=== PATIENT | male | born 1940 | race Caucasian/White ===

== ENCOUNTER → 2017-02-09 | Outpatient (CLI) | payer BC ==
[~2017-02-09] MED LIST: FAMO20TA11 PO; INDA1TAB3 PO; MCR40 PO; NEBI10TA2 PO; NXM/40 PO
[2017-02-09 12:58] LABS: HEMATOCRIT 43.5 % (42-52); MEAN CORPUSCULAR HEMOGLOBIN 30.3 pg (25-34); MEAN PLATELET VOLUME 10.7 fL (7.4-10.4); PLATELET COUNT 194 K/uL (130-400); RED BLOOD COUNT 4.89 M/uL (4.7-6.1); WHITE BLOOD COUNT 4.19 K/uL (4.8-10.8)
[2017-02-09 13:33] LABS: BLOOD UREA NITROGEN 15 mg/dl (7-18); BUN/CREATININE RATIO 14.9 (10-20); CALCIUM 8.5 mg/dl (8.5-10.1); CARBON DIOXIDE 32 mmol/L (21-32); CHLORIDE 101 mmol/L (98-107); CREATININE 0.97 mg/dl (0.60-1.40); GLUCOSE 98 mg/dl (70-99); POTASSIUM 3.1 mmol/L (3.5-5.1); SODIUM 141 mmol/L (136-145)
== END ==
LOC: C.LABPVFM 10:43
PROVIDERS: ATTEND Family Medicine
DX: E87.6 Hypokalemia (principal); J11.1 Influenza due to unidentified influenza virus with other respiratory manifestations

== ENCOUNTER → 2017-03-04 | Outpatient (CLI) | payer BC ==
[2017-03-04 13:12] LABS: CHOLESTEROL/HDL RATIO 5.1
== END | disposition home or self-care (01) ==
LOC: C.LABPVFM 08:11
PROVIDERS: ATTEND Nurse Practitioner
DX: R89.9 Unspecified abnormal finding in specimens from other organs, systems and tissues (principal); E87.6 Hypokalemia

== ENCOUNTER → 2017-04-17 | Outpatient (CLI) | payer BC ==
[~2017-04-17] MED LIST changes: -INDA1TAB3 PO
== END ==
LOC: C.LABPVFM 10:21
PROVIDERS: ATTEND Nurse Practitioner
DX: E87.6 Hypokalemia (principal)

== ENCOUNTER → 2017-05-11 | Outpatient (CLI) | payer BC ==
[2017-05-11 13:35] LABS: BLOOD UREA NITROGEN 15 mg/dl (7-18); BUN/CREATININE RATIO 17.5 (10-20); CARBON DIOXIDE 33 mmol/L (21-32); CHLORIDE 100 mmol/L (98-107); CREATININE 0.88 mg/dl (0.60-1.40); GLUCOSE 106 mg/dl (70-99); POTASSIUM 3.5 mmol/L (3.5-5.1); SODIUM 142 mmol/L (136-145)
[2017-05-11 13:37] LABS: CALCIUM 8.7 mg/dl (8.5-10.1)
== END | disposition home or self-care (01) ==
LOC: C.LABPVFM 10:12
PROVIDERS: ATTEND Family Medicine
DX: R63.5 Abnormal weight gain (principal); R06.00 Dyspnea, unspecified; I10 Essential (primary) hypertension

== ENCOUNTER → 2017-05-31 | Outpatient (CLI) | payer BC ==
--- NOTE | 2017-05-31 10:34 | DIAGNOSTIC IMAGING REPORT ---
THYROID ULTRASOUND HISTORY: Dysphagia E04.2 Multiple thyroid [id number] Dysphagia needs [id number] COMPARISON: 12/06/2015 FINDINGS: Right lobe: Maximum dimension 4.7 cm. 2.8 x 2.5 x 1.6 cm nodule within the right thyroid lobe unchanged. Several smaller adjacent nodule. Left lobe: Maximum dimension 3.8 centers. Several nodules measuring up to 1 cm. The thyroid isthmus nodules also similar. Isthmus: As above IMPRESSION: Multinodular thyroid study unchanged from the prior study. Electronically signed by: Jignesh Moraes M.D. 05/31/2017 10:33 AM Dictated Date/Time: 05/31/2017 10:31 AM
== END | disposition home or self-care (01) ==
LOC: C.ULTR 10:03
PROVIDERS: ATTEND Nurse Practitioner
DX: E04.2 Nontoxic multinodular goiter (principal); R13.10 Dysphagia, unspecified

== ENCOUNTER → 2017-07-12 | Outpatient (CLI) | payer BC ==
[2017-07-12 13:52] LABS: CHOLESTEROL/HDL RATIO 4.8
== END | disposition home or self-care (01) ==
LOC: C.LABPVFM 08:31
PROVIDERS: ATTEND Nurse Practitioner
DX: E78.00 Pure hypercholesterolemia, unspecified (principal)

== ENCOUNTER → 2017-08-22 | Outpatient (CLI) | payer BC ==
--- NOTE | 2017-08-22 11:57 | DIAGNOSTIC IMAGING REPORT ---
ULTRASOUND GUIDED FINE NEEDLE ASPIRATION OF RIGHT LOBE THYROID NODULE CLINICAL HISTORY: Right lobe thyroid nodule. COMPARISON STUDY: Thyroid ultrasound May 31, 2017. PROCEDURE: The procedure, risks and benefits were discussed with the patient. The patient agreed to the procedure and informed written consent was obtained. Sonography revealed the 2.8 cm right lobe nodule which was targeted for fine needle aspiration. Skin was prepped and draped in sterile fashion and local anesthesia achieved with 1% lidocaine. Under direct ultrasound guidance, 3 25-gauge fine needle aspirations were performed. Samples were deemed preliminarily adequate by pathology. The patient tolerated the procedure well and no immediate complications were evident. IMPRESSION: Ultrasound guided fine needle aspiration of 2.8 cm right lobe thyroid nodule. Electronically signed by: Clive Simms M.D. 08/22/2017 11:56 AM Dictated Date/Time: 08/22/2017 11:37 AM
== END | disposition home or self-care (01) ==
LOC: C.ULTR 10:22
DX: E04.1 Nontoxic single thyroid nodule (principal)

== ENCOUNTER → 2017-11-01 | Outpatient (CLI) | payer BC ==
[2017-11-01 13:12] LABS: BLOOD UREA NITROGEN 16 mg/dl (7-18); BUN/CREATININE RATIO 19.8 (10-20); CALCIUM 9.1 mg/dl (8.5-10.1); CARBON DIOXIDE 34 mmol/L (21-32); CHLORIDE 100 mmol/L (98-107); CREATININE 0.79 mg/dl (0.60-1.40); GLUCOSE 126 mg/dl (70-99); POTASSIUM 3.4 mmol/L (3.5-5.1); SODIUM 136 mmol/L (136-145)
== END | disposition home or self-care (01) ==
LOC: C.LABPVFM 10:03
PROVIDERS: ATTEND Nurse Practitioner
DX: I10 Essential (primary) hypertension (principal)

== ENCOUNTER 2018-01-16 20:02 | Emergency (ER) | payer BC ==
[~2018-01-16] VITALS: Ht 175.3 cm; Wt 110.0 kg
[~2018-01-16 20:02] MED LIST changes: -NXM/40 PO
[2018-01-16 20:21] VITALS: TEMP 36.7; Ht 175.3 cm; Wt 110.0 kg
[2018-01-16] MEDS ORDERED: NXM/40 PO (21:14)
--- NOTE | 2018-01-16 22:34 | EMERGENCY ROOM VISIT NOTE ---
History Report prepared by [place]: Marvin Quintero Under the Supervision of: Dr. Justin Malone D.O. First contact with patient: 22:19 Chief Complaint: BACK PAIN Stated Complaint: HIGH BLOOD PRESSURE-191/81. SOB, BACK PAIN History of Present Illness The patient is a 77 year old male with a history of hypertension who presents to the Emergency Room with complaints of worsening bilateral low back pain that started earlier this week. He states that he has been to a chiropractor in the past, so he had an adjustment done 2 days ago, but the pain has been gradually getting worse over the course of the week. He adds that recently he has been having some trouble breathing. The patient says that he has had back pain in the past, and he did fracture his lower back in 2005 taking covers off a swimming pool. He states this his current back pain is worsened with movement. Per the patient's , the patient's feet have been puffy for a while. The patient denies any chest pain or abdominal pain. He notes no history of heart issues. The patient has been taking Aleve for the back pain. Source of History: patient Onset: Earlier this week Position: back (lower bilateral) Symptom Intensity: gradually getting worse to the point needing to come here Quality: other (hx of back pain and fracture) Timing: worsening Associated Symptoms: + SOB, No chest pain, No abdominal pain Note: Associated symptoms: Feet swelling. Review of Systems See HPI for pertinent positives & negatives. A total of 10 systems reviewed and were otherwise negative. Past Medical & Surgical Medical Problems: (1) Colon polyps (2) Hearing loss (3) Osteopenia (4) Reflux (5) T12 compression fracture Surgical Problems: (1) H/O colonoscopy Family History Patient reports no known family medical history. Social History Smoking Status: Never Smoker Marital Status: Housing Status: lives with family Occupation Status: employed Current/Historical Medications Scheduled Amlodipine Besylate (Amlodipine Besylate), 5 MG PO DAILY Cholecalciferol (Vitamin D), 2,000 UNITS PO DAILY Esomeprazole Magnesium (Nexium), 40 MG PO DAILY Fluticasone Propionate (Nasal) (Flonase Allergy Relief), 1 SPRAY AMY BID Indapamide (Indapamide), 1.25 MG PO DAILY Polyethylene Glycol 3350 (Miralax), 17 GM PO DAILY Potassium Chloride (Potassium Chloride Er), 10 MEQ PO DAILY Telmisartan (Telmisartan), 40 MG PO DAILY Scheduled PRN Famotidine (Famotidine), 20 MG PO Q12 PRN for ACID REFLUX Oxycodone Immediate Rel Tab (Roxicodone Ir), 1-2 TAB PO Q4H PRN for Severe Pain Allergies Coded Allergies: CI Pigment Blue 63 (Verified Allergy, Unknown, BRADYCARDIA, 01/16/18) Cefaclor (Verified Allergy, Unknown, ., 01/16/18) Cyclobenzaprine (Verified Allergy, Unknown, UNKNOWN, 01/16/18) Nebivolol (Verified Allergy, Unknown, BRADYCARDIA, 01/16/18) Penicillins (Verified Allergy, Unknown, ., 01/16/18) Sulfa Antibiotics (Verified Allergy, Unknown, ., 01/16/18) Yellow Dye (Verified Allergy, Unknown, BRADYCARDIA, 01/16/18) Uncoded Allergies: BENGAY (Adverse Reaction, Unknown, ARTHRITIS, 01/16/18) Physical Exam Vital Signs Date Time Temp Pulse Resp B/P (MAP) Pulse Ox O2 Delivery O2 Flow Rate FiO2 01/17/18 00:27 80 16 153/61 95 Room Air 01/16/18 22:37 76 01/16/18 22:27 78 16 181/60 96 Room Air 01/16/18 20:21 36.7 87 22 152/81 95 Room Air Physical Exam GENERAL: Patient is awake, alert, somewhat anxious appearing and uncomfortable. EYES: The conjunctivae are clear. The pupils are round and reactive. EARS, NOSE, MOUTH AND THROAT: The nose is without any evidence of any deformity. Mucous membranes are moist tongue is midline NECK: The neck is nontender and supple. RESPIRATORY: Lung sounds are diminished at both bases. No tachypnea or conversational dyspnea noted. CARDIOVASCULAR: Regular rate and rhythm noted there no murmurs rubs or gallops normal S1 normal S2 GASTROINTESTINAL: The abdomen is mildly distended but soft. No tenderness, guarding, or rigidity. BACK: There was diffuse lumbar spine tenderness to palpation. No stepoff noted. Range of motion testing revealed pain. MUSCULOSKELETAL/EXTREMITIES: There is no evidence of gross deformity full range of motion is noted in the hips and shoulders SKIN: Pedal edema bilaterally. NEUROLOGIC: Patient is awake alert and oriented x3. Patellar tendon reflexes are 2+ bilaterally. Medical Decision & Procedures ER Provider Diagnostic Interpretation: X-ray results as stated below per interpretation by me: Lumbar spine: significant compression fractures noted T12 and L1. Alignment appears normal. Nonspecific bowel gas pattern noted. Chest 2-views: reveals no definite infiltrate, no free air. Laboratory Results 01/16/18 23:44 Red Blood Count 4.30, Mean Corpuscular Volume 89.1, Mean Corpuscular Hemoglobin 29.5, Mean Corpuscular Hemoglobin Concent 33.2, Mean Platelet Volume 9.4, Neutrophils (%) (Auto) 75.6, Lymphocytes (%) (Auto) 10.6, Monocytes (%) (Auto) 11.8, Eosinophils (%) (Auto) 1.3, Basophils (%) (Auto) 0.1, Neutrophils # (Auto ) 7.73, Lymphocytes # (Auto) 1.08, Monocytes # (Auto) 1.20, Eosinophils # (Auto ) 0.13, Basophils # (Auto) 0.01 01/16/18 23:44 Test 01/16/18 21:52 01/16/18 23:44 Urine Color YELLOW Urine Appearance CLEAR (CLEAR) Urine pH 7.5 (4.5-7.5) Urine Specific [place] 1.012 (1.000-1.030) Urine Protein NEG (NEG) Urine Glucose (UA) 2+ (NEG) Urine Ketones NEG (NEG) Urine Occult Blood NEG (NEG) Urine Nitrite NEG (NEG) Urine Bilirubin NEG (NEG) Urine Urobilinogen NEG (NEG) Urine Leukocyte Esterase NEG (NEG) White Blood Count 10.21 K/uL (4.8-10.8) Red Blood Count 4.30 M/uL (4.7-6.1) Hemoglobin 12.7 g/dL (14.0-18.0) Hematocrit 38.3 % (42-52) Mean Corpuscular Volume 89.1 fL (80-100) Mean Corpuscular Hemoglobin 29.5 pg (25-34) Mean Corpuscular Hemoglobin Concent 33.2 g/dl (32-36) Platelet Count 282 K/uL (130-400) Mean Platelet Volume 9.4 fL (7.4-10.4) Neutrophils (%) (Auto) 75.6 % Lymphocytes (%) (Auto) 10.6 % Monocytes (%) (Auto) 11.8 % Eosinophils (%) (Auto) 1.3 % Basophils (%) (Auto) 0.1 % Neutrophils # (Auto) 7.73 K/uL (1.4-6.5) Lymphocytes # (Auto) 1.08 K/uL (1.2-3.4) Monocytes # (Auto) 1.20 K/uL (0.11-0.59) Eosinophils # (Auto) 0.13 K/uL (0-0.5) Basophils # (Auto) 0.01 K/uL (0-0.2) RDW Standard Deviation 48.5 fL (36.4-46.3) RDW Coefficient of Variation 14.8 % (11.5-14.5) Immature Granulocyte % (Auto) 0.6 % Immature Granulocyte # (Auto) 0.06 K/uL (0.00-0.02) Prothrombin Time 10.5 SECONDS (9.0-12.0) Prothromb Time International Ratio 1.0 (0.9-1.1) Activated Partial Thromboplast Time 27.1 SECONDS (21.0-31.0) Partial Thromboplastin Ratio 1.0 Anion Gap 5.0 mmol/L (3-11) Est Creatinine Clear Calc Drug Dose 90.4 ml/min Estimated GFR () 98.0 Estimated GFR (Non- 84.5 BUN/Creatinine Ratio 23.8 (10-20) Calcium Level 8.8 mg/dl (8.5-10.1) Total Bilirubin 0.6 mg/dl (0.2-1) Direct Bilirubin 0.2 mg/dl (0-0.2) Aspartate Amino Transf (AST/SGOT) 20 U/L (15-37) Alanine Aminotransferase (ALT/SGPT) 34 U/L (12-78) Alkaline Phosphatase 112 U/L (45-117) Total Creatine Kinase 94 U/L (39-308) Creatine Kinase MB 2.0 ng/ml (0.5-3.6) Creatine Kinase MB Ratio 2.1 (0-3.0) Troponin I < 0.015 ng/ml (0-0.045) Total Protein 7.2 gm/dl (6.4-8.2) Albumin 3.3 gm/dl (3.4-5.0) Lipase 154 U/L (73-393) Laboratory results per my review. ECG Per My Interpretation Indication: SOB/dyspnea Rate (beats per minute): 83 Rhythm: normal sinus Findings: ST depression (Lateral), other (no PVC's) Comparison ECG Date: increased rate otherwise no change from 09/06/16 ED Course 4: The patient was evaluated in room C6. A complete history and physical examination were performed. 5: Ordered Morphine Sulfate Inj 4 mg IV PRN. 0040: Upon reevaluation, the patient is resting. I discussed the results and treatment plan with him. He verbalized agreement of the treatment plan. He was discharged home. 0045: Ordered Roxicodone Immediate Rel 5MG Home Pack 1 homepack PO. Medical Decision Differential diagnosis: Etiologies such as musculoskeletal, disc herniation, fracture, aortic disease, metastatic disease, cord compression, discitis, infection, renal colic, gastrointestinal, acute exacerbation of chronic back pain, sciatica, cauda equina, as well as others were entertained. Nursing notes reviewed. The patient is a 77-year-old male who presented to the emergency department for evaluation of back pain. The patient had a history of compression fracture in the past. He appears to have compression fractures in his thoracic and lumbar spine at this time. I discussed the patient's laboratory and radiographic studies with him. He was encouraged to rest and avoid any strenuous activity. I also encouraged him to call his primary care physician to schedule a follow- up appointment for as soon as possible. I also encouraged him to return the emergency department immediately if symptoms change worsening the need arise. The patient's pain appears to be reproducible and appears to be musculoskeletal in nature. Medication Reconcilliation Current Medication List: was personally reviewed by me Blood Pressure Screening Patient's blood pressure: Elevated blood pressure Blood pressure disposition: Elevated BP felt to be situational Impression Primary Impression: Lumbar compression fracture Additional Impressions: Thoracic compression fracture Back pain Peripheral edema Scribe Attestation The scribe's documentation has been prepared under my direction and personally reviewed by me in its entirety. I confirm that the note above accurately reflects all work, treatment, procedures, and medical decision making performed by me. Departure Information Dispostion Home / Self-Care Prescriptions Polyethylene Glycol 3350 (MIRALAX) 1 Pow Pow 17 GM PO DAILY, #527 GM Prov: Justin Malone, DO 01/17/18 Oxycodone Immediate Rel Tab (ROXICODONE IR) 5 Mg Tab 1-2 TAB PO Q4H Y for Severe Pain, #24 TAB Prov: Justin Malone, DO 01/17/18 Referrals Berna Yañez C.R.N.P (PCP) Patient Instructions ED Fx Comp Vertebral, [facility] Additional Instructions Continue all medications as prescribed. Follow-up with your family doctor soon as possible. Follow-up with the field sales specialist as scheduled. Return to the emergency department if symptoms worsen or if need arises. Problem Qualifiers Primary Impression: Lumbar compression fracture Encounter type: initial encounter Lumbar vertebra fracture level: L1 Fracture type: closed Qualified Codes: S32.010A - Wedge compression fracture of first lumbar vertebra, initial encounter for closed fracture Additional Impressions: Thoracic compression fracture Encounter type: initial encounter Fracture type: closed Qualified Codes: S22.000A - Wedge compression fracture of unspecified thoracic vertebra, initial encounter for closed fracture Back pain Back pain location: thoracic back pain Chronicity: acute Back pain laterality: midline Qualified Codes: M54.6 - Pain in thoracic spine
[2018-01-16] MEDS ORDERED: NRV/5 PO (22:45)
[2018-01-16] MEDS ORDERED: CHOL20009 PO (22:45)
[2018-01-16] MEDS ORDERED: FAMO1TAB47 PO (22:45)
[2018-01-16] MEDS ORDERED: MoRPHine SULFATE 4 MG/ML 1 ML CARP\\VIAL IV PRN (22:45)
[2018-01-16] MEDS ORDERED: FLUT0.15 NAE (22:45)
[2018-01-16] MEDS ORDERED: LZL125 PO (22:45)
[2018-01-16] MEDS ORDERED: POTA1CAP2 PO (22:45)
[2018-01-16 23:58] LABS: BASO % 0.1 %; BASO ABS # 0.01 K/uL (0-0.2); EOS % 1.3 %; EOS ABS # 0.13 K/uL (0-0.5); HEMATOCRIT 38.3 % (42-52); HEMOGLOBIN 12.7 g/dL (14.0-18.0); IG# 0.06 K/uL (0.00-0.02); LYMPH % 10.6 %; LYMPH ABS # 1.08 K/uL (1.2-3.4); MEAN CELL VOLUME 89.1 fL (80-100); MEAN CORPUSCULAR HEMOGLOBIN 29.5 pg (25-34); MEAN CORPUSCULAR HGB CONC 33.2 g/dl (32-36); MEAN PLATELET VOLUME 9.4 fL (7.4-10.4); MONO % 11.8 %; NEUT % 75.6 %; NEUT ABS # 7.73 K/uL (1.4-6.5); PLATELET COUNT 282 K/uL (130-400); RED CELL DISTRIBUTION WIDTH CV 14.8 % (11.5-14.5); RED CELL DISTRIBUTION WIDTH SD 48.5 fL (36.4-46.3); WHITE BLOOD COUNT 10.21 K/uL (4.8-10.8)
[2018-01-17 00:09] LABS: PTT PATIENT 27.1 SECONDS (21.0-31.0)
[2018-01-17 00:24] LABS: ALBUMIN 3.3 gm/dl (3.4-5.0); ALT/SGPT 34 U/L (12-78); AST/SGOT 20 U/L (15-37); BLOOD UREA NITROGEN 19 mg/dl (7-18); CALCIUM 8.8 mg/dl (8.5-10.1); CARBON DIOXIDE 32 mmol/L (21-32); CREATININE 0.81 mg/dl (0.60-1.40); GLUCOSE 121 mg/dl (70-99); LIPASE 154 U/L (73-393); POTASSIUM 3.6 mmol/L (3.5-5.1); SODIUM 136 mmol/L (136-145)
[2018-01-17 00:27] VITALS: BP 153/61; PULSE 80; O2SAT 95
[2018-01-17 00:30] LABS: ALKALINE PHOSPHATASE 112 U/L (45-117); TOTAL PROTEIN 7.2 gm/dl (6.4-8.2)
[2018-01-17] MEDS ORDERED: OXYC1TAB3 PO (00:42)
[2018-01-17] MEDS ORDERED: POLY335019 PO (00:42)
[2018-01-17] MEDS ORDERED: OXYCODONE IR HOME PACK PO ONE (00:45)
--- NOTE | 2018-01-17 06:34 | DIAGNOSTIC IMAGING REPORT ---
LUMBAR SPINE 2 OR 3 VIEWS CLINICAL HISTORY: PAIN pain COMPARISON STUDY: MRI lumbar spine 07/05/2006 FINDINGS: Compression deformities at T12 and L1. T12 is potentially old. L1 was not present on the prior exam. Degenerative disc changes noted throughout. No additional compression deformities are noted. IMPRESSION: 1. Old compression deformity T12. 2. New or interval compression deformity L1 3. Moderate degenerative disc changes throughout. The above report was generated using voice recognition software. It may contain grammatical, syntax or spelling errors. Electronically signed by: Jignesh Moraes M.D. 01/17/2018 6:32 AM Dictated Date/Time: 01/17/2018 6:30 AM
--- NOTE | 2018-01-17 06:35 | DIAGNOSTIC IMAGING REPORT ---
CHEST 2 VIEWS ROUTINE CLINICAL HISTORY: swelling pain. Edema. COMPARISON STUDY: 09/06/2016 FINDINGS: Mild cardiomegaly. Prominent pulmonary vasculature. Diaphragms are smooth. IMPRESSION: Mild congestive heart failure The above report was generated using voice recognition software. It may contain grammatical, syntax or spelling errors. Electronically signed by: Jignesh Moraes M.D. 01/17/2018 6:34 AM Dictated Date/Time: 01/17/2018 6:33 AM
== END 2018-01-17 00:58 | disposition home or self-care (01) ==
LOC: C.EDB 20:03 → C.EDC 01-17 00:58
DX: S32.010A Wedge compression fracture of first lumbar vertebra, initial encounter for closed fracture (principal); S22.000A Wedge compression fracture of unspecified thoracic vertebra, initial encounter for closed fracture; M54.6 Pain in thoracic spine; R60.9 Edema, unspecified; R06.02 Shortness of breath; I10 Essential (primary) hypertension; M85.80 Other specified disorders of bone density and structure, unspecified site; K21.9 Gastro-esophageal reflux disease without esophagitis; Z79.899 Other long term (current) drug therapy; Z87.19 Personal history of other diseases of the digestive system; Z87.828 Personal history of other (healed) physical injury and trauma; Z88.0 Allergy status to penicillin; Z88.1 Allergy status to other antibiotic agents; Z88.2 Allergy status to sulfonamides; Z88.6 Allergy status to analgesic agent; Z88.8 Allergy status to other drugs, medicaments and biological substances; Z91.048 Other nonmedicinal substance allergy status; X58.XXXA Exposure to other specified factors, initial encounter

== ENCOUNTER 2018-01-19 16:45 | Observation (INO) | payer BC, OTHER ==
[~2018-01-19] VITALS: Ht 175.3 cm; Wt 118.6 kg
[~2018-01-19 16:45] MED LIST changes: +CHOL20009 PO; +FAMO1TAB47 PO; -FAMO20TA11 PO; +FLUT0.15 NAE; +LZL125 PO; -NEBI10TA2 PO; +NRV/5 PO; +NXM/40 PO; +OXYC1TAB3 PO; +POLY335019 PO; +POTA1CAP2 PO
[2018-01-19] MEDS ORDERED: ONDANSETRON INJ 2 MG/ML 2 ML VIAL IV STA (17:12)
[2018-01-19] MEDS ORDERED: FENTANYL CITRATE INJ 50 MCG/1 ML 2 ML VIAL IV PRN (17:15)
--- NOTE | 2018-01-19 17:29 | EMERGENCY ROOM VISIT NOTE ---
History Report prepared by [place]: Gaetano Mason Under the Supervision of: Dr. Justin Malone D.O. First contact with patient: 17:01 Chief Complaint: BACK PAIN Stated Complaint: BACK PAIN / EDEMA LOWER LEGS History of Present Illness The patient is a 77 year old male who presents to the Emergency Room with complaints of constant back pain for five days. Per , the patient has had back problems for a while, though she could not seem to clarify when the back pain initially began. She states he was seen by Chiropractor five days ago. He was recently seen in the ED four days ago for similar symptoms. He was diagnosed with a compression fracture in his lumbar spine. He was prescribed Oxycodone 5 mg PO and he last took a dose at 1230 today. Per , the patient took Tylenol at 0300 and 0600 this morning. Per , the patient has been walking at home. He states the pain does not seem too bad when he is already walking, though it is difficult to start walking. He notes movement worsens his pain. He states that he is have issues breathing. He has leg swelling. He denies any numbness in his legs, though he reports pain in his left toes. He states that he cannot lift his legs straight up due to the pain. He reports abdominal distention. He has a history of hemangiomas in his liver since . Source of History: patient, spouse/significant other Onset: five days Position: back Timing: constant Modifying Factors (Worsening): movement Associated Symptoms: + SOB, + abdominal pain (distention), No numbness (leg) Note: He notes leg swelling and left toe pain. Review of Systems See HPI for pertinent positives & negatives. A total of 10 systems reviewed and were otherwise negative. Past Medical & Surgical Medical Problems: (1) Bradycardia (2) Colon polyps (3) Compression fx, lumbar spine (4) Fall (5) Gait abnormality (6) Hearing loss (7) Hypertension (8) Osteopenia (9) Reflux (10) Rib contusion (11) T12 compression fracture Surgical Problems: (1) H/O colonoscopy Family History Cancer Gallbladder disease Hypertension Kidney disease Kidney stones Social History Smoking Status: Never Smoker Smokeless Tobacco Use: No Alcohol Use: none Drug Use: none Marital Status: Housing Status: lives with family Occupation Status: retired Current/Historical Medications Scheduled Amlodipine Besylate (Amlodipine Besylate), 5 MG PO DAILY Cholecalciferol (Vitamin D), 2,000 UNITS PO DAILY Esomeprazole Magnesium (Nexium), 40 MG PO DAILY Fluticasone Propionate (Nasal) (Flonase Allergy Relief), 1 SPRAY AMY BID Indapamide (Indapamide), 1.25 MG PO DAILY Polyethylene Glycol 3350 (Miralax), 17 GM PO DAILY Potassium Chloride (Potassium Chloride Er), 10 MEQ PO DAILY Telmisartan (Telmisartan), 40 MG PO DAILY Scheduled PRN Famotidine (Famotidine), 20 MG PO Q12 PRN for ACID REFLUX Oxycodone Immediate Rel Tab (Roxicodone Ir), 1-2 TAB PO Q4H PRN for Severe Pain Allergies Coded Allergies: CI Pigment Blue 63 (Verified Allergy, Unknown, BRADYCARDIA, 01/16/18) Cefaclor (Verified Allergy, Unknown, ., 01/16/18) Cyclobenzaprine (Verified Allergy, Unknown, UNKNOWN, 01/16/18) Nebivolol (Verified Allergy, Unknown, BRADYCARDIA, 01/16/18) Penicillins (Verified Allergy, Unknown, ., 01/16/18) Sulfa Antibiotics (Verified Allergy, Unknown, ., 01/16/18) Yellow Dye (Verified Allergy, Unknown, BRADYCARDIA, 01/16/18) Uncoded Allergies: BENGAY (Adverse Reaction, Unknown, ARTHRITIS, 01/16/18) Physical Exam Vital Signs Date Time Temp Pulse Resp B/P (MAP) Pulse Ox O2 Delivery O2 Flow Rate FiO2 01/19/18 19:10 64 17 134/80 96 Room Air 01/19/18 18:03 68 18 149/75 96 Nasal Cannula 2.0 01/19/18 18:01 76 20 144/109 93 Nasal Cannula 2.0 01/19/18 17:38 Nasal Cannula 2.0 01/19/18 17:08 66 01/19/18 16:55 36.6 69 20 158/79 93 Room Air Physical Exam GENERAL: Patient is awake, alert, and in no acute distress. Patient is mildly anxious, overall comfortable. EYES: The conjunctivae are clear. The pupils are round and reactive. EARS, NOSE, MOUTH AND THROAT: The nose is without any evidence of any deformity. Mucous membranes are moist tongue is midline NECK: The neck is nontender and supple. RESPIRATORY: Normal respiratory effort is noted there is no evidence of wheezing rhonchi or rales CARDIOVASCULAR: Regular rate and rhythm noted there no murmurs rubs or gallops normal S1 normal S2 GASTROINTESTINAL: The abdomen is moderately distended but soft, no tenderness, guarding or rigidity appreciated. BACK: Lower lumbar spine tenderness to percussion, ROM significantly diminished secondary to pain MUSCULOSKELETAL/EXTREMITIES: There is no evidence of gross deformity full range of motion is noted in the hips and shoulders. SKIN: Pedal edema bilaterally. NEUROLOGIC: Patient is awake alert and oriented x3 strength is symmetric patellar reflexes are 2+ bilaterally. Straight leg raise positive bilaterally. Medical Decision & Procedures ER Provider Diagnostic Interpretation: Radiology results as stated below per my review and radiologist interpretation: CHEST ONE VIEW PORTABLE HISTORY: Generalized abdominal pain. COMPARISON: Chest 01/16/2018. FINDINGS: The heart remains mildly enlarged. There is mild central pulmonary vascular congestion without overt edema. No pneumothorax. No pleural effusions. Focal density within the base of the right lower lobe remains unchanged and is likely associated with the right rib. This may be due to an old, healed fracture. No acute rib fractures identified. IMPRESSION: Mild cardiomegaly with mild congestive change. Electronically signed by: Ramy Gan M.D. 01/19/2018 5:50 PM Dictated Date/Time: 01/19/2018 5:[address] DOSE: 1277.10 mGy.cm HISTORY: Low back pain, recernt comp fx TECHNIQUE: Multiaxial CT images of the lumbar spine were performed and reformatted in the sagittal and coronal plane without the use of contrast. A dose lowering technique was utilized adhering to the principles of ALARA. COMPARISON: Lumbar spine MRI 07/05/2006. Lumbar spine radiograph 01/16/2018. FINDINGS: Mild disc space narrowing at L5-S1, unchanged. Moderate supra endplate compression deformity at T12 which demonstrates greater than 50% loss of height. No surrounding vertebral edema. Therefore, this is likely old. Mild prevertebral edema surrounding the mild superior endplate compression fracture at L1. This demonstrates approximately 10% loss of height. No associated retropulsion. Therefore, this favors an acute to subacute fracture. This remains unchanged from the recent radiograph. No additional fractures identified within the lumbar spine. The sacrum appears intact. Mild central canal narrowing at L3-L4 and L4-L5. IMPRESSION: 1. Mild superior endplate compression fracture at L1 which is likely acute to subacute. This demonstrates 10% loss of height. This is unchanged compared to the recent radiograph. 2. Old moderate superior endplate compression fracture at T12, unchanged. Electronically signed by: Ramy Gan M.D. 01/19/2018 6:17 PM Dictated Date/Time: 01/19/2018 6:12 PM Laboratory Results Test 01/19/18 17:25 01/19/18 18:18 Immature Granulocyte % (Auto) 0.5 % White Blood Count 11.02 K/uL (4.8-10.8) Red Blood Count 4.35 M/uL (4.7-6.1) Hemoglobin 12.8 g/dL (14.0-18.0) Hematocrit 39.2 % (42-52) Mean Corpuscular Volume 90.1 fL (80-100) Mean Corpuscular Hemoglobin 29.4 pg (25-34) Mean Corpuscular Hemoglobin Concent 32.7 g/dl (32-36) Platelet Count 343 K/uL (130-400) Mean Platelet Volume 9.5 fL (7.4-10.4) Neutrophils (%) (Auto) 72.1 % Lymphocytes (%) (Auto) 15.4 % Monocytes (%) (Auto) 11.1 % Eosinophils (%) (Auto) 0.8 % Basophils (%) (Auto) 0.1 % Neutrophils # (Auto) 7.95 K/uL (1.4-6.5) Lymphocytes # (Auto) 1.70 K/uL (1.2-3.4) Monocytes # (Auto) 1.22 K/uL (0.11-0.59) Eosinophils # (Auto) 0.09 K/uL (0-0.5) Basophils # (Auto) 0.01 K/uL (0-0.2) Immature Granulocyte # (Auto) 0.05 K/uL (0.00-0.02) Prothrombin Time 10.5 SECONDS (9.0-12.0) Prothromb Time International Ratio 1.0 (0.9-1.1) Activated Partial Thromboplast Time 26.8 SECONDS (21.0-31.0) Partial Thromboplastin Ratio 1.0 Total Bilirubin 0.4 mg/dl (0.2-1) Direct Bilirubin 0.1 mg/dl (0-0.2) Aspartate Amino Transf (AST/SGOT) 24 U/L (15-37) Alanine Aminotransferase (ALT/SGPT) 32 U/L (12-78) Alkaline Phosphatase 101 U/L (45-117) Total Creatine Kinase 121 U/L (39-308) Creatine Kinase MB 2.9 ng/ml (0.5-3.6) Creatine Kinase MB Ratio 2.4 (0-3.0) Troponin I < 0.015 ng/ml (0-0.045) Pro-B-Type Natriuretic Peptide 226 pg/ml (0-1800) Total Protein 7.0 gm/dl (6.4-8.2) Albumin 3.2 gm/dl (3.4-5.0) Lipase 148 U/L (73-393) Urine Color YELLOW Urine Appearance CLEAR (CLEAR) Urine pH 7.0 (4.5-7.5) Urine Specific [place] 1.008 (1.000-1.030) Urine Protein NEG (NEG) Urine Glucose (UA) NEG (NEG) Urine Ketones NEG (NEG) Urine Occult Blood NEG (NEG) Urine Nitrite NEG (NEG) Urine Bilirubin NEG (NEG) Urine Urobilinogen NEG (NEG) Urine Leukocyte Esterase NEG (NEG) Laboratory results per my review. Medications Administered Medications (Trade) Dose Ordered Sig/Deana Route Start Time Stop Time Status Last Admin Dose Admin Fentanyl Citrate (Fentanyl Inj) 50 mcg Q20M PRN IV 01/19/18 17:15 01/19/18 19:58 DC 01/19/18 17:29 50 MCG Ondansetron HCl (Zofran Inj) 4 mg NOW STAT IV 01/19/18 17:12 01/19/18 17:15 DC 01/19/18 17:28 4 MG ECG Per My Interpretation Indication: back/shoulder pain Rate (beats per minute): 69 Rhythm: normal sinus Findings: nonspecific-ST abn, no ectopy Change: no significant change (when compared to 01/16/2018) Change: Patient's EKG was interpreted by me. ED Course 1706: The patient was evaluated in room A9B. A complete history and physical examination were performed. 1712: Ordered Zofran 4 mg IV 1715: Ordered Fentanyl Citrate 50 mcg IV 1805: I reassessed the patient at this time. He is resting comfortably. I discussed the results and treatment plan with the patient. I answered all pertaining questions that he had. He expressed understanding and verbalized agreement. The patient will be further evaluated 1857: I spoke with JONH Agustin hospitalist. We discussed the patient's case. The patient will be evaluated by the [facility] for further management. 1922: I spoke with JONH Agu[facility]. We discussed the patient's case. The patient will be further evaluated. Medical Decision Prior records/ancillary studies reviewed. Triage Nursing notes reviewed. Additional history obtained from . The patient's history was concerning for back pain. Differential diagnosis: Etiologies such as musculoskeletal, disc herniation, fracture, aortic disease, metastatic disease, cord compression, discitis, infection, renal colic, gastrointestinal, acute exacerbation of chronic back pain, sciatica, cauda equina, as well as others were entertained. The patient is a 77-year-old male who presented to the emergency department for evaluation of back pain. The patient has been having worsening back pain. I evaluated this patient initially a few days ago he was diagnosed with compression fractures. The patient presents today with worsening pain. I discussed patient's laboratory and radiographic studies with him. He was treated with IV pain medication with some relief. He also has been experienced lower extremity edema because he is not able to get up and ambulate very well. This appears to be worsening over the last few days. I discussed patient's laboratory and radiographic studies with him and his significant other. Because of the ongoing pain I discussed his case with the on-call kelly Connolly hospitalist. They have agreed to evaluate the patient in the emergency department for further management and disposition. Medication Reconcilliation Current Medication List: was personally reviewed by me Blood Pressure Screening Patient's blood pressure: Elevated blood pressure Blood pressure disposition: Elevated BP felt to be situational Consults Time Called: 1799 Consulting Physician: JONH Agustin Returned Call: 1857 I spoke with JONH Agustin [facility]. We discussed the patient's case. The patient will be evaluated by the [facility] for further management. Additional Consults: Time Called: 1922 Consulted Physician: [facility] Additional Comments: I spoke with Dr. Bella, [facility] hospitalist. We discussed the patient's case. The patient will be further evaluated. Impression Primary Impression: Compression fracture of L1 lumbar vertebra Additional Impressions: Intractable back pain Lower extremity edema Scribe Attestation The scribe's documentation has been prepared under my direction and personally reviewed by me in its entirety. I confirm that the note above accurately reflects all work, treatment, procedures, and medical decision making performed by me. Departure Information Dispostion Being Evaluated By Hospitalist Referrals Berna Yañez, C.R.N.P (PCP) Patient Instructions My [facility] Problem Qualifiers Primary Impression: Compression fracture of L1 lumbar vertebra Encounter type: subsequent encounter Fracture type: closed Fracture healing : with routine healing Qualified Codes: S32.010D - Wedge compression fracture of first lumbar vertebra, subsequent encounter for fracture with routine healing
[2018-01-19 17:39] LABS: BASO % 0.1 %; BASO ABS # 0.01 K/uL (0-0.2); EOS % 0.8 %; EOS ABS # 0.09 K/uL (0-0.5); HEMATOCRIT 39.2 % (42-52); HEMOGLOBIN 12.8 g/dL (14.0-18.0); IG# 0.05 K/uL (0.00-0.02); LYMPH % 15.4 %; MEAN CELL VOLUME 90.1 fL (80-100); MEAN CORPUSCULAR HEMOGLOBIN 29.4 pg (25-34); MEAN CORPUSCULAR HGB CONC 32.7 g/dl (32-36); MEAN PLATELET VOLUME 9.5 fL (7.4-10.4); MONO % 11.1 %; MONO ABS # 1.22 K/uL (0.11-0.59); NEUT % 72.1 %; NEUT ABS # 7.95 K/uL (1.4-6.5); PLATELET COUNT 343 K/uL (130-400); RED CELL DISTRIBUTION WIDTH CV 14.5 % (11.5-14.5); RED CELL DISTRIBUTION WIDTH SD 47.9 fL (36.4-46.3); WHITE BLOOD COUNT 11.02 K/uL (4.8-10.8)
[2018-01-19 17:49] LABS: PTT PATIENT 26.8 SECONDS (21.0-31.0)
--- NOTE | 2018-01-19 17:52 | DIAGNOSTIC IMAGING REPORT ---
CHEST ONE VIEW PORTABLE HISTORY: Generalized abdominal pain. COMPARISON: Chest 01/16/2018. FINDINGS: The heart remains mildly enlarged. There is mild central pulmonary vascular congestion without overt edema. No pneumothorax. No pleural effusions. Focal density within the base of the right lower lobe remains unchanged and is likely associated with the right rib. This may be due to an old, healed fracture. No acute rib fractures identified. IMPRESSION: Mild cardiomegaly with mild congestive change. Electronically signed by: Ramy Gan M.D. 01/19/2018 5:50 PM Dictated Date/Time: 01/19/2018 5:49 PM
[2018-01-19 17:58] LABS: ALBUMIN 3.2 gm/dl (3.4-5.0); ALT/SGPT 32 U/L (12-78); BLOOD UREA NITROGEN 20 mg/dl (7-18); CALCIUM 9.1 mg/dl (8.5-10.1); CARBON DIOXIDE 34 mmol/L (21-32); CREATININE 0.94 mg/dl (0.60-1.40); GLUCOSE 117 mg/dl (70-99); LIPASE 148 U/L (73-393); POTASSIUM 3.8 mmol/L (3.5-5.1); SODIUM 136 mmol/L (136-145)
[2018-01-19 18:03] LABS: ALKALINE PHOSPHATASE 101 U/L (45-117); AST/SGOT 24 U/L (15-37); CKMB 2.9 ng/ml (0.5-3.6)
--- NOTE | 2018-01-19 18:18 | DIAGNOSTIC IMAGING REPORT ---
LUMBAR SPINE CT CT DOSE: 1277.10 mGy.cm HISTORY: Low back pain, recernt comp fx TECHNIQUE: Multiaxial CT images of the lumbar spine were performed and reformatted in the sagittal and coronal plane without the use of contrast. A dose lowering technique was utilized adhering to the principles of ALARA. COMPARISON: Lumbar spine MRI 07/05/2006. Lumbar spine radiograph 01/16/2018. FINDINGS: Mild disc space narrowing at L5-S1, unchanged. Moderate supra endplate compression deformity at T12 which demonstrates greater than 50% loss of height. No surrounding vertebral edema. Therefore, this is likely old. Mild prevertebral edema surrounding the mild superior endplate compression fracture at L1. This demonstrates approximately 10% loss of height. No associated retropulsion. Therefore, this favors an acute to subacute fracture. This remains unchanged from the recent radiograph. No additional fractures identified within the lumbar spine. The sacrum appears intact. Mild central canal narrowing at L3-L4 and L4-L5. IMPRESSION: 1. Mild superior endplate compression fracture at L1 which is likely acute to subacute. This demonstrates 10% loss of height. This is unchanged compared to the recent radiograph. 2. Old moderate superior endplate compression fracture at T12, unchanged. Electronically signed by: Ramy Gan M.D. 01/19/2018 6:17 PM Dictated Date/Time: 01/19/2018 6:12 PM
[2018-01-19] MEDS ORDERED: FAMOTIDINE 20 MG TAB PO PRN (19:30)
[2018-01-19] MEDS ORDERED: MAGNESIUM HYDROXIDE SUSP 30 ML UDC PO PRN (19:30)
[2018-01-19] MEDS ORDERED: ONDANSETRON INJ 2 MG/ML 2 ML VIAL IV PRN (19:30)
[2018-01-19] MEDS ORDERED: ACETAMINOPHEN 325 MG TAB PO PRN (19:30)
[2018-01-19] MEDS ORDERED: POLYETHYLENE (MIRALAX) 17 GM PACK PO PRN (19:30)
[2018-01-19] MEDS ORDERED: ALUMINUM/MAGNESIUM/SIMETH (MAALOX MAX) 30 ML UDC PO PRN (19:30)
[2018-01-19] MEDS ORDERED: HYDROmorphone INJ 0.5 MG/0.5 ML SYR IV PRN (19:30)
--- NOTE | 2018-01-19 19:42 | History and Physical ---
History & Physical Date & Time of Service: Jan 19, 2018 at 19:19 Chief Complaint: Back Pain / Edema Lower Legs Primary Care Physician: Berna Yañez C.R.N.P History of Present Illness Source: patient 77 y/o HTN, LE edema, GERD, spinal compression fractures with chronic LBP. Pt presents with progressive LBP x 4 days. He had presented to the ER 4 days prior and was DCd with narcotics. He returns as the narcotics have not had a desired effect and he is currently unable to ambulate. A lumbar CT shows an acute L1 compression fracture. The pt also states that his lower extremity edema has been worsening as of late and does not appear to be responding to Indapamide. Past Medical/Surgical History 1) Bradycardia 2) HTN 3) GERD 4) Chronic T12 compression fracture - acute L1 compression fracture 5) Chronic lower extremity edema Family History Cancer Gallbladder disease Hypertension Kidney disease Kidney stones Social History Smoking Status: Never Smoker Marital Status: Occupational Status: employed Multi-Drug Resistant Organisms History of MDRO: No Allergies Coded Allergies: CI Pigment Blue 63 (Verified Allergy, Unknown, BRADYCARDIA, 01/16/18) Cefaclor (Verified Allergy, Unknown, ., 01/16/18) Cyclobenzaprine (Verified Allergy, Unknown, UNKNOWN, 01/16/18) Nebivolol (Verified Allergy, Unknown, BRADYCARDIA, 01/16/18) Penicillins (Verified Allergy, Unknown, ., 01/16/18) Sulfa Antibiotics (Verified Allergy, Unknown, ., 01/16/18) Yellow Dye (Verified Allergy, Unknown, BRADYCARDIA, 01/16/18) Uncoded Allergies: BENGAY (Adverse Reaction, Unknown, ARTHRITIS, 01/16/18) Home Medications Scheduled Amlodipine Besylate (Amlodipine Besylate), 5 MG PO DAILY Cholecalciferol (Vitamin D), 2,000 UNITS PO DAILY Esomeprazole Magnesium (Nexium), 40 MG PO DAILY Fluticasone Propionate (Nasal) (Flonase Allergy Relief), 1 SPRAY AMY BID Indapamide (Indapamide), 1.25 MG PO DAILY Polyethylene Glycol 3350 (Miralax), 17 GM PO DAILY Potassium Chloride (Potassium Chloride Er), 10 MEQ PO DAILY Telmisartan (Telmisartan), 40 MG PO DAILY Scheduled PRN Famotidine (Famotidine), 20 MG PO Q12 PRN for ACID REFLUX Oxycodone Immediate Rel Tab (Roxicodone Ir), 1-2 TAB PO Q4H PRN for Severe Pain Review of Systems Constitutional: No fever, No chills, No sweats Eyes: No worsening of vision ENT: No hearing loss, No nasal symptoms Respiratory: No cough, No wheezing Cardiovascular: No chest pain, No PND Abdomen: No pain, No nausea, No vomiting Musculoskeletal: + problem reported (Imtractable LBP - worsening lower extremity edema) Genitourinary - Male: No hematuria, No dysuria, No urinary frequency, No urinary urgency Neurologic: No memory loss, No weakness Psychiatric: No depression symptoms Endocrine: No fatigue Hematologic / Lymphatic: No abnormal bleeding/bruising Integumentary: No rash Allergic / Immunologic: No environmental allergies Physical Exam Vital Signs Date Time Temp Pulse Resp B/P (MAP) Pulse Ox O2 Delivery O2 Flow Rate FiO2 01/19/18 19:10 64 17 134/80 96 Room Air 01/19/18 18:03 68 18 149/75 96 Nasal Cannula 2.0 01/19/18 18:01 76 20 144/109 93 Nasal Cannula 2.0 01/19/18 17:38 Nasal Cannula 2.0 01/19/18 17:08 66 01/19/18 16:55 36.6 69 20 158/79 93 Room Air General Appearance: WD/WN Head: normocephalic Eyes: normal inspection ENT: normal ENT inspection, pharynx normal Neck: supple, no JVD Respiratory/Chest: chest non-tender, lungs clear, normal breath sounds Cardiovascular: regular rate, rhythm, no edema, no gallop Abdomen/GI: normal bowel sounds, non tender, soft Back: normal inspection, no CVA tenderness Extremities/Musculoskelatal: no calf tenderness, normal capillary refill, + pedal edema Neurologic/Psych: shactor helper II-XII nml as tested, no motor/sensory deficits, alert, oriented x 3 Skin: normal color, warm/dry, no rash Diagnostics Laboratory Results Results Past 24 Hours Test 01/19/18 17:25 01/19/18 18:18 Range/Units White Blood Count 11.02 4.8-10.8 K/uL Red Blood Count 4.35 4.7-6.1 M/uL Hemoglobin 12.8 14.0-18.0 g/dL Hematocrit 39.2 42-52 % Mean Corpuscular Volume 90.1 80-100 fL Mean Corpuscular Hemoglobin 29.4 25-34 pg Mean Corpuscular Hemoglobin Concent 32.7 32-36 g/dl Platelet Count 343 130-400 K/uL Mean Platelet Volume 9.5 7.4-10.4 fL Neutrophils (%) (Auto) 72.1 % Lymphocytes (%) (Auto) 15.4 % Monocytes (%) (Auto) 11.1 % Eosinophils (%) (Auto) 0.8 % Basophils (%) (Auto) 0.1 % Neutrophils # (Auto) 7.95 1.4-6.5 K/uL Lymphocytes # (Auto) 1.70 1.2-3.4 K/uL Monocytes # (Auto) 1.22 0.11-0.59 K/uL Eosinophils # (Auto) 0.09 0-0.5 K/uL Basophils # (Auto) 0.01 0-0.2 K/uL RDW Standard Deviation 47.9 36.4-46.3 fL RDW Coefficient of Variation 14.5 11.5-14.5 % Immature Granulocyte % (Auto) 0.5 % Immature Granulocyte # (Auto) 0.05 0.00-0.02 K/uL Prothrombin Time 10.5 9.0-12.0 SECONDS Prothromb Time International Ratio 1.0 0.9-1.1 Activated Partial Thromboplast Time 26.8 21.0-31.0 SECONDS Partial Thromboplastin Ratio 1.0 Sodium Level 136 136-145 mmol/L Potassium Level 3.8 3.5-5.1 mmol/L Chloride Level 96 98-107 mmol/L Carbon Dioxide Level 34 21-32 mmol/L Anion Gap 7.0 3-11 mmol/L Blood Urea Nitrogen 20 7-18 mg/dl Creatinine 0.94 0.60-1.40 mg/dl Est Creatinine Clear Calc Drug Dose 81.0 ml/min Estimated GFR () 89.0 Estimated GFR (Non- 76.8 BUN/Creatinine Ratio 21.6 10-20 Random Glucose 117 70-99 mg/dl Calcium Level 9.1 8.5-10.1 mg/dl Total Bilirubin 0.4 0.2-1 mg/dl Direct Bilirubin 0.1 0-0.2 mg/dl Aspartate Amino Transf (AST/SGOT) 24 15-37 U/L Alanine Aminotransferase (ALT/SGPT) 32 12-78 U/L Alkaline Phosphatase 101 45-117 U/L Total Creatine Kinase 121 39-308 U/L Creatine Kinase MB 2.9 0.5-3.6 ng/ml Creatine Kinase MB Ratio 2.4 0-3.0 Troponin I < 0.015 0-0.045 ng/ml Pro-B-Type Natriuretic Peptide 226 0-1800 pg/ml Total Protein 7.0 6.4-8.2 gm/dl Albumin 3.2 3.4-5.0 gm/dl Lipase 148 73-393 U/L Urine Color YELLOW Urine Appearance CLEAR CLEAR Urine pH 7.0 4.5-7.5 Urine Specific [place] 1.008 1.000-1.030 Urine Protein NEG NEG Urine Glucose (UA) NEG NEG Urine Ketones NEG NEG Urine Occult Blood NEG NEG Urine Nitrite NEG NEG Urine Bilirubin NEG NEG Urine Urobilinogen NEG NEG Urine Leukocyte Esterase NEG NEG Diagnostic Radiology Lumbar CT 1. Mild superior endplate compression fracture at L1 which is likely acute to subacute. This demonstrates 10% loss of height. This is unchanged compared to the recent radiograph. 2. Old moderate superior endplate compression fracture at T12, unchanged. Impression Assessment and Plan 77 y/o HTN, GERD, spinal compression fractures with chronic LBP. Pt presents with progressive LBP x 4 days. He had presented to the ER 4 days prior and was DCd with narcotics. He returns as the narcotics have not had a desired effect and he is currently unable to ambulate. A lumbar CT shows an acute L1 compression fracture. 1) Intractable LBP - Will consult ortho, pain control provided. Will need PT.OT after ortho eval. 2) HTN - cont Micardis 3) Cont Famotidine 4) Edema - we will hold Indapamide and start Lasix to gauge his reaction - he wears compression stocking - he can F/U with his primary MD later in the week. Full code Heparin prophylaxis Total time for this admit including review of labs, meds, imaging, records - discussion with pt and ER attending - 35 min Level of Care Med/Surg Resuscitation Status FULL RESUSCITATION VTE Prophylaxis Given or contraindicated: Unfractionated heparin SQ
[2018-01-19] MEDS ORDERED: IV FLUIDS COMPLETED PRN (20:00)
[2018-01-19] MEDS ORDERED: POTASSIUM CHLORIDE 20 MEQ TABCR PO STA (20:29)
[2018-01-19 20:30] VITALS: BP 153/75; PULSE 64; TEMP 36.5; O2SAT 96; O2SAT 97; Ht 175.3 cm; Wt 118.6 kg
[2018-01-19] MEDS ORDERED: FUROSEMIDE 40 MG TAB PO ONE (20:30)
[2018-01-19] MEDS: FLUTICASONE PROPIONATE NA SPR 16 GM BTL NAE SCH (21:00)
[2018-01-19] MEDS: HEPARIN SOD 5000 UNIT/0.5 ML CARP SQ SCH (22:17)
[2018-01-19 23:12] VITALS: BP 142/77; PULSE 68; TEMP 36.5; O2SAT 95
[2018-01-20] MEDS: HEPARIN SOD 5000 UNIT/0.5 ML CARP SQ SCH ×2 (06:06→14:07)
[2018-01-20 06:15] VITALS: O2SAT 92
[2018-01-20 07:12] VITALS: BP 142/77; PULSE 60; TEMP 36.6; O2SAT 90
[2018-01-20 07:24] LABS: HEMATOCRIT 38.9 % (42-52); HEMOGLOBIN 12.5 g/dL (14.0-18.0); MEAN CELL VOLUME 91.5 fL (80-100); MEAN CORPUSCULAR HEMOGLOBIN 29.4 pg (25-34); MEAN CORPUSCULAR HGB CONC 32.1 g/dl (32-36); MEAN PLATELET VOLUME 9.7 fL (7.4-10.4); PLATELET COUNT 332 K/uL (130-400); RED CELL DISTRIBUTION WIDTH CV 14.8 % (11.5-14.5); RED CELL DISTRIBUTION WIDTH SD 49.8 fL (36.4-46.3); WHITE BLOOD COUNT 7.61 K/uL (4.8-10.8)
[2018-01-20 07:59] LABS: CREATININE 0.84 mg/dl (0.60-1.40); POTASSIUM 3.1 mmol/L (3.5-5.1)
[2018-01-20] MEDS: FUROSEMIDE 20 MG TAB PO SCH (08:54)
[2018-01-20] MEDS: TELMISARTAN 40 MG TAB PO SCH (08:55)
[2018-01-20] MEDS: PANTOprazole SOD 40 MG TAB PO SCH (08:55)
[2018-01-20] MEDS: AMLODIPINE BESYLATE 5 MG TAB PO SCH (08:55)
[2018-01-20] MEDS: CHOLECALCIFEROL 1000 INTER.UNIT TAB PO SCH (08:55)
[2018-01-20] MEDS: POTASSIUM CHLORIDE 20 MEQ TABCR PO SCH (08:55)
[2018-01-20] MEDS: FLUTICASONE PROPIONATE NA SPR 16 GM BTL NAE SCH ×2 (08:56→21:00)
[2018-01-20] MEDS: POLYETHYLENE (MIRALAX) 17 GM PACK PO SCH (08:56)
[2018-01-20] MEDS ORDERED: POTASSIUM CHLORIDE 20 MEQ TABCR PO ONE (09:00)
[2018-01-20] MEDS ORDERED: INDAPAMIDE 1.25 MG TAB PO SCH (09:00)
[2018-01-20] MEDS ORDERED: POTASSIUM CHLORIDE 10 MEQ TABCR PO SCH (09:00)
[2018-01-20] MEDS: OXYCODONE HCL IR 5 MG TAB (IMMEDIATE RELEASE) PO PRN (10:03)
--- NOTE | 2018-01-20 12:20 | DIAGNOSTIC IMAGING REPORT ---
MRI LUMBAR SPINE W/O CONTRAST CLINICAL HISTORY: Back pain. Compression fracture. TECHNIQUE: Sagittal and axial T1, T2 and STIR images were obtained. COMPARISON STUDY: Lumbar spine CT scan dated 01/19/2018 OBSERVATIONS: There is an old superior endplate T12 compression fracture. There is minimal retropulsion of the superior endplate component There is an acute/subacute horizontal cleavage fracture involving the superior aspect of the L1 vertebral body demonstrating 10% loss in height. There is a T11 vertebral body hemangioma. L1-2: No disc protrusions or extrusions. No evidence of spinal canal or neural foraminal compromise. L2-3: There is a mild circumferential disc bulge. There is mild spinal canal narrowing. There is no significant foraminal stenosis L3-4: There is a mild circumferential disc bulge. There is no significant spinal or foraminal stenosis L4-5: There is a mild circumferential disc bulge. There is no significant spinal or foraminal stenosis. There is a tiny annular fissure L5-S1: No disc protrusions or extrusions. No evidence of spinal canal or neural foraminal compromise. The conus medullaris and cauda equina appear normal. IMPRESSION: 1. Multilevel spondylitic changes 2. Stable old T12 compression fracture with minor retropulsion 3. Stable acute/subacute superior L1 vertebral body fracture with approximately 10% loss in height Electronically signed by: James Alaniz M.D. 01/20/2018 12:18 PM Dictated Date/Time: 01/20/2018 12:05 PM
--- NOTE | 2018-01-20 12:44 | Hospitalist Progress Note ---
Hospitalist Progress Note Date of Service Jan 20, 2018. Subjective Pt evaluation today including: conversation w/ patient, conversation w/ family ( at bedside), physical exam, lab review, review of studies, review of inpatient medication list Voiding: no voiding problems Patient resting in bed. Very [place]- does not have hearing aides here. Per patient, no pain currently. + lumbar pain w/ movement. Denies numbness, tingling, loss of bowel/bladder control. Per , patient will likely need rehab at discharge as she was having trouble caring for him at home. +bilateral lower extremity edema- significantly improved since admission per patient/. Patient denies any fever, chills, sweats, lightheadedness, dizziness, vision changes, CP, palpitations, edema, SOB, wheezing, cough, abdominal pain, nausea, vomiting, diarrhea, urinary symptoms, melena, numbness/tingling, weakness, anxiety/depression, active bleeding, or new skin discoloration/changes. Medications Current Inpatient Medications Medications (Trade) Dose Ordered Sig/Deana Route Start Time Stop Time Status Last Admin Dose Admin Heparin Sodium (Porcine) (Heparin Sq 5000 Unit/0.5ml) 5,000 unit Q8 SQ 01/19/18 22:00 02/18/18 21:59 01/20/18 06:06 5,000 UNIT Acetaminophen (Tylenol Tab) 650 mg Q4H PRN PO 01/19/18 19:30 02/18/18 19:29 Al Hydrox/Mg Hydrox/Simethicone (Maalox Max Susp) 15 ml Q4H PRN PO 01/19/18 19:30 02/18/18 19:29 Magnesium Hydroxide (Milk Of Magnesia Susp) 30 ml Q6H PRN PO 01/19/18 19:30 02/18/18 19:29 Polyethylene (Miralax Powder Packet) 17 gm DAILY PRN PO 01/19/18 19:30 02/18/18 19:29 Ondansetron HCl (Zofran Inj) 4 mg Q6H PRN IV 01/19/18 19:30 02/18/18 19:29 Amlodipine Besylate (Norvasc Tab) 5 mg DAILY PO 01/20/18 09:00 02/19/18 08:59 01/20/18 08:55 5 MG Famotidine (Pepcid Tab) 20 mg Q12 PRN PO 01/19/18 19:30 02/18/18 19:29 Fluticasone Propionate (Flonase Nasal [place]) 2 sprays BID AMY 01/19/18 21:00 02/18/18 20:59 Oxycodone HCl (Roxicodone Immediate Rel Tab) 10 mg Q4H PRN PO 01/19/18 19:30 02/02/18 19:29 01/20/18 10:03 10 MG Telmisartan (Micardis Tab) 40 mg DAILY PO 01/20/18 09:00 02/19/18 08:59 01/20/18 08:55 40 MG Cholecalciferol (Vitamin D Tab) 2,000 inter.unit DAILY PO 01/20/18 09:00 02/19/18 08:59 01/20/18 08:55 2,000 INTER.UNIT Pantoprazole Sodium (Protonix Tab) 40 mg DAILY PO 01/20/18 09:00 02/19/18 08:59 01/20/18 08:55 40 MG Polyethylene (Miralax Powder Packet) 17 gm DAILY PO 01/20/18 09:00 02/19/18 08:59 01/20/18 08:56 17 GM Hydromorphone HCl (Dilaudid Inj) 0.5 mg Q3H PRN IV 01/19/18 19:30 02/02/18 19:29 Miscellaneous (Iv Fluids Completed) 1 ea PRN PRN N/A 01/19/18 20:00 01/19/19 19:59 Potassium Chloride (Klor-Con Tab) 20 meq QAM PO 01/20/18 09:00 02/19/18 08:59 01/20/18 08:55 20 MEQ Furosemide (Lasix Tab) 20 mg QAM PO 01/20/18 09:00 02/19/18 08:59 01/20/18 08:54 20 MG Objective Vital Signs Date Time Temp Pulse Resp B/P (MAP) Pulse Ox O2 Delivery O2 Flow Rate FiO2 01/20/18 07:45 Room Air 01/20/18 07:12 36.6 60 16 142/77 (98) 90 Room Air 01/20/18 06:15 92 Room Air 01/20/18 00:25 Nasal Cannula 2.0 01/19/18 23:12 36.5 68 16 142/77 (98) 95 Nasal Cannula 3.0 01/19/18 20:30 36.5 64 18 153/75 96 Nasal Cannula 2.0 01/19/18 20:30 36.5 64 18 153/75 (101) 97 Nasal Cannula 2.0 01/19/18 20:11 66 17 137/84 96 01/19/18 19:10 64 17 134/80 96 Room Air 01/19/18 18:03 68 18 149/75 96 Nasal Cannula 2.0 01/19/18 18:01 76 20 144/109 93 Nasal Cannula 2.0 01/19/18 17:38 Nasal Cannula 2.0 01/19/18 17:08 66 01/19/18 16:55 36.6 69 20 158/79 93 Room Air Physical Exam General Appearance: no apparent distress, + obese Eyes: normal inspection, PERRL ENT: + pertinent finding ([place] ) Neck: supple Respiratory/Chest: lungs clear, no respiratory distress, no accessory muscle use Cardiovascular: regular rate, rhythm Abdomen: normal bowel sounds, non tender, soft Extremities: no pedal edema, no calf tenderness Neurologic/Psychiatric: no motor/sensory deficits, alert, normal mood/affect, oriented x 3 Skin: normal color, warm/dry, no rash Laboratory Results Last 24 Hours Test 01/19/18 17:25 01/19/18 18:18 01/20/18 06:48 White Blood Count 11.02 K/uL 7.61 K/uL Red Blood Count 4.35 M/uL 4.25 M/uL Hemoglobin 12.8 g/dL 12.5 g/dL Hematocrit 39.2 % 38.9 % Mean Corpuscular Volume 90.1 fL 91.5 fL Mean Corpuscular Hemoglobin 29.4 pg 29.4 pg Mean Corpuscular Hemoglobin Concent 32.7 g/dl 32.1 g/dl Platelet Count 343 K/uL 332 K/uL Mean Platelet Volume 9.5 fL 9.7 fL Neutrophils (%) (Auto) 72.1 % Lymphocytes (%) (Auto) 15.4 % Monocytes (%) (Auto) 11.1 % Eosinophils (%) (Auto) 0.8 % Basophils (%) (Auto) 0.1 % Neutrophils # (Auto) 7.95 K/uL Lymphocytes # (Auto) 1.70 K/uL Monocytes # (Auto) 1.22 K/uL Eosinophils # (Auto) 0.09 K/uL Basophils # (Auto) 0.01 K/uL RDW Standard Deviation 47.9 fL 49.8 fL RDW Coefficient of Variation 14.5 % 14.8 % Immature Granulocyte % (Auto) 0.5 % Immature Granulocyte # (Auto) 0.05 K/uL Prothrombin Time 10.5 SECONDS Prothromb Time International Ratio 1.0 Activated Partial Thromboplast Time 26.8 SECONDS Partial Thromboplastin Ratio 1.0 Sodium Level 136 mmol/L 139 mmol/L Potassium Level 3.8 mmol/L 3.1 mmol/L Chloride Level 96 mmol/L 95 mmol/L Carbon Dioxide Level 34 mmol/L 37 mmol/L Anion Gap 7.0 mmol/L 7.0 mmol/L Blood Urea Nitrogen 20 mg/dl 14 mg/dl Creatinine 0.94 mg/dl 0.84 mg/dl Est Creatinine Clear Calc Drug Dose 81.0 ml/min 90.7 ml/min Estimated GFR () 89.0 96.5 Estimated GFR (Non- 76.8 83.3 BUN/Creatinine Ratio 21.6 16.9 Random Glucose 117 mg/dl 135 mg/dl Calcium Level 9.1 mg/dl 9.0 mg/dl Total Bilirubin 0.4 mg/dl Direct Bilirubin 0.1 mg/dl Aspartate Amino Transf (AST/SGOT) 24 U/L Alanine Aminotransferase (ALT/SGPT) 32 U/L Alkaline Phosphatase 101 U/L Total Creatine Kinase 121 U/L Creatine Kinase MB 2.9 ng/ml Creatine Kinase MB Ratio 2.4 Troponin I < 0.015 ng/ml Pro-B-Type Natriuretic Peptide 226 pg/ml Total Protein 7.0 gm/dl Albumin 3.2 gm/dl Lipase 148 U/L Urine Color YELLOW Urine Appearance CLEAR Urine pH 7.0 Urine Specific [place] 1.008 Urine Protein NEG Urine Glucose (UA) NEG Urine Ketones NEG Urine Occult Blood NEG Urine Nitrite NEG Urine Bilirubin NEG Urine Urobilinogen NEG Urine Leukocyte Esterase NEG Magnesium Level 2.4 mg/dl Assessment and Plan 77 y/o HTN, GERD, spinal compression fractures with chronic LBP. Pt presents with progressive LBP x 4 days. He had presented to the ER 4 days prior and was DCd with narcotics. He returns as the narcotics have not had a desired effect and he is currently unable to ambulate. A lumbar CT shows an acute L1 compression fracture. Intractable lumbar back pain, compression fractures: - Admitted to med/surg - Pain control w/ Roxicodone and IV Dilaudid - PT/OT consulted - MRI- stable t12 compression fracture w/ minor retropulsion, multilevel spondylitic changes, stable L2 vertebral fracture - Orthopedics consulted, appreciate recommendations HTN: Micardis 40 mg daily, Norvasc 5 mg daily Bilateral lower extremity edema- ECHO from 2011 w/ preserved EF and diastolic dysfunction: - Held Indapamide - Started Lasix 20 mg daily- significant improvement Hypokalemia, secondary to Lasix treatment: Replace w/ 40 mEq KCL x1 this AM, continue 20 mEq daily- follow PRP and replace PRN GERD: - Protonix daily- resume Nexium at discharge - Continue Pepcid DVT prophylaxis: Heparin TID Code status: LEVEL I, FULL Dispo: Discharge uncertain at this time- will likely need rehab- PT/OT and CM consulted
--- NOTE | 2018-01-20 15:04 | Orthopedic Consultation ---
Orthopedic Consultation Date of Consultation: Jan 20, 2018. Attending Physician: Diego Uribe D.O. Reason for Consultation: Back pain History of Present Illness Very pleasant 77-year-old male that had the onset of acute back pain beginning last Saturday. He states that he was during a twisting motion. He denies a fall to the floor. He was seen in emergency room that evening given some pain medication and discharged home. Unfortunately his symptoms continue to progress he became more debilitated with the inability to undergo activities of daily living. Subsequently he return to the hospital was admitted for pain control. At this time he complains of thoracolumbar back pain no radiation of pain into the bilateral lower extremities. He denies any bowel or bladder changes. He notes marked increase in discomfort with any activity. Past Medical/Surgical History Medical Problems: (1) Back pain Status: Acute (2) Compression fracture of L1 lumbar vertebra Status: Acute (3) Intractable back pain Status: Acute (4) Lower extremity edema Status: Acute (5) Lumbar compression fracture Status: Acute (6) Peripheral edema Status: Acute (7) Thoracic compression fracture Status: Acute Family History Cancer Gallbladder disease Hypertension Kidney disease Kidney stones Social History Smoking Status: Never Smoker Smokeless Tobacco Use: No Drug Use: none Marital Status: Housing Status: lives with family Occupation Status: employed Allergies Coded Allergies: CI Pigment Blue 63 (Verified Allergy, Unknown, BRADYCARDIA, 01/16/18) Cefaclor (Verified Allergy, Unknown, ., 01/16/18) Cyclobenzaprine (Verified Allergy, Unknown, UNKNOWN, 01/16/18) Nebivolol (Verified Allergy, Unknown, BRADYCARDIA, 01/16/18) Penicillins (Verified Allergy, Unknown, ., 01/16/18) Sulfa Antibiotics (Verified Allergy, Unknown, ., 01/16/18) Yellow Dye (Verified Allergy, Unknown, BRADYCARDIA, 01/16/18) Uncoded Allergies: BENGAY (Adverse Reaction, Unknown, ARTHRITIS, 01/16/18) Home Medications Scheduled Amlodipine Besylate (Amlodipine Besylate), 5 MG PO DAILY Cholecalciferol (Vitamin D), 2,000 UNITS PO DAILY Esomeprazole Magnesium (Nexium), 40 MG PO DAILY Fluticasone Propionate (Nasal) (Flonase Allergy Relief), 1 SPRAY AMY BID Indapamide (Indapamide), 1.25 MG PO DAILY Polyethylene Glycol 3350 (Miralax), 17 GM PO DAILY Potassium Chloride (Potassium Chloride Er), 10 MEQ PO DAILY Telmisartan (Telmisartan), 40 MG PO DAILY Scheduled PRN Famotidine (Famotidine), 20 MG PO Q12 PRN for ACID REFLUX Oxycodone Immediate Rel Tab (Roxicodone Ir), 1-2 TAB PO Q4H PRN for Severe Pain Current Inpatient Medications Current Inpatient Medications Medications (Trade) Dose Ordered Sig/Deana Route Start Time Stop Time Status Last Admin Dose Admin Heparin Sodium (Porcine) (Heparin Sq 5000 Unit/0.5ml) 5,000 unit Q8 SQ 01/19/18 22:00 02/18/18 21:59 01/20/18 14:07 5,000 UNIT Acetaminophen (Tylenol Tab) 650 mg Q4H PRN PO 01/19/18 19:30 02/18/18 19:29 Al Hydrox/Mg Hydrox/Simethicone (Maalox Max Susp) 15 ml Q4H PRN PO 01/19/18 19:30 02/18/18 19:29 Magnesium Hydroxide (Milk Of Magnesia Susp) 30 ml Q6H PRN PO 01/19/18 19:30 02/18/18 19:29 Polyethylene (Miralax Powder Packet) 17 gm DAILY PRN PO 01/19/18 19:30 02/18/18 19:29 Ondansetron HCl (Zofran Inj) 4 mg Q6H PRN IV 01/19/18 19:30 02/18/18 19:29 Amlodipine Besylate (Norvasc Tab) 5 mg DAILY PO 01/20/18 09:00 02/19/18 08:59 01/20/18 08:55 5 MG Famotidine (Pepcid Tab) 20 mg Q12 PRN PO 01/19/18 19:30 02/18/18 19:29 Fluticasone Propionate (Flonase Nasal [place]) 2 sprays BID AMY 01/19/18 21:00 02/18/18 20:59 Oxycodone HCl (Roxicodone Immediate Rel Tab) 10 mg Q4H PRN PO 01/19/18 19:30 02/02/18 19:29 01/20/18 10:03 10 MG Telmisartan (Micardis Tab) 40 mg DAILY PO 01/20/18 09:00 02/19/18 08:59 01/20/18 08:55 40 MG Cholecalciferol (Vitamin D Tab) 2,000 inter.unit DAILY PO 01/20/18 09:00 02/19/18 08:59 01/20/18 08:55 2,000 INTER.UNIT Pantoprazole Sodium (Protonix Tab) 40 mg DAILY PO 01/20/18 09:00 02/19/18 08:59 01/20/18 08:55 40 MG Polyethylene (Miralax Powder Packet) 17 gm DAILY PO 01/20/18 09:00 02/19/18 08:59 01/20/18 08:56 17 GM Hydromorphone HCl (Dilaudid Inj) 0.5 mg Q3H PRN IV 01/19/18 19:30 02/02/18 19:29 Miscellaneous (Iv Fluids Completed) 1 ea PRN PRN N/A 01/19/18 20:00 01/19/19 19:59 Potassium Chloride (Klor-Con Tab) 20 meq QAM PO 01/20/18 09:00 02/19/18 08:59 01/20/18 08:55 20 MEQ Furosemide (Lasix Tab) 20 mg QAM PO 01/20/18 09:00 02/19/18 08:59 01/20/18 08:54 20 MG Physical Exam Date Time Temp Pulse Resp B/P (MAP) Pulse Ox O2 Delivery O2 Flow Rate FiO2 01/20/18 07:45 Room Air 01/20/18 07:12 36.6 60 16 142/77 (98) 90 Room Air 01/20/18 06:15 92 Room Air 01/20/18 00:25 Nasal Cannula 2.0 01/19/18 23:12 36.5 68 16 142/77 (98) 95 Nasal Cannula 3.0 01/19/18 20:30 36.5 64 18 153/75 96 Nasal Cannula 2.0 01/19/18 20:30 36.5 64 18 153/75 (101) 97 Nasal Cannula 2.0 01/19/18 20:11 66 17 137/84 96 01/19/18 19:10 64 17 134/80 96 Room Air 01/19/18 18:03 68 18 149/75 96 Nasal Cannula 2.0 01/19/18 18:01 76 20 144/109 93 Nasal Cannula 2.0 01/19/18 17:38 Nasal Cannula 2.0 01/19/18 17:08 66 01/19/18 16:55 36.6 69 20 158/79 93 Room Air Patient's has +5 and a 5 plantar flexion dorsiflexion quadriceps bilateral lower extremity's. Sensory symmetric and intact. He is in obvious distress when sitting up rolling over in the bed. No abnormal skin markings. Laboratory Results Last 24 Hours Test 01/19/18 17:25 01/19/18 18:18 01/20/18 06:48 White Blood Count 11.02 K/uL 7.61 K/uL Red Blood Count 4.35 M/uL 4.25 M/uL Hemoglobin 12.8 g/dL 12.5 g/dL Hematocrit 39.2 % 38.9 % Mean Corpuscular Volume 90.1 fL 91.5 fL Mean Corpuscular Hemoglobin 29.4 pg 29.4 pg Mean Corpuscular Hemoglobin Concent 32.7 g/dl 32.1 g/dl Platelet Count 343 K/uL 332 K/uL Mean Platelet Volume 9.5 fL 9.7 fL Neutrophils (%) (Auto) 72.1 % Lymphocytes (%) (Auto) 15.4 % Monocytes (%) (Auto) 11.1 % Eosinophils (%) (Auto) 0.8 % Basophils (%) (Auto) 0.1 % Neutrophils # (Auto) 7.95 K/uL Lymphocytes # (Auto) 1.70 K/uL Monocytes # (Auto) 1.22 K/uL Eosinophils # (Auto) 0.09 K/uL Basophils # (Auto) 0.01 K/uL RDW Standard Deviation 47.9 fL 49.8 fL RDW Coefficient of Variation 14.5 % 14.8 % Immature Granulocyte % (Auto) 0.5 % Immature Granulocyte # (Auto) 0.05 K/uL Prothrombin Time 10.5 SECONDS Prothromb Time International Ratio 1.0 Activated Partial Thromboplast Time 26.8 SECONDS Partial Thromboplastin Ratio 1.0 Sodium Level 136 mmol/L 139 mmol/L Potassium Level 3.8 mmol/L 3.1 mmol/L Chloride Level 96 mmol/L 95 mmol/L Carbon Dioxide Level 34 mmol/L 37 mmol/L Anion Gap 7.0 mmol/L 7.0 mmol/L Blood Urea Nitrogen 20 mg/dl 14 mg/dl Creatinine 0.94 mg/dl 0.84 mg/dl Est Creatinine Clear Calc Drug Dose 81.0 ml/min 90.7 ml/min Estimated GFR () 89.0 96.5 Estimated GFR (Non- 76.8 83.3 BUN/Creatinine Ratio 21.6 16.9 Random Glucose 117 mg/dl 135 mg/dl Calcium Level 9.1 mg/dl 9.0 mg/dl Total Bilirubin 0.4 mg/dl Direct Bilirubin 0.1 mg/dl Aspartate Amino Transf (AST/SGOT) 24 U/L Alanine Aminotransferase (ALT/SGPT) 32 U/L Alkaline Phosphatase 101 U/L Total Creatine Kinase 121 U/L Creatine Kinase MB 2.9 ng/ml Creatine Kinase MB Ratio 2.4 Troponin I < 0.015 ng/ml Pro-B-Type Natriuretic Peptide 226 pg/ml Total Protein 7.0 gm/dl Albumin 3.2 gm/dl Lipase 148 U/L Urine Color YELLOW Urine Appearance CLEAR Urine pH 7.0 Urine Specific [place] 1.008 Urine Protein NEG Urine Glucose (UA) NEG Urine Ketones NEG Urine Occult Blood NEG Urine Nitrite NEG Urine Bilirubin NEG Urine Urobilinogen NEG Urine Leukocyte Esterase NEG Magnesium Level 2.4 mg/dl Assessment & Plan Assessment acute L1 compression fracture. Plan at this time patient is markedly uncomfortable and we discussed several treatment options. One option is to perform a kyphoplasty with biopsy of the L1 vertebral body. This would provide immediate improvement of his back pain 11 to mobilize as quickly as possible. Risks benefits pros cons and alternatives were outlined in detail. Risk include but not limited to from anesthesia bluntness stroke processes nerve damage. [place] transfusion infection requiring reoperation. Benefits of locally marked improvement of his axial back symptoms. This time would like to proceed with surgery. We'll make him nothing by mouth after midnight and plan for surgery tomorrow.
[2018-01-20 15:32] VITALS: BP 124/62; PULSE 71; TEMP 36.8; O2SAT 96
[2018-01-20 16:00] VITALS: O2SAT 96
--- NOTE | 2018-01-20 17:58 | Anesthesiology Progress Note ---
Anesthesia Progress Note Date of Service Jan 20, 2018. Progress Notes The patient is a 77 y/o female scheduled for a kyphoplasty tomorrow. He has an L1 compression fracture from a fall. On admission the patient was noted to have some mild congestion and leg edema but he was given Lasix and the congestion and edema have resolved. He has developed hypokalemia from the Lasix which is being treated with potassium. Other PMH includes HTN, GERD, osteopenia, anemia, and obesity. The patient wears hearing aides. He currently has no chest pain or SOB at rest. His CXR from 01/19/18 showed mild cardiomegaly and mild congestion. His EKG showed NSR with L anterior fascicular block. Labs are significant for hgb 12.5, K 3.1, Cl 95, and bicarb 37. On exam the patient was noted to have a thick neck but was a MP 2 airway. He has upper dentures. Lungs were clear to auscultation. No crackles were noted. His heart was RRR. Carotids were negative for bruits. The patient was consented for general anesthesia. He was counseled to remain NPO after midnight except for sips of water with pills. He will have his potassium level rechecked tomorrow with his labs.
[2018-01-20 22:24] VITALS: BP 132/64; PULSE 74; TEMP 37; O2SAT 94
[2018-01-21] VITALS (9 sets, daily range): BP systolic 140–162; BP diastolic 73–105; PULSE 59–95; TEMP 36.4–36.6; O2SAT 91–97
[2018-01-21] MEDS: POLYETHYLENE (MIRALAX) 17 GM PACK PO SCH (07:47)
[2018-01-21] MEDS: CHOLECALCIFEROL 1000 INTER.UNIT TAB PO SCH (07:47)
[2018-01-21] MEDS: FUROSEMIDE 20 MG TAB PO SCH (07:53)
[2018-01-21] MEDS: FLUTICASONE PROPIONATE NA SPR 16 GM BTL NAE SCH ×2 (07:53→20:49)
[2018-01-21 08:12] LABS: CALCIUM 9.1 mg/dl (8.5-10.1); CREATININE 0.89 mg/dl (0.60-1.40); POTASSIUM 3.4 mmol/L (3.5-5.1)
[2018-01-21] MEDS ORDERED: POTASSIUM CHLORIDE 20 MEQ TABCR PO ONE (08:45)
[2018-01-21] MEDS: PANTOprazole SOD 40 MG TAB PO SCH (09:57)
[2018-01-21] MEDS: POTASSIUM CHLORIDE 20 MEQ TABCR PO SCH (09:57)
[2018-01-21] MEDS: TELMISARTAN 40 MG TAB PO SCH (09:57)
[2018-01-21] MEDS: AMLODIPINE BESYLATE 5 MG TAB PO SCH (09:58)
[2018-01-21] MEDS ORDERED: HydrALAZINE HCL 20 MG/ML VIAL IV. PRN (11:45)
--- NOTE | 2018-01-21 13:32 | Hospitalist Progress Note ---
Hospitalist Progress Note Date of Service Jan 21, 2018. Subjective Pt evaluation today including: conversation w/ patient, physical exam, lab review, review of inpatient medication list Voiding: no voiding problems Patient resting in bed. Pain currently 0/10. NPO for OR this afternoon. Patient denies any fever, chills, sweats, lightheadedness, dizziness, vision changes, CP, palpitations, edema, SOB, wheezing, cough, abdominal pain, nausea, vomiting, diarrhea, urinary symptoms, melena, numbness/tingling, weakness, muscle/joint pain, anxiety/depression, active bleeding, or new skin discoloration/changes. Medications Current Inpatient Medications Medications (Trade) Dose Ordered Sig/Deana Route Start Time Stop Time Status Last Admin Dose Admin Heparin Sodium (Porcine) (Heparin Sq 5000 Unit/0.5ml) 5,000 unit Q8 SQ 01/19/18 22:00 02/18/18 21:59 Future Hold 01/20/18 14:07 5,000 UNIT Acetaminophen (Tylenol Tab) 650 mg Q4H PRN PO 01/19/18 19:30 02/18/18 19:29 Al Hydrox/Mg Hydrox/Simethicone (Maalox Max Susp) 15 ml Q4H PRN PO 01/19/18 19:30 02/18/18 19:29 Magnesium Hydroxide (Milk Of Magnesia Susp) 30 ml Q6H PRN PO 01/19/18 19:30 02/18/18 19:29 Polyethylene (Miralax Powder Packet) 17 gm DAILY PRN PO 01/19/18 19:30 02/18/18 19:29 Ondansetron HCl (Zofran Inj) 4 mg Q6H PRN IV 01/19/18 19:30 02/18/18 19:29 Amlodipine Besylate (Norvasc Tab) 5 mg DAILY PO 01/20/18 09:00 02/19/18 08:59 01/21/18 09:58 5 MG Famotidine (Pepcid Tab) 20 mg Q12 PRN PO 01/19/18 19:30 02/18/18 19:29 Fluticasone Propionate (Flonase Nasal [place]) 2 sprays BID AMY 01/19/18 21:00 02/18/18 20:59 Oxycodone HCl (Roxicodone Immediate Rel Tab) 10 mg Q4H PRN PO 01/19/18 19:30 02/02/18 19:29 01/20/18 10:03 10 MG Telmisartan (Micardis Tab) 40 mg DAILY PO 01/20/18 09:00 02/19/18 08:59 01/21/18 09:57 40 MG Cholecalciferol (Vitamin D Tab) 2,000 inter.unit DAILY PO 01/20/18 09:00 02/19/18 08:59 01/20/18 08:55 2,000 INTER.UNIT Pantoprazole Sodium (Protonix Tab) 40 mg DAILY PO 01/20/18 09:00 02/19/18 08:59 01/21/18 09:57 40 MG Polyethylene (Miralax Powder Packet) 17 gm DAILY PO 01/20/18 09:00 02/19/18 08:59 01/20/18 08:56 17 GM Hydromorphone HCl (Dilaudid Inj) 0.5 mg Q3H PRN IV 01/19/18 19:30 02/02/18 19:29 Miscellaneous (Iv Fluids Completed) 1 ea PRN PRN N/A 01/19/18 20:00 01/19/19 19:59 Potassium Chloride (Klor-Con Tab) 20 meq QAM PO 01/20/18 09:00 02/19/18 08:59 01/21/18 09:57 20 MEQ Furosemide (Lasix Tab) 20 mg QAM PO 01/20/18 09:00 02/19/18 08:59 01/20/18 08:54 20 MG Objective Vital Signs Date Time Temp Pulse Resp B/P (MAP) Pulse Ox O2 Delivery O2 Flow Rate FiO2 01/21/18 07:34 Nasal Cannula 2.0 01/21/18 07:08 36.5 59 18 154/84 (107) 95 Nasal Cannula 2.0 01/20/18 23:25 Nasal Cannula 2.0 01/20/18 22:24 37.0 74 19 132/64 (86) 94 Nasal Cannula 2.0 01/20/18 16:00 96 Nasal Cannula 2.0 01/20/18 15:32 36.8 71 19 124/62 (82) 96 Nasal Cannula 2.0 Physical Exam General Appearance: no apparent distress, + obese Eyes: normal inspection, PERRL ENT: hearing grossly normal Neck: supple Respiratory/Chest: lungs clear, no respiratory distress, no accessory muscle use Cardiovascular: regular rate, rhythm Abdomen: normal bowel sounds, non tender, soft Neurologic/Psychiatric: alert, normal mood/affect, oriented x 3 Skin: normal color, warm/dry, no rash Laboratory Results Last 24 Hours Test 01/21/18 07:11 Sodium Level 137 mmol/L Potassium Level 3.4 mmol/L Chloride Level 95 mmol/L Carbon Dioxide Level 38 mmol/L Anion Gap 4.0 mmol/L Blood Urea Nitrogen 21 mg/dl Creatinine 0.89 mg/dl Est Creatinine Clear Calc Drug Dose 85.6 ml/min Estimated GFR () 94.3 Estimated GFR (Non- 81.3 BUN/Creatinine Ratio 23.3 Random Glucose 137 mg/dl Calcium Level 9.1 mg/dl Assessment and Plan 77 y/o HTN, GERD, spinal compression fractures with chronic LBP. Pt presents with progressive LBP x 4 days. He had presented to the ER 4 days prior and was DCd with narcotics. He returns as the narcotics have not had a desired effect and he is currently unable to ambulate. A lumbar CT shows an acute L1 compression fracture. Intractable lumbar back pain, compression fractures: - Admitted to med/surg - Pain control w/ Roxicodone and IV Dilaudid - PT/OT consulted - MRI- stable t12 compression fracture w/ minor retropulsion, multilevel spondylitic changes, stable L2 vertebral fracture - Orthopedics consulted, appreciate recommendations- planning for kyphoplasty w / biopsy this afternoon HTN: - Micardis 40 mg daily held pending postop PRP - Continue Norvasc 5 mg daily - IV Hydralazine PRN Bilateral lower extremity edema- ECHO from 2011 w/ preserved EF and diastolic dysfunction: - Held Indapamide - Started Lasix 20 mg daily- significant improvement- will hold tomorrow AM pending postop PRP and volume status assessment Hypokalemia, secondary to Lasix treatment: Replace w/ 20 mEq KCL x1 this AM, continue 20 mEq daily- follow PRP and replace PRN GERD: - Protonix daily- resume Nexium at discharge - Continue Pepcid DVT prophylaxis: Heparin TID held due to orthopedic procedure Code status: LEVEL I, FULL Dispo: Discharge uncertain at this time- will likely need rehab- PT/OT and CM consulted
--- NOTE | 2018-01-21 14:44 | History & Physical Bridge Note ---
H&P Re-Evaluation Bridge Note: I have examined the patient, reviewed the History & Physical and in the interval since the performance of the History & Physical I have noted the following changes of clinical significance: No changes noted
[2018-01-21] MEDS ORDERED: CEFAZOLIN SOD 2000MG/15 ML IV PUSH IV ONE (14:53)
[2018-01-21] MEDS ORDERED: CLINDAMYCIN 600 MG/54 ML D5W IV ONE (15:09)
[2018-01-21] MEDS ORDERED: NURSING VERBAL MED ORDER ONE (15:15)
[2018-01-21] MEDS ORDERED: NEOSTIGMINE METHYLSULFATE 1 MG/ML 10ML VIAL ONE (15:16)
[2018-01-21] MEDS ORDERED: LIDOCAINE HCL 2% 2 ML VIAL (20MG/ML) ONE (15:16)
[2018-01-21] MEDS ORDERED: DEXAMETHASONE SOD INJ 4 MG/ML VIAL ONE (15:16)
[2018-01-21] MEDS ORDERED: FENTANYL CITRATE INJ 50 MCG/1 ML 2 ML VIAL ONE (15:16)
[2018-01-21] MEDS ORDERED: ONDANSETRON INJ 2 MG/ML 2 ML VIAL ONE (15:16)
[2018-01-21] MEDS ORDERED: ROCURONIUM BROMIDE 10 MG/ML 5 ML VIAL IV ONE (15:16)
[2018-01-21] MEDS ORDERED: GLYCOPYRROLATE INJ 0.2 MG/ML VIAL ONE (15:16)
[2018-01-21] MEDS ORDERED: PROPOFOL IV EMULSION 10 MG/ML 20 ML VIAL IV ONE (15:16)
[2018-01-21] MEDS ORDERED: MIDAZOLAM HCL 1 MG/ML 2ML VIAL ONE (15:19)
[2018-01-21] MEDS ORDERED: BUPIVACAINE/EPINEPHRINE 0.5% MPF 1:200,000 30 ML VIAL ONE (15:28)
[2018-01-21] MEDS ORDERED: CONRAY 60% 50 ML VIAL ONE (15:28)
[2018-01-21] MEDS ORDERED: PHENYLEPHRINE 100MCG/ML 5ML SYR ONE (16:20)
--- NOTE | 2018-01-21 16:35 | [facility] Operative Report ---
Operative Report Operative Date Jan 21, 2018. Pre-Operative Diagnosis Acute L1 compression fracture Post-Operative Diagnosis same Procedure(s) Performed #1 kyphoplasty L1 vertebral body. #2 biopsy of L1 vertebral body Surgeon Dr Chandler Aeronautical Drafter Surgeon(s) none Estimated Blood Loss 10 Findings Findings consistent with diagnosis Specimens a. L1 vertebral body biopsy Description of Procedure Patient was met with preoperatively case discussed all questions addressed. After informed consent obtained patient was taken to the operative suite underwent intubation and placed in a prone position on the Tyler table with chest pad and hip bolsters. The thoracal lumbar spine was prepped and draped in normal sterile fashion. With the assistance of fluoroscopy and AP and lateral planes 2 small incisions were placed over the L1 pedicles and to Kyphon working cannulas were placed transpedicular into the vertebral body. 2 core biopsies were obtained. I then inserted 20 mm Kyphon balloons and inflated them with fluoroscopic visualization. These were subsequently removed and a proximal we 6 mL of Kyphon cement injected with fluoroscopic visualization. He demonstrated excellent interdigitation and fill. The working cannulas were then removed the small incisions closed with subcutaneous Vicryl sterile dressing placed. The patient awakened and taken to PACU in stable condition. I attest to the content of the Intraoperative Record and any orders documented therein. Any exceptions are noted below.
[2018-01-21] MEDS ORDERED: HYDROmorphone INJ 2 MG/ML SYR/VIAL IV PRN (16:45)
[2018-01-21] MEDS ORDERED: ONDANSETRON INJ 2 MG/ML 2 ML VIAL IV PRN (16:45)
[2018-01-21] MEDS ORDERED: ATROPINE SULFATE 0.1 MG/ML 5ML SYR IV PRN (16:45)
[2018-01-21] MEDS ORDERED: DO NOT ADMINISTER FLU VACCINE PRN (16:45)
[2018-01-21] MEDS ORDERED: DO NOT ADMINISTER PNEUMOCOCCAL VACCINE PRN (16:45)
[2018-01-21] MEDS ORDERED: MAGNESIUM HYDROXIDE SUSP 30 ML UDC PO PRN (16:45)
[2018-01-21] MEDS ORDERED: EpHEDrine SULFATE 50MG/5ML SYR ONE (16:51)
--- NOTE | 2018-01-21 17:01 | DIAGNOSTIC IMAGING REPORT ---
FLUOROSCOPIC IMAGES OF THE LUMBAR SPINE CLINICAL HISTORY: L1 KYPHOPLASTY COMPARISON STUDY: Lumbar spine MRI January 20, 2018. Fluoroscopy time: 2 minutes and 3 seconds. FINDINGS: These 2 images demonstrate interval L1 kyphoplasty. Methylmethacrylate is noted within the vertebral body. Old T12 compression fracture is noted. IMPRESSION: Fluoroscopic images demonstrating interval L1 kyphoplasty. Electronically signed by: Clive Simms M.D. 01/21/2018 5:00 PM Dictated Date/Time: 01/21/2018 4:59 PM
--- NOTE | 2018-01-21 17:13 | Anesthesiology Progress Note ---
Anesthesia Post Op Note Date & Time Jan 21, 2018 at 17:13 Vital Signs Pain Intensity: 0 Vital Signs Past 12 Hours Date Time Temp Pulse Resp B/P (MAP) Pulse Ox O2 Delivery O2 Flow Rate FiO2 01/21/18 17:05 98 20 153/84 96 Nasal Cannula 2 01/21/18 16:55 103 16 147/93 99 Oxymask 10 01/21/18 16:44 36.5 106 20 148/87 98 Oxymask 10 01/21/18 13:39 59 158/76 (103) 01/21/18 07:34 Nasal Cannula 2.0 01/21/18 07:08 36.5 59 18 154/84 (107) 95 Nasal Cannula 2.0 Notes Mental Status: alert / awake / arousable, participated in evaluation Pt Amnestic to Procedure: Yes Nausea / Vomiting: adequately controlled Pain: adequately controlled Airway Patency, RR, SpO2: stable & adequate BP & HR: stable & adequate Hydration State: stable & adequate Anesthetic Complications: no major complications apparent
[2018-01-21] MEDS: DOCUSATE SODIUM 100 MG CAP PO SCH (20:46)
[2018-01-22] MEDS: OXYCODONE HCL IR 5 MG TAB (IMMEDIATE RELEASE) PO PRN ×2 (00:31→07:52)
[2018-01-22 03:25] VITALS: BP 147/81; PULSE 72; TEMP 36.8; O2SAT 96
[2018-01-22 07:14] VITALS: BP 143/78; PULSE 60; TEMP 36.3; O2SAT 98
[2018-01-22] MEDS: DOCUSATE SODIUM 100 MG CAP PO SCH (07:52)
[2018-01-22] MEDS: AMLODIPINE BESYLATE 5 MG TAB PO SCH (07:53)
[2018-01-22] MEDS: CHOLECALCIFEROL 1000 INTER.UNIT TAB PO SCH (07:53)
[2018-01-22] MEDS: POTASSIUM CHLORIDE 20 MEQ TABCR PO SCH (07:53)
[2018-01-22] MEDS: PANTOprazole SOD 40 MG TAB PO SCH (07:54)
[2018-01-22] MEDS: FLUTICASONE PROPIONATE NA SPR 16 GM BTL NAE SCH (07:54)
[2018-01-22 08:53] LABS: HEMATOCRIT 41.2 % (42-52); MEAN CELL VOLUME 92.2 fL (80-100); MEAN CORPUSCULAR HEMOGLOBIN 29.1 pg (25-34); MEAN CORPUSCULAR HGB CONC 31.6 g/dl (32-36); MEAN PLATELET VOLUME 9.2 fL (7.4-10.4); PLATELET COUNT 320 K/uL (130-400); RED CELL DISTRIBUTION WIDTH CV 14.7 % (11.5-14.5); RED CELL DISTRIBUTION WIDTH SD 49.8 fL (36.4-46.3); WHITE BLOOD COUNT 11.64 K/uL (4.8-10.8)
[2018-01-22 09:15] LABS: CALCIUM 9.5 mg/dl (8.5-10.1); CREATININE 0.95 mg/dl (0.60-1.40); POTASSIUM 4.1 mmol/L (3.5-5.1)
[2018-01-22 11:01] VITALS: BP 133/75; PULSE 64; TEMP 36.5; O2SAT 97
[2018-01-22] MEDS ORDERED: LSX20 PO (12:19)
--- NOTE | 2018-01-22 12:27 | Discharge Instructions ---
Discharge Instructions Date of Service Jan 22, 2018. Admission Reason for Admission: Compression Fx, Lumbar Spine/ Gait Abnormality Discharge Discharge Diagnosis / Problem: Compression fracture of L1 Discharge Goals Goal(s): Decrease discomfort, Improve function Activity Recommendations Activity Limitations: per Instructions/Follow-up section Lifting Limitations: no more than 5 pounds Exercise/Sports Limitations: gradually increase as tolerated May Resume Sexual Activity: when tolerated Shower/Bathe: no limitations Driving or Machine Use: no driving until off Oxycodone . Instructions / Follow-Up Instructions / Follow-Up Medications: - LASIX: 20MG a day for peripheral edema, ask Berna Yañez to check a potassium level in 2 weeks - OXYCODONE: as needed for pain Discuss outpatient sleep study with Berna Yañez to evaluate for obstructive sleep apnea Schedule appointment with ed special education teacher about possible basal skin CA on nose Compression fracture: treated with kyphoplasty, call Dr. Chandler for follow up FOLLOW UP - Dr. Chandler in two weeks, call [phone] - Berna Yañez in one week, call for appointment, hospital follow up Current Hospital Diet Patient's current hospital diet: Regular Diet Discharge Diet Recommended Diet: Regular Diet Procedures Procedures Performed: L1 Kyphoplasty and biopsy Pending Studies Studies pending at discharge: yes List of pending studies: vertebral biopsy, Dr. Chandler will have results Medical Emergencies . Who to Call and When: Medical Emergencies: If at any time you feel your situation is an emergency, please call 911 immediately. . Non-Emergent Contact Non-Emergency issues call your: Primary Care Provider, Surgeon Call Non-Emergent contact if: you have a fever, your pain is not controlled, your pain is worsening, you have any medication questions . . "Provider Documentation" section prepared by Diego Uribe. . VTE Core Measure Inpt VTE Proph given/why not?: Unfractionated heparin SQ [place] Drug Monitoring Program Search Results: no issues identified
[2018-01-22 12:30] VITALS: BP 133/75; PULSE 64; TEMP 36.5; O2SAT 97
--- NOTE | 2018-01-22 12:56 | Discharge Summary ---
Discharge Summary Date of Service Jan 22, 2018. Discharge Summary Admission Date: Jan 19, 2018 at 19:29 Discharge Date: Jan 22, 2018 Discharge Disposition: Home Principal Diagnosis: Compression fracture of L1 Problems/Secondary Diagnoses: Intractable lumbar back pain, compression fracture on L1 s/p kyphoplasty w/ biopsy by Dr. Chandler on 01/21 HTN Bilateral lower extremity edema Hypokalemia GERD Procedures: LUMBAR SPINE CT CT DOSE: 1277.10 mGy.cm HISTORY: Low back pain, recernt comp fx TECHNIQUE: Multiaxial CT images of the lumbar spine were performed and reformatted in the sagittal and coronal plane without the use of contrast. A dose lowering technique was utilized adhering to the principles of ALARA. COMPARISON: Lumbar spine MRI 07/05/2006. Lumbar spine radiograph 01/16/2018. FINDINGS: Mild disc space narrowing at L5-S1, unchanged. Moderate supra endplate compression deformity at T12 which demonstrates greater than 50% loss of height. No surrounding vertebral edema. Therefore, this is likely old. Mild prevertebral edema surrounding the mild superior endplate compression fracture at L1. This demonstrates approximately 10% loss of height. No associated retropulsion. Therefore, this favors an acute to subacute fracture. This remains unchanged from the recent radiograph. No additional fractures identified within the lumbar spine. The sacrum appears intact. Mild central canal narrowing at L3-L4 and L4-L5. IMPRESSION: 1. Mild superior endplate compression fracture at L1 which is likely acute to subacute. This demonstrates 10% loss of height. This is unchanged compared to the recent radiograph. 2. Old moderate superior endplate compression fracture at T12, unchanged. Electronically signed by: Ramy Gan M.D. 01/19/2018 6:17 PM Dictated Date/Time: 01/19/2018 6:12 PM The status of this report is Signed. Draft = Not yet reviewed or approved by Radiologist. Signed = Reviewed and approved by Radiologist. CHEST ONE VIEW PORTABLE HISTORY: Generalized abdominal pain. COMPARISON: Chest 01/16/2018. FINDINGS: The heart remains mildly enlarged. There is mild central pulmonary vascular congestion without overt edema. No pneumothorax. No pleural effusions. Focal density within the base of the right lower lobe remains unchanged and is likely associated with the right rib. This may be due to an old, healed fracture. No acute rib fractures identified. IMPRESSION: Mild cardiomegaly with mild congestive change. Electronically signed by: Ramy Gan M.D. 01/19/2018 5:50 PM Dictated Date/Time: 01/19/2018 5:49 PM The status of this report is Signed. Draft = Not yet reviewed or approved by Radiologist. Signed = Reviewed and approved by Radiologist MRI LUMBAR SPINE W/O CONTRAST CLINICAL HISTORY: Back pain. Compression fracture. TECHNIQUE: Sagittal and axial T1, T2 and STIR images were obtained. COMPARISON STUDY: Lumbar spine CT scan dated 01/19/2018 OBSERVATIONS: There is an old superior endplate T12 compression fracture. There is minimal retropulsion of the superior endplate component There is an acute/subacute horizontal cleavage fracture involving the superior aspect of the L1 vertebral body demonstrating 10% loss in height. There is a T11 vertebral body hemangioma. L1-2: No disc protrusions or extrusions. No evidence of spinal canal or neural foraminal compromise. L2-3: There is a mild circumferential disc bulge. There is mild spinal canal narrowing. There is no significant foraminal stenosis L3-4: There is a mild circumferential disc bulge. There is no significant spinal or foraminal stenosis L4-5: There is a mild circumferential disc bulge. There is no significant spinal or foraminal stenosis. There is a tiny annular fissure L5-S1: No disc protrusions or extrusions. No evidence of spinal canal or neural foraminal compromise. The conus medullaris and cauda equina appear normal. IMPRESSION: 1. Multilevel spondylitic changes 2. Stable old T12 compression fracture with minor retropulsion 3. Stable acute/subacute superior L1 vertebral body fracture with approximately 10% loss in height Electronically signed by: James Alaniz M.D. 01/20/2018 12:18 PM Dictated Date/Time: 01/20/2018 12:05 PM The status of this report is Signed. Draft = Not yet reviewed or approved by Radiologist. Signed = Reviewed and approved by Radiologist. FLUOROSCOPIC IMAGES OF THE LUMBAR SPINE CLINICAL HISTORY: L1 KYPHOPLASTY COMPARISON STUDY: Lumbar spine MRI January 20, 2018. Fluoroscopy time: 2 minutes and 3 seconds. FINDINGS: These 2 images demonstrate interval L1 kyphoplasty. Methylmethacrylate is noted within the vertebral body. Old T12 compression fracture is noted. IMPRESSION: Fluoroscopic images demonstrating interval L1 kyphoplasty. Electronically signed by: Clive Simms M.D. 01/21/2018 5:00 PM Dictated Date/Time: 01/21/2018 4:59 PM The status of this report is Signed. Draft = Not yet reviewed or approved by Radiologist. Signed = Reviewed and approved by Radiologist. Operative Report Operative Date Jan 21, 2018. Pre-Operative Diagnosis Acute L1 compression fracture Post-Operative Diagnosis same Procedure(s) Performed #1 kyphoplasty L1 vertebral body. 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 L1 vertebral body biopsy Consultations: Orthopedics- Dr. Chandler Medication Reconciliation New Medications: Furosemide (Furosemide) 20 Mg Tab 20 MG PO QAM, #30 TAB 1 Refill Continued Medications: Amlodipine Besylate (Amlodipine Besylate) 5 Mg Tab 5 MG PO DAILY Cholecalciferol (Vitamin D) 2,000 Unit Tab 2000 UNITS PO DAILY Esomeprazole Magnesium (Nexium) 40 Mg Cap 40 MG PO DAILY, CAP Famotidine (Famotidine) 20 Mg Tab 20 MG PO Q12 PRN for ACID REFLUX Fluticasone Propionate (Nasal) (Flonase Allergy Relief) 50 Mcg/Act Spr 1 SPRAY AMY BID Indapamide (Indapamide) 1.25 Mg Tab 1.25 MG PO DAILY Oxycodone Immediate Rel Tab (Roxicodone Ir) 5 Mg Tab 1-2 TAB PO Q4H PRN for Severe Pain, #24 TAB Polyethylene Glycol 3350 (Miralax) 1 Pow Pow 17 GM PO DAILY, #527 GM Potassium Chloride (Potassium Chloride Er) 10 Meq Cap 10 MEQ PO DAILY Telmisartan (Telmisartan) 40 Mg Tab 40 MG PO DAILY Discharge Exam Review of Systems: Constitutional: No fever, No chills, No sweats, No weakness, No fatigue Eyes: No worsening of vision ENT: No hearing loss Respiratory: No cough, No shortness of breath, No hemoptysis Cardiovascular: No chest pain, No edema, No palpitations Abdomen: No pain, No nausea, No vomiting, No diarrhea, No constipation Musculoskeletal: + joint pain, + muscle pain, No swelling, No calf pain Genitourinary - Male: No hematuria, No dysuria Neurologic: No weakness, No numbness/tingling Psychiatric: No depression symptoms, No anxiety Endocrine: No fatigue Hematologic / Lymphatic: No abnormal bleeding/bruising Integumentary: No rash, No itch, No new/changing skin lesions Physical Exam: General Appearance: no apparent distress, + obese Eyes: normal inspection, PERRL ENT: hearing grossly normal Neck: supple Respiratory/Chest: lungs clear, no respiratory distress, no accessory muscle use Cardiovascular: regular rate, rhythm Abdomen / GI: normal bowel sounds, non tender, soft Extremities: no calf tenderness, no pedal edema Neurologic/Psychiatric: no motor/sensory deficits, alert, normal mood/affect , oriented x 3 Skin: normal color, warm/dry, no rash Hospital Course 77 y/o HTN, GERD, spinal compression fractures with chronic LBP. Pt presents with progressive LBP x 4 days. He had presented to the ER 4 days prior and was DCd with narcotics. He returns as the narcotics have not had a desired effect and he is currently unable to ambulate. A lumbar CT shows an acute L1 compression fracture. Intractable lumbar back pain, compression fractures: - Admitted to med/surg - Pain control w/ Roxicodone and IV Dilaudid- Roxicodone PRN for pain control at discharge - PT/OT consulted - MRI- stable t12 compression fracture w/ minor retropulsion, multilevel spondylitic changes, stable L2 vertebral fracture - Orthopedics consulted, appreciate recommendations- s/p kyphoplasty w/ biopsy by Dr. Chandler on 01/21, pathology pending HTN: - Micardis 40 mg daily held pending postop PRP- resume at discharge - Continue Norvasc 5 mg daily - IV Hydralazine PRN Bilateral lower extremity edema- ECHO from 2011 w/ preserved EF and diastolic dysfunction: - Held Indapamide while inpatient- resume at discharge - Started Lasix 20 mg daily- significant improvement- Continue Lasix 20 mg daily at discharge Hypokalemia, secondary to Lasix treatment: Replace w/ 20 mEq KCL x1 this AM, continue 20 mEq daily- KCL 10 mEq daily at discharge and PCP to recheck in 1 week ?EVERT: Recommend outpatient sleep study Lesion on nose, ?basal CA: f/u w/ Dermatology GERD: - Protonix daily- resume Nexium at discharge - Continue Pepcid DVT prophylaxis: Heparin TID held due to orthopedic procedure Code status: LEVEL I, FULL Dispo: Discharge to home Total Time Spent: Greater than 30 minutes This includes examination of the patient, discharge planning, medication reconciliation, and communication with other providers. Discharge Instructions Please refer to the electronic Patient Visit Report (Discharge Instructions) for additional information. Follow-Up Please follow-up with your PCP within 5-7 days Follow-up with Dr. Chandler within 2 weeks Please follow-up/keep all of your subspecialty appointments Additional Copies To Berna Yañez C.R.N.P
--- NOTE | 2018-01-22 13:08 | Progress Note ---
Progress Note Date of Service Jan 22, 2018. Progress Note Patient states his back pain is markedly improved. On exam he is in a chair at the bedside has good strength testing. Assessment status post kyphoplasty L1. Plan at this time he is okay to discharge per orthopedics. He is to maintain a 5 pound lifting restriction until follow-up.
[2018-01-23] MEDS ORDERED: BISACODYL 5 MG TABEC PO PRN (06:00)
[2018-01-23] MEDS ORDERED: BISACODYL 10 MG SUPP PR PRN (06:00)
[2018-01-24] MEDS ORDERED: POLYETHYLENE (MIRALAX) 17 GM PACK PO SCH (09:00)
== END 2018-01-22 13:39 | disposition home or self-care (01) ==
LOC: EDBD 16:45 → C.EDA 16:46 → C.MSW 19:29 → ENRESERV 19:42 → OBSVTOIN 01-20 16:28 → INTOOBSV 01-20 16:28
PROVIDERS: ADMIT Internal Medicine; ATTEND Internal Medicine
DX: S32.010A Wedge compression fracture of first lumbar vertebra, initial encounter for closed fracture (principal); I10 Essential (primary) hypertension; R60.0 Localized edema; E87.6 Hypokalemia; K21.9 Gastro-esophageal reflux disease without esophagitis; I50.9 Heart failure, unspecified; E66.9 Obesity, unspecified; M19.90 Unspecified osteoarthritis, unspecified site; Z82.49 Family history of ischemic heart disease and other diseases of the circulatory system; Z84.1 Family history of disorders of kidney and ureter; Z88.0 Allergy status to penicillin; Z88.2 Allergy status to sulfonamides; Z88.8 Allergy status to other drugs, medicaments and biological substances; Z87.442 Personal history of urinary calculi; X50.1XXA Overexertion from prolonged static or awkward postures, initial encounter

== ENCOUNTER → 2018-01-30 | Outpatient (CLI) | payer BC ==
[~2018-01-30] MED LIST changes: +LSX20 PO
== END | disposition home or self-care (01) ==
LOC: C.LABPVFM 09:43
PROVIDERS: ATTEND Nurse Practitioner
DX: E87.6 Hypokalemia (principal); R60.9 Edema, unspecified

== ENCOUNTER → 2018-02-28 | Outpatient (CLI) | payer BC | END | disposition home or self-care (01) | LOC: C.LABPVFM 09:20 | PROVIDERS: ATTEND Nurse Practitioner | DX: E87.6 Hypokalemia (principal) ==

== ENCOUNTER → 2018-04-02 | Outpatient (CLI) | payer BC ==
--- NOTE | 2018-04-02 14:26 | DIAGNOSTIC IMAGING REPORT ---
CERVICAL SPINE 2 OR 3 VIEWS CLINICAL HISTORY: Neck and upper back pain. COMPARISON STUDY: No previous studies for comparison. FINDINGS: This exam was compromised due to difficulty positioning. Leftward tilt of the head is likely positional. C7 is partially obscured on this exam. There is moderate disc space narrowing at C5-C6 to no fracture is identified within visual portions of the cervical spine. There is moderate multilevel facet arthrosis. IMPRESSION: 1. Study moderately compromised due to difficulty positioning. Leftward tilt of the head is likely positional. 2. No cervical spine fracture identified. Partial obscuration of C7. 3. Moderate disc space narrowing at C5-C6. 4. Moderate multilevel facet arthrosis. Electronically signed by: Clive Simms M.D. 04/02/2018 2:25 PM Dictated Date/Time: 04/02/2018 2:23 PM
--- NOTE | 2018-04-02 14:40 | DIAGNOSTIC IMAGING REPORT ---
THORACIC SPINE 3 VIEWS ROUTINE HISTORY: Pain UPPER BACK PAIN COMPARISON: 07/05/2006 FINDINGS: Considerable degenerative change throughout the entire thoracic region. Evidence for an interval vertebral plasty at T12. No evidence for an additional compression deformity. Remainder of the thoracic region shows generalized degenerative change. No subluxation. IMPRESSION: Interval vertebroplasty at T12. Moderate stable generalized degenerative change of the entire thoracic region. The above report was generated using voice recognition software. It may contain grammatical, syntax or spelling errors. Electronically signed by: Jignesh Moraes M.D. 04/02/2018 2:39 PM Dictated Date/Time: 04/02/2018 2:37 PM
== END | disposition home or self-care (01) ==
LOC: C.RADPV 13:51
PROVIDERS: ATTEND Family Medicine
DX: M48.02 Spinal stenosis, cervical region (principal); M47.812 Spondylosis without myelopathy or radiculopathy, cervical region

== ENCOUNTER → 2018-06-30 | Outpatient (CLI) | payer BC ==
[~2018-06-30] MED LIST changes: +ACET-1047 PO; +CYNI1000 IM; -FAMO1TAB47 PO; +FLNIN; -FLUT0.15 NAE; +LDDP5 EXT; -LSX20 PO; -MCR40 PO; +MULT-506 PO; -NXM/40 PO; -OXYC1TAB3 PO; +PANT1TAB4 PO; -POLY335019 PO; -POTA1CAP2 PO; +POTA20TA13 PO; +TELM1TAB41 PO
== END | disposition home or self-care (01) ==
LOC: C.LABPVFM 11:32
PROVIDERS: ATTEND Nurse Practitioner
DX: E53.8 Deficiency of other specified B group vitamins (principal)

== ENCOUNTER → 2018-07-24 | Outpatient (CLI) | payer BC ==
--- NOTE | 2018-07-24 14:31 | DIAGNOSTIC IMAGING REPORT ---
CHEST 2 VIEWS ROUTINE CLINICAL HISTORY: 77 years-old Male presenting with R60.9 Peripheral edema R06.02 Shortness of breath. TECHNIQUE: PA and lateral views of the chest were obtained. COMPARISON: 05/17/2018. FINDINGS: Atherosclerosis of the aortic arch. Tortuosity of the descending thoracic aorta. The superior mediastinal contour is unchanged from prior. Cardiac silhouette enlarged. Mild central pulmonary vascular prominence. Bandlike opacity in the left lung base. Mildly low lung volumes. No large pleural effusion or pneumothorax allowing for exaggerated thoracic kyphosis. Degenerative changes of the thoracic spine. Mild gaseous distention of bowel. IMPRESSION: 1. Left basilar opacities likely atelectasis or scarring. 2. Mild cardiomegaly. No felisa pulmonary edema. Electronically signed by: Jr Montiel M.D. 07/24/2018 2:29 PM Dictated Date/Time: 07/24/2018 2:28 PM
== END | disposition home or self-care (01) ==
LOC: C.RADPV 13:59
PROVIDERS: ATTEND Nurse Practitioner
DX: R60.9 Edema, unspecified (principal); R06.02 Shortness of breath; R91.8 Other nonspecific abnormal finding of lung field

== ENCOUNTER 2019-02-06 17:19 | Inpatient (IN) ==
--- NOTE | 2019-02-06 18:18 | XRay Report ---
XR foot RT min 3V routine CLINICAL HISTORY: Pt c/o Rt heel pain pain COMPARISON: None. DISCUSSION: Mild degenerative changes throughout. Dorsal soft tissue edema. Soft tissue vascular calc ifications. IMPRESSION: Soft tissue edema. Mild degenerative change. No acute bony abnormality. The above report was generated using voice recognition software. It may contain grammatical, syntax or spelling errors. Electronically signed by: Jignesh Moraes M.D. 02/06/2019 6:17 PM
[2019-02-06 18:30] LABS: Eosinophils # (auto) 0.06 K/uL (0-0.5); Eosinophils % (auto) 0.5 %; Hematocrit (blood only) 43.1 % (42-52); Hemoglobin 14.2 g/dL (14.0-18.0); Immature Granulocytes # (auto) 0.06 K/uL (0.00-0.02); Immature Granulocytes % (auto) 0.5 %; Lymphocytes # (auto) 1.49 K/uL (1.2-3.4); Lymphocytes % (auto) 13.5 %; Mean Corpuscular Hgb Conc 32.9 g/dL (32-36); Mean Corpuscular Volume 94.3 fL (80-100); Mean Platelet Volume 9.7 fL (7.4-10.4); Monocytes # (auto) 1.11 K/uL (0.11-0.59); Monocytes % (auto) 10.1 %; Neutrophils # (auto) 8.29 K/uL (1.4-6.5); Neutrophils % (auto) 75.4 %; Platelet Count 350 K/uL (130-400); RDW Coefficient of Variation 15.1 % (11.5-14.5); RDW Standard Deviation 52.2 fL (36.4-46.3); Red Blood Count 4.57 M/uL (4.7-6.1); White Blood Count 11.01 K/uL (4.8-10.8)
[2019-02-06 18:42] LABS: Albumin Level 3.4 gm/dl (3.4-5.0); Calcium 9.4 mg/dl (8.5-10.1); Creatinine Clr Calc Pharmacy 90.2 ml/min; Est GFR (African American) 103.9; Est GFR (Non-African American) 89.7
[2019-02-06 18:45] LABS: Bilirubin,Total 0.4 mg/dl (0.2-1); Globulin 3.5 gm/dl (2.5-4.0); Total Protein 6.9 gm/dl (6.4-8.2)
[2019-02-06] MEDS ORDERED: CLINDAMYCIN 150MG HOME PACK PO ONE (19:15)
[2019-02-06] MEDS ORDERED: CLINDAMYCIN 600 MG in DEXTROSE 5% 50 ML IV SCH (19:15)
--- NOTE | 2019-02-06 19:22 | Emergency Department Note ---
Entered by Nora Degroot acting as a scribe for History of Present Illness General Chief complaint: Illness Stated complaint: osteomyelitis Time Seen by Provider: 02/06/19 17:28 Source: patient and family Mode of arrival: ambulatory Limitations: no limitations History of Present Illness Onset (ago): week(s) 3 Location: ankle (right) Radiation: non-radiation Pain Consistency: + constant Maximum Pain Intensity: 2 Current Pain Intensity: 2 Relieved By: + none Exacerbated By: + movement Associated symptoms: + denies other symptoms Treatments prior to arrival: other (antibiotic) The patient is an 78 year old male who presents to the Emergency Room with complaints of a worsening ulcer on his right ankle. His states he has a non-healing ulcer on his left heel. He rates his pain as a 2/10 in severity. The patient has had the ulcer for the past few weeks, but it keeps worsening. He was prescribed antibiotics by Dr. Lowry at [facility] and states when the wound worsened, she advised him to come to the ED for evaluation. Home Medications Home Medications Medication Instructions Recorded Confirmed Type amlodipine 5 mg PO DAILY 09/21/18 02/06/19 History cholecalciferol (vitamin D3) 2,000 unit PO DAILY 09/21/18 02/06/19 History [Vitamin D3] escitalopram oxalate [Lexapro] 10 mg PO QPM 09/21/18 02/06/19 History furosemide 20 mg PO DAILY 09/21/18 02/06/19 History pantoprazole [Protonix] 40 mg PO DAILY 09/21/18 02/06/19 History potassium chloride 40 meq PO DAILY 09/21/18 02/06/19 History telmisartan [Micardis] 40 mg PO DAILY 09/21/18 02/06/19 History calcium carbonate [Calcium 600] 600 mg PO DAILY 02/06/19 02/06/19 History docusate sodium 100 mg PO DAILY 02/06/19 02/06/19 History doxycycline hyclate 100 mg PO BID 02/06/19 02/06/19 History memantine 5 mg PO BID 02/06/19 02/06/19 History Allergies Allergy/AdvReac Type Severity Reaction Status Date / Time blue dye Allergy Unknown BRADYCARDIA Verified 02/06/19 18:15 cefaclor Allergy Unknown . Verified 02/06/19 18:15 cyclobenzaprine Allergy Unknown UNKNOWN Verified 02/06/19 18:15 nebivolol Allergy Unknown BRADYCARDIA Verified 02/06/19 18:15 Penicillins Allergy Unknown . Verified 02/06/19 18:15 Sulfa (Sulfonamide Allergy Unknown . Verified 02/06/19 18:15 Antibiotics) yellow dye Allergy Unknown BRADYCARDIA Verified 02/06/19 18:15 BENGAY AdvReac Unknown ARTHRITIS Uncoded 02/06/19 18:15 Past Med/Surg History Medical History Depression Hearing loss (Chronic) Osteopenia (Chronic) Colon polyps (Resolved) T12 compression fracture (Resolved) Reflux (Chronic) Bradycardia (Resolved) Compression fx, lumbar spine Confusion Fall (Resolved) Gait abnormality Hypertension (Chronic) Rib contusion (Resolved) Surgical History Previous back surgery H/O colonoscopy (Resolved) Family History Other No pertinent family history in first degree relatives Social History Communication Ability: Effective Beliefs That Will Affect Care: None Current Living Situation: Spouse Feels Safe at Home: Yes Smoking Status: Unknown if ever smoked Hx Alcohol Use: No Hx Substance Use: No Review of Systems See HPI for pertinent positives & negatives. and A total of 10 systems reviewed and were otherwise negative Physical Exam Vital Signs Vital Signs - 24 hr 02/06/19 17:22 02/06/19 18:11 02/06/19 18:35 Temperature 36.4 C L Temperature Source Oral Sepsis Recent Fever Within 48 Hours No Sepsis Action Taken by Nursing No Action Required Pulse Rate 78 78 66 Pulse Rate [Left Radial] Pulse Rate from SpO2 Sensor 68 Pulse Rhythm Regular Regular Pulse Strength Normal Respiratory Rate 20 20 22 Respiratory Effort / Characteristics Non-Labored Respiratory Depth Normal Blood Pressure 192/112 H 169/92 H Blood Pressure [Left Arm] Blood Pressure Mean 138 117 Blood Pressure Mean [Left Arm] Blood Pressure Position Sitting Pulse Oximetry 93 93 94 Oxygen Delivery Method Room Air Room Air Room Air 02/06/19 19:00 02/06/19 19:30 02/06/19 19:31 Temperature Temperature Source Sepsis Recent Fever Within 48 Hours Sepsis Action Taken by Nursing Pulse Rate 66 67 66 Pulse Rate [Left Radial] Pulse Rate from SpO2 Sensor 68 67 65 Pulse Rhythm Pulse Strength Respiratory Rate 20 18 18 Respiratory Effort / Characteristics Respiratory Depth Blood Pressure 179/98 H 176/94 H Blood Pressure [Left Arm] Blood Pressure Mean 125 121 Blood Pressure Mean [Left Arm] Blood Pressure Position Pulse Oximetry 92 97 94 Oxygen Delivery Method 02/06/19 20:00 02/06/19 21:37 02/06/19 22:00 Temperature 36.6 C Temperature Source Oral Sepsis Recent Fever Within 48 Hours Sepsis Action Taken by Nursing Pulse Rate 68 71 Pulse Rate [Left Radial] 67 Pulse Rate from SpO2 Sensor 68 Pulse Rhythm Pulse Strength Respiratory Rate 20 14 22 Respiratory Effort / Characteristics Respiratory Depth Blood Pressure 157/101 H 172/99 H Blood Pressure [Left Arm] 192/98 H Blood Pressure Mean 119 Blood Pressure Mean [Left Arm] 129 Blood Pressure Position Pulse Oximetry 92 97 91 Oxygen Delivery Method Room Air 02/06/19 22:24 02/06/19 22:57 02/06/19 23:12 Temperature 36.6 C 36.6 C Temperature Source Oral Oral Sepsis Recent Fever Within 48 Hours Sepsis Action Taken by Nursing Pulse Rate Pulse Rate [Left Radial] 67 71 Pulse Rate from SpO2 Sensor Pulse Rhythm Pulse Strength Respiratory Rate 16 24 Respiratory Effort / Characteristics Respiratory Depth Blood Pressure Blood Pressure [Left Arm] 192/98 H 179/96 H 178/101 H Blood Pressure Mean Blood Pressure Mean [Left Arm] 129 123 126 Blood Pressure Position Pulse Oximetry 91 90 Oxygen Delivery Method Room Air GENERAL: Awake, alert, well-appearing, in no distress HENT: Normocephalic, atraumatic. Oropharynx unremarkable. EYES: Normal conjunctiva. Sclera non-icteric. NECK: Supple. No nuchal rigidity. FROM. No masses. RESPIRATORY: Clear to auscultation. No wheezes. No rales. Normal respiratory effort. CARDIAC: Normal rate. Normal rhythm. No murmurs. No rubs. Extremities warm and well perfused. Pulses equal. No JVD. GI: Soft, non-distended. No tenderness to palpation. No rebound or guarding. No masses. RECTAL: Deferred. MUSCULOSKELETAL: Atraumatic. Chest examination reveals no tenderness. The back is symmetrical on inspection without obvious abnormality. There is no CVA tenderness to palpation. No joint edema. Dime sized blood blister to back of right foot. LOWER EXTREMITIES: Calves are equal size bilaterally and non-tender. No edema. No discoloration. NEURO: Normal sensorium. No sensory or motor deficits noted. Course 173: Past medical records reviewed. The patient was evaluated in room C12A, and a complete history and physical examination were performed. 1919: I reevaluated the patient. He is feeling well and resting comfortably. 1931: I discussed the patients case with Dr. Forde, [facility]. The patient will be further evaluated. Consultations Consultation #1: I discussed the patients case with Dr. Forde, [facility]. The patient will be further evaluated. Time: 19:32 Administered Medications Discontinued Medications Clindamycin HCl (Cleocin 150mg Home Pack) 1 homepack PO UD ONE Stop: 02/06/19 19:16 Last Admin: 02/06/19 19:33 Dose: Not Given Documented by: [id number] Daptomycin 375 mg/ Syringe 7.5 mls @ 3.75 mls/min IV NOW ONE Stop: 02/06/19 19:29 Last Admin: 02/06/19 20:10 Dose: 3.75 mls/min Documented by: [id number] Ceftriaxone Sodium (Rocephin) 1,000 mg in 50 mls @ 100 mls/hr IV NOW STA Stop: 02/06/19 19:59 Last Infusion: 02/06/19 20:19 Dose: 0 mls/hr Documented by: [id number] Admin: 02/06/19 19:38 Dose: 100 mls/hr Documented by: [id number] Medical Decision Making Differential Diagnosis Differential diagnosis includes etiologies such as cellulitis, abscess, MRSA infection, DVT, necrotizing fasciitis, dermatitis, drug eruption, as well as others were entertained. Medical Records Attestation: I reviewed the patient's medical records. Home Medications Current Medication List: was personally reviewed by me Laboratory Data Attestation: I reviewed the patient's lab results. Result diagrams: 02/06/19 18:00 02/06/19 18:00 Lab Results 02/06/19 02/06/19 02/06/19 Range/Units 18:00 18:00 19:10 WBC 11.01 H (4.8-10.8) K/uL RBC 4.57 L (4.7-6.1) M/uL Hgb 14.2 (14.0-18.0) g/dL Hct 43.1 (42-52) % MCV 94.3 (80-100) fL MCH 31.1 (25-34) pg MCHC 32.9 (32-36) g/dL RDW Std Deviation 52.2 H (36.4-46.3) fL RDW Coeff of Kyree 15.1 H (11.5-14.5) % Plt Count 350 (130-400) K/uL MPV 9.7 (7.4-10.4) fL Immature Gran % (Auto) 0.5 % Neut % (Auto) 75.4 % Lymph % (Auto) 13.5 % [place] % (Auto) 10.1 % Eos % (Auto) 0.5 % Baso % (Auto) 0.0 % Immature Gran # (Auto) 0.06 H (0.00-0.02) K/uL Neut # (Auto) 8.29 H (1.4-6.5) K/uL Lymph # (Auto) 1.49 (1.2-3.4) K/uL [place] # (Auto) 1.11 H (0.11-0.59) K/uL Eos # (Auto) 0.06 (0-0.5) K/uL Baso # (Auto) 0.00 (0-0.2) K/uL Sodium 135 L (136-145) mmol/L Potassium 4.0 (3.5-5.1) mmol/L Chloride 95 L (98-107) mmol/L Carbon Dioxide 34 H (21-32) mmol/L Anion Gap 6.0 (3-11) BUN 14 (7-18) mg/dl Creatinine 0.69 (0.6-1.4) mg/dl Est Cr Clr Drug Dosing 90.2 ml/min Est GFR ( Amer) 103.9 Est GFR (Non-Af Amer) 89.7 BUN/Creatinine Ratio 20.0 (10-20) Glucose 100 H (70-99) mg/dl Calcium 9.4 (8.5-10.1) mg/dl Total Bilirubin 0.4 (0.2-1) mg/dl AST 29 (15-37) U/L ALT 55 (12-78) U/L Alkaline Phosphatase 209 H (45-117) U/L Total Protein 6.9 (6.4-8.2) gm/dl Albumin 3.4 (3.4-5.0) gm/dl Globulin 3.5 (2.5-4.0) gm/dl Albumin/Globulin Ratio 1.0 (0.9-2) Lipase 216 (73-393) U/L Urine Color Yellow Urine Appearance Clear (Clear) Urine pH 8.0 H (4.5-7.5) Ur Specific [place] 1.011 (1.000-1.030) Urine Protein Negative (Negative) Urine Glucose (UA) Negative (Negative) Urine Ketones Negative (Negative) Urine Blood Negative (Negative) Urine Nitrite Negative (Negative) Urine Bilirubin Negative (Negative) Urine Urobilinogen Negative (Negative) Ur Leukocyte Esterase Negative (Negative) Imaging Data Radiologist's Impression: Radiology results as stated below per my review and the radiologist's interpretation: XR foot RT min 3V routine CLINICAL HISTORY: Pt c/o Rt heel pain pain COMPARISON: None. DISCUSSION: Mild degenerative changes throughout. Dorsal soft tissue edema. Soft tissue vascular calcifications. IMPRESSION: Soft tissue edema. Mild degenerative change. No acute bony abnor mality. The above report was generated using voice recognition software. It may contain grammatical, syntax or spelling errors. Electronically signed by: Jignesh Moraes M.D. 02/06/2019 6:17 PM Blood Pressure Blood Pressure Findings: Elevated blood pressure MDM Narrative This is an 78-year-old male who presents emergency department complaining of an area of blistering to his heel. The patient's x-rays are concerning for bone erosion in this same area. Does have a slight elevation in his white blood cell count. He was started on Kurt sensation of the entire left armephin as well as daptomycin. I did discuss the case with the hospitalist service who agreed to be the patient. Patient is in agreement with the treatment plan. Impression & Plan Osteomyelitis Discharge Plan Visit Data *Final* Discharge Date/Time: 02/06/19 21:37 Chief Complaint: Illness Stated Complaint: osteomyelitis ED Provider: Fei Gasca Discharge Problem: Osteomyelitis Patient Disposition: Admitted As Inpatient Discharge Instructions Interventions: ED Discharge Assessment Last Done: 02/06/19 21:37 The scribe's documentation has been prepared under my direction and personally reviewed by me in its entirety. I confirm that the note above accurately reflects all work, treatment, procedures, and medical decision making performed by me.
[2019-02-06 19:25] LABS: Appearance Urine Clear (Clear); Bilirubin Urine Negative (Negative); Blood Urine Negative (Negative); Color Urine Yellow; Glucose Urine UA Negative (Negative); Ketones Urine Negative (Negative); Leukocyte Esterase Urine Negative (Negative); Nitrite Urine Negative (Negative); Protein Urine Negative (Negative); Specific Gravity Urine 1.011 (1.000-1.030); Urobilinogen Urine Negative (Negative)
[2019-02-06] MEDS ORDERED: DAPTOmycin 375 MG in SYRINGE 0 ML IV ONE (19:28)
[2019-02-06] MEDS ORDERED: cefTRIAXone SODIUM 1,000 MG/50 ML BAG IV STA (19:30)
[2019-02-06] MEDS ORDERED: VANCOMYCIN CONSULT ACTIVE PRN (22:16)
[2019-02-06] MEDS ORDERED: ACETAMINOPHEN 1000 MG/100 ML IV IV PRN (22:16)
[2019-02-06] MEDS ORDERED: ONDANSETRON INJ 2 MG/ML 2 ML VIAL IV PRN (22:16)
--- NOTE | 2019-02-06 22:49 | Pharmacy Report ---
Pharmacy Abx Initial Consult - Date of Service February 06, 2019 - Pharmacy Dosing Scope Date of Consult: 02/06/19 Consultation requested by: Dr. Forde Pharmacy is consulted to initiate vancomycin IV dosing therapy, order appropriate labs and adjust drug dose/frequency. - Subjective The patient is a 78 year old M admitted on 02/06/19 21:01 with worsening ulcer on ankle. Concern for osteo. - Objective Height: 5 ft 6 in Weight: 91 kg Vital Signs (Past 12hrs): Vital Signs Temp Pulse Pulse Resp BP BP Pulse Ox 02/06/19 22:00 36.6 C 67 22 192/98 H 91 02/06/19 21:37 71 14 172/99 H 97 02/06/19 20:00 68 20 157/101 H 92 02/06/19 19:31 66 18 176/94 H 94 02/06/19 19:30 67 18 97 02/06/19 19:00 66 20 179/98 H 92 02/06/19 18:35 66 22 169/92 H 94 02/06/19 18:11 78 20 93 02/06/19 17:22 36.4 C L 78 20 192/112 H 93 Lab Results (24hrs): Laboratory Tests (24 Hours) 02/06/19 02/06/19 18:00 18:00 WBC 11.01 H Neut # (Auto) 8.29 H Creatinine 0.69 Est Cr Clr Drug Dosing 90.2 Micro Results: 02/06/19 17:40 Gram Stain - Pending Foot,Right Wound Culture - Pending - Risk Factors for Resistance * Antimicrobial use within the last 90 days (unknown agent) - Assessment & Plan Assessment 78 year old M with worsening ulcer. X-ray negative for osteo currently. Plan vancomycin and aztreonam for treatment of SSTI, concern for osteo. Vancomycin IV * Estimated PK Parameters: Vd 0.65 L/kg, Deandre 0.079 hr-1, t1/2 8.7 hr * Loading dose: 2250 mg (25 mg/kg) * Maintenance dose: 1500 mg IV (15 mg/kg) every 12 hours * Goal trough level for possible osteo : 15 to 20 mcg/mL * Trough ordered for 02/09/19 Pharmacy will continue to follow and will adjust dose/frequency as necessary. Thank you.
--- NOTE | 2019-02-06 23:25 | History & Physical Report ---
Date of Service February 06, 2019 Assessment & Plan (1) Osteomyelitis of ankle or foot, right, acute: Posterior ankle near calcaneus insertion appears abnormal on x-ray with concern regarding osteomyelitis/significant external cellulitis-- Placed on vancomycin IV and aztreonam IV. Note antibiotic allergies to cephalosporins, penicillins and sulfas. Order MRI of right foot and heel for further clarification. Consult infectious disease. Consult wound care. Consent for PICC line obtained from . Present on Admission?: Yes (2) Hypertension: Continue amlodipine and telmisartan with hold parameters. Present on Admission?: Yes (3) Bilateral lower extremity edema: Placed on Lasix 40 mg IV twice daily. Andrea catheter for accurate I's and O's. Present on Admission?: Yes (4) Depression: Depression/dementia-- Continue Namenda, and Lexapro Present on Admission?: Yes (5) Dementia: As above. Present on Admission?: Yes History of Present Illness Chief Complaint: The patient presents to the emergency department with a worsening of an ulcer on the back of his right heel that his is been cleansing on a daily basis for the past few months. He had been prescribed antibiotics by Dr. Lowry at [facility], but when the heel worsens, he was advised to come to the emergency department for assessment. Primary Care Provider: Gisela Raphael MD The patient is an 78-year-old male, with significant dementia, who is taking care of by his at home. She has been trying to keep his right heel ulcer clean by daily cleansing, however, even with addition of antibiotics by Dr. Lowry, his heel is worsened, and she has brought him into the emergency department for assessment. The patient himself can only give limited input into his condition due to his dementia. Allergies Allergy/AdvReac Type Severity Reaction Status Date / Time blue dye Allergy Unknown BRADYCARDIA Verified 02/06/19 18:15 cefaclor Allergy Unknown . Verified 02/06/19 18:15 cyclobenzaprine Allergy Unknown UNKNOWN Verified 02/06/19 18:15 nebivolol Allergy Unknown BRADYCARDIA Verified 02/06/19 18:15 Penicillins Allergy Unknown . Verified 02/06/19 18:15 Sulfa (Sulfonamide Allergy Unknown . Verified 02/06/19 18:15 Antibiotics) yellow dye Allergy Unknown BRADYCARDIA Verified 02/06/19 18:15 BENGAY AdvReac Unknown ARTHRITIS Uncoded 02/06/19 18:15 Home Medications Home Medications Medication Instructions Recorded Confirmed Type amlodipine 5 mg PO DAILY 09/21/18 02/06/19 History cholecalciferol (vitamin D3) 2,000 unit PO DAILY 09/21/18 02/06/19 History [Vitamin D3] escitalopram oxalate [Lexapro] 10 mg PO QPM 09/21/18 02/06/19 History furosemide 20 mg PO DAILY 09/21/18 02/06/19 History pantoprazole [Protonix] 40 mg PO DAILY 09/21/18 02/06/19 History potassium chloride 40 meq PO DAILY 09/21/18 02/06/19 History telmisartan [Micardis] 40 mg PO DAILY 09/21/18 02/06/19 History calcium carbonate [Calcium 600] 600 mg PO DAILY 02/06/19 02/06/19 History docusate sodium 100 mg PO DAILY 02/06/19 02/06/19 History doxycycline hyclate 100 mg PO BID 02/06/19 02/06/19 History memantine 5 mg PO BID 02/06/19 02/06/19 History Past Med/Surg History Medical History Depression Hearing loss (Chronic) Osteopenia (Chronic) Colon polyps (Resolved) T12 compression fracture (Resolved) Reflux (Chronic) Bradycardia (Resolved) Compression fx, lumbar spine Confusion Fall (Resolved) Gait abnormality Hypertension (Chronic) Rib contusion (Resolved) Surgical History Previous back surgery H/O colonoscopy (Resolved) Family History Other No pertinent family history in first degree relatives Social History Communication Ability: Effective Beliefs That Will Affect Care: None Current Living Situation: Spouse Feels Safe at Home: Yes Smoking Status: Unknown if ever smoked Hx Alcohol Use: No Hx Substance Use: No Review of Systems Review of systems is limited due to patient dementia. His reports his history as noted above. Physical Exam Vital Signs (Past 24 Hours): Last Vital Signs Temp 36.6 C 02/06/19 23:12 Pulse 71 02/06/19 23:12 Resp 24 02/06/19 23:12 BP 178/101 H 02/06/19 23:12 Pulse Ox 90 02/06/19 23:12 Physical Exam: The patient is awake, alert and oriented 1, well developed and well nourished, normocephalic and atraumatic, lying in bed and in no acute distress. HEENT--PERRL, EOMI, mucous membranes and oropharynx dry. Neck--supple. No JVD. No bruits. Thyroid normal, trachea midline, no adenopathy. Heart--normal S1 and S2. No murmurs, rubs or gallops. Lungs--clear bilaterally, no respiratory distress, no accessory muscle use. Abdomen--normal bowel sounds and soft. Nontender. Nondistended, no hernias or masses, no organomegaly. Extremities/neurologic--there is bilateral pretibial 2+ pitting edema. Right heel with central eschar approximately 10 mm in diameter, with surrounding erythema up to 4 times size. Neurologic--cranial nerves II through XII grossly intact. Rheumatologic--normal range of motion. Psychiatric--normal affect, dementia Results & Data Laboratory Results Laboratory Results WBC 11.01 K/uL (4.8-10.8) H 02/06/19 18:00 RBC 4.57 M/uL (4.7-6.1) L 02/06/19 18:00 Hgb 14.2 g/dL (14.0-18.0) 02/06/19 18:00 Hct 43.1 % (42-52) 02/06/19 18:00 MCV 94.3 fL (80-100) 02/06/19 18:00 MCH 31.1 pg (25-34) 02/06/19 18:00 MCHC 32.9 g/dL (32-36) 02/06/19 18:00 RDW Std Deviation 52.2 fL (36.4-46.3) H 02/06/19 18:00 RDW Coeff of Kyree 15.1 % (11.5-14.5) H 02/06/19 18:00 Plt Count 350 K/uL (130-400) 02/06/19 18:00 MPV 9.7 fL (7.4-10.4) 02/06/19 18:00 Immature Gran % (Auto) 0.5 % 02/06/19 18:00 Neut % (Auto) 75.4 % 02/06/19 18:00 Lymph % (Auto) 13.5 % 02/06/19 18:00 [place] % (Auto) 10.1 % 02/06/19 18:00 Eos % (Auto) 0.5 % 02/06/19 18:00 Baso % (Auto) 0.0 % 02/06/19 18:00 Immature Gran # (Auto) 0.06 K/uL (0.00-0.02) H 02/06/19 18:00 Neut # (Auto) 8.29 K/uL (1.4-6.5) H 02/06/19 18:00 Lymph # (Auto) 1.49 K/uL (1.2-3.4) 02/06/19 18:00 [place] # (Auto) 1.11 K/uL (0.11-0.59) H 02/06/19 18:00 Eos # (Auto) 0.06 K/uL (0-0.5) 02/06/19 18:00 Baso # (Auto) 0.00 K/uL (0-0.2) 02/06/19 18:00 Sodium 135 mmol/L (136-145) L 02/06/19 18:00 Potassium 4.0 mmol/L (3.5-5.1) 02/06/19 18:00 Chloride 95 mmol/L (98-107) L 02/06/19 18:00 Carbon Dioxide 34 mmol/L (21-32) H 02/06/19 18:00 Anion Gap 6.0 (3-11) 02/06/19 18:00 BUN 14 mg/dl (7-18) 02/06/19 18:00 Creatinine 0.69 mg/dl (0.6-1.4) 02/06/19 18:00 Est Cr Clr Drug Dosing 90.2 ml/min 02/06/19 18:00 Est GFR ( Amer) 103.9 02/06/19 18:00 Est GFR (Non-Af Amer) 89.7 02/06/19 18:00 BUN/Creatinine Ratio 20.0 (10-20) 02/06/19 18:00 Glucose 100 mg/dl (70-99) H 02/06/19 18:00 Calcium 9.4 mg/dl (8.5-10.1) 02/06/19 18:00 Total Bilirubin 0.4 mg/dl (0.2-1) 02/06/19 18:00 AST 29 U/L (15-37) 02/06/19 18:00 ALT 55 U/L (12-78) 02/06/19 18:00 Alkaline Phosphatase 209 U/L (45-117) H 02/06/19 18:00 Total Protein 6.9 gm/dl (6.4-8.2) 02/06/19 18:00 Albumin 3.4 gm/dl (3.4-5.0) 02/06/19 18:00 Globulin 3.5 gm/dl (2.5-4.0) 02/06/19 18:00 Albumin/Globulin Ratio 1.0 (0.9-2) 02/06/19 18:00 Lipase 216 U/L (73-393) 02/06/19 18:00 Urine Color Yellow 02/06/19 19:10 Urine Appearance Clear (Clear) 02/06/19 19:10 Urine pH 8.0 (4.5-7.5) H 02/06/19 19:10 Ur Specific [place] 1.011 (1.000-1.030) 02/06/19 19:10 Urine Protein Negative (Negative) 02/06/19 19:10 Urine Glucose (UA) Negative (Negative) 02/06/19 19:10 Urine Ketones Negative (Negative) 02/06/19 19:10 Urine Blood Negative (Negative) 02/06/19 19:10 Urine Nitrite Negative (Negative) 02/06/19 19:10 Urine Bilirubin Negative (Negative) 02/06/19 19:10 Urine Urobilinogen Negative (Negative) 02/06/19 19:10 Ur Leukocyte Esterase Negative (Negative) 02/06/19 19:10 Diagnostic Findings [facility] [place], [place] [phone] XRay Report Patient: Jackelyn PETE Date: 02/06/19 MR#: [id number]: [address] Acct ID:[id number]: [address] Date: 1940[facility] Zip: [place] [address] Age: 78Location: RAD4 Sex: M Room/Bed: Att Phy: Ijeoma Gisela MDDiagnosis: S90.821A BLISTER RT FOOT W/INFECTION MIN 3V ROUTIN Karen Phy: Ijeoma Gisela MDService Date: 02/06/19 Fam Phy: Interpreting Phy: Ramy Gan MD Admit Phy: Ordering Phy: Gisela Raphael MD cc: ~ RIGHT FOOT 3 VIEWS HISTORY: Blister of right heel with infection COMPARISON: None. FINDINGS: There is no fracture or dislocation. Mass or calcification are noted. Diffuse soft tissue swelling within the foot. Mild osteoarthritis within the DIP and PIP joints. Focal skin calcification at the posterior heel. This measures 1 cm. There are suggestion of erosion at the posterior calcaneal spur. No radiopaque foreign bodies. IMPRESSION: There appears to be erosion at the posterior calcaneal spur. This raises the possibility of osteomyelitis at this location. Electronically signed by: Ramy Gan M.D. 02/06/2019 3:01 PM Dictated: 02/06/19 1445 Transcribed: 02/06/19 1445 Code Status & VTE Plan VTE Prophylaxis Plan VTE Prophylaxis will be ordered: Yes
[2019-02-07] MEDS: AZTREONAM 1,000 MG in DEXTROSE 5% 100 ML IV SCH ×4 (00:04→22:27)
[2019-02-07] MEDS: ESCITALOPRAM OXALATE 10 MG TAB PO SCH ×2 (00:05→20:09)
[2019-02-07] MEDS ORDERED: HydrALAZINE HCL 20 MG/ML VIAL IV ONE (01:40)
--- NOTE | 2019-02-07 07:51 | Ultrasound Report ---
US arterial duplex LE BI CLINICAL HISTORY: Right leg osteomyelitis. COMPARISON STUDY: None. FINDINGS: The ankle brachial indices were not performed. There is scattered calcified plaques seen th roughout the bilateral lower extremities. Normal velocities and biphasic to triphasic waveforms seen throughout the lower extremity arterial systems. No high-grade stenosis or occlusion identified. IMPRESSION: No high-grade stenosis or arterial occlusion identified within the bilateral lower extre mities. Electronically signed by: Ramy Gan M.D. 02/07/2019 7:50 AM
[2019-02-07] MEDS: AMLODIPINE BESYLATE 5 MG TAB PO SCH (07:52)
[2019-02-07] MEDS: CHOLECALCIFEROL 1,000 UNITS TAB PO SCH (07:55)
[2019-02-07] MEDS: POTASSIUM CHLORIDE 20 MEQ TABCR PO SCH (07:55)
[2019-02-07] MEDS ORDERED: VANCOMYCIN HCL 2,250 MG in SODIUM CHLORIDE 0.9% 500 ML IV ONE (08:00)
[2019-02-07 08:40] LABS: Basophils # (auto) 0.01 K/uL (0-0.2); Basophils % (auto) 0.1 %; Eosinophils # (auto) 0.03 K/uL (0-0.5); Eosinophils % (auto) 0.3 %; Hematocrit (blood only) 43.9 % (42-52); Hemoglobin 14.4 g/dL (14.0-18.0); Immature Granulocytes # (auto) 0.04 K/uL (0.00-0.02); Immature Granulocytes % (auto) 0.4 %; Lymphocytes # (auto) 1.27 K/uL (1.2-3.4); Lymphocytes % (auto) 13.7 %; Mean Corpuscular Hgb Conc 32.8 g/dL (32-36); Mean Platelet Volume 9.7 fL (7.4-10.4); Monocytes # (auto) 0.76 K/uL (0.11-0.59); Monocytes % (auto) 8.2 %; Neutrophils # (auto) 7.16 K/uL (1.4-6.5); Neutrophils % (auto) 77.3 %; Platelet Count 331 K/uL (130-400); RDW Coefficient of Variation 15.2 % (11.5-14.5); Red Blood Count 4.67 M/uL (4.7-6.1); White Blood Count 9.27 K/uL (4.8-10.8)
[2019-02-07] MEDS: CALCIUM CARBONATE 1250MG TAB PO SCH (08:46)
[2019-02-07] MEDS: TELMISARTAN 40 MG TAB PO SCH (08:46)
[2019-02-07 08:53] LABS: Partial Thromboplastin Time 26.4 Seconds (21.0-31.0)
[2019-02-07 09:09] LABS: BUN Creatinine Ratio 15.8 (10-20); Calcium 8.9 mg/dl (8.5-10.1); Creatinine Clr Calc Pharmacy 113.5 ml/min; Est GFR (African American) 114.9; Est GFR (Non-African American) 99.2; Potassium 3.2 mmol/L (3.5-5.1)
[2019-02-07 09:25] LABS: Albumin Globulin Ratio 0.9 (0.9-2); Bilirubin,Total 0.5 mg/dl (0.2-1); Globulin 3.3 gm/dl (2.5-4.0); Total Protein 6.3 gm/dl (6.4-8.2)
--- NOTE | 2019-02-07 14:52 | Hospitalist Progress Note ---
Date of Service February 07, 2019 Assessment & Plan (1) Osteomyelitis of ankle or foot, right, acute: Posterior ankle near calcaneus insertion appears abnormal on x-ray with concern regarding osteomyelitis/significant external cellulitis-- will order MRI of the foot Continue vancomycin IV and aztreonam IV. Note antibiotic allergies to cephalosporins, penicillins and sulfas. Wound culture pending Consult infectious disease. Consult wound care nurse Consult ortho Consent for PICC line obtained from . (2) Hypertension: Continue amlodipine and telmisartan with hold parameters. (3) Bilateral lower extremity edema: Placed on Lasix 40 mg IV twice daily. Andrea catheter for accurate I's and O's. (4) Depression: Depression/dementia-- Continue Namenda, and Lexapro (5) Dementia: As above. (6) DVT prophylaxis: heparin subq, scds Subjective Mr. Ross is pleasant and smiling, no complaints of pain, not a great historian due to baseline dementia but his is bedside and was able to help. Review of Systems All systems reviewed & are unremarkable except as noted in HPI & below Physical Exam Vital Signs (Past 24 Hours): Last Vital Signs Temp 36.8 C 02/07/19 12:07 Pulse 67 02/07/19 12:07 Resp 18 02/07/19 12:07 BP 151/87 H 02/07/19 12:07 Pulse Ox 93 02/07/19 12:07 Physical Exam: General: no distress Eyes: normal inspection, PERLL Respiratory: chest non tender, clear to auscultation, normal breath sounds, no respiratory distress, no accessory muscle use Cardiac: regular rate and rhythm, no rub or gallop, no murmur, no edema, no jvd GI/: active bowel sounds, no abd pain or tenderness, soft, non distended Extremities: normal range of motion, normal strength, non tender Neuro/Psych: alert and oriented x 3, normal mood and affect Skin: normal color, dry, left foot wound with scant amount of serousanguineous drainage Results & Data Laboratory Results Abnormal lab results 02/06/19 02/06/19 02/06/19 Range/Units 18:00 18:00 19:10 WBC 11.01 H (4.8-10.8) K/uL RBC 4.57 L (4.7-6.1) M/uL RDW Std Deviation 52.2 H (36.4-46.3) fL RDW Coeff of Kyree 15.1 H (11.5-14.5) % Immature Gran # (Auto) 0.06 H (0.00-0.02) K/uL Neut # (Auto) 8.29 H (1.4-6.5) K/uL [place] # (Auto) 1.11 H (0.11-0.59) K/uL Sodium 135 L (136-145) mmol/L Potassium (3.5-5.1) mmol/L Chloride 95 L (98-107) mmol/L Carbon Dioxide 34 H (21-32) mmol/L Creatinine (0.6-1.4) mg/dl Glucose 100 H (70-99) mg/dl Alkaline Phosphatase 209 H (45-117) U/L Total Protein (6.4-8.2) gm/dl Albumin (3.4-5.0) gm/dl Urine pH 8.0 H (4.5-7.5) 02/07/19 02/07/19 Range/Units 08:16 08:16 WBC (4.8-10.8) K/uL RBC 4.67 L (4.7-6.1) M/uL RDW Std Deviation 52.0 H (36.4-46.3) fL RDW Coeff of Kyree 15.2 H (11.5-14.5) % Immature Gran # (Auto) 0.04 H (0.00-0.02) K/uL Neut # (Auto) 7.16 H (1.4-6.5) K/uL [place] # (Auto) 0.76 H (0.11-0.59) K/uL Sodium (136-145) mmol/L Potassium 3.2 L D (3.5-5.1) mmol/L Chloride 96 L (98-107) mmol/L Carbon Dioxide 34 H (21-32) mmol/L Creatinine 0.54 L (0.6-1.4) mg/dl Glucose 138 H (70-99) mg/dl Alkaline Phosphatase 203 H (45-117) U/L Total Protein 6.3 L (6.4-8.2) gm/dl Albumin 3.0 L (3.4-5.0) gm/dl Urine pH (4.5-7.5)
--- NOTE | 2019-02-07 15:58 | Infectious Disease Consult ---
Date of Consultation February 07, 2019 Assessment & Plan (1) Osteomyelitis of ankle or foot, right, acute: 78-year-old male with probable osteomyelitis of the right calcaneus. Given multiple allergies and pending culture results, combination of vancomycin and aztreonam appropriate. Would like to see if any culture results are available from [facility]. Await orthopedic surgery consultation and MRI. Will follow. History of Present Illness Reason for Consultation: Right heel cellulitis, osteomyelitis Attending Physician: Rony Owens MD History of Present Illness History obtained from family, medical records, medical staff is patient unable to provide adequate history. 78-year-old male with history of dementia, hypertension and bradycardia who has been followed for several weeks for nonhealing right heel ulceration. He has been treated with local wound care and has received oral antibiotics (unknown t ype) without much improvement. Was found to have progressive worsening and was admitted to the hospital for further management. Patient has history of allergies to cephalosporins and penicillins, and has been started on vancomycin and aztreonam empirically. Blood and wound cultures are pending. X-ray of the foot, read by me, shows evidence of probable osteomyelitis of the calcaneus. Awaiting MRI and orthopedic consultation. Allergies Allergy/AdvReac Type Severity Reaction Status Date / Time blue dye Allergy Unknown BRADYCARDIA Verified 02/06/19 18:15 cefaclor Allergy Unknown . Verified 02/06/19 18:15 cyclobenzaprine Allergy Unknown UNKNOWN Verified 02/06/19 18:15 nebivolol Allergy Unknown BRADYCARDIA Verified 02/06/19 18:15 Penicillins Allergy Unknown . Verified 02/06/19 18:15 Sulfa (Sulfonamide Allergy Unknown . Verified 02/06/19 18:15 Antibiotics) yellow dye Allergy Unknown BRADYCARDIA Verified 02/06/19 18:15 BENGAY AdvReac Unknown ARTHRITIS Uncoded 02/06/19 18:15 Home Medications Home Medications Medication Instructions Recorded Confirmed Type amlodipine 5 mg PO DAILY 09/21/18 02/06/19 History cholecalciferol (vitamin D3) 2,000 unit PO DAILY 09/21/18 02/06/19 History [Vitamin D3] escitalopram oxalate [Lexapro] 10 mg PO QPM 09/21/18 02/06/19 History furosemide 20 mg PO DAILY 09/21/18 02/06/19 History pantoprazole [Protonix] 40 mg PO DAILY 09/21/18 02/06/19 History potassium chloride 40 meq PO DAILY 09/21/18 02/06/19 History telmisartan [Micardis] 40 mg PO DAILY 09/21/18 02/06/19 History calcium carbonate [Calcium 600] 600 mg PO DAILY 02/06/19 02/06/19 History docusate sodium 100 mg PO DAILY 02/06/19 02/06/19 History doxycycline hyclate 100 mg PO BID 02/06/19 02/06/19 History memantine 5 mg PO BID 02/06/19 02/06/19 History Patient History Medical History Depression Hearing loss (Chronic) Osteopenia (Chronic) Colon polyps (Resolved) T12 compression fracture (Resolved) Reflux (Chronic) Bradycardia (Resolved) Compression fx, lumbar spine Confusion Fall (Resolved) Gait abnormality Hypertension (Chronic) Rib contusion (Resolved) Surgical History Previous back surgery H/O colonoscopy (Resolved) Family History Other No pertinent family history in first degree relatives Social History Communication Ability: Impaired Beliefs That Will Affect Care: None Current Living Situation: Spouse Feels Safe at Home: Yes Smoking Status: Unknown if ever smoked Hx Alcohol Use: No Hx Substance Use: No Review of Systems Unable to obtain because of patient's mental status Physical Exam Vital Signs (Past 24 Hours): Last Vital Signs Temp 36.3 C L 02/07/19 15:42 Pulse 82 02/07/19 15:42 Resp 18 02/07/19 15:42 BP 159/84 H 02/07/19 15:42 Pulse Ox 93 02/07/19 15:42 Constitutional: WD/WN, vitals as above comfortable; no acute distress Eyes: PERRL, conjunctivae normal, anicteric sclerae ENMT: external ear and nose normal, oropharynx normal Neck: trachea midline, no thyromegaly neck nontender Respiratory: normal respiratory effort, lungs clear to auscultation normal percussion; does not use accessory muscles Cardiovascular: Rate/Rhythm: regular rate and regular rhythm Heart Sounds: normal S1 and normal S2; no gallop, no murmur and no cardiac rub Vessels: normal peripheral pulses; no JVD Gastrointestinal (Abdomen): normal bowel sounds, soft, nontender, no hepatosplenomegaly Musculoskeletal: no cyanosis or clubbing, extremities motor strength 5/5 Spine: thoracic spine normal to inspection and lumbar spine normal to inspection; no cervical spinal tenderness Skin: normal turgor and + lesion (Right heel eschar with surrounding erythema); no rashes Neurologic: moves all extremities, awake and + confused Psychiatric: A+Ox3, euthymic affect Lymphatic: no cervical or axillary lymphadenopathy no inguinal lymphadenopathy Results & Data Laboratory Results Short CBC 02/06/19 02/07/19 Range/Units 18:00 08:16 WBC 11.01 H 9.27 (4.8-10.8) K/uL Hgb 14.2 14.4 (14.0-18.0) g/dL Hct 43.1 43.9 (42-52) % Plt Count 350 331 (130-400) K/uL BMP 02/06/19 02/07/19 18:00 08:16 Sodium 135 L 137 Potassium 4.0 3.2 L D Chloride 95 L 96 L Carbon Dioxide 34 H 34 H BUN 14 9 D Creatinine 0.69 0.54 L Glucose 100 H 138 H Calcium 9.4 8.9 Liver Function 02/06/19 02/07/19 Range/Units 18:00 08:16 Total Bilirubin 0.4 0.5 (0.2-1) mg/dl AST 29 24 (15-37) U/L ALT 55 47 (12-78) U/L Alkaline Phosphatase 209 H 203 H (45-117) U/L Albumin 3.4 3.0 L (3.4-5.0) gm/dl Urine 02/06/19 Range/Units 19:10 Urine Color Yellow Urine Appearance Clear (Clear) Urine pH 8.0 H (4.5-7.5) Ur Specific [place] 1.011 (1.000-1.030) Urine Protein Negative (Negative) Urine Glucose (UA) Negative (Negative) Diagnostic Findings Microbiology 02/06/19 17:40 Foot,Right Gram Stain - Final 02/06/19 17:40 Foot,Right Wound Culture - Preliminary No growth to date. cc: ~ RIGHT FOOT 3 VIEWS HISTORY: Blister of right heel with infection COMPARISON: None. FINDINGS: There is no fracture or dislocation. Mass or calcification are noted. Diffuse soft tissue swelling within the foot. Mild osteoarthritis within the DIP and PIP joints. Focal skin calcification at the posterior heel. This measures 1 cm. There are suggestion of erosion at the posterior calcaneal spur. No radiopaque foreign bodies. IMPRESSION: There appears to be erosion at the posterior calcaneal spur. This raises the possibility of osteomyelitis at this location.
--- NOTE | 2019-02-07 16:36 | Magnetic Resonance Report ---
MR ankle RT wo con HISTORY: Wound on heel. possible osteomyelitis TECHNIQUE: Multiplanar multisequence MRI of the right ankle/hindfoot was performed without the use of intravenous contrast. COMPARISON STUDY: Right foot 02/06/2019. FINDINGS: Diffuse subcutaneous edema within the ankle and foot. Focal skin thickening with a small fo brissa skin ulceration at the posterior heel. This measures 6 mm. No abnormal marrow signal or cortical erosion to suggest osteomyelitis. Specifically, the posterior calcaneal spur appears intact. No fract ure or dislocation within the ankle/hindfoot. Mild to moderate cartilage space narrowing at the tibio talar joint consistent with degenerative change. The flexor, extensor, and peroneal tendons are intac t. The medial and lateral stabilizing ligaments are intact. IMPRESSION: 1. No evidence for osteomyelitis within the ankle/hindfoot. Specifically, the posterior calcaneal spu r is intact. 2. No fracture or dislocation. 3. Diffuse subcutaneous edema within the ankle/hindfoot. 4. Focal skin thickening with a small focal skin ulceration at the posterior heel which measures 6 mm . No abscess identified. Electronically signed by: Ramy Gan M.D. 02/07/2019 4:35 PM
[2019-02-07] MEDS: VANCOMYCIN HCL 1,500 MG in SODIUM CHLORIDE 0.9% 500 ML IV SCH (20:04)
[2019-02-07] MEDS: HEPARIN SOD 5,000 UNIT/0.5 ML VIAL SQ SCH (20:09)
[2019-02-08] MEDS: AZTREONAM 1,000 MG in DEXTROSE 5% 100 ML IV SCH ×3 (06:03→22:44)
[2019-02-08 07:23] LABS: Basophils # (auto) 0.01 K/uL (0-0.2); Basophils % (auto) 0.1 %; Eosinophils # (auto) 0.02 K/uL (0-0.5); Eosinophils % (auto) 0.3 %; Hematocrit (blood only) 41.4 % (42-52); Hemoglobin 13.7 g/dL (14.0-18.0); Immature Granulocytes # (auto) 0.03 K/uL (0.00-0.02); Immature Granulocytes % (auto) 0.4 %; Lymphocytes # (auto) 1.08 K/uL (1.2-3.4); Lymphocytes % (auto) 13.6 %; Mean Corpuscular Hgb Conc 33.1 g/dL (32-36); Mean Corpuscular Volume 94.3 fL (80-100); Mean Platelet Volume 9.4 fL (7.4-10.4); Monocytes # (auto) 0.66 K/uL (0.11-0.59); Monocytes % (auto) 8.3 %; Neutrophils # (auto) 6.17 K/uL (1.4-6.5); Neutrophils % (auto) 77.3 %; Platelet Count 312 K/uL (130-400); RDW Standard Deviation 52.3 fL (36.4-46.3); Red Blood Count 4.39 M/uL (4.7-6.1); White Blood Count 7.97 K/uL (4.8-10.8)
[2019-02-08 08:00] LABS: Albumin Level 2.9 gm/dl (3.4-5.0); BUN Creatinine Ratio 17.7 (10-20); Calcium 8.8 mg/dl (8.5-10.1); Creatinine Clr Calc Pharmacy 100.9 ml/min; Est GFR (African American) 109.3; Est GFR (Non-African American) 94.3; Magnesium 2.1 mg/dl (1.8-2.4); Potassium 3.1 mmol/L (3.5-5.1)
[2019-02-08 08:03] LABS: Albumin Globulin Ratio 0.9 (0.9-2); Bilirubin,Total 0.4 mg/dl (0.2-1); Globulin 3.2 gm/dl (2.5-4.0); Total Protein 6.1 gm/dl (6.4-8.2)
[2019-02-08] MEDS ORDERED: POTASSIUM CHLORIDE 20 MEQ TABCR PO STA (08:40)
[2019-02-08] MEDS: VANCOMYCIN HCL 1,500 MG in SODIUM CHLORIDE 0.9% 500 ML IV SCH ×2 (09:02→19:56)
[2019-02-08] MEDS: TELMISARTAN 40 MG TAB PO SCH (10:06)
[2019-02-08] MEDS: CHOLECALCIFEROL 1,000 UNITS TAB PO SCH (10:06)
[2019-02-08] MEDS: CALCIUM CARBONATE 1250MG TAB PO SCH (10:07)
[2019-02-08] MEDS: AMLODIPINE BESYLATE 5 MG TAB PO SCH (10:07)
[2019-02-08] MEDS: HEPARIN SOD 5,000 UNIT/0.5 ML VIAL SQ SCH ×2 (10:07→20:00)
[2019-02-08] MEDS: POTASSIUM CHLORIDE 20 MEQ TABCR PO SCH (11:43)
--- NOTE | 2019-02-08 12:58 | Hospitalist Progress Note ---
Date of Service February 08, 2019 Assessment & Plan (1) Osteomyelitis of ankle or foot, right, acute: Posterior ankle near calcaneus insertion appears abnormal on x-ray with concern regarding osteomyelitis/significant external cellulitis-- MRI did not show osteomyelitis Continue vancomycin IV and aztreonam IV. Noted antibiotic allergies to cephalosporins, penicillins and sulfas. Wound culture growing corynebacterium Consult infectious disease. Consult wound care nurse Consult ortho Consent for PICC line obtained from . (2) Hypertension: Continue amlodipine and telmisartan with hold parameters. (3) Bilateral lower extremity edema: Continue Lasix 40 mg IV twice daily. (4) Depression: Depression/dementia-- Continue Namenda, and Lexapro (5) Dementia: As above. (6) DVT prophylaxis: heparin subq, scds PT/OT after seen by surgery Subjective Mr. Ross is in good spirits, at bedside. He denies pain. He is otherwise not a very good historian for review of systems Physical Exam Vital Signs (Past 24 Hours): Last Vital Signs Temp 36.8 C 02/08/19 11:57 Pulse 65 02/08/19 11:57 Resp 18 02/08/19 11:57 BP 179/92 H 02/08/19 11:57 Pulse Ox 91 02/08/19 11:57 Physical Exam: General: no distress Eyes: normal inspection, PERLL Respiratory: chest non tender, clear to auscultation, normal breath sounds, no respiratory distress, no accessory muscle use Cardiac: regular rate and rhythm, no rub or gallop, no murmur, no edema, no jvd GI/: active bowel sounds, no abd pain or tenderness, soft, non distended Extremities: normal range of motion, normal strength, non tender Neuro/Psych: alert and oriented x 3, normal mood and affect Skin: normal color, dry, right heel wound without exudate Results & Data Laboratory Results Abnormal lab results 02/08/19 02/08/19 Range/Units 06:55 06:55 RBC 4.39 L (4.7-6.1) M/uL Hgb 13.7 L (14.0-18.0) g/dL Hct 41.4 L (42-52) % RDW Std Deviation 52.3 H (36.4-46.3) fL RDW Coeff of Kyree 15.0 H (11.5-14.5) % Immature Gran # (Auto) 0.03 H (0.00-0.02) K/uL Lymph # (Auto) 1.08 L (1.2-3.4) K/uL [place] # (Auto) 0.66 H (0.11-0.59) K/uL Potassium 3.1 L (3.5-5.1) mmol/L Carbon Dioxide 35 H (21-32) mmol/L Glucose 129 H (70-99) mg/dl Alkaline Phosphatase 200 H (45-117) U/L Total Protein 6.1 L (6.4-8.2) gm/dl Albumin 2.9 L (3.4-5.0) gm/dl
[2019-02-08] MEDS: ESCITALOPRAM OXALATE 10 MG TAB PO SCH (20:00)
--- NOTE | 2019-02-08 22:27 | Consultation Report ---
DATE OF CONSULTATION: 02/08/2019 PERTINENT HISTORY: This is an 78-year-old gentleman seen at request of Dr. Forde and Codi Stewart for right foot ulceration. The patient has had approximately 1-2 month history of ulceration on the posterior aspect of his right heel. His believes that it may have been due to some use of some compression hose which caused a blister and then a subsequent ulcer on the posterior aspect of his heel. The patient had been treated conservatively by his primary care physician with oral antibiotics and observation. His has been cleansing it on a daily basis and was under the care of Dr. Lowry at [facility]. He has been ambulating on it, tolerated regular shoes without any special shoe wear or assistive devices. The patient has significant dementia. He has approximately 60% hearing loss with bilateral hearing aids. His is present during the assessment. PAST MEDICAL HISTORY: Ulceration posterior right heel, hypertension, bilateral lower extremity edema, depression, dementia, 60% hearing loss bilaterally. Also lumbar and thoracic compression fractures, colon polyps, osteopenia, reflux, bradycardia, confusion, fall, gait abnormality and rib contusion. PAST SURGICAL HISTORY: Kyphoplasty and colonoscopy. ALLERGIES: BLUE DYE, CEFACLOR, CYCLOBENZAPRINE, NEBIVOLOL, PENICILLINS, SULFA, YELLOW DYE AND BENGAY. MEDICATIONS: Amlodipine, vitamin D3, Lexapro, furosemide, Protonix, potassium chloride, Micardis, calcium 600, docusate sodium, doxycycline hyclate and memantine. SOCIAL HISTORY: He is and lives with his spouse. He is retired. Denies tobacco, alcohol or drug use. 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 PHYSICAL EXAMINATION: GENERAL: This is a pleasant 78-year-old gentleman who is present with his at bedside. He is lying supine in his hospital room bed. He appears alert and oriented x3. HEENT: Speech is clear and fluent. He is hard of hearing. NEUROLOGIC: He has dementia mild with some loss of topic and need for redirection in discussion. He is pleasant and affect is appropriate. EXTREMITIES: Examination of the lower extremities demonstrates skin with ulceration measuring approximately 0.8 mm in diameter, right heel posterior. He has a waffle boot and a soft dressing present. This was removed. SKIN: There is slight enhancing rim of erythema at the posterior aspect of the heel with an ulceration. There is no exposed bone. There appears to be granulation and some exposed fat and tissue. No active discharge or drainage, no foul odor. No necrosis or gangrene present. MUSCULOSKELETAL: Dorsalis pedis and posterior pulses are present bilateral feet. Feet are warm. Cap refill is brisk, approximately 3 seconds. Mild edema bilateral lower extremities 1/4. Range of motion of the bilateral feet and ankles is age appropriate with some loss of dorsiflexion due to Achilles contractures bilaterally. He has a hallux rigidus, bilateral great toes, more pronounced on the right than the left. There is a prominent posterior spur on the right heel, similar spurring with palpation of the left posterior heel. IMAGING: Including radiographs and MRI as well as laboratory studies were reviewed. There was noted to be calcification which is new compared to x-rays obtained in 09/2018; however, there is no evidence of osteomyelitis within the body of the calcaneus or in the posterior spur of the calcaneus. There is associated calcification posterior right heel. IMPRESSION: 1. Right heel ulceration. 2. Cellulitis, right heel. 3. Calcification of the posterior heel, right; question extra focal bacterial conization posterior heel soft tissue without affecting the posterior calcaneus. RECOMMENDATION: Supportive wound care, continued IV antibiotics, elevate heels, use a waffle boot, daily dressing changes. We will follow with you. Nonoperative at this time. Thank you for the opportunity to consult in the care of this patient.
[2019-02-09] MEDS: AZTREONAM 1,000 MG in DEXTROSE 5% 100 ML IV SCH ×3 (06:00→22:23)
[2019-02-09] MEDS ORDERED: VANCOMYCIN TROUGH ONE (07:30)
[2019-02-09 07:52] LABS: Basophils # (auto) 0.01 K/uL (0-0.2); Basophils % (auto) 0.1 %; Eosinophils # (auto) 0.01 K/uL (0-0.5); Eosinophils % (auto) 0.1 %; Hemoglobin 14.3 g/dL (14.0-18.0); Immature Granulocytes # (auto) 0.03 K/uL (0.00-0.02); Immature Granulocytes % (auto) 0.4 %; Lymphocytes # (auto) 0.89 K/uL (1.2-3.4); Lymphocytes % (auto) 11.9 %; Mean Corpuscular Hgb Conc 33.3 g/dL (32-36); Mean Corpuscular Volume 94.3 fL (80-100); Mean Platelet Volume 9.1 fL (7.4-10.4); Monocytes # (auto) 0.59 K/uL (0.11-0.59); Monocytes % (auto) 7.9 %; Neutrophils # (auto) 5.92 K/uL (1.4-6.5); Neutrophils % (auto) 79.6 %; Platelet Count 305 K/uL (130-400); RDW Coefficient of Variation 15.1 % (11.5-14.5); Red Blood Count 4.56 M/uL (4.7-6.1); White Blood Count 7.45 K/uL (4.8-10.8)
[2019-02-09] MEDS: POTASSIUM CHLORIDE 20 MEQ TABCR PO SCH (08:26)
[2019-02-09 08:27] LABS: Albumin Level 2.9 gm/dl (3.4-5.0); BUN Creatinine Ratio 14.1 (10-20); Calcium 8.6 mg/dl (8.5-10.1); Creatinine Clr Calc Pharmacy 107.9 ml/min; Est GFR (African American) 113.2; Est GFR (Non-African American) 97.7; Magnesium 2.3 mg/dl (1.8-2.4); Potassium 3.3 mmol/L (3.5-5.1)
[2019-02-09] MEDS: CHOLECALCIFEROL 1,000 UNITS TAB PO SCH (08:27)
[2019-02-09] MEDS: TELMISARTAN 40 MG TAB PO SCH (08:27)
[2019-02-09] MEDS: AMLODIPINE BESYLATE 5 MG TAB PO SCH (08:27)
[2019-02-09] MEDS: CALCIUM CARBONATE 1250MG TAB PO SCH (08:27)
[2019-02-09] MEDS: HEPARIN SOD 5,000 UNIT/0.5 ML VIAL SQ SCH ×2 (08:28→21:04)
[2019-02-09 08:30] LABS: Albumin Globulin Ratio 0.9 (0.9-2); Bilirubin,Total 0.3 mg/dl (0.2-1); Globulin 3.2 gm/dl (2.5-4.0); Total Protein 6.1 gm/dl (6.4-8.2)
[2019-02-09] MEDS ORDERED: POTASSIUM CHLORIDE 20 MEQ TABCR PO STA (08:31)
[2019-02-09] MEDS: VANCOMYCIN HCL 1,500 MG in SODIUM CHLORIDE 0.9% 500 ML IV SCH ×2 (08:31→19:35)
[2019-02-09] MEDS ORDERED: FUROSEMIDE 40 MG TAB PO SCH (09:00)
[2019-02-09] MEDS: MEMANTINE HCL 5 MG TAB PO SCH ×3 (11:28→21:03)
--- NOTE | 2019-02-09 14:24 | Pharmacy Report ---
Pharmacy Abx Dose Short Note - Date of Service February 09, 2019 - Assessment & Plan Assessment * Mr Cody is receiving aztreonam/vancomycin for R heel cellulitis. * Foot cultures grew Corynebacterium sp. (few). * MRI does not show evidence of osteomyelitis or abscess. * Day #4 of antimicrobial therapy. * Vanc trough obtained this morning was therapeutic. * ID has been consulted. Expect that antibiotics may be de-escalated at this time, but will defer to ID service. Plan Vancomycin * Trough level of 17.6 mcg/mL is therapeutic * Continue dose of Vanc 1500 mg IV every 12 hours * Goal trough level for SSTI: ~15 mcg/mL * No further levels have been ordered at this time. Will consider ordering additional levels if patient remains on vanc therapy. Pharmacy will continue to follow and will adjust dose/frequency as necessary. Thank you.
--- NOTE | 2019-02-09 17:23 | Hospitalist Progress Note ---
Date of Service February 09, 2019 Assessment & Plan (1) Osteomyelitis of ankle or foot, right, acute: - Admitted for right heel wound, concern for osteomyelitis. - Wound culture +Corynebacterium species. - Foot XR showed erosion at posterior calcaneal spur. - MRI negative for osteomyelitis; showed subQ edema of the ankle/hindfoot. - Orthopedics consulted, recommend waffle boot and elevation with daily dressing changes. - ID following for abx recs, appreciate input. - Continue Aztreonam/Vancomycin (multiple drug allergies) -- will need to determine abx plan. - PT/OT consulted. (2) Hypertension: - Has been significantly hypertensive; per , BP is not usually elevated at home. - Continue home Amlodipine 5 mg daily and Telmisartan 40 mg daily. - Will need to add additional agent vs. increase home meds if BP remains elevated. (3) Bilateral lower extremity edema: - Resume home Lasix 20 mg daily. - No significant LE edema noted on exam. (4) Depression: - Continue Lexapro 10 mg qPM. (5) Dementia: - Continue Namenda 5 mg TID. (6) Hypokalemia: - K level 3.3 - ordered KCl 40 mEq PO. Also receiving additional KCl 40 mEq PO daily. (7) DVT prophylaxis: - Heparin 5,000 units daily. Dispo: Discharge pending PT/OT recs and antibiotic discharge planning. Supervising Physician Co-Signing Physician Notes Attending Attestation- Chart reviewed, care plan d/w PHILLIP Simmons in detail. Cont abx for right foot (heel) wound. Fortunately no signs of osteomyelitis on MRI foot. Appreciate ortho and ID consults. Dispo planning. Mario Hsieh MD Subjective Pt. is stable overall. He denies pain in right foot/heel. Has chronic SOB and chronic back pain. Pt. is mildly confused today. Review of Systems All systems reviewed & are unremarkable except as noted in HPI & below Constitutional: no fever, no chills, no fatigue, no weakness and no anorexia Respiratory: + dyspnea on exertion; no cough, no dyspnea and no wheezing Cardiovascular: + edema; no chest pain, no palpitations and no syncope Gastrointestinal: no abdominal pain, no nausea, no vomiting, no constipation and no diarrhea/loose stools Genitourinary (Male): no difficulty urinating Musculoskeletal: + back pain; no joint pain Integumentary: + skin ulcer Allergy / Immunological: no rash Physical Exam Vital Signs (Past 24 Hours): Last Vital Signs Temp 36.5 C 02/09/19 15:07 Pulse 75 02/09/19 16:28 Resp 18 02/09/19 15:07 BP 177/95 H 02/09/19 15:07 Pulse Ox 92 02/09/19 15:07 Physical Exam: General: Resting comfortably in no apparent distress; A&OX3 HEENT: NC/AT; PERRLA with EOMI; Landa conjunctiva, MMM. Neck: Supple and nontender Cardiac: RRR w/o murmurs, gallops or rubs Lungs: CTA bilaterally; No rhonchi, wheezing, or rales Abdomen: Bowel normoactive X 4; Nontender to palpation Extremities: Warm. No edema present Neuro: No focal weakness Skin: Ulceration noted of right heel, mild erythema of surrounding area. No discharge noted. Results & Data Laboratory Results 02/09/19 02/09/19 02/09/19 Range/Units 07:34 07:34 07:34 WBC 7.45 (4.8-10.8) K/uL RBC 4.56 L (4.7-6.1) M/uL Hgb 14.3 (14.0-18.0) g/dL Hct 43.0 (42-52) % MCV 94.3 (80-100) fL MCH 31.4 (25-34) pg MCHC 33.3 (32-36) g/dL RDW Std Deviation 52.0 H (36.4-46.3) fL RDW Coeff of Kyree 15.1 H (11.5-14.5) % Plt Count 305 (130-400) K/uL MPV 9.1 (7.4-10.4) fL Immature Gran % (Auto) 0.4 % Neut % (Auto) 79.6 % Lymph % (Auto) 11.9 % [place] % (Auto) 7.9 % Eos % (Auto) 0.1 % Baso % (Auto) 0.1 % Immature Gran # (Auto) 0.03 H (0.00-0.02) K/uL Neut # (Auto) 5.92 (1.4-6.5) K/uL Lymph # (Auto) 0.89 L (1.2-3.4) K/uL [place] # (Auto) 0.59 (0.11-0.59) K/uL Eos # (Auto) 0.01 (0-0.5) K/uL Baso # (Auto) 0.01 (0-0.2) K/uL Sodium 138 (136-145) mmol/L Potassium 3.3 L (3.5-5.1) mmol/L Chloride 98 (98-107) mmol/L Carbon Dioxide 35 H (21-32) mmol/L Anion Gap 5.0 (3-11) BUN 8 (7-18) mg/dl Creatinine 0.56 L (0.6-1.4) mg/dl Est Cr Clr Drug Dosing 107.9 ml/min Est GFR ( Amer) 113.2 Est GFR (Non-Af Amer) 97.7 BUN/Creatinine Ratio 14.1 (10-20) Glucose 121 H (70-99) mg/dl Calcium 8.6 (8.5-10.1) mg/dl Magnesium 2.3 (1.8-2.4) mg/dl Total Bilirubin 0.3 (0.2-1) mg/dl AST 25 (15-37) U/L ALT 64 (12-78) U/L Alkaline Phosphatase 222 H (45-117) U/L Total Protein 6.1 L (6.4-8.2) gm/dl Albumin 2.9 L (3.4-5.0) gm/dl Globulin 3.2 (2.5-4.0) gm/dl Albumin/Globulin Ratio 0.9 (0.9-2) Vancomycin Trough 17.6 (See Comment) mcg/ml
[2019-02-09] MEDS: ESCITALOPRAM OXALATE 10 MG TAB PO SCH (21:03)
[2019-02-10] MEDS: AZTREONAM 1,000 MG in DEXTROSE 5% 100 ML IV SCH ×2 (06:28→14:55)
[2019-02-10] MEDS: VANCOMYCIN HCL 1,500 MG in SODIUM CHLORIDE 0.9% 500 ML IV SCH (08:00)
[2019-02-10 08:10] LABS: Hematocrit (blood only) 42.6 % (42-52); Hemoglobin 14.1 g/dL (14.0-18.0); Mean Corpuscular Hgb Conc 33.1 g/dL (32-36); Mean Corpuscular Volume 93.6 fL (80-100); Mean Platelet Volume 9.4 fL (7.4-10.4); Platelet Count 293 K/uL (130-400); RDW Coefficient of Variation 15.2 % (11.5-14.5); RDW Standard Deviation 52.3 fL (36.4-46.3); Red Blood Count 4.55 M/uL (4.7-6.1); White Blood Count 8.46 K/uL (4.8-10.8)
[2019-02-10 08:39] LABS: BUN Creatinine Ratio 20.1 (10-20); Calcium 8.9 mg/dl (8.5-10.1); Creatinine Clr Calc Pharmacy 95.1 ml/min; Est GFR (African American) 107.2; Est GFR (Non-African American) 92.5; Magnesium 2.3 mg/dl (1.8-2.4); Potassium 3.4 mmol/L (3.5-5.1)
[2019-02-10] MEDS: AMLODIPINE BESYLATE 5 MG TAB PO SCH (09:01)
[2019-02-10] MEDS: MEMANTINE HCL 5 MG TAB PO SCH ×3 (09:02→20:58)
[2019-02-10] MEDS: CALCIUM CARBONATE 1250MG TAB PO SCH (09:03)
[2019-02-10] MEDS: CHOLECALCIFEROL 1,000 UNITS TAB PO SCH (09:03)
[2019-02-10] MEDS: TELMISARTAN 40 MG TAB PO SCH (09:04)
[2019-02-10] MEDS: POTASSIUM CHLORIDE 20 MEQ TABCR PO SCH (09:04)
[2019-02-10] MEDS: FUROSEMIDE 20 MG TAB PO SCH (09:04)
[2019-02-10] MEDS ORDERED: POTASSIUM CHLORIDE 20 MEQ TABCR PO STA (09:05)
[2019-02-10] MEDS: HEPARIN SOD 5,000 UNIT/0.5 ML VIAL SQ SCH ×2 (09:05→20:58)
--- NOTE | 2019-02-10 16:12 | Hospitalist Progress Note ---
Date of Service February 10, 2019 Assessment & Plan (1) Osteomyelitis of ankle or foot, right, acute: - Admitted for right heel wound, osteomyelitis was not visualized on MRI. - Wound culture +Corynebacterium species. - Foot XR showed erosion at posterior calcaneal spur. - MRI negative for osteomyelitis; showed subQ edema of the ankle/hindfoot. - Orthopedics consulted, recommend waffle boot and elevation with daily dressing changes. - ID following, appreciate input. - Will convert Aztreonam/Vanc to PO Clindamycin/Cipro for 30 day course per ID. - PT/OT - home health services arranged. (2) Hypertension: - Uncontrolled HTN slightly improved after increasing CCB. - Continue home Telmisartan 40 mg daily; increased Amlodipine to 10 mg daily. (3) Bilateral lower extremity edema: - Resumed home Lasix 20 mg daily. - No significant LE edema noted on exam. (4) Depression: - Continue Lexapro 10 mg qPM. (5) Dementia: - Continue Namenda 5 mg TID. (6) Hypokalemia: - K level 3.4 - ordered KCl 20 mEq PO. Also receiving additional KCl 40 mEq PO daily. (7) DVT prophylaxis: - Heparin 5,000 units daily. Dispo: Discharge pending improvement in HTN over next 24 hours. Has home health arranged starting . Downgraded to med/surg. Supervising Physician Co-Signing Physician Notes Attending Attestation- Chart reviewed, care plan d/w PHILLIP Simmons in detail. Agree with change in IV abx to oral cipro/clindamycin. Will need probiotics. Agree w/ BP med changes. Dispo planning. Mario Hsieh MD Subjective Pt. is doing well overall. Denies pain in right foot/heel. Plan to convert to PO abx today. Increased CCB dose, discharge on 02/11 if BP well controlled. Home health services are arranged. Review of Systems All systems reviewed & are unremarkable except as noted in HPI & below Constitutional: no fever, no chills, no fatigue, no weakness and no anorexia Respiratory: no cough and no dyspnea Cardiovascular: no chest pain, no palpitations, no syncope and no edema Gastrointestinal: + constipation; no abdominal pain, no nausea, no vomiting and no diarrhea/loose stools Genitourinary (Male): no difficulty urinating Musculoskeletal: no joint pain Integumentary: + skin ulcer Allergy / Immunological: no rash Physical Exam Vital Signs (Past 24 Hours): Last Vital Signs Temp 36.2 C L 02/10/19 16:05 Pulse 82 02/10/19 16:05 Resp 16 02/10/19 16:05 BP 169/90 H 02/10/19 16:05 Pulse Ox 92 02/10/19 16:05 Physical Exam: General: Resting comfortably in no apparent distress; A&OX3 HEENT: NC/AT; PERRLA with EOMI; [place] conjunctiva, MMM. Neck: Supple and nontender Cardiac: RRR w/o murmurs, gallops or rubs Lungs: CTA bilaterally; No rhonchi, wheezing, or rales Abdomen: Bowel normoactive X 4; Nontender to palpation Extremities: Warm. No edema present Neuro: No focal weakness Skin: Ulceration noted of right heel. No discharge noted. Results & Data Laboratory Results 02/10/19 02/10/19 Range/Units 07:44 07:44 WBC 8.46 (4.8-10.8) K/uL RBC 4.55 L (4.7-6.1) M/uL Hgb 14.1 (14.0-18.0) g/dL Hct 42.6 (42-52) % MCV 93.6 (80-100) fL MCH 31.0 (25-34) pg MCHC 33.1 (32-36) g/dL RDW Std Deviation 52.3 H (36.4-46.3) fL RDW Coeff of Kyree 15.2 H (11.5-14.5) % Plt Count 293 (130-400) K/uL MPV 9.4 (7.4-10.4) fL Sodium 138 (136-145) mmol/L Potassium 3.4 L (3.5-5.1) mmol/L Chloride 98 (98-107) mmol/L Carbon Dioxide 35 H (21-32) mmol/L Anion Gap 5.0 (3-11) BUN 13 D (7-18) mg/dl Creatinine 0.64 (0.6-1.4) mg/dl Est Cr Clr Drug Dosing 95.1 ml/min Est GFR ( Amer) 107.2 Est GFR (Non-Af Amer) 92.5 BUN/Creatinine Ratio 20.1 H (10-20) Glucose 123 H (70-99) mg/dl Calcium 8.9 (8.5-10.1) mg/dl Magnesium 2.3 (1.8-2.4) mg/dl
[2019-02-10] MEDS: CLINDAMYCIN HCL 150 MG CAP PO SCH (18:20)
[2019-02-10] MEDS: CIPROFLOXACIN 500 MG TAB PO SCH (20:57)
[2019-02-10] MEDS: ESCITALOPRAM OXALATE 10 MG TAB PO SCH (20:57)
[2019-02-11] MEDS: CLINDAMYCIN HCL 150 MG CAP PO SCH ×3 (00:21→12:53)
[2019-02-11 08:22] LABS: Hematocrit (blood only) 44.7 % (42-52); Hemoglobin 14.6 g/dL (14.0-18.0); Mean Corpuscular Hgb Conc 32.7 g/dL (32-36); Mean Corpuscular Volume 94.1 fL (80-100); Mean Platelet Volume 9.1 fL (7.4-10.4); Platelet Count 328 K/uL (130-400); Red Blood Count 4.75 M/uL (4.7-6.1); White Blood Count 10.32 K/uL (4.8-10.8)
[2019-02-11] MEDS: CIPROFLOXACIN 500 MG TAB PO SCH (08:31)
[2019-02-11] MEDS: TELMISARTAN 40 MG TAB PO SCH (08:32)
[2019-02-11] MEDS: POTASSIUM CHLORIDE 20 MEQ TABCR PO SCH (08:32)
[2019-02-11] MEDS: AMLODIPINE BESYLATE 5 MG TAB PO SCH (08:32)
[2019-02-11] MEDS: FUROSEMIDE 20 MG TAB PO SCH (08:33)
[2019-02-11] MEDS: CHOLECALCIFEROL 1,000 UNITS TAB PO SCH (08:33)
[2019-02-11] MEDS: CALCIUM CARBONATE 1250MG TAB PO SCH (08:33)
[2019-02-11] MEDS: HEPARIN SOD 5,000 UNIT/0.5 ML VIAL SQ SCH (08:35)
[2019-02-11] MEDS: MEMANTINE HCL 5 MG TAB PO SCH (08:36)
[2019-02-11 09:00] LABS: BUN Creatinine Ratio 21.4 (10-20); Calcium 8.9 mg/dl (8.5-10.1); Creatinine Clr Calc Pharmacy 87.9 ml/min; Est GFR (African American) 103.9; Est GFR (Non-African American) 89.7; Magnesium 2.2 mg/dl (1.8-2.4); Potassium 3.7 mmol/L (3.5-5.1)
--- NOTE | 2019-02-11 12:36 | Discharge Summary ---
Date of Service February 11, 2019 Admission HPI Per Admitting Provider The patient is an 78-year-old male, with significant dementia, who is taking care of by his at home. She has been trying to keep his right heel ulcer clean by daily cleansing, however, even with addition of antibiotics by Dr. Lowry, his heel is worsened, and she has brought him into the emergency department for assessment. The patient himself can only give limited input into his condition due to his dementia. Admission Exam Per Admitting Provider The patient is awake, alert and oriented 1, well developed and well nourished, normocephalic and atraumatic, lying in bed and in no acute distress. HEENT--PERRL, EOMI, mucous membranes and oropharynx dry. Neck--supple. No JVD. No bruits. Thyroid normal, trachea midline, no adenopathy . Heart--normal S1 and S2. No murmurs, rubs or gallops. Lungs--clear bilaterally, no respiratory distress, no accessory muscle use. Abdomen--normal bowel sounds and soft. Nontender. Nondistended, no hernias or masses, no organomegaly. Extremities/neurologic--there is bilateral pretibial 2+ pitting edema. Right heel with central eschar approximately 10 mm in diameter, with surrounding erythema up to 4 times size. Neurologic--cranial nerves II through XII grossly intact. Rheumatologic--normal range of motion. Psychiatric--normal affect, dementia Principal Diagnosis Right foot/heel ulcer/cellulitis Discharge Exam General: Resting comfortably in no apparent distress; A&OX3 HEENT: NC/AT; PERRLA with EOMI; [place] conjunctiva, MMM. Neck: Supple and nontender Cardiac: RRR w/o murmurs, gallops or rubs Lungs: CTA bilaterally; No rhonchi, wheezing, or rales Abdomen: Bowel normoactive X 4; Nontender to palpation Extremities: Warm. No edema present Neuro: No focal weakness Skin: Small ulceration noted of right heel, no erythema or discharge noted. Discharge Data Allergies Allergy/AdvReac Type Severity Reaction Status Date / Time cefaclor Allergy Unknown . Verified 02/06/19 18:15 cyclobenzaprine Allergy Unknown UNKNOWN Verified 02/06/19 18:15 nebivolol Allergy Unknown BRADYCARDIA Verified 02/06/19 18:15 Penicillins Allergy Unknown . Verified 02/06/19 18:15 Sulfa (Sulfonamide Allergy Unknown . Verified 02/06/19 18:15 Antibiotics) BENGAY AdvReac Unknown ARTHRITIS Uncoded 02/06/19 18:15 Consultations 02/06/19 19:28 ED Decision to Admit Stat 02/06/19 22:16 Consult Case Management - Discharge Planning Routine Consult Infectious Diseases Routine 02/07/19 14:23 Consult Orthopedic Surgery Routine Ordered Studies 02/06/19 Foot XR 02/06/19 22:07 US arterial duplex LE BI Urgent 02/07/19 14:55 MR ankle RT wo con Routine Hospital Course (1) Osteomyelitis of ankle or foot, right, acute: Admitted for right heel wound. Wound culture +Corynebacterium species. Foot XR showed erosion at posterior calcaneal spur. MRI negative for osteomyelitis; showed subQ edema of the ankle/hindfoot. Orthopedics consulted, recommended waffle boot and elevation with daily dressing changes. Aztreon am/Vanco IV were started at admission; IV abx converted to PO Clindamycin and Cipro at discharge -- pt. will need to complete a 30 day course per ID recs. PT/OT recommended home therapy -- this was arranged along with home nursing. Will need to follow up with ID and PCP as outpatient. (2) Hypertension: Home Telmisartan was continued as prescribed. Pt. was hypertensive -- home amlodipine was increased from 5 mg to 10 mg daily with improvement in hypertension. (3) Bilateral lower extremity edema: Pt. was initally placed on Lasix IV at beginning of admission. Home Lasix was resumed at 20 mg PO daily. LE improved, will continue 20 mg PO daily as outpatient. (4) Chronic diastolic heart failure: Echo in Aug 2018 showed EF 55-60%, mild LVH and grade I diastolic dysfunction. He was placed on Lasix IV BID at admission. Lasix was converted to 20 mg PO daily (home dose) as there was no evidence of an acute exacerbation. Daily weights and I/Os were monitored. (5) Depression: Continued Lexapro 10 mg qPM. (6) Dementia: Continued Namenda 5 mg TID. (7) Hypokalemia: Home KCl 40 mEq daily was continued as prescribed. Additional replacement was ordered if necessary. (8) DVT prophylaxis: Heparin. Pt. was stable for discharge to home on 02/11/19. Total Time Total Time Spent Total Time Spent (In Minutes): >30 minutes Total Time Includes: Examination of the Patient, Discharge Planning, Medication Reconciliation, Communication With Other Providers and Other Discharge Plan Discharge Items Patient Disposition: Home - Home Health Services Reason For Visit: HEEL CELLULITIS/OSTEO Discharge Diagnosis: Right heel cellulitis/ulcer Condition: Fair Discharge Goals: Improve disease control, Improve function, Increase independence, Improve nutritional status and Prevent disease Activity: As commented below Exercise/Sports: Gradually increase as tolerated Non-emergency contact: Primary Care Provider Call non-emergency contact if: you have any medication questions, your symptoms worsen, you have a fever, your wound has increased redness, your wound has increased drainage and your wound pain has increased Follow-up/Referrals: Jd Ferris MD [Physician] - 02/25/19 1:30 pm (Please, follow up at [facility] Infectious Disease Office with Dr. Jd Ferris on SaturdayFebruary 25 a 1:30 pm. *This office is located in [address] of [facility] [employer] [facility] next to this [facility]. If you need to change this appointment, call the office at [phone].) Gisela Raphael MD [Primary Care Provider] - 02/13/19 9:00 am (Please, follow up at [facility] with Dr. Raphael on SaturdayFebruary 13 at 9:00 am. *If you need to change this appointment, call the office at [phone].) Diet: Heart Healthy Add Provider Instructions: 1. Right foot cellulitis/ulcer * Please continue daily dressing changes for right heel ulcer. * Use a waffle boot when resting to avoid increased pressure on area. * Please continue Clindamycin 150 mg every 6 hours and Ciprofloxacin 500 mg every 12 hours for treatment of infection. You will need to complete a 30 day course. * Please take a probiotic daily in the setting of oral antibiotics. * Please follow up with your primary care provider as scheduled on 02/13/19. * An appointment will be scheduled with infectious disease over the next 2-3 weeks. * Home health has been arranged for medication management and cardiopulmonary assessment. 2. Hypertension * Please continue Telmisartan as prescribed. * Amlodipine dose has been increased to 10 mg daily. 3. Please call your family doctor or go to the ER if you develop the following: * Chest pain or shortness of breath. * Severe nausea/vomiting or diarrhea in the setting of antibiotics. Prescriptions: New clindamycin HCl 150 mg Capsule 150 mg PO Q6 30 Days Qty: 120 RF: 0 amlodipine [Norvasc] 5 mg Tablet 10 mg PO DAILY 30 Days Qty: 60 RF: 0 ciprofloxacin HCl 500 mg Tablet 500 mg PO BID 30 Days Qty: 60 RF: 0 Probiotic 3 billion cell capsule 3,000 mmu cells PO DAILY Qty: 30 RF: 0 Continued calcium carbonate [Calcium 600] 600 mg calcium (1,500 mg) Tablet 600 mg PO DAILY RF: 0 docusate sodium 100 mg Capsule 100 mg PO DAILY RF: 0 memantine 5 mg Tablet 5 mg PO BID RF: 0 pantoprazole [Protonix] 40 mg Tablet,Delayed Release (Dr/Ec) 40 mg PO DAILY RF: 0 telmisartan [Micardis] 40 mg Tablet 40 mg PO DAILY RF: 0 furosemide 20 mg Tablet 20 mg PO DAILY RF: 0 cholecalciferol (vitamin D3) [Vitamin D3] 1,000 unit Capsule 2,000 unit PO DAILY RF: 0 escitalopram oxalate [Lexapro] 10 mg Tablet 10 mg PO QPM RF: 0 potassium chloride 20 mEq Tablet Extended Release 40 meq PO DAILY RF: 0 Discontinued doxycycline hyclate 100 mg Tablet 100 mg PO BID RF: 0 amlodipine 5 mg Tablet 5 mg PO DAILY RF: 0 Stand-Alone Forms: [facility] Discharge Orders: Discharge Order (Routine); Ordered 02/11/19 Ordered By: Christen Simmons Admission Data Admit Date/Time: 02/06/19 21:01 Attending Provider: Mario Hsieh Admit Provider: Kannan Forde Primary Care Provider: Gisela Raphael Other Providers: Deep Betancourt ; Jd Ferris Service: Telemetry Medical Other Interventions: Discharge Summary Assessment (RN) Last Done: 02/11/19 12:28 Pending Studies at Discharge: No DC Date/Time DO NOT enter until pt leaves facility: 02/11/19 13:45 Supervising Physician Co-Signing Physician Notes Attending Discharge Note & Attestation - Pt seen/examined, chart reviewed, discharge care plan d/w PHILLIP Simmons. I agree w/ the [place] components of her d/c summary. 78yo male with dementia who presented with right foot (heel) ulcer with infection. Concern of osteomyelitis initially -- MRI failed to demonstrate such. Treated with IV abx while hospitalized; transitioned to oral cipro with clindamycin at d/c. Will need follow-up with PCP and ID after d/c. Discharge exam: gen- NAD, pleasantly confused mouth - MMM heart - RRR, s1 s2 lungs - mildly decreased BS bases, otherwise CTA b/l abd - soft, NT, ND, BS+ ext - right foot - clean heel ulcer, <5mm in diameter, with scant drainage; no associated erythema Cipro/clindamycin course will be 30 days in duration. Probiotics also advised. Mario Hsieh MD
--- NOTE | 2019-02-12 07:53 | Coding Query ---
To promote full compliance with coding requirements relating to patient care, provider participation is requested in all cases of systems testing laboratory technician uncertainty. Please assist us with the question(s) below: Coding Question: Per the ortho consult, there was no evidence of osteomyelitis. Please clarify below to the best of your knowledge. Thanks so much for your help! Physician's Response(s): ( ) Osteomyelitis, present on admission (X) Osteomyelitis, ruled-out ( ) Other, explain MTDD
== END 2019-02-11 13:45 | disposition home health service (06) | DRG 593 ==
LOC: ED 17:19 → SUATTDRO 21:01 → 2W 21:01

== ENCOUNTER 2019-02-28 00:40 | Inpatient (IN) ==
[2019-02-28] MEDS ORDERED: fentaNYL citrate 100 MCG/2 ML VIAL IV STA (01:21)
[2019-02-28 02:14] LABS: Basophils # (auto) 0.01 K/uL (0-0.2); Basophils % (auto) 0.1 %; Eosinophils # (auto) 0.02 K/uL (0-0.5); Eosinophils % (auto) 0.2 %; Hemoglobin 12.4 g/dL (14.0-18.0); Immature Granulocytes # (auto) 0.06 K/uL (0.00-0.02); Immature Granulocytes % (auto) 0.5 %; Lymphocytes # (auto) 0.92 K/uL (1.2-3.4); Lymphocytes % (auto) 8.3 %; Mean Corpuscular Hgb Conc 34.4 g/dL (32-36); Mean Corpuscular Volume 90.5 fL (80-100); Mean Platelet Volume 8.9 fL (7.4-10.4); Monocytes # (auto) 1.38 K/uL (0.11-0.59); Monocytes % (auto) 12.4 %; Neutrophils # (auto) 8.75 K/uL (1.4-6.5); Neutrophils % (auto) 78.5 %; Platelet Count 324 K/uL (130-400); RDW Coefficient of Variation 14.6 % (11.5-14.5); RDW Standard Deviation 48.7 fL (36.4-46.3); Red Blood Count 3.98 M/uL (4.7-6.1); White Blood Count 11.14 K/uL (4.8-10.8)
[2019-02-28 02:22] LABS: Alanine Aminotransferase 37 U/L (12-78); Albumin Level 2.9 gm/dl (3.4-5.0); Aspartate Aminotransferase 21 U/L (15-37); BUN Creatinine Ratio 20.5 (10-20); Blood Urea Nitrogen 11 mg/dl (7-18); Calcium 8.2 mg/dl (8.5-10.1); Carbon Dioxide 36 mmol/L (21-32); Chloride 88 mmol/L (98-107); Creatinine Clr Calc Pharmacy 116.7 ml/min; Est GFR (African American) 113.2; Est GFR (Non-African American) 97.7; Glucose 95 mg/dl (70-99); Potassium 4.4 mmol/L (3.5-5.1); Sodium 126 mmol/L (136-145)
[2019-02-28 02:27] LABS: Albumin Globulin Ratio 0.9 (0.9-2); Alkaline Phosphatase 156 U/L (45-117); Bilirubin,Total 0.3 mg/dl (0.2-1); Globulin 3.3 gm/dl (2.5-4.0); Total Protein 6.2 gm/dl (6.4-8.2); Troponin I < 0.015 ng/ml (0-0.045)
[2019-02-28] MEDS ORDERED: IOVERSOL 100ml IV PRN (03:11)
[2019-02-28 03:47] LABS: Appearance Urine Clear (Clear); Bilirubin Urine Negative (Negative); Blood Urine Negative (Negative); Color Urine Yellow; Glucose Urine UA Negative (Negative); Ketones Urine Negative (Negative); Leukocyte Esterase Urine Negative (Negative); Nitrite Urine Negative (Negative); Protein Urine Negative (Negative); Urobilinogen Urine Negative (Negative); pH Urine 6.5 (4.5-7.5)
--- NOTE | 2019-02-28 04:33 | Emergency Department Note ---
Entered by Clement Mobley acting as a scribe for Sonja Lacey MD History of Present Illness General Chief complaint: Fall Source: patient and family () History of Present Illness Provider complaint: Fall Onset (ago): hour(s) Location: left and right Maximum Pain Intensity: 4 Current Pain Intensity: 4 Relieved By: + none Exacerbated By: + none Associated symptoms: + other (back pain) Treatments prior to arrival: none The patient is a 78 year old male who presents to the Emergency Room with complaints of a fall suffered 3 hours ago. The patient reports that he fell into a table, but did not lose consciousness. The patient notes that he his pain across his back and rates is pain as a 4/10. He adds that he does not fall regularly. The patient complains of weakness and his , who is bedside, adds that since the fall, he has been anxious to walk. She also adds that the patient is on several abx and that he had 3 compression fractures last year. The patient reports that he is a non-smoker. Home Medications Home Medications Medication Instructions Recorded Confirmed Type cholecalciferol (vitamin D3) 2,000 unit PO DAILY 09/21/18 02/28/19 History [Vitamin D3] escitalopram oxalate [Lexapro] 20 mg PO QPM 09/21/18 02/28/19 History furosemide 20 mg PO DAILY 09/21/18 02/28/19 History pantoprazole [Protonix] 40 mg PO DAILY 09/21/18 02/28/19 History potassium chloride 40 meq PO DAILY 09/21/18 02/28/19 History telmisartan [Micardis] 40 mg PO DAILY 09/21/18 02/28/19 History calcium carbonate [Calcium 600] 600 mg PO DAILY 02/06/19 02/28/19 History docusate sodium 100 mg PO DAILY 02/06/19 02/28/19 History memantine 10 mg PO AMHS 02/06/19 02/28/19 History amlodipine [Norvasc] 10 mg PO DAILY 30 Days #60 tab 02/11/19 02/28/19 Rx ciprofloxacin HCl 500 mg PO BID 30 Days #60 tab 02/11/19 02/28/19 Rx lactobacillus combination no.4 3,000 mmu cells PO DAILY #30 cap 02/11/19 02/28/19 Rx [Probiotic] clindamycin HCl 3 tabs PO DAILY 02/28/19 02/28/19 History tramadol 50 mg PO DIRECTED PRN 02/28/19 02/28/19 History Allergies Allergy/AdvReac Type Severity Reaction Status Date / Time cefaclor Allergy Unknown . Verified 02/28/19 01:12 cyclobenzaprine Allergy Unknown UNKNOWN Verified 02/28/19 01:12 nebivolol Allergy Unknown BRADYCARDIA Verified 02/28/19 01:12 Penicillins Allergy Unknown . Verified 02/28/19 01:12 Sulfa (Sulfonamide Allergy Unknown . Verified 02/28/19 01:12 Antibiotics) BENGAY AdvReac Unknown ARTHRITIS Uncoded 02/28/19 01:12 Past Med/Surg History Medical History Depression Hearing loss (Chronic) Osteopenia (Chronic) Colon polyps (Resolved) T12 compression fracture (Resolved) Reflux (Chronic) Bradycardia (Resolved) Compression fx, lumbar spine Confusion Fall (Resolved) Gait abnormality Hypertension (Chronic) Rib contusion (Resolved) Surgical History Previous back surgery H/O colonoscopy (Resolved) Family History Other No pertinent family history in first degree relatives Social History Communication Ability: Impaired Beliefs That Will Affect Care: None marital status: Current Living Situation: Spouse Feels Safe at Home: Yes Safety Concerns: Feels Safe At This Time Smoking Status: Former smoker Hx Alcohol Use: No Hx Substance Use: No Review of Systems See HPI for pertinent positives & negatives. and A total of 10 systems reviewed and were otherwise negative Physical Exam Vital Signs Vital Signs - 24 hr 03/02/19 11:11 03/02/19 15:15 03/02/19 15:18 Temperature 36.3 C L Temperature Source Oral Pulse Rate [Right Finger] 66 Pulse Rhythm [Right Finger] Respiratory Rate 18 Respiratory Effort / Characteristics SOB on Exertion SOB on Exertion Respiratory Depth Normal Respiratory Pattern Regular Blood Pressure [Right Arm] 120/71 Blood Pressure Mean [Right Arm] 87 Blood Pressure Position [Right Arm] Pulse Oximetry 95 Oxygen Delivery Method Nasal Cannula Nasal Cannula Nasal Cannula Oxygen Flow Rate 2 2 2 03/03/19 00:37 03/03/19 00:40 03/03/19 07:34 Temperature 36.8 C 36.4 C L Temperature Source Oral Oral Pulse Rate [Right Finger] 65 62 Pulse Rhythm [Right Finger] Regular Respiratory Rate 18 20 Respiratory Effort / Characteristics SOB on Exertion Respiratory Depth Normal Respiratory Pattern Regular Blood Pressure [Right Arm] 151/75 H 159/87 H Blood Pressure Mean [Right Arm] 100 111 Blood Pressure Position [Right Arm] Lying Pulse Oximetry 95 96 Oxygen Delivery Method Nasal Cannula Nasal Cannula Oxygen Flow Rate 2 2 2 03/03/19 07:46 Temperature 36.4 C L Temperature Source Oral Pulse Rate [Right Finger] 62 Pulse Rhythm [Right Finger] Respiratory Rate 20 Respiratory Effort / Characteristics Respiratory Depth Respiratory Pattern Blood Pressure [Right Arm] 159/87 H Blood Pressure Mean [Right Arm] 111 Blood Pressure Position [Right Arm] Lying Pulse Oximetry 96 Oxygen Delivery Method Nasal Cannula Oxygen Flow Rate 2 Vital signs reviewed. General: Chronically ill-appearing elderly male, in no significant distress, hard of hearing HEENT: No scleral icterus, PERRLA, neck supple. Atraumatic. Cardiovascular: Regular rate and rhythm, no extra sounds. Pulmonary: Clear to auscultation bilaterally, normal work of breathing. Abdomen: Soft, nontender, nondistended, positive bowel sounds. Musculoskeletal: Atraumatic, tender to palpation over the R distal ribs, mild tenderness to the anterior chest, chronic deformity over the thoracic spine, no acute tenderness appreciated to the cervical, thoracic or lumbar spines. 3+ pitting edema to the bilateral lower extremities. Chronic wound of the right heel with a bandage in place. Several skin tears as below. Neurologic: Patient awake alert and answers most questions appropriately. Attempts to follow most commands but is significantly hard of hearing. Skin: Warm, dry, no rash. Skin tear to the left proximal arm of approximately 5 cm Procedures Laceration Laceration 1: Side (If applicable): left (upper arm) Size (cm): 6 Description: other (skin tear) Depth: simple, single layer Size (cm): other (steri-strip) Laceration 2: Site: other (right forearm) Side (If applicable): right Size (cm): 2 Description: other (skin tear) Depth: simple, single layer Skin layer closed with: other (steri strips) Course 0118: Past medical records reviewed. The patient was evaluated in room C03, and a complete history and physical examination were performed. Administered Medications Amlodipine Besylate (Norvasc) 10 mg PO DAILY [facility] Stop: 03/30/19 08:59 Last Admin: 03/02/19 08:50 Dose: 10 mg Documented by: [id number] Admin: 03/01/19 08:20 Dose: 10 mg Documented by: [id number] Admin: 02/28/19 09:12 Dose: 10 mg Documented by: [id number] Ciprofloxacin (Cipro) 500 mg PO BID JASWANT Stop: 03/07/19 23:59 Last Admin: 03/02/19 20:47 Dose: 500 mg Documented by: [id number] Admin: 03/02/19 08:48 Dose: 500 mg Documented by: [id number] Admin: 03/01/19 20:01 Dose: 500 mg Documented by: [id number] Admin: 03/01/19 08:18 Dose: 500 mg Documented by: [id number] Admin: 02/28/19 21:37 Dose: 500 mg Documented by: [id number] Admin: 02/28/19 09:12 Dose: 500 mg Documented by: [id number] Clindamycin HCl (Cleocin) 150 mg PO 0700,1200,1700,2200 [facility] [place]; Protocol Stop: 03/07/19 23:59 Last Admin: 03/03/19 05:55 Dose: 150 mg Documented by: [id number] Admin: 03/02/19 22:11 Dose: 150 mg Documented by: [id number] Admin: 03/02/19 17:45 Dose: 150 mg Documented by: [id number] Admin: 03/02/19 13:14 Dose: 150 mg Documented by: [id number] Admin: 03/02/19 06:44 Dose: 150 mg Documented by: [id number] Admin: 03/01/19 22:09 Dose: 150 mg Documented by: [id number] Admin: 03/01/19 16:05 Dose: 150 mg Documented by: [id number] Admin: 03/01/19 11:37 Dose: 150 mg Documented by: [id number] Admin: 03/01/19 06:31 Dose: 150 mg Documented by: [id number] Admin: 02/28/19 21:41 Dose: 150 mg Documented by: [id number] Admin: 02/28/19 17:32 Dose: 150 mg Documented by: [id number] Admin: 02/28/19 12:15 Dose: 150 mg Documented by: [id number] Admin: 02/28/19 09:13 Dose: 150 mg Documented by: [id number] Docusate Sodium (Colace) 100 mg PO DAILY JASWANT Stop: 03/30/19 08:59 Last Admin: 03/02/19 08:48 Dose: 100 mg Documented by: [id number] Admin: 03/01/19 08:19 Dose: 100 mg Documented by: [id number] Admin: 02/28/19 09:12 Dose: 100 mg Documented by: [id number] Enoxaparin Sodium (Lovenox) 40 mg SQ QAM JASWANT Stop: 03/31/19 08:59 Last Admin: 03/02/19 08:49 Dose: 40 mg Documented by: [id number] Admin: 03/01/19 11:36 Dose: 40 mg Documented by: [id number] Escitalopram Oxalate (Lexapro) 20 mg PO QPM JASWANT Stop: 03/30/19 20:59 Last Admin: 03/02/19 22:10 Dose: 20 mg Documented by: [id number] Admin: 03/01/19 20:00 Dose: 20 mg Documented by: [id number] Admin: 02/28/19 21:41 Dose: 20 mg Documented by: [id number] Furosemide (Lasix) 20 mg PO DAILY JASWANT Stop: 03/30/19 08:59 Last Admin: 02/28/19 09:13 Dose: 20 mg Documented by: [id number] Furosemide 40 mg/ Syringe 4 mls @ 4 mls/min IV [id number] JASWANT Stop: 04/01/19 12:39 Last Admin: 03/02/19 17:42 Dose: 4 mls/min Documented by: [id number] Admin: 03/02/19 13:29 Dose: 4 mls/min Documented by: [id number] Lactobacillus Acidophilus (Floranex) 2 tab PO TID JASWANT Stop: 03/30/19 08:59 Last Admin: 03/02/19 20:46 Dose: 2 tab Documented by: [id number] Admin: 03/02/19 13:14 Dose: 2 tab Documented by: [id number] Admin: 03/02/19 08:49 Dose: 2 tab Documented by: [id number] Admin: 03/01/19 20:00 Dose: 2 tab Documented by: [id number] Admin: 03/01/19 13:03 Dose: 2 tab Documented by: [id number] Admin: 03/01/19 08:19 Dose: 2 tab Documented by: [id number] Admin: 02/28/19 21:40 Dose: 2 tab Documented by: [id number] Admin: 02/28/19 12:15 Dose: 2 tab Documented by: [id number] Admin: 02/28/19 09:12 Dose: 2 tab Documented by: [id number] Memantine (Namenda) 10 mg PO AMHS JASWANT Stop: 04/01/19 20:59 Last Admin: 03/02/19 20:46 Dose: 10 mg Documented by: [id number] Pantoprazole Sodium (Protonix) 40 mg PO DAILY JASWANT Stop: 03/30/19 08:59 Last Admin: 03/02/19 08:50 Dose: 40 mg Documented by: [id number] Admin: 03/01/19 08:20 Dose: 40 mg Documented by: [id number] Admin: 02/28/19 09:12 Dose: 40 mg Documented by: [id number] Potassium Chloride (Klor-Con M20) 40 meq PO DAILY JASWANT Stop: 03/30/19 08:59 Last Admin: 03/02/19 08:49 Dose: 40 meq Documented by: [id number] Admin: 03/01/19 08:19 Dose: 40 meq Documented by: [id number] Admin: 02/28/19 09:12 Dose: 40 meq Documented by: [id number] Telmisartan (Micardis) 40 mg PO DAILY JASWANT Stop: 03/30/19 08:59 Last Admin: 03/02/19 08:49 Dose: 40 mg Documented by: [id number] Admin: 03/01/19 08:20 Dose: 40 mg Documented by: [id number] Admin: 02/28/19 09:12 Dose: 40 mg Documented by: [id number] Discontinued Medications Fentanyl Citrate (Fentanyl Citrate) 50 mcg IV NOW STA Stop: 02/28/19 01:22 Last Admin: 02/28/19 01:51 Dose: 50 mcg Documented by: [id number] Furosemide (Lasix) 40 mg IV NOW STA Stop: 02/28/19 06:20 Last Admin: 02/28/19 06:51 Dose: 40 mg Documented by: [id number] Sodium Chloride (Nss 1000ml) 1,000 mls @ 80 mls/hr IV .[id number] JASWANT Stop: 03/30/19 04:44 Last Infusion: 02/28/19 06:55 Dose: 0 mls/hr Documented by: [id number] Admin: 02/28/19 05:03 Dose: 80 mls/hr Documented by: [id number] Furosemide 20 mg/ Syringe 2 mls @ 4 mls/min IV ONE ONE Stop: 02/28/19 12:01 Last Admin: 02/28/19 12:15 Dose: 4 mls/min Documented by: [id number] Furosemide 40 mg/ Syringe 4 mls @ 4 mls/min IV 0900 ONE Stop: 03/01/19 09:01 Last Admin: 03/01/19 09:09 Dose: 4 mls/min Documented by: [id number] Ioversol (Optiray 320 100ml) 91 ml IV ONCE PRN PRN Reason: Interaction Checking Stop: 03/04/19 03:10 Last Admin: 02/28/19 03:12 Dose: 1 ml Documented by: [id number] Memantine (Namenda) 10 mg PO AMHS [facility] [place] Stop: 03/30/19 08:59 Last Admin: 02/28/19 09:12 Dose: 10 mg Documented by: [id number] Memantine (Namenda) 5 mg PO QAM [facility] [place] Stop: 03/31/19 08:59 Last Admin: 03/02/19 08:50 Dose: 5 mg Documented by: [id number] Admin: 03/01/19 08:20 Dose: 5 mg Documented by: [id number] Memantine (Namenda) 10 mg PO HS [facility] [place] Stop: 03/30/19 20:59 Last Admin: 03/01/19 20:01 Dose: 10 mg Documented by: [id number] Admin: 02/28/19 21:40 Dose: 10 mg Documented by: [id number] Medical Decision Making Differential Diagnosis Differential diagnosis: Etiologies such as fracture, dislocation, intra-abdominal, pneumothorax, intrathoracic , intracranial, neurologic, as well as other traumatic pathologies were entertained. Medical Records Attestation: I reviewed the patient's medical records. Home Medications Current Medication List: was personally reviewed by me Laboratory Data Attestation: I reviewed the patient's lab results. Result diagrams: 03/01/19 06:36 03/03/19 05:23 Lab Results 02/28/19 02/28/19 02/28/19 Range/Units 01:42 01:43 03:30 WBC 11.14 H (4.8-10.8) K/uL RBC 3.98 L (4.7-6.1) M/uL Hgb 12.4 L (14.0-18.0) g/dL Hct 36.0 L (42-52) % MCV 90.5 (80-100) fL MCH 31.2 (25-34) pg MCHC 34.4 (32-36) g/dL RDW Std Deviation 48.7 H (36.4-46.3) fL RDW Coeff of Kyree 14.6 H (11.5-14.5) % Plt Count 324 (130-400) K/uL MPV 8.9 (7.4-10.4) fL Immature Gran % (Auto) 0.5 % Neut % (Auto) 78.5 % Lymph % (Auto) 8.3 % [place] % (Auto) 12.4 % Eos % (Auto) 0.2 % Baso % (Auto) 0.1 % Immature Gran # (Auto) 0.06 H (0.00-0.02) K/uL Neut # (Auto) 8.75 H (1.4-6.5) K/uL Lymph # (Auto) 0.92 L (1.2-3.4) K/uL [place] # (Auto) 1.38 H (0.11-0.59) K/uL Eos # (Auto) 0.02 (0-0.5) K/uL Baso # (Auto) 0.01 (0-0.2) K/uL PT (9.0-12.0) Seconds INR (0.9-1.1) Sodium 126 L (136-145) mmol/L Potassium 4.4 (3.5-5.1) mmol/L Chloride 88 L (98-107) mmol/L Carbon Dioxide 36 H (21-32) mmol/L Anion Gap 2.0 L (3-11) BUN 11 (7-18) mg/dl Creatinine 0.56 L (0.6-1.4) mg/dl Est Cr Clr Drug Dosing 116.7 ml/min Est GFR ( Amer) 113.2 Est GFR (Non-Af Amer) 97.7 BUN/Creatinine Ratio 20.5 H (10-20) Glucose 95 (70-99) mg/dl Osmolality (280-300) mOsm/kg Calcium 8.2 L (8.5-10.1) mg/dl Magnesium (1.8-2.4) mg/dl Total Bilirubin 0.3 (0.2-1) mg/dl AST 21 (15-37) U/L ALT 37 (12-78) U/L Alkaline Phosphatase 156 H (45-117) U/L Troponin I < 0.015 (0-0.045) ng/ml NT-Pro-B Natriuret Pep (0-1800) pg/ml Total Protein 6.2 L (6.4-8.2) gm/dl Albumin 2.9 L (3.4-5.0) gm/dl Globulin 3.3 (2.5-4.0) gm/dl Albumin/Globulin Ratio 0.9 (0.9-2) Vitamin B12 (211-911) pg/ml Urine Color Yellow Urine Appearance Clear (Clear) Urine pH 6.5 (4.5-7.5) Ur Specific [place] 1.020 (1.000-1.030) Urine Protein Negative (Negative) Urine Glucose (UA) Negative (Negative) Urine Ketones Negative (Negative) Urine Blood Negative (Negative) Urine Nitrite Negative (Negative) Urine Bilirubin Negative (Negative) Urine Urobilinogen Negative (Negative) Ur Leukocyte Esterase Negative (Negative) 02/28/19 02/28/19 02/28/19 Range/Units 06:38 06:39 16:57 WBC (4.8-10.8) K/uL RBC (4.7-6.1) M/uL Hgb (14.0-18.0) g/dL Hct (42-52) % MCV (80-100) fL MCH (25-34) pg MCHC (32-36) g/dL RDW Std Deviation (36.4-46.3) fL RDW Coeff of Kyree (11.5-14.5) % Plt Count (130-400) K/uL MPV (7.4-10.4) fL Immature Gran % (Auto) % Neut % (Auto) % Lymph % (Auto) % [place] % (Auto) % Eos % (Auto) % Baso % (Auto) % Immature Gran # (Auto) (0.00-0.02) K/uL Neut # (Auto) (1.4-6.5) K/uL Lymph # (Auto) (1.2-3.4) K/uL [place] # (Auto) (0.11-0.59) K/uL Eos # (Auto) (0-0.5) K/uL Baso # (Auto) (0-0.2) K/uL PT (9.0-12.0) Seconds INR (0.9-1.1) Sodium 127 L 126 L (136-145) mmol/L Potassium 4.0 3.7 (3.5-5.1) mmol/L Chloride 88 L 85 L (98-107) mmol/L Carbon Dioxide 38 H 38 H (21-32) mmol/L Anion Gap 1.0 L 3.0 (3-11) BUN 10 12 (7-18) mg/dl Creatinine 0.47 L 0.79 D (0.6-1.4) mg/dl Est Cr Clr Drug Dosing 137.8 82.0 ml/min Est GFR ( Amer) 121.7 98.3 Est GFR (Non-Af Amer) 105.0 84.8 BUN/Creatinine Ratio 21.2 H 15.7 (10-20) Glucose 109 H 99 (70-99) mg/dl Osmolality (280-300) mOsm/kg Calcium 8.5 8.5 (8.5-10.1) mg/dl Magnesium 2.1 (1.8-2.4) mg/dl Total Bilirubin (0.2-1) mg/dl AST (15-37) U/L ALT (12-78) U/L Alkaline Phosphatase (45-117) U/L Troponin I (0-0.045) ng/ml NT-Pro-B Natriuret Pep 403 (0-1800) pg/ml Total Protein (6.4-8.2) gm/dl Albumin (3.4-5.0) gm/dl Globulin (2.5-4.0) gm/dl Albumin/Globulin Ratio (0.9-2) Vitamin B12 459 (211-911) pg/ml Urine Color Urine Appearance (Clear) Urine pH (4.5-7.5) Ur Specific [place] (1.000-1.030) Urine Protein (Negative) Urine Glucose (UA) (Negative) Urine Ketones (Negative) Urine Blood (Negative) Urine Nitrite (Negative) Urine Bilirubin (Negative) Urine Urobilinogen (Negative) Ur Leukocyte Esterase (Negative) 03/30/19 03/31/19 03/31/19 Range/Units 18:33 06:36 06:36 WBC 9.54 (4.8-10.8) K/uL RBC 4.18 L (4.7-6.1) M/uL Hgb 12.9 L (14.0-18.0) g/dL Hct 38.0 L (42-52) % MCV 90.9 (80-100) fL MCH 30.9 (25-34) pg MCHC 33.9 (32-36) g/dL RDW Std Deviation 48.2 H (36.4-46.3) fL RDW Coeff of Kyree 14.5 (11.5-14.5) % Plt Count 297 (130-400) K/uL MPV 9.0 (7.4-10.4) fL Immature Gran % (Auto) % Neut % (Auto) % Lymph % (Auto) % [place] % (Auto) % Eos % (Auto) % Baso % (Auto) % Immature Gran # (Auto) (0.00-0.02) K/uL Neut # (Auto) (1.4-6.5) K/uL Lymph # (Auto) (1.2-3.4) K/uL [place] # (Auto) (0.11-0.59) K/uL Eos # (Auto) (0-0.5) K/uL Baso # (Auto) (0-0.2) K/uL PT (9.0-12.0) Seconds INR (0.9-1.1) Sodium 127 L (136-145) mmol/L Potassium 3.7 (3.5-5.1) mmol/L Chloride 87 L (98-107) mmol/L Carbon Dioxide 37 H (21-32) mmol/L Anion Gap 3.0 (3-11) BUN 12 (7-18) mg/dl Creatinine 0.49 L D (0.6-1.4) mg/dl Est Cr Clr Drug Dosing 130.1 ml/min Est GFR ( Amer) 119.6 Est GFR (Non-Af Amer) 103.2 BUN/Creatinine Ratio 23.7 H (10-20) Glucose 108 H (70-99) mg/dl Osmolality 272 L (280-300) mOsm/kg Calcium 8.9 (8.5-10.1) mg/dl Magnesium 2.2 (1.8-2.4) mg/dl Total Bilirubin (0.2-1) mg/dl AST (15-37) U/L ALT (12-78) U/L Alkaline Phosphatase (45-117) U/L Troponin I (0-0.045) ng/ml NT-Pro-B Natriuret Pep (0-1800) pg/ml Total Protein (6.4-8.2) gm/dl Albumin (3.4-5.0) gm/dl Globulin (2.5-4.0) gm/dl Albumin/Globulin Ratio (0.9-2) Vitamin B12 (211-911) pg/ml Urine Color Urine Appearance (Clear) Urine pH (4.5-7.5) Ur Specific [place] (1.000-1.030) Urine Protein (Negative) Urine Glucose (UA) (Negative) Urine Ketones (Negative) Urine Blood (Negative) Urine Nitrite (Negative) Urine Bilirubin (Negative) Urine Urobilinogen (Negative) Ur Leukocyte Esterase (Negative) 03/01/19 03/01/19 03/02/19 Range/Units 08:01 15:47 06:18 WBC (4.8-10.8) K/uL RBC (4.7-6.1) M/uL Hgb (14.0-18.0) g/dL Hct (42-52) % MCV (80-100) fL MCH (25-34) pg MCHC (32-36) g/dL RDW Std Deviation (36.4-46.3) fL RDW Coeff of Kyree (11.5-14.5) % Plt Count (130-400) K/uL MPV (7.4-10.4) fL Immature Gran % (Auto) % Neut % (Auto) % Lymph % (Auto) % [place] % (Auto) % Eos % (Auto) % Baso % (Auto) % Immature Gran # (Auto) (0.00-0.02) K/uL Neut # (Auto) (1.4-6.5) K/uL Lymph # (Auto) (1.2-3.4) K/uL [place] # (Auto) (0.11-0.59) K/uL Eos # (Auto) (0-0.5) K/uL Baso # (Auto) (0-0.2) K/uL PT 10.5 (9.0-12.0) Seconds INR 1.0 (0.9-1.1) Sodium 128 L 130 L (136-145) mmol/L Potassium 3.9 3.8 (3.5-5.1) mmol/L Chloride 87 L 88 L (98-107) mmol/L Carbon Dioxide 37 H 39 H (21-32) mmol/L Anion Gap 4.0 3.0 (3-11) BUN 15 14 (7-18) mg/dl Creatinine 0.85 D 0.60 (0.6-1.4) mg/dl Est Cr Clr Drug Dosing 75.0 105.7 ml/min Est GFR ( Amer) 95.4 110.1 Est GFR (Non-Af Amer) 82.3 95.0 BUN/Creatinine Ratio 17.2 23.2 H (10-20) Glucose 131 H 113 H (70-99) mg/dl Osmolality (280-300) mOsm/kg Calcium 8.8 8.6 (8.5-10.1) mg/dl Magnesium (1.8-2.4) mg/dl Total Bilirubin (0.2-1) mg/dl AST (15-37) U/L ALT (12-78) U/L Alkaline Phosphatase (45-117) U/L Troponin I (0-0.045) ng/ml NT-Pro-B Natriuret Pep (0-1800) pg/ml Total Protein (6.4-8.2) gm/dl Albumin (3.4-5.0) gm/dl Globulin (2.5-4.0) gm/dl Albumin/Globulin Ratio (0.9-2) Vitamin B12 (211-911) pg/ml Urine Color Urine Appearance (Clear) Urine pH (4.5-7.5) Ur Specific [place] (1.000-1.030) Urine Protein (Negative) Urine Glucose (UA) (Negative) Urine Ketones (Negative) Urine Blood (Negative) Urine Nitrite (Negative) Urine Bilirubin (Negative) Urine Urobilinogen (Negative) Ur Leukocyte Esterase (Negative) 03/02/19 03/03/19 Range/Units 16:39 05:23 WBC (4.8-10.8) K/uL RBC (4.7-6.1) M/uL Hgb (14.0-18.0) g/dL Hct (42-52) % MCV (80-100) fL MCH (25-34) pg MCHC (32-36) g/dL RDW Std Deviation (36.4-46.3) fL RDW Coeff of Kyree (11.5-14.5) % Plt Count (130-400) K/uL MPV (7.4-10.4) fL Immature Gran % (Auto) % Neut % (Auto) % Lymph % (Auto) % [place] % (Auto) % Eos % (Auto) % Baso % (Auto) % Immature Gran # (Auto) (0.00-0.02) K/uL Neut # (Auto) (1.4-6.5) K/uL Lymph # (Auto) (1.2-3.4) K/uL [place] # (Auto) (0.11-0.59) K/uL Eos # (Auto) (0-0.5) K/uL Baso # (Auto) (0-0.2) K/uL PT (9.0-12.0) Seconds INR (0.9-1.1) Sodium 129 L 131 L (136-145) mmol/L Potassium 3.8 3.6 (3.5-5.1) mmol/L Chloride 88 L 87 L (98-107) mmol/L Carbon Dioxide 37 H 39 H (21-32) mmol/L Anion Gap 4.0 5.0 (3-11) BUN 16 15 (7-18) mg/dl Creatinine 0.58 L 0.55 L (0.6-1.4) mg/dl Est Cr Clr Drug Dosing 109.3 115.3 ml/min Est GFR ( Amer) 111.6 114.1 Est GFR (Non-Af Amer) 96.3 98.4 BUN/Creatinine Ratio 27.5 H 26.5 H (10-20) Glucose 124 H 107 H (70-99) mg/dl Osmolality (280-300) mOsm/kg Calcium 8.5 8.5 (8.5-10.1) mg/dl Magnesium (1.8-2.4) mg/dl Total Bilirubin (0.2-1) mg/dl AST (15-37) U/L ALT (12-78) U/L Alkaline Phosphatase (45-117) U/L Troponin I (0-0.045) ng/ml NT-Pro-B Natriuret Pep (0-1800) pg/ml Total Protein (6.4-8.2) gm/dl Albumin (3.4-5.0) gm/dl Globulin (2.5-4.0) gm/dl Albumin/Globulin Ratio (0.9-2) Vitamin B12 (211-911) pg/ml Urine Color Urine Appearance (Clear) Urine pH (4.5-7.5) Ur Specific [place] (1.000-1.030) Urine Protein (Negative) Urine Glucose (UA) (Negative) Urine Ketones (Negative) Urine Blood (Negative) Urine Nitrite (Negative) Urine Bilirubin (Negative) Urine Urobilinogen (Negative) Ur Leukocyte Esterase (Negative) Imaging Data Radiologist's Impression: CT HEAD: Evaluation is limited due to motion artifact. No definite intracranial hemorrhage, mass-effect, midline shift, hydrocephalus or infarct. Low density in the bilateral periventricular white matter are nonspecific, probably chronic small vessel ischemic disease. Bony structures are intact. Soft tissues are unremarkable. Radiologist: Catalina Corona MD 03:27 CT C-spine: No acute fracture or subluxation. Moderate cervical spondylolysis. Disc osteophyte complex at C5-6 causing mild central spinal stenosis. Hemangioma of the C6 vertebral body. Radiologist:Catalina Corona MD 03:42 CT chest with contrast: Small bilateral pleural effusions. Patchy airspace opacity in the lower lobes probably represents compressive atelectasis. The heart is mildly enlarged. Scattered coronary artery calcifications. Old appearing compression fractures with diffuse sclerosis involving T1, T3, T4, T5, T10 and T12. The bones are diffusely demineralized which limits evaluation for pathologic fractures. Osseous metastatic disease is difficult to exclude. Multiple old appearing bilateral rib fractures are noted. Thyroid gland is heterogeneous containing multiple calcified nodules with the largest measuring 1.5 cm. Consider ultrasound for further evaluation. Radiologist:Catalina Corona MD 03:59 CT abdomen and pelvis with contrast: Hypoenhancing lobulated mass measures 10 x 7 cm in the posterior right hepatic lobe is concerning for metastatic disease. Additional lobulated mass measuring 2.1 x 3.7 cm in segment 6 is also concerning for metastatic disease. Right abdominal ventral hernia containing a loop of colon without wall thickening or fluid to suggest angulation. No bowel obstruction is seen. Recommend clinical correlation with pain. Radiologist:Catalina Corona MD 04:04 ECG Data Attestation: I personally reviewed and interpreted this ECG as follows: Indication: other (fall) Rate (beats per minute): 62 Rhythm: normal sinus Findings: + left axis deviation; no PAC, no PVC, no acute ischemic change and no ectopy Blood Pressure Blood Pressure Findings: Elevated blood pressure Blood Pressure Disposition: further management by hospitalist Head Trauma GCS Score: 15 MDM Narrative This patient was evaluated and appeared to be in no significant distress. Patient has some abnormal work of breathing with pursed lips. His states he does not wear oxygen at home, he has never smoked nor does he carry the diagnosis of COPD. The patient did have some desaturations on room air upon my initial evaluation. He was maintained on nasal cannula oxygen thereafter. Patient's laboratory work reveals a hyponatremia at 126. CT imaging was performed of the head, neck, chest abdomen and pelvis. There are old rib fractures and multiple thoracic spine compression fractures noted. Patient likely aggravated old injury upon his fall. There is no evidence of acute intracranial or cervical spine injury despite hitting his head. CT scan of the abdomen pelvis reveals 2 large masses on the patient's liver. These are old upon looking at old images in the [employer] system. They have previously been read as giant hemangiomas, currently being read as concerning for metastatic disease. An ambulatory trial was had at the bedside with myself in 2 nurses. The patient is very unsteady on his feet with a walker. Patient's elderly states she primarily helps with position changes and ambulation. He has had some decline in the recent days. His diuretics have been titrated up to help mobilize some of the third spaced fluid. I suspect this has caused his hyponatremia. The patient will likely require a rehabilitation facility as he has had in-home physical therapy for the last several weeks. Patient's case was discussed with the hospitalist service, Dr. Bella, who will evaluate the patient for further management. Impression & Plan Gait abnormality, Acute hyponatremia, Fall against object, CHI (closed head injury), Skin tear of forearm without complication, Skin tear of left upper arm without complication Discharge Plan Visit Data *Final* Discharge Date/Time: 02/28/19 05:59 Chief Complaint: Fall ED Provider: Sonja Lacey Discharge Problem: Gait abnormality, Acute hyponatremia, Fall against object, CHI (closed head injury), Skin tear of forearm without complication, Skin tear of left upper arm without complication Patient Disposition: Admitted As Inpatient Discharge Instructions Interventions: ED Discharge Assessment Last Done: 02/28/19 05:59 Discharge Problem: CHI (closed head injury) Qualifiers: Encounter type: initial encounter Qualified Code(s): S09.90XA - Unspecified injury of head, initial encounter Skin tear of forearm without complication Qualifiers: Encounter type: initial encounter Laterality: right Qualified Code(s): S51.811A - Laceration without foreign body of right forearm, initial encounter Skin tear of left upper arm without complication Qualifiers: Encounter type: initial encounter Qualified Code(s): S41.112A - Laceration without foreign body of left upper arm, initial encounter The scribe's documentation has been prepared under my direction and personally reviewed by me in its entirety. I confirm that the note above accurately reflects all work, treatment, procedures, and medical decision making performed by me.
[2019-02-28] MEDS ORDERED: SODIUM CHLORIDE 0.9% 1000ML 1,000 ML IV SCH (04:45)
--- NOTE | 2019-02-28 05:51 | History & Physical Report ---
Date of Service February 28, 2019 Assessment & Plan (1) Gait abnormality: 78 y/o M Hx HTN, depression, diastolic CHF, dementia, impaired gait - frequent fall and multiple compression fractures. The pt was recently admitted for an ulcer of his R heel and suspected osteomyelitis which he did not actually have. He had been at a rehab facility and was recently sent home. This evening, he suffered a fall and was unable to get up afterward so that EMS were summoned to his house. A skeletal survey did not elucidate any acute fractures, however, he remained unable to ambulate after evaluation in the ER and will likely need to return to the rehab facility. On arrival to the ER it was noted that his oxygen saturation was low although he was not c/o SOB. Imaging of the chest demonstrated BL pleural effusions, and clinically he appeared to be volume overloaded. Initial labs are notable for hyponatremia. He is a poor historian and did not have much to add to the H&P. The pt is on day of dual antibiotic therapy with Clindamycin and Cipro for his R heel wound which cultured + for Corynebacterium. 1) Fall, ambulatory dysfunction - this pt is not likely safe at home and should consider long-term placement. This will be left to the discretion of his ultimately. he will likely require rehab regardless. OT/OT consulted for AM. 2) R foot wound - day of Clinda and Cipro - we will continue as prescribed and consult would care if he is to remain hospitalized. 3) Diastolic CHF - hypoxia on admission - He is volume overloaded and is provided with an ibitial dose o IV Lasix - this may be adequate to have him return to his daily PO dosing. I/O, daily weights, 02 protocol. 4) hyonatremia - with hypervolemia - fluid restriction, trend BMP 5) Dementia/depression - cont Memantine, lexapro 6) HTN - cont Micardis 7) It is noted that B12 deficiency appears in previous records - he is not currently being treated for this although he received an IM dose in the hospital in 2018 when his level returned at 246. He is mildly anemic and normocytic however his distribution width is high. We will check a B12 level. Full code - SCDs applied to thighs. Total time for this admit including review of labs, meds, imaging, records - discussion with pt and ER attending - 38 min Present on Admission?: Yes History of Present Illness Primary Care Provider: Gisela Raphael MD 78 y/o M Hx HTN, depression, diastolic CHF, dementia, impaired gait - frequent fall and multiple compression fractures. The pt was recently admitted for an ulcer of his R heel and suspected osteomyelitis which he did not actually have. He had been at a rehab facility and was recently sent home. This evening, he suffered a fall and was unable to get up afterward so that EMS were summoned to his house. A skeletal survey did not elucidate any acute fractures, however, he remained unable to ambulate after evaluation in the ER and will likely need to return to the rehab facility. On arrival to the ER it was noted that his oxygen saturation was low although he was not c/o SOB. Imaging of the chest demonstrated BL pleural effusions, and clinically he appeared to be volume overloaded. Initial labs are notable for hyponatremia. He is a poor historian and did not have much to add to the H&P. The pt is on day of dual antibiotic therapy with Clindamycin and Cipro for his R heel wound which cultured + for Corynebacterium. PMH: 1) HTN 2) Unstable gait with multiple falls and compression fractures 3) Nonhealing foot ulcer R heel 4) Hepatic hemangiomas 5) Chronic diastiolic CHF grade I 6) Dementia 7) Depression 8) B12 deficiency 9) Lumbar stenosis and chronic back pain Surgical: Lumbar verterbroplasty Social: Looked after by elderly - no noted history of smoking or drinking Family: Could not provide a family history Allergies Allergy/AdvReac Type Severity Reaction Status Date / Time cefaclor Allergy Unknown . Verified 02/28/19 01:12 cyclobenzaprine Allergy Unknown UNKNOWN Verified 02/28/19 01:12 nebivolol Allergy Unknown BRADYCARDIA Verified 02/28/19 01:12 Penicillins Allergy Unknown . Verified 02/28/19 01:12 Sulfa (Sulfonamide Allergy Unknown . Verified 02/28/19 01:12 Antibiotics) BENGAY AdvReac Unknown ARTHRITIS Uncoded 02/28/19 01:12 Home Medications Home Medications Medication Instructions Recorded Confirmed Type cholecalciferol (vitamin D3) 2,000 unit PO DAILY 09/21/18 02/28/19 History [Vitamin D3] escitalopram oxalate [Lexapro] 20 mg PO QPM 09/21/18 02/28/19 History furosemide 20 mg PO DAILY 09/21/18 02/28/19 History pantoprazole [Protonix] 40 mg PO DAILY 09/21/18 02/28/19 History potassium chloride 40 meq PO DAILY 09/21/18 02/28/19 History telmisartan [Micardis] 40 mg PO DAILY 09/21/18 02/28/19 History calcium carbonate [Calcium 600] 600 mg PO DAILY 02/06/19 02/28/19 History docusate sodium 100 mg PO DAILY 02/06/19 02/28/19 History memantine 10 mg PO AMHS 02/06/19 02/28/19 History amlodipine [Norvasc] 10 mg PO DAILY 30 Days #60 tab 02/11/19 02/28/19 Rx ciprofloxacin HCl 500 mg PO BID 30 Days #60 tab 02/11/19 02/28/19 Rx lactobacillus combination no.4 3,000 mmu cells PO DAILY #30 cap 02/11/19 02/28/19 Rx [Probiotic] clindamycin HCl 3 tabs PO DAILY 02/28/19 02/28/19 History tramadol 50 mg PO DIRECTED PRN 02/28/19 02/28/19 History Past Med/Surg History Medical History Depression Hearing loss (Chronic) Osteopenia (Chronic) Colon polyps (Resolved) T12 compression fracture (Resolved) Reflux (Chronic) Bradycardia (Resolved) Compression fx, lumbar spine Confusion Fall (Resolved) Gait abnormality Hypertension (Chronic) Rib contusion (Resolved) Surgical History Previous back surgery H/O colonoscopy (Resolved) Family History Other No pertinent family history in first degree relatives Social History Preferred Language: [place] Beliefs That Will Affect Care: None Current Living Situation: Spouse Feels Safe at Home: Yes Smoking Status: Former smoker Hx Alcohol Use: No Hx Substance Use: No Review of Systems Cannot obtain a reliable ROS from this pt Physical Exam Vital Signs (Past 24 Hours): Last Vital Signs Temp 36.6 C 03/30/19 00:53 Pulse 68 02/28/19 03:12 Resp 16 02/28/19 03:12 BP 165/92 H 02/28/19 03:12 Pulse Ox 97 02/28/19 03:12 Physical Exam: Gen: Pleasant, overweight, elderly male - AAO x 2 no distress ENT: No erythema or exudates, no thrush Eyes: CHARLINE, EOMI Head and neck: Normocephalic, atraumatic - cannot examine for JVD due to habitus Chest/heart: Nontender, S1,2, RRR, no murmurs, no gallops Lungs: Reduced air entry at bases without discernible crackles or wheezing Abdomen: Nontender, nondistended, BS+ Neuro: AAO x 2 - no motor deficits although he could not ambulate independently Musculoskeletal: No joint inflammation + LE edema Skin: Ulcer on R heel is clean in appearance Extremities: BL edema
[2019-02-28] MEDS ORDERED: FUROSEMIDE 40 MG/4 ML VIAL IV STA (06:19)
--- NOTE | 2019-02-28 08:28 | CT Scan Report ---
CT OF THE HEAD WITHOUT CONTRAST CLINICAL HISTORY: Fall. COMPARISON STUDY: Head CT/CTA of the head November 07, 2018. CT DOSE: 3339.23 mGy.cm TECHNIQUE: Helical axial images of the head were obtained without IV contrast. Automated exposure con trol was utilized for the study. A dose lowering technique was utilized adhering to the principles o f ALARA. FINDINGS: Exam is mildly compromised by motion artifact. No acute intracranial hemorrhage, midline sh ift or mass effect is present. Ventricular system is normal. The basilar cisterns are patent. No extr a axial collections are present. White matter hypodensities are unchanged. There may be an old left f rontal lobe infarct. This is unchanged. There is no calvarial fracture. Minimal secretions within the left sphenoid sinus are noted. IMPRESSION: 1. No acute intracranial findings. 2. No calvarial fracture. 3. Study mildly compromised by motion artifact. Electronically signed by: Clive Simms M.D. 02/28/2019 8:27 AM
[2019-02-28 08:32] LABS: BUN Creatinine Ratio 21.2 (10-20); Calcium 8.5 mg/dl (8.5-10.1); Creatinine Clr Calc Pharmacy 137.8 ml/min; Est GFR (African American) 121.7; Magnesium 2.1 mg/dl (1.8-2.4)
--- NOTE | 2019-02-28 08:36 | CT Scan Report ---
CT OF THE CERVICAL SPINE WITHOUT CONTRAST CLINICAL HISTORY: trauma COMPARISON STUDY: Cervical spine radiographs April 02, 2018. TECHNIQUE: Helical axial images of the cervical spine were obtained without IV contrast. Sagittal a nd coronal reconstructions were viewed. Automated exposure control was utilized for the study. A do se lowering technique was utilized adhering to the principles of ALARA. FINDINGS: A hemangioma within the C6 vertebral body is noted. There is marked disc space narrowing at C5-C6. There is moderate to severe multilevel facet arthrosis. Exam is mildly compromised by artifac t. No acute cervical spine fracture is identified. A mild compression fracture involving the superior endplate of T1 is likely old. IMPRESSION: 1. No acute cervical spine fracture or subluxation. 2. Mild compression fracture involving the superior plate of T1 which is likely old. Electronically signed by: Clive Simms M.D. 02/28/2019 8:35 AM
--- NOTE | 2019-02-28 08:42 | CT Scan Report ---
CT OF THE CHEST WITH IV CONTRAST CLINICAL HISTORY: trauma, right posterior rib pain COMPARISON STUDY: Chest CT May 17, 2018. TECHNIQUE: Following IV administration of 91 mL of Optiray-320, helical axial images of the chest we re obtained. Sagittal and coronal reconstructions were viewed as well as maximal intensity projectio ns on an independent 3-D workstation. Automated exposure control was utilized for the study. A dose lowering technique was utilized adhering to the principles of ALARA. FINDINGS: Several thyroid nodules are noted. The heart is moderately enlarged. There is extensive co ronary artery calcification. There is no pericardial effusion. There are small bilateral pleural effu sions with associated atelectasis. No pneumothorax is present. There are numerous old thoracic spine compression fractures. There are also numerous old bilateral rib fractures. No definite acute rib fra ctures are identified. Central airways are patent. There is no thoracic lymphadenopathy. A right hepa tic lobe mass is unchanged. This favors a hemangioma. IMPRESSION: 1. No pneumothorax. Small bilateral pleural effusions with associated atelectasis. 2. Numerous old thoracic spine and bilateral rib fractures. 3. Moderate cardiomegaly. Extensive coronary artery calcification. 4. No change in a right hepatic lobe mass which favors a hemangioma. Electronically signed by: Clive Simms M.D. 02/28/2019 8:41 AM
--- NOTE | 2019-02-28 08:53 | CT Scan Report ---
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 Therefore, these are benign and favor hemangiomas. This wa s discussed with Dr. Sidhu at time of dictation due to discrepancy with the preliminary interpretati on. Electronically signed by: Clive Simms M.D. 02/28/2019 9:[address] OF THE ABDOMEN AND PELVIS WITH CONTRAST CLINICAL HISTORY: fall, right rib, flank pain COMPARISON STUDY: CT of the abdomen and pelvis May 17, 2018 TECHNIQUE: Following IV administration of 91 mL of Optiray-320, axial images of the abdomen and pelvi s were obtained from the lung bases to the proximal femurs. Images were reviewed in the axial, sagitt al, and coronal planes. IV contrast was administered without complication. Automated exposure contro l was utilized for the study. A dose lowering technique was utilized adhering to the principles of A NILES. FINDINGS: Old bilateral rib fractures are noted. L1 vertebral augmentation is noted. There are multip le thoracic and lumbar spine compression fractures which are old. Vertebral body height loss has incr eased for several of these fractures since CT of May 17, 2018. A large right hepatic lobe mass which measures 10.6 x 6.9 cm is unchanged dating back to lumbar spine MRI of July 05, 2016. Additional ri ght hepatic lobe lesion is also likely unchanged. These favor hemangiomas. There is no evidence for t raumatic injury to the liver, spleen, adrenal glands, kidneys or pancreas. There is no evidence for a bowel obstruction. A right ventral hernia contains a small portion of the transverse colon. This is unchanged. No acute pelvic fractures identified. There is no lymphadenopathy. IMPRESSION: 1. No evidence of traumatic injury to the solid abdominal viscera. 2. No change in the right hepatic lobe masses which favor hemangiomas. 3. Right ventral hernia which contains a portion of the transverse colon. No bowel obstruction. 3. Numerous old thoracic and lumbar spine compression fractures status post L1 vertebral augmentation . Electronically signed by: Clive Simms M.D. 02/28/2019 8:51 AM
--- NOTE | 2019-02-28 08:56 | CT Scan Report ---
CT lumbar spine wo con CLINICAL HISTORY: recons, fall h/o compression fractures COMPARISON STUDY: Lumbar spine MRI January 20, 2018. TECHNIQUE: Axial images of the lumbar spine were obtained. Sagittal and coronal reconstructions were viewed. Automated exposure control was utilized for the study. A dose lowering technique was utilize d adhering to the principles of ALARA. FINDINGS: Patient is status post L1 vertebral augmentation. A small amount of cement extends through the posterior cortex. Retropulsion is noted at this level as well as the L2 level. There is a severe L2 compression fracture. This was present on abdominal CT of May 17, 2018 however vertebral body hei ght loss has increased. An old T12 compression fracture is unchanged. Moderate multilevel degenerativ e changes are present. The CT of the abdomen and pelvis will be reported separately. IMPRESSION: 1. No acute lumbar spine fracture or subluxation. 2. Status post L1 vertebral augmentation. Old T12 and L2 compression fractures with interval increase in loss of height of the L2 vertebral body since CT of May 17, 2018 with mild to moderate retropuls ion. This most likely reflects a benign compression fracture. Findings discussed with Karen Sidhu at time of dictation. Electronically signed by: Clive Simms M.D. 02/28/2019 8:55 AM
[2019-02-28] MEDS ORDERED: FUROSEMIDE 20 MG TAB PO SCH (09:00)
[2019-02-28] MEDS ORDERED: MEMANTINE HCL 10 MG TAB PO SCH (09:00)
[2019-02-28] MEDS: DOCUSATE SODIUM 100 MG CAP PO SCH (09:12)
[2019-02-28] MEDS: LACTOBACILLUS ACIDOPHILUS (FLORANEX) TAB PO SCH ×3 (09:12→21:40)
[2019-02-28] MEDS: TELMISARTAN 40 MG TAB PO SCH (09:12)
[2019-02-28] MEDS: AMLODIPINE BESYLATE 5 MG TAB PO SCH (09:12)
[2019-02-28] MEDS: POTASSIUM CHLORIDE 20 MEQ TABCR PO SCH (09:12)
[2019-02-28] MEDS: PANTOprazole 40 MG TAB PO SCH (09:12)
[2019-02-28] MEDS: CIPROFLOXACIN 500 MG TAB PO SCH ×2 (09:12→21:37)
[2019-02-28] MEDS: CLINDAMYCIN HCL 150 MG CAP PO SCH ×4 (09:13→21:41)
[2019-02-28] MEDS ORDERED: FUROSEMIDE 20 MG in SYRINGE 0 ML IV ONE (12:00)
--- NOTE | 2019-02-28 14:08 | Hospitalist Progress Note ---
Date of Service February 28, 2019 Assessment & Plan (1) Fall against object: - Imaging at admission was negative for acute findings. - Will need placement as his cannot care for him at home -- PT/OT ordered. - Family has requested [facility]. (2) Open wound of right heel: - Recently admitted for right heel wound; imaging was negative for osteomyelitis. - Area appears to be healing well; continue dressing changes. - Wound culture was positive for Corynebacterium. - Continue Cipro/Clindamycin PO (recommended by ID), will complete 30 day course on 03/07/2019. - Wound care consulted. (3) Acute respiratory failure with hypoxia: - Has been requiring 2L via NC -- likely related to pulm edema in setting of CHF. - Chest CT showed small bilat pleural effusions. - Diuresis as noted below. (4) Acute on chronic diastolic heart failure: - Most recent Echo Aug 2018 showed EF 55-60%, mild LVH and grade I diastolic dysfunction. - BNP level was 403; has hypervolemic hyponatremia on labwork. - Presented with hypoxia and +2-3 bilat LE pitting edema; was instructed to take Lasix 40 mg PO daily x 3 days at home by PCP. - Weight is increased compared to prior admission (86.3 kg --> 100.3 kg). - Monitor net I/Os and daily weights. - Received home Lasix 20 mg PO daily and additional Lasix 20 mg IV; order diuresis daily based on renal function. - Continue home ARB as prescribed. (5) Hyponatremia: - Hypervolemic hyponatremia on admission; Na level slightly improved to 127 with diuresis. - Monitor BMP BID. - Urine sodium, osmo and serum osmo pending. (6) Lower extremity edema: - Likely related to CHF. - Doppler of bilat LE pending. - Continue diuresis as noted above. (7) Acute encephalopathy: - Has acute confusion in setting of dementia. - May be related to fatigue/lack of sleep (per daughter) vs. hospital delirium - U/a negative on admission; CT chest negative for pneumonia. - Consider further infectious work up if necessary. (8) Dementia: - Continue Namenda -- 5 mg qAM, 10 mg qPM; was instructed to increase to 10 mg BID within 1-2 weeks. - Due for next dose increase on 03/03/19. (9) Hypertension: - Continue Telmisartan and Amlodipine as prescribed. (10) Depression: - Continue Lexapro as prescribed. (11) Liver hemangioma: - Visualized on CT abd -- unchanged from earlier exam in July 2006. (12) Compression fracture: - CT A/P showed numerous old thoracic and lumbar spine compression fractures, s/p L1 vertebral augmentation. (13) DVT prophylaxis: - Lovenox qAM. Dispo: Med/surg for treatment of CHF exacerabation, IV diuresis; discharge to rehab (acute vs. SNF) pending PT/OT evaluation. Supervising Physician Co-Signing Physician Notes PA Supervision Note: I did not personally see or examine the patient today, but I verified all reardon points of PHILLIP Burgos's assessment and plan with the following exceptions/additions: None Subjective Pt. has underlying dementia, history was obtained from daughter who was present at bedside. She states her mother has had difficulty caring for her father at home following discharge from hospital on 02/11/2019. He fell last evening, hit his head and back. Did not have LOC. Imaging in the ER was negative for acute injuries/fractures. He was evaluated by neurology on 02/24; Namenda was increased to 5 mg qAM, 10 mg qPM for 1-2 weeks then 10 mg BID. He presented to his PCP on 02/26 with LE swelling/leakage. He was instructed to take Lasix 40 mg PO daily for 3 days and wrap legs at home. After presenting for admission, pt. has been requiring 2L via NC but has not wearing oxygen continuously. He is confused -- per daughter, confusion is worse than usual. U/a was negative at admission; will continue to monitor. PT/OT ordered -- discharge to rehab once medically stable and pending placement. Review of Systems Unobtainable due to cognitive status Physical Exam Vital Signs (Past 24 Hours): Last Vital Signs Temp 36.4 C L 02/28/19 06:19 Pulse 66 02/28/19 06:19 Resp 17 02/28/19 06:19 BP 153/75 H 02/28/19 06:19 Pulse Ox 95 02/28/19 06:19 Physical Exam: General: Resting comfortably in no apparent distress; cannot hear well, communicated with daughter. HEENT: NC/AT; PERRLA with EOMI; [place] conjunctiva, MMM. Neck: Supple and nontender Cardiac: RRR Lungs: on 2L via NC; bilateral lower lobe crackles. Abdomen: Bowel normoactive X 4; Nontender to palpation Extremities: Warm. +2-3 bilat LE pitting edema. Neuro: No focal weakness; acute confusion noted, did not answer all questions appropriately. Skin: Ulceration on right heel healing well, no discharge noted. Results & Data Laboratory Results 02/28/19 02/28/19 02/28/19 Range/Units 06:39 06:38 03:30 WBC (4.8-10.8) K/uL RBC (4.7-6.1) M/uL Hgb (14.0-18.0) g/dL Hct (42-52) % MCV (80-100) fL MCH (25-34) pg MCHC (32-36) g/dL RDW Std Deviation (36.4-46.3) fL RDW Coeff of Kyree (11.5-14.5) % Plt Count (130-400) K/uL MPV (7.4-10.4) fL Immature Gran % (Auto) % Neut % (Auto) % Lymph % (Auto) % Coos % (Auto) % Eos % (Auto) % Baso % (Auto) % Immature Gran # (Auto) (0.00-0.02) K/uL Neut # (Auto) (1.4-6.5) K/uL Lymph # (Auto) (1.2-3.4) K/uL [place] # (Auto) (0.11-0.59) K/uL Eos # (Auto) (0-0.5) K/uL Baso # (Auto) (0-0.2) K/uL Sodium 127 L (136-145) mmol/L Potassium 4.0 (3.5-5.1) mmol/L Chloride 88 L (98-107) mmol/L Carbon Dioxide 38 H (21-32) mmol/L Anion Gap 1.0 L (3-11) BUN 10 (7-18) mg/dl Creatinine 0.47 L (0.6-1.4) mg/dl Est Cr Clr Drug Dosing 137.8 ml/min Est GFR ( Amer) 121.7 Est GFR (Non-Af Amer) 105.0 BUN/Creatinine Ratio 21.2 H (10-20) Glucose 109 H (70-99) mg/dl Calcium 8.5 (8.5-10.1) mg/dl Magnesium 2.1 (1.8-2.4) mg/dl Total Bilirubin (0.2-1) mg/dl AST (15-37) U/L ALT (12-78) U/L Alkaline Phosphatase (45-117) U/L Troponin I (0-0.045) ng/ml NT-Pro-B Natriuret Pep 403 (0-1800) pg/ml Total Protein (6.4-8.2) gm/dl Albumin (3.4-5.0) gm/dl Globulin (2.5-4.0) gm/dl Albumin/Globulin Ratio (0.9-2) Vitamin B12 459 (211-911) pg/ml Urine Color Yellow Urine Appearance Clear (Clear) Urine pH 6.5 (4.5-7.5) Ur Specific [employer] 1.020 (1.000-1.030) Urine Protein Negative (Negative) Urine Glucose (UA) Negative (Negative) Urine Ketones Negative (Negative) Urine Blood Negative (Negative) Urine Nitrite Negative (Negative) Urine Bilirubin Negative (Negative) Urine Urobilinogen Negative (Negative) Ur Leukocyte Esterase Negative (Negative) 02/28/19 02/28/19 Range/Units 01:43 01:42 WBC 11.14 H (4.8-10.8) K/uL RBC 3.98 L (4.7-6.1) M/uL Hgb 12.4 L (14.0-18.0) g/dL Hct 36.0 L (42-52) % MCV 90.5 (80-100) fL MCH 31.2 (25-34) pg MCHC 34.4 (32-36) g/dL RDW Std Deviation 48.7 H (36.4-46.3) fL RDW Coeff of Kyree 14.6 H (11.5-14.5) % Plt Count 324 (130-400) K/uL MPV 8.9 (7.4-10.4) fL Immature Gran % (Auto) 0.5 % Neut % (Auto) 78.5 % Lymph % (Auto) 8.3 % Coos % (Auto) 12.4 % Eos % (Auto) 0.2 % Baso % (Auto) 0.1 % Immature Gran # (Auto) 0.06 H (0.00-0.02) K/uL Neut # (Auto) 8.75 H (1.4-6.5) K/uL Lymph # (Auto) 0.92 L (1.2-3.4) K/uL [place] # (Auto) 1.38 H (0.11-0.59) K/uL Eos # (Auto) 0.02 (0-0.5) K/uL Baso # (Auto) 0.01 (0-0.2) K/uL Sodium 126 L (136-145) mmol/L Potassium 4.4 (3.5-5.1) mmol/L Chloride 88 L (98-107) mmol/L Carbon Dioxide 36 H (21-32) mmol/L Anion Gap 2.0 L (3-11) BUN 11 (7-18) mg/dl Creatinine 0.56 L (0.6-1.4) mg/dl Est Cr Clr Drug Dosing 116.7 ml/min Est GFR ( Amer) 113.2 Est GFR (Non-Af Amer) 97.7 BUN/Creatinine Ratio 20.5 H (10-20) Glucose 95 (70-99) mg/dl Calcium 8.2 L (8.5-10.1) mg/dl Magnesium (1.8-2.4) mg/dl Total Bilirubin 0.3 (0.2-1) mg/dl AST 21 (15-37) U/L ALT 37 (12-78) U/L Alkaline Phosphatase 156 H (45-117) U/L Troponin I < 0.015 (0-0.045) ng/ml NT-Pro-B Natriuret Pep (0-1800) pg/ml Total Protein 6.2 L (6.4-8.2) gm/dl Albumin 2.9 L (3.4-5.0) gm/dl Globulin 3.3 (2.5-4.0) gm/dl Albumin/Globulin Ratio 0.9 (0.9-2) Vitamin B12 (211-911) pg/ml Urine Color Urine Appearance (Clear) Urine pH (4.5-7.5) Ur Specific [employer] (1.000-1.030) Urine Protein (Negative) Urine Glucose (UA) (Negative) Urine Ketones (Negative) Urine Blood (Negative) Urine Nitrite (Negative) Urine Bilirubin (Negative) Urine Urobilinogen (Negative) Ur Leukocyte Esterase (Negative)
[2019-02-28 17:53] LABS: BUN Creatinine Ratio 15.7 (10-20); Calcium 8.5 mg/dl (8.5-10.1); Est GFR (African American) 98.3; Est GFR (Non-African American) 84.8; Potassium 3.7 mmol/L (3.5-5.1)
[2019-02-28] MEDS: MEMANTINE HCL 10 MG TAB PO SCH (21:40)
[2019-02-28] MEDS: ESCITALOPRAM OXALATE 20 MG TAB PO SCH (21:41)
--- NOTE | 2019-02-28 21:44 | Ultrasound Report ---
BILATERAL LOWER EXTREMITY VENOUS DOPPLER HISTORY: Acute pain and swelling of the bilateral lower legs Rule out DVT COMPARISON STUDY: Duplex venous Doppler study 05/17/2018. FINDINGS: There is normal compressibility, flow, and augmentation within the bilateral lower extremit y deep venous systems. Study is limited secondary to lower extremity edema and patient positioning. C yayo vessels on the right are also limited secondary to overlying soft tissue bandages. IMPRESSION: No sonographic evidence of deep venous thrombosis within the right or left lower extremity. Electronically signed by: Salo Nolasco M.D. 02/28/2019 9:41 PM
[2019-03-01] MEDS: CLINDAMYCIN HCL 150 MG CAP PO SCH ×4 (06:31→22:09)
[2019-03-01 07:19] LABS: Hemoglobin 12.9 g/dL (14.0-18.0); Mean Corpuscular Hgb Conc 33.9 g/dL (32-36); Mean Corpuscular Volume 90.9 fL (80-100); Platelet Count 297 K/uL (130-400); RDW Coefficient of Variation 14.5 % (11.5-14.5); RDW Standard Deviation 48.2 fL (36.4-46.3); Red Blood Count 4.18 M/uL (4.7-6.1); White Blood Count 9.54 K/uL (4.8-10.8)
[2019-03-01 07:40] LABS: BUN Creatinine Ratio 23.7 (10-20); Calcium 8.9 mg/dl (8.5-10.1); Creatinine Clr Calc Pharmacy 130.1 ml/min; Est GFR (African American) 119.6; Est GFR (Non-African American) 103.2; Magnesium 2.2 mg/dl (1.8-2.4); Potassium 3.7 mmol/L (3.5-5.1)
[2019-03-01] MEDS: CIPROFLOXACIN 500 MG TAB PO SCH ×2 (08:18→20:01)
[2019-03-01] MEDS: LACTOBACILLUS ACIDOPHILUS (FLORANEX) TAB PO SCH ×3 (08:19→20:00)
[2019-03-01] MEDS: POTASSIUM CHLORIDE 20 MEQ TABCR PO SCH (08:19)
[2019-03-01] MEDS: DOCUSATE SODIUM 100 MG CAP PO SCH (08:19)
[2019-03-01] MEDS: MEMANTINE HCL 5 MG TAB PO SCH (08:20)
[2019-03-01] MEDS: TELMISARTAN 40 MG TAB PO SCH (08:20)
[2019-03-01] MEDS: AMLODIPINE BESYLATE 5 MG TAB PO SCH (08:20)
[2019-03-01] MEDS: PANTOprazole 40 MG TAB PO SCH (08:20)
[2019-03-01 08:34] LABS: Prothrombin Time 10.5 Seconds (9.0-12.0)
[2019-03-01] MEDS ORDERED: FUROSEMIDE 40 MG in SYRINGE 0 ML IV ONE (09:00)
[2019-03-01] MEDS: ENOXAPARIN INJ 40 MG/0.4 ML SYR SQ SCH (11:36)
--- NOTE | 2019-03-01 15:01 | Hospitalist Progress Note ---
Date of Service March 01, 2019 Assessment & Plan (1) Fall against object: - Imaging at admission was negative for acute findings. - Will need placement as his cannot care for him at home. - PT recommending SNF, OT recommending acute rehab -- his would like placement at [facility]. (2) Open wound of right heel: - Recently admitted for right heel wound; imaging was negative for osteomyelitis. - Area appears to be healing well; continue dressing changes. - Wound culture was positive for Corynebacterium. - Continue Cipro/Clindamycin PO (recommended by ID), will complete 30 day course on 03/07/2019. - Wound care consulted. (3) Acute respiratory failure with hypoxia: - Has been requiring 2L via NC -- likely related to pulm edema in setting of CHF. - Chest CT showed small bilat pleural effusions. - Diuresis as noted below. (4) Acute on chronic diastolic heart failure: - Most recent Echo Aug 2018 showed EF 55-60%, mild LVH and grade I diastolic dysfunction. - BNP level was 403; has hypervolemic hyponatremia on labs. - Presented with hypoxia and bilat LE pitting edema; was instructed to take increased Lasix PO at home by PCP. - Weight is increased compared to prior admission (86.3 kg --> 100.3 kg --> now improved to 95 kg) - Monitor net I/Os and daily weights. - Received Lasix 40 mg IV x 1 dose this morning; order diuresis daily based on renal function. - Continue home ARB as prescribed. (5) Hyponatremia: - Hypervolemic hyponatremia on admission; Na level stable at 127. - Monitor BMP BID. - Diuresis as noted above. (6) Lower extremity edema: - Likely related to CHF. - Doppler of bilat LE negative. - Continue diuresis. (7) Acute encephalopathy: - Has acute confusion in setting of dementia. - May be related to fatigue/lack of sleep (per daughter) vs. hospital delirium - U/a negative on admission; CT chest negative for pneumonia. - Consider further infectious work up if necessary. (8) Dementia: - Continue Namenda -- 5 mg qAM, 10 mg qPM; was instructed to increase to 10 mg BID within 1-2 weeks. - Due for next dose increase on 03/03/19. (9) Hypertension: - Continue Telmisartan and Amlodipine as prescribed. (10) Depression: - Continue Lexapro as prescribed. (11) Liver hemangioma: - Visualized on CT abd -- unchanged from earlier exam in July 2006. (12) Compression fracture: - CT A/P showed numerous old thoracic and lumbar spine compression fractures, s/p L1 vertebral augmentation. (13) DVT prophylaxis: - Lovenox qAM. Dispo: Med/surg for treatment of CHF exacerabation, IV diuresis; discharge to rehab (acute vs. SNF) pending PT/OT evaluation. Supervising Physician Co-Signing Physician Notes Attending Attestation: Chart reviewed, care plan d/w PA Christen Simmons. I agree w/ the reardon components of her documentation. Cont diuresis for acute/chronic diastolic CHF. Cont dispo planning for rehab. Wean o2 as tolerated. Cont PT, OT for deconditioning and ambulatory dysfunction. Mario Hsieh MD Subjective Pt. is stable today. Cannot obtain history due to dementia and difficulty hearing. Has been requiring 2L via NC, on room air at home. Has ongoing LE edema, slightly improved on exam. He is confused this morning -- consistent with his baseline dementia. Is eating/drinking well. Having bowel movements, denies urinary retention. Plan for rehab placement pending placement. Discussed with his -- she would like him to go to [facility] following discharge. Review of Systems Other (Limited due to dementia and difficulty hearing. ) Respiratory: + dyspnea Cardiovascular: + edema (Bilat LE edema. ) Physical Exam Vital Signs (Past 24 Hours): Last Vital Signs Temp 36.3 C L 03/01/19 07:57 Pulse 71 03/01/19 07:57 Resp 20 03/01/19 07:57 BP 179/91 H 03/01/19 07:57 Pulse Ox 94 03/01/19 07:57 Physical Exam: General: Resting comfortably in no apparent distress; cannot hear well, communicated with his . HEENT: NC/AT; PERRLA with EOMI; [place] conjunctiva, MMM. Neck: Supple and nontender Cardiac: RRR Lungs: on 2L via NC; bilateral lower lobe crackles, otherwise clear. Abdomen: Bowel normoactive X 4; Nontender to palpation Extremities: Warm. +2 bilat LE pitting edema. Neuro: No focal weakness; acute confusion noted. Skin: Ulceration on right heel healing well. Results & Data Laboratory Results 03/01/19 03/01/19 03/01/19 Range/Units 08:01 06:36 06:36 WBC 9.54 (4.8-10.8) K/uL RBC 4.18 L (4.7-6.1) M/uL Hgb 12.9 L (14.0-18.0) g/dL Hct 38.0 L (42-52) % MCV 90.9 (80-100) fL MCH 30.9 (25-34) pg MCHC 33.9 (32-36) g/dL RDW Std Deviation 48.2 H (36.4-46.3) fL RDW Coeff of Kyree 14.5 (11.5-14.5) % Plt Count 297 (130-400) K/uL MPV 9.0 (7.4-10.4) fL PT 10.5 (9.0-12.0) Seconds INR 1.0 (0.9-1.1) Sodium 127 L (136-145) mmol/L Potassium 3.7 (3.5-5.1) mmol/L Chloride 87 L (98-107) mmol/L Carbon Dioxide 37 H (21-32) mmol/L Anion Gap 3.0 (3-11) BUN 12 (7-18) mg/dl Creatinine 0.49 L D (0.6-1.4) mg/dl Est Cr Clr Drug Dosing 130.1 ml/min Est GFR ( Amer) 119.6 Est GFR (Non-Af Amer) 103.2 BUN/Creatinine Ratio 23.7 H (10-20) Glucose 108 H (70-99) mg/dl Osmolality (280-300) mOsm/kg Calcium 8.9 (8.5-10.1) mg/dl Magnesium 2.2 (1.8-2.4) mg/dl 02/28/19 02/28/19 Range/Units 18:33 16:57 WBC (4.8-10.8) K/uL RBC (4.7-6.1) M/uL Hgb (14.0-18.0) g/dL Hct (42-52) % MCV (80-100) fL MCH (25-34) pg MCHC (32-36) g/dL RDW Std Deviation (36.4-46.3) fL RDW Coeff of Kyree (11.5-14.5) % Plt Count (130-400) K/uL MPV (7.4-10.4) fL PT (9.0-12.0) Seconds INR (0.9-1.1) Sodium 126 L (136-145) mmol/L Potassium 3.7 (3.5-5.1) mmol/L Chloride 85 L (98-107) mmol/L Carbon Dioxide 38 H (21-32) mmol/L Anion Gap 3.0 (3-11) BUN 12 (7-18) mg/dl Creatinine 0.79 D (0.6-1.4) mg/dl Est Cr Clr Drug Dosing 82.0 ml/min Est GFR ( Amer) 98.3 Est GFR (Non-Af Amer) 84.8 BUN/Creatinine Ratio 15.7 (10-20) Glucose 99 (70-99) mg/dl Osmolality 272 L (280-300) mOsm/kg Calcium 8.5 (8.5-10.1) mg/dl Magnesium (1.8-2.4) mg/dl
[2019-03-01 16:43] LABS: BUN Creatinine Ratio 17.2 (10-20); Calcium 8.8 mg/dl (8.5-10.1); Est GFR (African American) 95.4; Est GFR (Non-African American) 82.3; Potassium 3.9 mmol/L (3.5-5.1)
[2019-03-01] MEDS: ESCITALOPRAM OXALATE 20 MG TAB PO SCH (20:00)
[2019-03-01] MEDS: MEMANTINE HCL 10 MG TAB PO SCH (20:01)
[2019-03-02] MEDS: CLINDAMYCIN HCL 150 MG CAP PO SCH ×4 (06:44→22:11)
[2019-03-02 07:37] LABS: BUN Creatinine Ratio 23.2 (10-20); Calcium 8.6 mg/dl (8.5-10.1); Creatinine Clr Calc Pharmacy 105.7 ml/min; Est GFR (African American) 110.1; Potassium 3.8 mmol/L (3.5-5.1)
[2019-03-02] MEDS: CIPROFLOXACIN 500 MG TAB PO SCH ×2 (08:48→20:47)
[2019-03-02] MEDS: DOCUSATE SODIUM 100 MG CAP PO SCH (08:48)
[2019-03-02] MEDS: ENOXAPARIN INJ 40 MG/0.4 ML SYR SQ SCH (08:49)
[2019-03-02] MEDS: POTASSIUM CHLORIDE 20 MEQ TABCR PO SCH (08:49)
[2019-03-02] MEDS: LACTOBACILLUS ACIDOPHILUS (FLORANEX) TAB PO SCH ×3 (08:49→20:46)
[2019-03-02] MEDS: TELMISARTAN 40 MG TAB PO SCH (08:49)
[2019-03-02] MEDS: PANTOprazole 40 MG TAB PO SCH (08:50)
[2019-03-02] MEDS: MEMANTINE HCL 5 MG TAB PO SCH (08:50)
[2019-03-02] MEDS: AMLODIPINE BESYLATE 5 MG TAB PO SCH (08:50)
[2019-03-02] MEDS: FUROSEMIDE 40 MG in SYRINGE 0 ML IV SCH ×2 (13:29→17:42)
--- NOTE | 2019-03-02 16:20 | Hospitalist Progress Note ---
Date of Service March 02, 2019 Assessment & Plan (1) Fall against object: - Imaging at admission was negative for acute findings; PT/OT ordered to assist with recommendations for rehab - Possibly related to deconditioning vs significant swelling vs exertional dyspnea leading to weakness (2) Open wound of right heel: - Recently admitted for right heel wound; imaging was negative for osteomyelitis; healing quite well - Wound culture was positive for Corynebacterium. - Continue Cipro/Clindamycin PO (recommended by ID), will complete 30 day course on 03/07/2019; continue probiotics - Wound care consulted - appreciate assistance and recommendations (3) Acute respiratory failure with hypoxia: - This is likely due to pulm edema/diatolic CHF exacerbation - appears this has been progressive, states she had Lasix to use PRN at home and noticed he was slowly developing more [place] and lower extremity edema - CT with small b/l pleural effusion and wheezing on exam which could be from fluid as doesn't report underlying lung disease - Will use Lasix 40 mg IV BID and monitor I&Os/daily weights/BMP - Continue to wean O2 to support pulse ox > 90% (4) Acute on chronic diastolic heart failure: - Most recent Echo Aug 2018 showed EF 55-60%, mild LVH and grade I diastolic dysfunction. - BNP level was 403; has hypervolemic hyponatremia on labs which is improving - Maintaining a negative balance; can continue fluid restriction as it doesn't seem like he takes in much orally however would be okay with liberalizing this as long as a negative balance is maintained (did permit a milkshake so I&Os may be increased) - Lasix 40 mg IV BID and monitor as mentioned above - Telmisartan 40 mg daily (5) Hyponatremia: - Hypervolemic hyponatremia on admission; Na level stable - Will obtain repeat BMP this afternoon given increased diuresis then monitor daily (6) Lower extremity edema: - This is likely related to CHF; doppler neg for DVT - 3-4+ pitting edema - Will monitor with diuresis - likely could benefit from a daily regimen but will monitor response and develop a plan for D/C Present on Admission?: Yes (7) Acute encephalopathy: - H/O dementia and likely a component of delirium/fatigue/insomnia - Seems to be more back to baseline but will monitor - will defer further testing at this time unless further symptoms develop (8) Dementia: - Continue Namenda -- 10 mg AMHS - states this was just recently increased and was due to have this increased. Will have this start tomorrow 4/2 Present on Admission?: Yes (9) Hypertension: - Largely elevated - may improve with Lasix administration - Continue Telmisartan and Amlodipine as prescribed. Present on Admission?: Yes (10) Depression: - Continue Lexapro 20 mg daily Present on Admission?: Yes (11) Liver hemangioma: - Visualized on CT abd -- unchanged from earlier exam in July 2006; no further intervention warranted at this time (12) Compression fracture: - CT A/P showed numerous old thoracic and lumbar spine compression fractures, S/P L1 vertebral augmentation. (13) DVT prophylaxis: - Lovenox Dispo: Will try to improve fluid balance and wean O2 accordingly; planning on [facility] - will await respiratory improvement (maybe 1-2 more days) Subjective Reports feeling pretty good today. States he feels that the legs are less swollen and denies SOB when on O2. States he just wants to get better so he can go to [employer] and enjoy his time there Seems like this fluid retention has been rather progressive but mostly asymptomatic other than with activity Tolerating diet without issue. No other complaints Constitutional: no fever, no chills and no anorexia Ear, Nose, Mouth, Throat: no nasal congestion, no sore throat and no dysphagia Respiratory: + dyspnea on exertion; no cough and no dyspnea Cardiovascular: + edema (Bilat LE edema. ); no chest pain and no palpitations Gastrointestinal: no abdominal pain, no nausea, no vomiting, no constipation and no diarrhea/loose stools Genitourinary (Male): no dysuria Musculoskeletal: no back pain Integumentary: + wounds (healing R heel lesion) Physical Exam Vital Signs (Past 24 Hours): Last Vital Signs Temp 36.3 C L 03/02/19 15:18 Pulse 66 03/02/19 15:18 Resp 18 03/02/19 15:18 BP 120/71 03/02/19 15:18 Pulse Ox 95 03/02/19 15:18 Constitutional: WD/WN, vitals as above no acute distress and not ill appearing Eyes: + anicteric sclerae ENMT: Ears: + hearing impairment (hearing aids present) Neck: normal visual inspection and trachea midline Respiratory: normal respiratory effort Auscultation: + diminished lung sounds and + wheezes Cardiovascular: Rate/Rhythm: regular rate and regular rhythm Vessels: + JVD (possibly mild however larger neck to truly assess) Gastrointestinal (Abdomen): Inspection/Auscultation: normal bowel sounds Percussion/Palpation: abdomen soft; abdomen nontender Musculoskeletal: Head/Neck/Chest: normocephalic and head atraumatic Extremities: no cyanosis and no clubbing Skin: + lesion (healing wound to R heel without drainage) Neurologic: moves all extremities Psychiatric: A+Ox3, euthymic affect
[2019-03-02 17:13] LABS: BUN Creatinine Ratio 27.5 (10-20); Calcium 8.5 mg/dl (8.5-10.1); Creatinine Clr Calc Pharmacy 109.3 ml/min; Est GFR (African American) 111.6; Est GFR (Non-African American) 96.3; Potassium 3.8 mmol/L (3.5-5.1)
[2019-03-02] MEDS: MEMANTINE HCL 10 MG TAB PO SCH (20:46)
[2019-03-02] MEDS: ESCITALOPRAM OXALATE 20 MG TAB PO SCH (22:10)
[2019-03-03] MEDS: CLINDAMYCIN HCL 150 MG CAP PO SCH ×4 (05:55→21:20)
[2019-03-03 06:34] LABS: BUN Creatinine Ratio 26.5 (10-20); Calcium 8.5 mg/dl (8.5-10.1); Creatinine Clr Calc Pharmacy 115.3 ml/min; Est GFR (African American) 114.1; Est GFR (Non-African American) 98.4; Potassium 3.6 mmol/L (3.5-5.1)
[2019-03-03] MEDS: AMLODIPINE BESYLATE 5 MG TAB PO SCH (09:11)
[2019-03-03] MEDS: DOCUSATE SODIUM 100 MG CAP PO SCH (09:11)
[2019-03-03] MEDS: CIPROFLOXACIN 500 MG TAB PO SCH ×2 (09:12→21:18)
[2019-03-03] MEDS: LACTOBACILLUS ACIDOPHILUS (FLORANEX) TAB PO SCH ×3 (09:12→21:18)
[2019-03-03] MEDS: MEMANTINE HCL 10 MG TAB PO SCH ×2 (09:12→21:19)
[2019-03-03] MEDS: PANTOprazole 40 MG TAB PO SCH (09:12)
[2019-03-03] MEDS: TELMISARTAN 40 MG TAB PO SCH (09:13)
[2019-03-03] MEDS: POTASSIUM CHLORIDE 20 MEQ TABCR PO SCH (09:13)
[2019-03-03] MEDS: ENOXAPARIN INJ 40 MG/0.4 ML SYR SQ SCH (09:14)
[2019-03-03] MEDS: FUROSEMIDE 40 MG in SYRINGE 0 ML IV SCH ×2 (09:14→16:40)
[2019-03-03] MEDS ORDERED: ALBUT/IPRATROP 3MG/0.5MG NEB 3 ML VIAL NEB ONE (14:03)
--- NOTE | 2019-03-03 14:24 | XRay Report ---
XR chest 1V portable HISTORY: 78 years-old Male SOB/Fluid? Acute short of breath with questioned pulmonary edema COMPARISON: Chest CT 02/28/2019, chest radiograph 05/17/2018 TECHNIQUE: Portable AP view of the chest FINDINGS: Cardiac silhouette is enlarged, unchanged. Pulmonary vascular congestion with interstitial coarsening . Hypoinflated lungs with bronchovascular crowding. No pneumothorax. Blunting of the costophrenic ang les suggests trace effusions. Subsegmental bibasilar opacities. Degenerative changes of the shoulders and spine. IMPRESSION: 1. Cardiomegaly with pulmonary vascular congestion. 2. Hypoinflation with bibasilar densities suggestive of atelectasis. 3. Possible trace pleural effusions. The above report was generated using voice recognition software. It may contain grammatical, syntax o r spelling errors. Electronically signed by: Salo Nolasco M.D. 03/03/2019 2:22 PM
[2019-03-03] MEDS: TRAMADOL HCL 50 MG TABLET PO PRN (14:34)
--- NOTE | 2019-03-03 17:36 | Hospitalist Progress Note ---
Date of Service March 03, 2019 Assessment & Plan (1) Fall against object: - Imaging at admission was negative for acute findings; PT/OT ordered to assist with recommendations for rehab - Possibly related to deconditioning vs significant swelling vs exertional dyspnea leading to weakness (2) Open wound of right heel: - Recently admitted for right heel wound; imaging was negative for osteomyelitis; healing quite well - Wound culture was positive for Corynebacterium. - Continue Cipro/Clindamycin PO (recommended by ID), will complete 30 day course on 03/07/2019; continue probiotics - Wound care consulted - appreciate assistance and recommendations (3) Acute respiratory failure with hypoxia: - This is likely due to pulm edema/diatolic CHF exacerbation - appears this has been progressive, states she had Lasix to use PRN at home and noticed he was slowly developing more HARRIS and lower extremity edema - Had a long conversation today regarding breathing as he chronically purse-lip breaths as well and is a heavy snorer at night - likely he has a mix of EVERT and obesity hypoventilation syndrome; he was wheezing yesterday and given his [employer] exposures in his youth and his 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 - Recommend outpatient PFTs when respiratory status is stable; repeat CXR does show pulm edema and will continue to diurese; will do overnight pulse ox to assess if he desaturates when sleeping - Did trial Duoneb to see if this gives any additional releif; no indication for system steroids at this time - Will use Lasix 40 mg IV BID and monitor I&Os/daily weights/BMP - Continue to wean O2 to support pulse ox > 90% (4) Acute on chronic diastolic heart failure: - Most recent Echo Aug 2018 showed EF 55-60%, mild LVH and grade I diastolic dysfunction; no mention of pulmonary htn that could be contributing? - BNP level was 403; has hypervolemic hyponatremia on labs which is improving - Maintaining a negative balance; can continue fluid restriction as it doesn't seem like he takes in much orally however would be okay with liberalizing this as long as a negative balance is maintained - Lasix 40 mg IV BID and monitor as mentioned above - Kidney function stable but bicarb is increasing - will need to watch for contraction alkalosis - Telmisartan 40 mg daily (5) Hyponatremia: - Hypervolemic hyponatremia on admission; Na level stable - monitor with daily labs (6) Lower extremity edema: - This is likely related to CHF; doppler neg for DVT - 3-4+ pitting edema - Will monitor with diuresis - likely could benefit from a daily regimen but will monitor response and develop a plan for D/C (7) Acute encephalopathy: - H/O dementia and likely a component of delirium/fatigue/insomnia - Seems to be more back to baseline but will monitor - will defer further testing at this time unless further symptoms develop (8) Dementia: - Continue Namenda -- 10 mg AMHS (9) Hypertension: - Largely elevated but improving with diuresis - Continue Telmisartan and Amlodipine as prescribed. (10) Depression: - Continue Lexapro 20 mg daily (11) Liver hemangioma: - Visualized on CT abd -- unchanged from earlier exam in July 2006; no further intervention warranted at this time (12) Compression fracture: - CT A/P showed numerous old thoracic and lumbar spine compression fractures, S/P L1 vertebral augmentation. (13) DVT prophylaxis: - Lovenox Dispo: Will try to improve fluid balance and wean O2 accordingly; planning on [facility] - will await respiratory improvement (maybe 1-2 more days) Subjective Reports feeling okay today. Is more groggy in the mornings and states he can do this at home but normally is up and about but normally continues to complain of fatigue even after a night of sleep She states she noticed this was more prevalent when he had neck problems and was sleeping with his head down. Did discuss hypoventilation syndrome and likelihood of sleep apnea creating some of his issues. Also discussed that he could have COPD as he has a tendency to purse-lip breath/has a barrel chest. 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 His legs a slightly improved edema quiros but still 3-4+ pitting but he feels some relief with them. He verbalizes no other new complaints Constitutional: + fatigue (and morning fatigue); no fever and no chills Ear, Nose, Mouth, Throat: no nasal congestion and no sore throat Respiratory: + dyspnea on exertion and + snoring; no cough, no dyspnea and no wheezing Cardiovascular: + edema (Bilat LE); no chest pain and no palpitations Gastrointestinal: + bloating; no abdominal pain, no nausea, no vomiting, no constipation and no diarrhea/loose stools Genitourinary (Male): no dysuria Integumentary: + wounds (healing R heel lesion) Physical Exam Vital Signs (Past 24 Hours): Last Vital Signs Temp 36.3 C L 03/03/19 16:15 Pulse 68 03/03/19 16:15 Resp 20 03/03/19 16:15 BP 118/67 03/03/19 16:15 Pulse Ox 96 03/03/19 16:15 Constitutional: WD/WN, vitals as above no acute distress and not ill appearing Eyes: + anicteric sclerae ENMT: Ears: + hearing impairment (hearing aids present) Neck: normal visual inspection and trachea midline Respiratory: normal respiratory effort and + pursed lip breathing (intermittent) Auscultation: + diminished lung sounds and + wheezes (scatterred but minimal) Cardiovascular: Rate/Rhythm: regular rate and regular rhythm Extremities: + edema (3-4+ pitting edema b/l winkler region; 2+ pedal edema b/l) Gastrointestinal (Abdomen): Inspection/Auscultation: normal bowel sounds Percussion/Palpation: abdomen soft; abdomen nontender Musculoskeletal: Head/Neck/Chest: normocephalic and head atraumatic Extremities: no cyanosis and no clubbing Skin: + lesion (healing wound to R heel without drainage) Neurologic: moves all extremities Psychiatric: A+Ox3, euthymic affect
[2019-03-03] MEDS: ESCITALOPRAM OXALATE 20 MG TAB PO SCH (21:20)
[2019-03-04] MEDS: CLINDAMYCIN HCL 150 MG CAP PO SCH ×4 (05:44→21:00)
[2019-03-04 07:28] LABS: Hematocrit (blood only) 39.1 % (42-52); Mean Corpuscular Hgb Conc 33.2 g/dL (32-36); Mean Corpuscular Volume 92.2 fL (80-100); Mean Platelet Volume 8.6 fL (7.4-10.4); Platelet Count 308 K/uL (130-400); RDW Coefficient of Variation 14.6 % (11.5-14.5); RDW Standard Deviation 49.6 fL (36.4-46.3); Red Blood Count 4.24 M/uL (4.7-6.1); White Blood Count 8.77 K/uL (4.8-10.8)
[2019-03-04 07:53] LABS: Calcium 9.1 mg/dl (8.5-10.1); Creatinine Clr Calc Pharmacy 94.9 ml/min; Est GFR (African American) 105.2; Est GFR (Non-African American) 90.8; Potassium 3.8 mmol/L (3.5-5.1)
[2019-03-04] MEDS: DOCUSATE SODIUM 100 MG CAP PO SCH (08:30)
[2019-03-04] MEDS: LACTOBACILLUS ACIDOPHILUS (FLORANEX) TAB PO SCH ×3 (08:30→21:02)
[2019-03-04] MEDS: PANTOprazole 40 MG TAB PO SCH (08:31)
[2019-03-04] MEDS: MEMANTINE HCL 10 MG TAB PO SCH ×2 (08:31→21:02)
[2019-03-04] MEDS: TELMISARTAN 40 MG TAB PO SCH (08:31)
[2019-03-04] MEDS: ENOXAPARIN INJ 40 MG/0.4 ML SYR SQ SCH (08:31)
[2019-03-04] MEDS: CIPROFLOXACIN 500 MG TAB PO SCH ×2 (08:32→21:01)
[2019-03-04] MEDS: POTASSIUM CHLORIDE 20 MEQ TABCR PO SCH (08:32)
[2019-03-04] MEDS ORDERED: FUROSEMIDE 40 MG in SYRINGE 0 ML IV SCH (09:00)
[2019-03-04] MEDS: AMLODIPINE BESYLATE 5 MG TAB PO SCH (11:07)
--- NOTE | 2019-03-04 16:58 | Hospitalist Progress Note ---
Date of Service March 04, 2019 Assessment & Plan (1) Fall against object: - Imaging at admission was negative for acute findings; PT/OT ordered to assist with recommendations for rehab - Possibly related to deconditioning vs significant swelling vs exertional dyspnea leading to weakness (2) Open wound of right heel: - Recently admitted for right heel wound; imaging was negative for osteomyelitis; healing quite well - Wound culture was positive for Corynebacterium. - Continue Cipro/Clindamycin PO (recommended by ID), will complete 30 day course on 03/07/2019; continue probiotics - Wound care consulted - appreciate assistance and recommendations (3) Acute respiratory failure with hypoxia: - This is likely due to pulm edema/diastolic CHF exacerbation - appears this has been progressive, states she had Lasix to use PRN at home and noticed he was slowly developing more HARRIS and lower extremity edema - He chronically purse-lip breaths as well and is a heavy snorer at night - likely he has a mix of EVERT and obesity hypoventilation syndrome; he had wheezing the other day and 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 - Recommend outpatient PFTs when respiratory status is stable; repeat CXR does show pulm edema and will continue to diurese; overnight pulse ox with significant desaturates when sleeping; will obtain ABG in AM - Did trial Duoneb to see if this gives any additional relief - patient didn't think it helped but is forgetful due to dementia and wasn't completely sure - Will use Lasix 40 mg daily and monitor I&Os/daily weights/BMP - Continue to wean O2 to support pulse ox > 90% - It is possible the reason weaning hasn't completely occurred may be due to the fact he really needed O2 all along. Ultimately should have a 2 step prior to rehab discharge to assess O2 needs ongoing until formal pulmonary testing can be completed; also given his fatigue/sleepiness this could be multifactorial as he does have dementia and is hard of hearing and seems to almost tune out conversation in favor of naps (4) Acute on chronic diastolic heart failure: - Most recent Echo Aug 2018 showed EF 55-60%, mild LVH and grade I diastolic dysfunction; no mention of pulmonary htn that could be contributing? - BNP level was 403; has hypervolemic hyponatremia on labs which is improving - Maintaining a negative balance; can continue fluid restriction as it doesn't seem like he takes in much orally however would be okay with liberalizing this as long as a negative balance is maintained - Lasix 40 mg daily and monitor as mentioned above - Kidney function stable but bicarb is increasing - will need to watch for contraction alkalosis - Telmisartan 40 mg daily (5) Hyponatremia: - Hypervolemic hyponatremia on admission; Na level stable - monitor with daily labs (6) Lower extremity edema: - This is likely related to CHF; doppler neg for DVT - 3-4+ pitting edema - Will monitor with diuresis - likely could benefit from a daily regimen but will monitor response and develop a plan for D/C (7) Acute encephalopathy: - H/O dementia and likely a component of delirium/fatigue/insomnia - Seems to be more back to baseline but will monitor - will defer further crystal ting at this time unless further symptoms develop (8) Dementia: - Continue Namenda -- 10 mg AMHS (9) Hypertension: - Largely elevated but improving with diuresis - Continue Telmisartan and Amlodipine as prescribed. (10) Depression: - Continue Lexapro 20 mg daily (11) Liver hemangioma: - Visualized on CT abd -- unchanged from earlier exam in July 2006; no further intervention warranted at this time (12) Compression fracture: - CT A/P showed numerous old thoracic and lumbar spine compression fractures, S/P L1 vertebral augmentation. (13) DVT prophylaxis: - Lovenox Dispo: Will try to improve fluid balance and wean O2 accordingly; planning on [facility] - will await respiratory improvement (maybe 1-2 more days) Subjective Patient has no complaints today. States he thinks he is doing well and denies SOB but thinks he may have some with exertion. He has significant desaturations at night and did discuss with patient and that he may have sleep apnea and should have a formalized sleep study He remains at a negative balance but still edematous Constitutional: + fatigue (and morning fatigue); no fever and no chills Respiratory: + dyspnea on exertion and + snoring; no cough, no dyspnea and no wheezing Cardiovascular: + edema (Bilat LE); no chest pain and no palpitations Gastrointestinal: + bloating; no abdominal pain, no nausea, no vomiting, no constipation and no diarrhea/loose stools Genitourinary (Male): no dysuria Integumentary: + wounds (healing R heel lesion) Physical Exam Vital Signs (Past 24 Hours): Last Vital Signs Temp 36.4 C L 03/04/19 14:50 Pulse 68 03/04/19 14:50 Resp 18 03/04/19 14:50 BP 128/73 03/04/19 14:50 Pulse Ox 92 03/04/19 15:15 Constitutional: WD/WN, vitals as above no acute distress and not ill appearing Eyes: + anicteric sclerae ENMT: Ears: + hearing impairment (hearing aids present) Neck: normal visual inspection and trachea midline Respiratory: normal respiratory effort Auscultation: + diminished lung sounds Cardiovascular: Rate/Rhythm: regular rate and regular rhythm Extremities: + edema (3-4+ pitting edema b/l winkler region; 2+ pedal edema b/l) Gastrointestinal (Abdomen): Inspection/Auscultation: normal bowel sounds Percussion/Palpation: abdomen soft; abdomen nontender Musculoskeletal: Head/Neck/Chest: normocephalic and head atraumatic Extremities: no cyanosis and no clubbing Neurologic: moves all extremities Psychiatric: A+Ox3, euthymic affect
[2019-03-04] MEDS: TRAMADOL HCL 50 MG TABLET PO PRN (21:00)
[2019-03-04] MEDS: ESCITALOPRAM OXALATE 20 MG TAB PO SCH (21:02)
--- NOTE | 2019-03-04 22:33 | XRay Report ---
XR thoracic spine 3V routine CLINICAL HISTORY: Back pain following fall. COMPARISON STUDY: Chest CT February 28, 2019. Thoracic spine radiographs August 13, 2018. FINDINGS: L1 vertebral augmentation is noted. Numerous thoracic spine compression fractures are simil ar to CT of February 28, 2019. No significant interval change is noted by radiography. Lumbar spine will be reported separately. There is mild multilevel disc space narrowing. IMPRESSION: 1. Status post L1 vertebral augmentation. 2. No significant change in numerous thoracic spine compression fracture since CT of February 28, 2019. Electronically signed by: Clive Simms M.D. 03/04/2019 10:32 PM
--- NOTE | 2019-03-04 22:35 | XRay Report ---
XR lumbar spine 2-3V CLINICAL HISTORY: fall back pain COMPARISON STUDY: Lumbar spine CT February 28, 2019. FINDINGS: L1 kyphoplasty is noted. Old T12 and L2 compression fractures are unchanged. An old T10 com pression fracture is also noted. No acute lumbar spine fracture is present. Sacroiliac joints are int act. Moderate multilevel degenerative disc disease and facet arthrosis is present. IMPRESSION: 1. No acute lumbar spine fracture. 2. Status post L1 kyphoplasty. Multiple old lower thoracic and lumbar spine compression fractures whi ch are unchanged. Electronically signed by: Clive Simms M.D. 03/04/2019 10:33 PM
--- NOTE | 2019-03-05 00:34 | Progress Note ---
Date of Service March 05, 2019 Called by RN: reported fall tonight but no injury and pt did not hit head. Per nurse, pt was not complaining of chronic back pain at this time. was concerned given his chronic back pain and requesting XRs In the setting of previous back problems and fall, lumbar and thoracic spine XRs were ordered stat and were not concerning for any acute changes Physical Exam Vital Signs (Past 24 Hours): Last Vital Signs Temp 36.3 C L 03/04/19 23:00 Pulse 63 03/04/19 23:00 Resp 18 03/04/19 23:00 BP 135/83 03/04/19 23:00 Pulse Ox 95 03/04/19 23:00 Resident Activity Tracking Resident Involvement: Resident Care Provided Care Provided: Adult Hospital Medicine
[2019-03-05] MEDS: CLINDAMYCIN HCL 150 MG CAP PO SCH ×4 (05:00→21:42)
[2019-03-05 09:26] LABS: HCO3 ABG 42 mmol/L (19-24); Oxygen Saturation ABG 95.2 % (90-95); PCO2 ABG 69 mmHg (35-46); PO2 ABG 78 mm/Hg (80-95)
[2019-03-05 09:27] LABS: Allen Test Pos (Pos)
[2019-03-05] MEDS: TELMISARTAN 40 MG TAB PO SCH (09:34)
[2019-03-05] MEDS: CIPROFLOXACIN 500 MG TAB PO SCH ×2 (09:34→21:43)
[2019-03-05] MEDS: LACTOBACILLUS ACIDOPHILUS (FLORANEX) TAB PO SCH ×3 (09:34→21:42)
[2019-03-05] MEDS: PANTOprazole 40 MG TAB PO SCH (09:35)
[2019-03-05] MEDS: ENOXAPARIN INJ 40 MG/0.4 ML SYR SQ SCH (09:35)
[2019-03-05] MEDS: MEMANTINE HCL 10 MG TAB PO SCH ×2 (09:35→21:44)
[2019-03-05] MEDS: POTASSIUM CHLORIDE 20 MEQ TABCR PO SCH (09:35)
[2019-03-05] MEDS: FUROSEMIDE 40 MG TAB PO SCH (09:35)
[2019-03-05] MEDS: DOCUSATE SODIUM 100 MG CAP PO SCH (09:35)
[2019-03-05] MEDS: AMLODIPINE BESYLATE 5 MG TAB PO SCH (09:37)
--- NOTE | 2019-03-05 15:51 | Hospitalist Progress Note ---
Date of Service March 05, 2019 Assessment & Plan (1) Fall against object: - Imaging at admission was negative for acute findings; PT/OT ordered to assist with recommendations for rehab - appreciate ongoing assessment due to in- house fall on 03/04 - Possibly related to deconditioning vs significant swelling vs exertional dyspnea leading to weakness - Sustained a fall on 03/04 without acute injury - XR with stable/unchanged compression fx (2) Open wound of right heel: - Recently admitted for right heel wound; imaging was negative for osteomyelitis; healing quite well - Wound culture was positive for Corynebacterium. - Continue Cipro/Clindamycin PO (recommended by ID), will complete 30 day course on 03/07/2019; continue probiotics - Wound care consulted - appreciate assistance and recommendations (3) Acute respiratory failure with hypoxia: - This is likely due to pulm edema/diastolic CHF exacerbation - appears this has been progressive, states she had Lasix to use PRN at home and noticed he was slowly developing more HARRIS and lower extremity edema - He chronically purse-lip breaths as well and is a heavy snorer at night - likely he has a mix of EVERT and obesity hypoventilation syndrome; he had wheezing the other day and 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 - Recommend outpatient PFTs; repeat CXR does show pulm edema and will continue to diurese; overnight pulse ox with significant desaturates when sleeping; ABG with normal pH however clearly a CO2 retainer - He will need chronic monitoring of fluid status and respiratory status - would suspect possible several weeks to truly get his edema at a steady state; from a CO2 retention standpoint he is not acutely decompensated as his pH is normal but highly recommend that he utilize CPAP which may be difficulty given dementia - again a formal sleep study may be warranted. He is acutely stable with these conditions but will need close monitoring going forward and would benefit from the monitoring while undergoing rehab. May be a good candidate for outpatient CHF clinic AFTER rehab but I feel that close medical monitoring would serve him well while addressing his deconditioning. - Did trial Duoneb to see if this gives any additional relief - patient didn't think it helped but is forgetful due to dementia and wasn't completely sure - Will use Lasix 40 mg daily and monitor I&Os/daily weights/BMP - This will need to be further adjusted pending edema response and routine lab monitoring - At this time he is likely weaned to what could be a baseline O2 need for him. It is possible the reason weaning hasn't completely occurred may be due to the fact he really needed O2 all along. Ultimately should have a 2 step prior to rehab discharge to assess O2 needs ongoing until formal pulmonary testing can be completed; also given his fatigue/sleepiness this could be multifactorial as he does have dementia and is hard of hearing and seems to almost tune out conversation in favor of naps - Continue to wean O2 to support pulse ox > 90% (4) Acute on chronic diastolic heart failure: - Most recent Echo Aug 2018 showed EF 55-60%, mild LVH and grade I diastolic dysfunction; no mention of pulmonary htn that could be contributing? - BNP level was 403; has hypervolemic hyponatremia on labs which is improving - Maintaining a negative balance; can continue fluid restriction as it doesn't seem like he takes in much orally however would be okay with liberalizing this as long as a negative balance is maintained - Lasix 40 mg daily and monitor as mentioned above - Kidney function stable but bicarb is increasing - will need to watch for contraction alkalosis - Telmisartan 40 mg daily (5) Hyponatremia: - Hypervolemic hyponatremia on admission; Na level stable - monitor with daily labs (6) Lower extremity edema: - This is likely related to CHF; doppler neg for DVT - 3-4+ pitting edema however in bed today his swelling is much improved so likely component of dependent edema when sitting in chairs - Will monitor with diuresis (7) Acute encephalopathy: - H/O dementia and likely a component of delirium/fatigue/insomnia - Did have more agitation today which could have been from his fall on 03/04 with Tramadol and poor sleep; he did calm back down to baseline with family around and reassurance (8) Dementia: - Continue Namenda -- 10 mg AMHS (9) Hypertension: - Improving with diuresis - Continue Telmisartan and Amlodipine as prescribed. (10) Depression: - Continue Lexapro 20 mg daily (11) Liver hemangioma: - Visualized on CT abd -- unchanged from earlier exam in July 2006; no further intervention warranted at this time (12) Compression fracture: - CT A/P showed numerous old thoracic and lumbar spine compression fractures, S/P L1 vertebral augmentation. (13) DVT prophylaxis: - Lovenox Dispo: Fluid balance continues to improve but suspect he will need chronic diuretics to get him to a steady state which is relatively unknown at this time; Likely needs ongoing supplemental O2 and would benefit from CPAP (which we will trial tonight) however given his dementia this could be difficult for his tolerance; Again ABG and chronic elevated bicarb on labs suggests a chronic CO2 retention that by labs are not completely compensated but in close range of that without an acute respiratory component at play. Peer to peer on hold vs denied - as he would benefit from rehab and could have the benefit of medical supervision at [facility] to monitor his CHF/pulmonary status but could get esta blished with our outpatient CHF clinic (this is not an alternative to rehab as his strength training should be maximized but medical management involved too) Subjective Patient sustained a fall last night. Due to memory issues he does not recall what happened directly. He is very agitated and anxious this morning. He recalls having blood everywhere (got a skin tear and his IV site was pulled out) and also did draw and ABG this AM and due to confusion states he is being tortured due to all the blood. He also feels that people think he needs to go to an "insane asylum" He did calm down once his arrived and was eating breakfast. Also had some tramadol last night and the states he has this at home but almost never has to use it so isn't sure if it makes him more confused. No injury was identified after the fall. He states his breathing feels okay but definitely had increased work of breathing when he was agitated. Did draw an ABG which shows stable pH but clearly a CO2 retainer. Not showing acute decompensation but a could benefit from CPAP and ongoing O2 therapy Constitutional: + fatigue; no fever and no chills Respiratory: + dyspnea on exertion and + snoring; no cough, no dyspnea and no wheezing Cardiovascular: + edema (Bilat LE - improving); no chest pain and no palpitations Gastrointestinal: + bloating; no abdominal pain, no nausea, no vomiting, no constipation and no diarrhea/loose stools Genitourinary (Male): no dysuria Musculoskeletal: + body aches Integumentary: + wounds (healing R heel lesion) Neurologic: + falls Physical Exam Vital Signs (Past 24 Hours): Last Vital Signs Temp 36.3 C L 03/05/19 15:00 Pulse 71 03/05/19 15:00 Resp 20 03/05/19 15:00 BP 122/64 03/05/19 15:00 Pulse Ox 94 03/05/19 15:00 Constitutional: WD/WN, vitals as above + acute distress (agitation this AM but calmed down to baseline); not ill appearing Eyes: + anicteric sclerae ENMT: Ears: + hearing impairment (hearing aids present) Throat: uvula midline Neck: normal visual inspection and trachea midline Respiratory: normal respiratory effort (increased work of breathing when agitated (pursed lip) but resolved) Auscultation: + diminished lung sounds Cardiovascular: Rate/Rhythm: regular rate and regular rhythm Extremities: + edema (1+ legs b/l and largely reduced pedal edema today when in bed) Gastrointestinal (Abdomen): Inspection/Auscultation: normal bowel sounds Percussion/Palpation: abdomen soft; abdomen nontender Musculoskeletal: Head/Neck/Chest: normocephalic and head atraumatic Extremities: extremities normal to inspection; no joint enlargement, no cyanosis and no clubbing no palpable tenderness to shoulders/elbows/wrists/hips/knees/ankles; no joint enlargement or deformities; moving extremities with ambulation without difficulty or guarding Skin: + lesion (healing wound to R heel without drainage) skin tears scattered with dressing applied Neurologic: moves all extremities Psychiatric: Orientation: alert Affect: + anxious affect (did calm down to euthymic but some increased confusion this AM)
[2019-03-05] MEDS: ESCITALOPRAM OXALATE 20 MG TAB PO SCH (21:43)
[2019-03-06] MEDS: CLINDAMYCIN HCL 150 MG CAP PO SCH ×4 (06:42→21:54)
[2019-03-06] MEDS: TRAMADOL HCL 50 MG TABLET PO PRN ×2 (06:43→16:24)
[2019-03-06] MEDS: ENOXAPARIN INJ 40 MG/0.4 ML SYR SQ SCH (08:13)
[2019-03-06] MEDS: MEMANTINE HCL 10 MG TAB PO SCH ×2 (08:16→19:59)
[2019-03-06] MEDS: FUROSEMIDE 40 MG TAB PO SCH ×2 (08:17→16:25)
[2019-03-06] MEDS: POTASSIUM CHLORIDE 20 MEQ TABCR PO SCH (08:17)
[2019-03-06] MEDS: AMLODIPINE BESYLATE 5 MG TAB PO SCH (08:17)
[2019-03-06] MEDS: CIPROFLOXACIN 500 MG TAB PO SCH ×2 (08:17→19:59)
[2019-03-06] MEDS: TELMISARTAN 40 MG TAB PO SCH (08:17)
[2019-03-06 08:18] LABS: Hematocrit (blood only) 35.9 % (42-52); Hemoglobin 11.8 g/dL (14.0-18.0); Mean Corpuscular Hgb Conc 32.9 g/dL (32-36); Mean Platelet Volume 8.8 fL (7.4-10.4); Platelet Count 281 K/uL (130-400); RDW Coefficient of Variation 14.8 % (11.5-14.5); RDW Standard Deviation 50.5 fL (36.4-46.3); Red Blood Count 3.86 M/uL (4.7-6.1); White Blood Count 6.75 K/uL (4.8-10.8)
[2019-03-06] MEDS: DOCUSATE SODIUM 100 MG CAP PO SCH (08:18)
[2019-03-06] MEDS: LACTOBACILLUS ACIDOPHILUS (FLORANEX) TAB PO SCH ×3 (08:18→20:00)
[2019-03-06] MEDS: PANTOprazole 40 MG TAB PO SCH (08:18)
[2019-03-06 09:06] LABS: BUN Creatinine Ratio 24.3 (10-20); Calcium 8.9 mg/dl (8.5-10.1); Creatinine Clr Calc Pharmacy 117.5 ml/min; Est GFR (African American) 114.9; Est GFR (Non-African American) 99.2; Potassium 3.8 mmol/L (3.5-5.1)
--- NOTE | 2019-03-06 19:07 | Hospitalist Progress Note ---
Date of Service March 06, 2019 Assessment & Plan (1) Fall against object: - Imaging at admission was negative for acute findings; PT/OT ordered to assist with recommendations for rehab - appreciate ongoing assessment due to in- house fall on 03/04 - Possibly related to deconditioning vs significant swelling vs exertional dyspnea leading to weakness - Sustained a fall on 03/04 without acute injury - XR with stable/unchanged compression fx denied rehab, will look into SNF but will be here over the weekend (2) Open wound of right heel: - Recently admitted for right heel wound; imaging was negative for osteomyelitis; healing quite well - Wound culture was positive for Corynebacterium. - Continue Cipro/Clindamycin PO (recommended by ID), will complete 30 day course on 03/07/2019; continue probiotics - Wound care consulted - appreciate assistance and recommendations stop antibiotics tomorrow (3) Acute respiratory failure with hypoxia: - This is likely due to pulm edema/diastolic CHF exacerbation - appears this has been progressive, states she had Lasix to use PRN at home and noticed he was slowly developing more HARRIS and lower extremity edema - He chronically purse-lip breaths as well and is a heavy snorer at night - likely he has a mix of EVERT and obesity hypoventilation syndrome; he had wheezing the other day and 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 likely still with acute heart failure, volume overload, see below will try to titrate oxygen as tolerated but may need oxygen on discharge as outpatient would likely benefit from formal sleep study for sleep apnea nocturnal desaturation study showed he was < 90% the entire test on room air morning ABG shows CO2 retention with levels in the 60's (4) Acute on chronic diastolic heart failure: - Most recent Echo Aug 2018 showed EF 55-60%, mild LVH and grade I diastolic dysfunction; no mention of pulmonary htn that could be contributing? - BNP level was 403; has hypervolemic hyponatremia on labs which is improving - still with volume overload, pitting edema in legs, Cr stable will increase Lasix to 40mg PO BID and add Zaroxolyn 5mg in the AM for increased diuresis follow daily weights, I/O's, fluid restriction - Telmisartan 40 mg daily (5) Chronic hypercapnic respiratory failure: evident on morning ABG, pH was 7.4 but CO 2 was elevated at 69 could be due to both undiagnosed EVERT and/or obesity hypoventilation would likely benefit from CPAP but would need sleep study (6) Hyponatremia: - Hypervolemic hyponatremia on admission; Na level stable - monitor with daily labs (7) Lower extremity edema: - This is likely related to CHF; doppler neg for DVT - 3-4+ pitting edema however in bed today his swelling is much improved so likely component of dependent edema when sitting in chairs - Will monitor with diuresis (8) Acute encephalopathy: - H/O dementia and likely a component of delirium/fatigue/insomnia - Did have more agitation today which could have been from his fall on 03/04 with Tramadol and poor sleep; he did calm back down to baseline with family around and reassurance (9) Dementia: - Continue Namenda -- 10 mg AMHS (10) Hypertension: - Improving with diuresis - Continue Telmisartan and Amlodipine as prescribed. (11) Depression: - Continue Lexapro 20 mg daily (12) Liver hemangioma: - Visualized on CT abd -- unchanged from earlier exam in July 2006; no further intervention warranted at this time (13) Compression fracture: - CT A/P showed numerous old thoracic and lumbar spine compression fractures, S/P L1 vertebral augmentation. (14) DVT prophylaxis: - Lovenox Dispo: will keep over the weekend, try to aggressively diurese while inpatient CM looking into SNF rehab, Saturday would be the earliest Subjective patient sleeping a lot more today says that he is really tired discussed current state, clearly he is volume overloaded his lethargy is likely due to untreated sleep apnea, CO2 retention will keep him over the weekend, try to improve him clinically prior to discharge d/w CM, he was denied rehab, will look into SNF as backup Review of Systems All systems reviewed & are unremarkable except as noted in HPI & below Constitutional: + fatigue; no fever and no chills Respiratory: + dyspnea on exertion and + snoring; no cough, no dyspnea and no wheezing Cardiovascular: + edema (Bilat LE - improving); no chest pain and no palpitations Gastrointestinal: + bloating; no abdominal pain, no nausea, no vomiting, no constipation and no diarrhea/loose stools Musculoskeletal: + body aches Integumentary: + wounds (healing R heel lesion) Neurologic: + falls Physical Exam Vital Signs (Past 24 Hours): Last Vital Signs Temp 36.5 C 03/06/19 15:13 Pulse 74 03/06/19 15:13 Resp 19 03/06/19 15:13 BP 133/77 03/06/19 15:13 Pulse Ox 91 03/06/19 15:13 Constitutional: WD/WN, vitals as above Eyes: PERRL, conjunctivae normal, anicteric sclerae ENMT: external ear and nose normal, oropharynx normal Neck: trachea midline, no thyromegaly Respiratory: normal respiratory effort, lungs clear to auscultation Auscultation: + diminished lung sounds (bases) Cardiovascular: Rate/Rhythm: regular rate and regular rhythm Heart Sounds: normal S1 and normal S2; no murmur Extremities: + edema (legs bilaterally, pitting) Gastrointestinal (Abdomen): normal bowel sounds, soft, nontender, no hepatosplenomegaly Skin: no rashes, warm and dry Neurologic: patellar DTR's 2+ bilat, sensation intact and PERRL, EOMI, accommodation nl, no face palsy, no dysarthria Psychiatric: Orientation: oriented to person; + not alert (lethargic), + not oriented to place and + not oriented to time Lymphatic: no cervical or axillary lymphadenopathy Results & Data Laboratory Results Laboratory Results - last 24 hr 03/06/19 03/06/19 07:38 07:38 WBC 6.75 RBC 3.86 L Hgb 11.8 L Hct 35.9 L MCV 93.0 MCH 30.6 MCHC 32.9 RDW Std Deviation 50.5 H RDW Coeff of Kyree 14.8 H Plt Count 281 MPV 8.8 Sodium 133 L Potassium 3.8 Chloride 91 L Carbon Dioxide 40 H Anion Gap 2.0 L BUN 13 Creatinine 0.54 L Est Cr Clr Drug Dosing 117.5 Est GFR ( Amer) 114.9 Est GFR (Non-Af Amer) 99.2 BUN/Creatinine Ratio 24.3 H Glucose 94 Calcium 8.9 Medications Administered Current Inpatient Medications Amlodipine Besylate (Norvasc) 10 mg PO DAILY [facility] Stop: 03/30/19 08:59 Last Admin: 03/06/19 08:17 Dose: 10 mg Documented by: Ciprofloxacin (Cipro) 500 mg PO BID [facility] Stop: 03/07/19 23:59 Last Admin: 03/06/19 08:17 Dose: 500 mg Documented by: Clindamycin HCl (Cleocin) 150 mg PO 0700,1200,1700,2200 [facility]; Protocol Stop: 03/07/19 23:59 Last Admin: 03/06/19 16:25 Dose: 150 mg Documented by: Docusate Sodium (Colace) 100 mg PO DAILY [facility] Stop: 03/30/19 08:59 Last Admin: 03/06/19 08:18 Dose: 100 mg Documented by: Enoxaparin Sodium (Lovenox) 40 mg SQ QAM [facility] Stop: 03/31/19 08:59 Last Admin: 03/06/19 08:13 Dose: 40 mg Documented by: Escitalopram Oxalate (Lexapro) 20 mg PO QPM [facility] Stop: 03/30/19 20:59 Last Admin: 03/05/19 21:43 Dose: 20 mg Documented by: Furosemide (Lasix) 40 mg PO BID17 [facility] Stop: 04/05/19 16:59 Last Admin: 03/06/19 16:25 Dose: 40 mg Documented by: Lactobacillus Acidophilus (Floranex) 2 tab PO TID [facility] Stop: 03/30/19 08:59 Last Admin: 03/06/19 15:29 Dose: 2 tab Documented by: Memantine (Namenda) 10 mg PO AMHS [facility] Stop: 04/01/19 20:59 Last Admin: 03/06/19 08:16 Dose: 10 mg Documented by: Metolazone (Zaroxolyn) 5 mg PO DAILY@0830 [facility] Stop: 04/06/19 08:29 Pantoprazole Sodium (Protonix) 40 mg PO DAILY [facility] Stop: 03/30/19 08:59 Last Admin: 03/06/19 08:18 Dose: 40 mg Documented by: Potassium Chloride (Klor-Con M20) 40 meq PO DAILY [facility] Stop: 03/30/19 08:59 Last Admin: 03/06/19 08:17 Dose: 40 meq Documented by: Telmisartan (Micardis) 40 mg PO DAILY [facility] Stop: 03/30/19 08:59 Last Admin: 03/06/19 08:17 Dose: 40 mg Documented by: Tramadol HCl (Ultram) 50 - 100 mg PO TID PRN; Protocol PRN Reason: Pain Stop: 03/30/19 06:18 Last Admin: 03/06/19 16:24 Dose: 50 mg Documented by:
[2019-03-06] MEDS: ESCITALOPRAM OXALATE 20 MG TAB PO SCH (20:00)
[2019-03-07] MEDS: CLINDAMYCIN HCL 150 MG CAP PO SCH ×4 (06:48→21:54)
[2019-03-07 07:47] LABS: Hemoglobin 12.3 g/dL (14.0-18.0); Mean Corpuscular Hgb Conc 32.4 g/dL (32-36); Mean Corpuscular Volume 94.5 fL (80-100); Mean Platelet Volume 8.6 fL (7.4-10.4); Platelet Count 295 K/uL (130-400); RDW Coefficient of Variation 14.7 % (11.5-14.5); RDW Standard Deviation 51.1 fL (36.4-46.3); Red Blood Count 4.02 M/uL (4.7-6.1); White Blood Count 7.05 K/uL (4.8-10.8)
[2019-03-07 08:04] LABS: Calcium 9.2 mg/dl (8.5-10.1); Creatinine Clr Calc Pharmacy 102.2 ml/min; Est GFR (African American) 108.6; Est GFR (Non-African American) 93.7; Potassium 4.3 mmol/L (3.5-5.1)
[2019-03-07] MEDS: metOLazone 5 MG TABLET PO SCH (08:37)
[2019-03-07] MEDS: CIPROFLOXACIN 500 MG TAB PO SCH ×2 (08:38→20:52)
[2019-03-07] MEDS: DOCUSATE SODIUM 100 MG CAP PO SCH (08:38)
[2019-03-07] MEDS: LACTOBACILLUS ACIDOPHILUS (FLORANEX) TAB PO SCH ×3 (08:39→20:50)
[2019-03-07] MEDS: POTASSIUM CHLORIDE 20 MEQ TABCR PO SCH (08:39)
[2019-03-07] MEDS: ENOXAPARIN INJ 40 MG/0.4 ML SYR SQ SCH (08:40)
[2019-03-07] MEDS: FUROSEMIDE 40 MG TAB PO SCH ×2 (08:40→17:12)
[2019-03-07] MEDS: MEMANTINE HCL 10 MG TAB PO SCH ×2 (08:41→21:01)
[2019-03-07] MEDS: TELMISARTAN 40 MG TAB PO SCH (08:41)
[2019-03-07] MEDS: AMLODIPINE BESYLATE 5 MG TAB PO SCH (08:42)
[2019-03-07] MEDS: PANTOprazole 40 MG TAB PO SCH (08:42)
--- NOTE | 2019-03-07 14:22 | Hospitalist Progress Note ---
Date of Service March 07, 2019 Assessment & Plan (1) Fall against object: - Imaging at admission was negative for acute findings; PT/OT ordered to assist with recommendations for rehab - appreciate ongoing assessment due to in- house fall on 03/04 - Possibly related to deconditioning vs significant swelling vs exertional dyspnea leading to weakness - Sustained a fall on 03/04 without acute injury - XR with stable/unchanged compression fx denied rehab, will look into SNF but will be here over the weekend (2) Open wound of right heel: - Recently admitted for right heel wound; imaging was negative for osteomyelitis; healing quite well - Wound culture was positive for Corynebacterium. - Continue Cipro/Clindamycin PO (recommended by ID), will complete 30 day course on 03/07/2019; continue probiotics - Wound care consulted - appreciate assistance and recommendations stop antibiotics today (3) Acute respiratory failure with hypoxia: - This is likely due to pulm edema/diastolic CHF exacerbation - appears this has been progressive, states she had Lasix to use PRN at home and noticed he was slowly developing more HARRIS and lower extremity edema - He chronically purse-lip breaths as well and is a heavy snorer at night - likely he has a mix of EVERT and obesity hypoventilation syndrome; he had wheezing the other day and 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 likely still with acute heart failure, volume overload, see below will try to titrate oxygen as tolerated but may need oxygen on discharge as outpatient would likely benefit from formal sleep study for sleep apnea nocturnal desaturation study showed he was < 90% the entire test on room air morning ABG shows CO2 retention with levels in the 60's (4) Acute on chronic diastolic heart failure: - Most recent Echo Aug 2018 showed EF 55-60%, mild LVH and grade I diastolic dysfunction; no mention of pulmonary htn that could be contributing? - BNP level was 403; has hypervolemic hyponatremia on labs which is improving - still with volume overload, pitting edema in legs, Cr stable will continue Lasix to 40mg PO BID and add Zaroxolyn 5mg in the AM for increased diuresis follow daily weights, I/O's, fluid restriction no signs of increased diuresis at this time, most likely will be accurate weight measurements - Telmisartan 40 mg daily (5) Chronic hypercapnic respiratory failure: evident on morning ABG, pH was 7.4 but CO 2 was elevated at 69 could be due to both undiagnosed EVERT and/or obesity hypoventilation would likely benefit from CPAP but would need sleep study has signs of metabolic compensation with chronically elevated HCO3 (6) Hyponatremia: - Hypervolemic hyponatremia on admission; Na level stable - monitor with daily labs (7) Lower extremity edema: - This is likely related to CHF; doppler neg for DVT - 3-4+ pitting edema however in bed today his swelling is much improved so likely component of dependent edema when sitting in chairs - Will monitor with diuresis (8) Acute encephalopathy: - H/O dementia and likely a component of delirium/fatigue/insomnia - acute encephalopathy resolved, at baseline with cognitive impairment (9) Dementia: - Continue Namenda -- 10 mg AMHS (10) Hypertension: - Improving with diuresis - Continue Telmisartan and Amlodipine as prescribed. (11) Depression: - Continue Lexapro 20 mg daily (12) Liver hemangioma: - Visualized on CT abd -- unchanged from earlier exam in July 2006; no further intervention warranted at this time (13) Compression fracture: - CT A/P showed numerous old thoracic and lumbar spine compression fractures, S/P L1 vertebral augmentation. (14) DVT prophylaxis: - Lovenox Dispo: will keep over the weekend, try to aggressively diurese while inpatient CM looking into SNF rehab, Saturday would be the earliest Subjective patient more alert today, sitting up in a chair during my visit still with edema he cannot tell me if he is making more urine or not due to dementia eating well updated his and son at the bedside reviewed labs, Cr is stable, HCO3 up at 40 which is chronic CBC stable Review of Systems All systems reviewed & are unremarkable except as noted in HPI & below Constitutional: + fatigue; no fever and no chills Respiratory: + dyspnea on exertion and + snoring; no cough, no dyspnea and no wheezing Cardiovascular: + edema (Bilat LE - improving); no chest pain and no palpitations Musculoskeletal: + body aches Integumentary: + wounds (healing R heel lesion) Neurologic: + falls Physical Exam Vital Signs (Past 24 Hours): Last Vital Signs Temp 36.4 C L 03/07/19 07:15 Pulse 63 03/07/19 07:15 Resp 20 03/07/19 07:15 BP 149/85 H 03/07/19 07:15 Pulse Ox 94 03/07/19 07:15 Constitutional: WD/WN, vitals as above Eyes: PERRL, conjunctivae normal, anicteric sclerae ENMT: external ear and nose normal, oropharynx normal Neck: trachea midline, no thyromegaly Respiratory: normal respiratory effort, lungs clear to auscultation Auscultation: + diminished lung sounds (bases) Cardiovascular: Rate/Rhythm: regular rate and regular rhythm Heart Sounds: normal S1 and normal S2; no murmur Extremities: + edema (legs bilaterally, pitting) Gastrointestinal (Abdomen): normal bowel sounds, soft, nontender, no hepatosplenomegaly Skin: no rashes, warm and dry Neurologic: patellar DTR's 2+ bilat, sensation intact and PERRL, EOMI, accommodation nl, no face palsy, no dysarthria Psychiatric: Orientation: alert and oriented to person; + not oriented to place and + not oriented to time Lymphatic: no cervical or axillary lymphadenopathy Results & Data Laboratory Results Laboratory Results - last 24 hr 03/07/19 03/07/19 07:18 07:18 WBC 7.05 RBC 4.02 L Hgb 12.3 L Hct 38.0 L MCV 94.5 MCH 30.6 MCHC 32.4 RDW Std Deviation 51.1 H RDW Coeff of Kyree 14.7 H Plt Count 295 MPV 8.6 Sodium 133 L Potassium 4.3 Chloride 90 L Carbon Dioxide 40 H Anion Gap 3.0 BUN 15 Creatinine 0.62 Est Cr Clr Drug Dosing 102.2 Est GFR ( Amer) 108.6 Est GFR (Non-Af Amer) 93.7 BUN/Creatinine Ratio 25.0 H Glucose 99 Calcium 9.2 Medications Administered Current Inpatient Medications Amlodipine Besylate (Norvasc) 10 mg PO DAILY [facility] Stop: 03/30/19 08:59 Last Admin: 03/07/19 08:42 Dose: 10 mg Documented by: Ciprofloxacin (Cipro) 500 mg PO BID [facility] Stop: 03/07/19 23:59 Last Admin: 03/07/19 08:38 Dose: 500 mg Documented by: Clindamycin HCl (Cleocin) 150 mg PO 0700,1200,1700,2200 [facility]; Protocol Stop: 03/07/19 23:59 Last Admin: 03/07/19 13:50 Dose: 150 mg Documented by: Docusate Sodium (Colace) 100 mg PO DAILY [facility] Stop: 03/30/19 08:59 Last Admin: 03/07/19 08:38 Dose: 100 mg Documented by: Enoxaparin Sodium (Lovenox) 40 mg SQ QAM [facility] Stop: 03/31/19 08:59 Last Admin: 03/07/19 08:40 Dose: 40 mg Documented by: Escitalopram Oxalate (Lexapro) 20 mg PO QPM [facility] Stop: 03/30/19 20:59 Last Admin: 03/06/19 20:00 Dose: 20 mg Documented by: Furosemide (Lasix) 40 mg PO BID17 [facility] Stop: 04/05/19 16:59 Last Admin: 03/07/19 08:40 Dose: 40 mg Documented by: Lactobacillus Acidophilus (Floranex) 2 tab PO TID [facility] Stop: 03/30/19 08:59 Last Admin: 03/07/19 13:50 Dose: 2 tab Documented by: Memantine (Namenda) 10 mg PO AMHS [facility] Stop: 04/01/19 20:59 Last Admin: 03/07/19 08:41 Dose: 10 mg Documented by: Metolazone (Zaroxolyn) 5 mg PO DAILY@0830 [facility] Stop: 04/06/19 08:29 Last Admin: 03/07/19 08:37 Dose: 5 mg Documented by: Pantoprazole Sodium (Protonix) 40 mg PO DAILY [facility] Stop: 03/30/19 08:59 Last Admin: 03/07/19 08:42 Dose: 40 mg Documented by: Potassium Chloride (Klor-Con M20) 40 meq PO DAILY [facility] Stop: 03/30/19 08:59 Last Admin: 03/07/19 08:39 Dose: 40 meq Documented by: Telmisartan (Micardis) 40 mg PO DAILY [facility] Stop: 03/30/19 08:59 Last Admin: 03/07/19 08:41 Dose: 40 mg Documented by: Tramadol HCl (Ultram) 50 - 100 mg PO TID PRN; Protocol PRN Reason: Pain Stop: 03/30/19 06:18 Last Admin: 03/06/19 16:24 Dose: 50 mg Documented by:
[2019-03-07] MEDS: ESCITALOPRAM OXALATE 20 MG TAB PO SCH (20:52)
[2019-03-08 07:38] LABS: BUN Creatinine Ratio 25.7 (10-20); Calcium 8.9 mg/dl (8.5-10.1); Creatinine Clr Calc Pharmacy 85.3 ml/min; Est GFR (Non-African American) 87.1; Potassium 3.2 mmol/L (3.5-5.1)
[2019-03-08] MEDS: metOLazone 5 MG TABLET PO SCH (08:23)
[2019-03-08] MEDS: DOCUSATE SODIUM 100 MG CAP PO SCH (09:31)
[2019-03-08] MEDS: acetaZOLAMIDE 250 MG TAB PO SCH ×2 (09:31→17:28)
[2019-03-08] MEDS: POTASSIUM CHLORIDE 20 MEQ TABCR PO SCH ×2 (09:32→17:28)
[2019-03-08] MEDS: LACTOBACILLUS ACIDOPHILUS (FLORANEX) TAB PO SCH ×3 (09:32→21:04)
[2019-03-08] MEDS: MEMANTINE HCL 10 MG TAB PO SCH ×2 (09:33→21:06)
[2019-03-08] MEDS: FUROSEMIDE 40 MG TAB PO SCH ×2 (09:33→17:27)
[2019-03-08] MEDS: ENOXAPARIN INJ 40 MG/0.4 ML SYR SQ SCH (09:34)
[2019-03-08] MEDS: PANTOprazole 40 MG TAB PO SCH (09:34)
[2019-03-08] MEDS: TELMISARTAN 40 MG TAB PO SCH (09:37)
[2019-03-08] MEDS: AMLODIPINE BESYLATE 5 MG TAB PO SCH (09:38)
--- NOTE | 2019-03-08 15:06 | Hospitalist Progress Note ---
Date of Service March 08, 2019 Assessment & Plan (1) Fall against object: - Imaging at admission was negative for acute findings; PT/OT ordered to assist with recommendations for rehab - appreciate ongoing assessment due to in- house fall on 03/04 - Possibly related to deconditioning vs significant swelling vs exertional dyspnea leading to weakness - Sustained a fall on 03/04 without acute injury - XR with stable/unchanged compression fx denied rehab, will look into SNF but will be here over the weekend feel that he will be medically ready on Saturday 03/10 (2) Open wound of right heel: - Recently admitted for right heel wound; imaging was negative for osteomyelitis; healing quite well - Wound culture was positive for Corynebacterium. - Continue Cipro/Clindamycin PO (recommended by ID), will complete 30 day course on 03/07/2019; continue probiotics - Wound care consulted - appreciate assistance and recommendations stop antibiotics on 03/07/19 (3) Acute respiratory failure with hypoxia: - This is likely due to pulm edema/diastolic CHF exacerbation - appears this has been progressive, states she had Lasix to use PRN at home and noticed he was slowly developing more HARRIS and lower extremity edema - He chronically purse-lip breaths as well and is a heavy snorer at night - likely he has a mix of EVERT and obesity hypoventilation syndrome; he had wheezing the other day and 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 likely still with acute heart failure, volume overload, see below will try to titrate oxygen as tolerated but will likely need oxygen on discharge, will not be a problem at SNF as outpatient would likely benefit from formal sleep study for sleep apnea nocturnal desaturation study showed he was < 90% the entire test on room air morning ABG shows CO2 retention with levels in the 60's (4) Acute on chronic diastolic heart failure: - Most recent Echo Aug 2018 showed EF 55-60%, mild LVH and grade I diastolic dysfunction; no mention of pulmonary htn that could be contributing? - BNP level was 403; has hypervolemic hyponatremia on labs which is improving - still with volume overload, pitting edema in legs, Cr stable - Telmisartan 40 mg daily responding well to Lasix 40mg PO BID and Zaroxolyn 5mg in the AM for increased diuresis weights likely inaccurate as well as I/O, per patient's son he is making a lot of urine, 400cc at a time Cr stable, HCO3 up to 46 from 40 so likely some contraction alkalosis plan: continue Lasix BID today, change back to 40mg PO daily tomorrow stop Zaroxolyn add Diamox 250mg BID but would not need this on discharge, baseline HCO3 is 40 on discharge, would recommend daily Lasix 40mg check daily weights at [place], if weight up by 2 pounds would give Lasix twice a day fluid restriction at 1800cc/day should continue on discharge (5) Chronic hypercapnic respiratory failure: evident on morning ABG, pH was 7.4 but CO 2 was elevated at 69 could be due to both undiagnosed EVERT and/or obesity hypoventilation would likely benefit from CPAP but would need sleep study has signs of metabolic compensation with chronically elevated HCO3 tolerating CPAP here inpatient while sleeping, continue at [place] (6) Hypokalemia: due to aggressive diuresis with Lasix and Zaroxolyn increase KCl to 40mg BID repeat BMP tomorrow likely needs 20-40mEq daily with Lasix use after discharge (7) Hyponatremia: - Hypervolemic hyponatremia on admission; Na level stable - monitor with daily labs (8) Lower extremity edema: much improved with diuresis continue to monitor, fluid restriction (9) Acute encephalopathy: - H/O dementia and likely a component of delirium/fatigue/insomnia - acute encephalopathy resolved, at baseline with cognitive impairment (10) Dementia: - Continue Namenda -- 10 mg AMHS (11) Hypertension: - Improving with diuresis - Continue Telmisartan and Amlodipine as prescribed. (12) Depression: - Continue Lexapro 20 mg daily (13) Liver hemangioma: - Visualized on CT abd -- unchanged from earlier exam in July 2006; no further intervention warranted at this time (14) Compression fracture: - CT A/P showed numerous old thoracic and lumbar spine compression fractures, S/P L1 vertebral augmentation. (15) DVT prophylaxis: - Lovenox Dispo: will keep over the weekend, try to aggressively diurese while inpatient CM looking into SNF rehab, would be medically ready on Saturday check labs in the AM Subjective patient has been much more alert today, was awake this morning after breakfast as well as after lunch met with family at the bedside patient breathing easier has less edema in legs, actually has some wrinkles in legs today per patient's son, all day yesterday he would void 400mL at a time, did this several times reviewed labs, Cr stable at 0.74 HCO3 up to 46, likely a little bit of contraction alkalosis, mostly chronic metabolic alkalosis will give some Diamox today patient eating well, moving bowels Review of Systems All systems reviewed & are unremarkable except as noted in HPI & below Constitutional: + fatigue; no fever and no chills Respiratory: + dyspnea on exertion and + snoring; no cough, no dyspnea and no wheezing Cardiovascular: + edema (Bilat LE - improving); no chest pain and no palpitations Physical Exam Vital Signs (Past 24 Hours): Last Vital Signs Temp 36.9 C 03/08/19 07:14 Pulse 63 03/08/19 07:14 Resp 18 03/08/19 07:14 BP 149/77 H 03/08/19 09:37 Pulse Ox 97 03/08/19 07:14 Constitutional: WD/WN, vitals as above Eyes: PERRL, conjunctivae normal, anicteric sclerae ENMT: external ear and nose normal, oropharynx normal Neck: trachea midline, no thyromegaly Respiratory: normal respiratory effort, lungs clear to auscultation Auscultation: + diminished lung sounds (bases) Cardiovascular: Rate/Rhythm: regular rate and regular rhythm Heart Sounds: normal S1 and normal S2; no murmur Extremities: + edema (significantly less edema, some wrinkles in legs) Gastrointestinal (Abdomen): normal bowel sounds, soft, nontender, no hepatosplenomegaly Skin: no rashes, warm and dry Neurologic: patellar DTR's 2+ bilat, sensation intact and PERRL, EOMI, accommodation nl, no face palsy, no dysarthria Psychiatric: Orientation: alert and oriented to person; + not oriented to place and + not oriented to time Lymphatic: no cervical or axillary lymphadenopathy Results & Data Laboratory Results Laboratory Results - last 24 hr 03/08/19 06:56 Sodium 133 L Potassium 3.2 L D Chloride 86 L Carbon Dioxide 46 H* Anion Gap 1.0 L BUN 19 H Creatinine 0.74 Est Cr Clr Drug Dosing 85.3 Est GFR ( Amer) 101.0 Est GFR (Non-Af Amer) 87.1 BUN/Creatinine Ratio 25.7 H Glucose 103 H Calcium 8.9 Medications Administered Current Inpatient Medications Acetazolamide (Diamox) 250 mg PO BID17 [facility] Stop: 04/07/19 08:59 Last Admin: 03/08/19 09:31 Dose: 250 mg Documented by: Amlodipine Besylate (Norvasc) 10 mg PO DAILY [facility] Stop: 03/30/19 08:59 Last Admin: 03/08/19 09:38 Dose: 10 mg Documented by: Docusate Sodium (Colace) 100 mg PO DAILY [facility] Stop: 03/30/19 08:59 Last Admin: 03/08/19 09:31 Dose: 100 mg Documented by: Enoxaparin Sodium (Lovenox) 40 mg SQ QAM [facility] Stop: 03/31/19 08:59 Last Admin: 03/08/19 09:34 Dose: 40 mg Documented by: Escitalopram Oxalate (Lexapro) 20 mg PO QPM [facility] Stop: 03/30/19 20:59 Last Admin: 03/07/19 20:52 Dose: 20 mg Documented by: Furosemide (Lasix) 40 mg PO BID17 [facility] Stop: 03/08/19 17:00 Last Admin: 03/08/19 09:33 Dose: 40 mg Documented by: Furosemide (Lasix) 40 mg PO DAILY [facility] Stop: 04/08/19 08:59 Lactobacillus Acidophilus (Floranex) 2 tab PO TID J[facility] Stop: 03/30/19 08:59 Last Admin: 03/08/19 13:48 Dose: 2 tab Documented by: Memantine (Namenda) 10 mg PO AMHS J[facility] Stop: 04/01/19 20:59 Last Admin: 03/08/19 09:33 Dose: 10 mg Documented by: Metolazone (Zaroxolyn) 5 mg PO DAILY@0830 [facility] Stop: 03/08/19 23:59 Last Admin: 03/08/19 08:23 Dose: 5 mg Documented by: Pantoprazole Sodium (Protonix) 40 mg PO DAILY [facility] Stop: 03/30/19 08:59 Last Admin: 03/08/19 09:34 Dose: 40 mg Documented by: Potassium Chloride (Klor-Con M20) 40 meq PO BIDM J[facility] Stop: 04/07/19 08:59 Last Admin: 03/08/19 09:32 Dose: 40 meq Documented by: Telmisartan (Micardis) 40 mg PO DAILY [facility] Stop: 03/30/19 08:59 Last Admin: 03/08/19 09:37 Dose: 40 mg Documented by: Tramadol HCl (Ultram) 50 - 100 mg PO TID PRN; Protocol PRN Reason: Pain Stop: 03/30/19 06:18 Last Admin: 03/06/19 16:24 Dose: 50 mg Documented by:
[2019-03-08] MEDS: ESCITALOPRAM OXALATE 20 MG TAB PO SCH (21:03)
[2019-03-09 06:32] LABS: BUN Creatinine Ratio 25.1 (10-20); Creatinine Clr Calc Pharmacy 76.5 ml/min; Est GFR (African American) 96.8; Est GFR (Non-African American) 83.5; Potassium 2.8 mmol/L (3.5-5.1)
[2019-03-09] MEDS: TELMISARTAN 40 MG TAB PO SCH (08:25)
[2019-03-09] MEDS: POTASSIUM CHLORIDE 20 MEQ TABCR PO SCH ×2 (08:25→17:53)
[2019-03-09] MEDS: AMLODIPINE BESYLATE 5 MG TAB PO SCH (08:26)
[2019-03-09] MEDS: FUROSEMIDE 40 MG TAB PO SCH (08:26)
[2019-03-09] MEDS: ENOXAPARIN INJ 40 MG/0.4 ML SYR SQ SCH (08:26)
[2019-03-09] MEDS: LACTOBACILLUS ACIDOPHILUS (FLORANEX) TAB PO SCH ×3 (08:26→20:20)
[2019-03-09] MEDS: PANTOprazole 40 MG TAB PO SCH (08:26)
[2019-03-09] MEDS: DOCUSATE SODIUM 100 MG CAP PO SCH (08:26)
[2019-03-09] MEDS: acetaZOLAMIDE 250 MG TAB PO SCH ×2 (08:26→17:52)
[2019-03-09] MEDS: MEMANTINE HCL 10 MG TAB PO SCH ×2 (08:46→20:20)
[2019-03-09] MEDS ORDERED: POTASSIUM CHLORIDE 20 MEQ TABCR PO STA (16:57)
[2019-03-09] MEDS: POTASSIUM CHLORIDE / WTR 10 MEQ/100 ML PLCT IV SCH ×4 (17:53→21:13)
[2019-03-09] MEDS: ESCITALOPRAM OXALATE 20 MG TAB PO SCH (20:20)
--- NOTE | 2019-03-09 22:51 | Hospitalist Progress Note ---
Date of Service March 09, 2019 Assessment & Plan (1) Fall against object: - Imaging at admission was negative for acute findings; PT/OT ordered to assist with recommendations for rehab - appreciate ongoing assessment due to in- house fall on 03/04 - Possibly related to deconditioning vs significant swelling vs exertional dyspnea leading to weakness - Sustained a fall on 03/04 without acute injury - XR with stable/unchanged compression fx denied rehab, will look into SNF but will be here over the weekend May be medically ready tomorrow, however patient continues to require oxygen. (2) Open wound of right heel: - Recently admitted for right heel wound; imaging was negative for osteomyelitis; healing quite well - Wound culture was positive for Corynebacterium. - Continue Cipro/Clindamycin PO (recommended by ID), will complete 30 day course on 03/07/2019; continue probiotics - Wound care consulted - appreciate assistance and recommendations stop antibiotics on 03/07/19 (3) Acute respiratory failure with hypoxia: - This is likely due to pulm edema/diastolic CHF exacerbation - appears this has been progressive, states she had Lasix to use PRN at home and noticed he was slowly developing more HARRIS and lower extremity edema - He chronically purse-lip breaths as well and is a heavy snorer at night - likely he has a mix of EVERT and obesity hypoventilation syndrome; he had wheezing the other day and 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 likely still with acute heart failure, volume overload, see below will try to titrate oxygen as tolerated but will likely need oxygen on discharge, will not be a problem at SNF as outpatient would likely benefit from formal sleep study for sleep apnea nocturnal desaturation study showed he was < 90% the entire test on room air morning ABG shows CO2 retention with levels in the 60's (4) Acute on chronic diastolic heart failure: - Most recent Echo Aug 2018 showed EF 55-60%, mild LVH and grade I diastolic dysfunction; no mention of pulmonary htn that could be contributing? - BNP level was 403; has hypervolemic hyponatremia on labs which is improving - still with volume overload, pitting edema in legs, Cr stable - Telmisartan 40 mg daily responding well to Lasix 40mg PO BID and Zaroxolyn 5mg in the AM for in creased diuresis weights likely inaccurate as well as I/O, per patient's son he is making a lot of urine, 400cc at a time Cr stable, HCO3 up to 46 from 40 so likely some contraction alkalosis plan: continue Lasix BID today, will hold lasix as patient is having contracted alkalosis stop Zaroxolyn add Diamox 250mg BID but would not need this on discharge, baseline HCO3 is 40 on discharge, would recommend daily Lasix 40mg check daily weights at [place], if weight up by 2 pounds would give Lasix twice a day fluid restriction at 1800cc/day should continue on discharge (5) Chronic hypercapnic respiratory failure: evident on morning ABG, pH was 7.4 but CO 2 was elevated at 69 could be due to both undiagnosed EVERT and/or obesity hypoventilation would likely benefit from CPAP but would need sleep study has signs of metabolic compensation with chronically elevated HCO3 tolerating CPAP here inpatient while sleeping, continue at [place] (6) Hypokalemia: due to aggressive diuresis with Lasix and Zaroxolyn increase KCl to 40mg BID repeat BMP tomorrow: added additional potassium on 03/09 as levels are low. likely needs 20-40mEq daily with Lasix use after discharge (7) Hyponatremia: - Hypervolemic hyponatremia on admission; Na level stable - monitor with daily labs (8) Lower extremity edema: much improved with diuresis continue to monitor, fluid restriction (9) Acute encephalopathy: - H/O dementia and likely a component of delirium/fatigue/insomnia - acute encephalopathy resolved, at baseline with cognitive impairment (10) Dementia: - Continue Namenda -- 10 mg AMHS (11) Hypertension: - Improving with diuresis - Continue Telmisartan and Amlodipine as prescribed. (12) Depression: - Continue Lexapro 20 mg daily (13) Liver hemangioma: - Visualized on CT abd -- unchanged from earlier exam in July 2006; no further intervention warranted at this time (14) Compression fracture: - CT A/P showed numerous old thoracic and lumbar spine compression fractures, S/P L1 vertebral augmentation. (15) DVT prophylaxis: - Lovenox Dispo: CM looking into SNF rehab, would be medically ready on Saturday check labs in the AM Subjective Patient appears confused today. He is a poor historian and does not provide significant medical history today. He does appear to be breathing easy though, but he continues to require oxygen. He states though that he normally does not use oxygen at home. Constitutional: + fatigue; no fever and no chills Respiratory: + dyspnea on exertion and + snoring; no cough, no dyspnea and no wheezing Cardiovascular: + edema (Bilat LE - improving); no chest pain and no palpitations Gastrointestinal: + bloating; no abdominal pain, no nausea, no vomiting, no constipation and no diarrhea/loose stools Musculoskeletal: + body aches Integumentary: + wounds (healing R heel lesion) Neurologic: + falls Physical Exam Vital Signs (Past 24 Hours): Last Vital Signs Temp 36.6 C 03/09/19 15:16 Pulse 70 03/09/19 15:16 Resp 24 03/09/19 15:16 BP 99/54 L 03/09/19 15:16 Pulse Ox 97 03/09/19 16:00 Physical Exam: Constitutional: WD/WN, vitals as above Eyes: PERRL, conjunctivae normal, anicteric sclerae ENMT: external ear and nose normal, oropharynx normal Neck: trachea midline, no thyromegaly Respiratory: normal respiratory effort, lungs clear to auscultation Auscultation: + diminished lung sounds (bases) Cardiovascular: Rate/Rhythm: regular rate and regular rhythm Heart Sounds: normal S1 and normal S2; no murmur Extremities: + edema (significantly less edema, some wrinkles in legs) Gastrointestinal (Abdomen): normal bowel sounds, soft, nontender, no hepatosplenomegaly Skin: no rashes, warm and dry Neurologic: patellar DTR's 2+ bilat, sensation intact and PERRL, EOMI, accommodation nl, no face palsy, no dysarthria Psychiatric: Orientation: alert and oriented to person; + not oriented to place and + not oriented to time Lymphatic: no cervical or axillary lymphadenopathy
[2019-03-10 06:15] LABS: Hemoglobin 12.6 g/dL (14.0-18.0); Mean Corpuscular Hgb Conc 33.2 g/dL (32-36); Mean Corpuscular Volume 92.7 fL (80-100); Mean Platelet Volume 8.9 fL (7.4-10.4); Platelet Count 297 K/uL (130-400); RDW Coefficient of Variation 14.3 % (11.5-14.5); RDW Standard Deviation 48.5 fL (36.4-46.3); White Blood Count 8.63 K/uL (4.8-10.8)
[2019-03-10 06:47] LABS: BUN Creatinine Ratio 31.5 (10-20); Calcium 9.1 mg/dl (8.5-10.1); Creatinine Clr Calc Pharmacy 75.6 ml/min; Est GFR (African American) 96.3; Est GFR (Non-African American) 83.1; Potassium 3.3 mmol/L (3.5-5.1)
[2019-03-10] MEDS: POTASSIUM CHLORIDE 20 MEQ TABCR PO SCH ×2 (10:09→17:26)
[2019-03-10] MEDS: MEMANTINE HCL 10 MG TAB PO SCH ×2 (10:09→20:48)
[2019-03-10] MEDS: LACTOBACILLUS ACIDOPHILUS (FLORANEX) TAB PO SCH ×3 (10:10→20:47)
[2019-03-10] MEDS: TELMISARTAN 40 MG TAB PO SCH (10:10)
[2019-03-10] MEDS: acetaZOLAMIDE 250 MG TAB PO SCH ×2 (10:10→17:24)
[2019-03-10] MEDS: DOCUSATE SODIUM 100 MG CAP PO SCH (10:10)
[2019-03-10] MEDS: AMLODIPINE BESYLATE 5 MG TAB PO SCH (10:11)
[2019-03-10] MEDS: PANTOprazole 40 MG TAB PO SCH (10:11)
[2019-03-10] MEDS: ENOXAPARIN INJ 40 MG/0.4 ML SYR SQ SCH (10:11)
[2019-03-10] MEDS: FUROSEMIDE 40 MG TAB PO SCH (10:11)
[2019-03-10 11:43] LABS: Base Excess VBG 10.1 mEq/L; HCO3 VBG 40 mmol/L; Oxygen Saturation VBG < 60.0 %; PCO2 VBG 78 mmHg (38-50); PO2 VBG 31 mmHg; pH VBG 7.32 (7.36-7.41)
[2019-03-10 16:52] LABS: Base Excess VBG 11.3 mEq/L; HCO3 VBG 42 mmol/L; PCO2 VBG 85 mmHg (38-50); PO2 VBG 33 mmHg; pH VBG 7.31 (7.36-7.41)
[2019-03-10 16:54] LABS: Oxygen Saturation VBG < 60.0 %
[2019-03-10 18:50] LABS: Base Excess VBG 11.8 mEq/L; HCO3 VBG 41 mmol/L; PCO2 VBG 79 mmHg (38-50); PO2 VBG 32 mmHg; pH VBG 7.33 (7.36-7.41)
[2019-03-10 18:54] LABS: Oxygen Saturation VBG < 60.0 %
[2019-03-10] MEDS: ESCITALOPRAM OXALATE 20 MG TAB PO SCH (20:47)
--- NOTE | 2019-03-10 23:48 | Hospitalist Progress Note ---
Date of Service March 10, 2019 Assessment & Plan (1) Acute and chronic respiratory failure with hypercapnia: Plan initally was to discharge patient, however when he was ready for discharge, patient was found to be unresponsive with his eyes rolled. D/W nurse, he has been refusing his CPAP overnight. Obtained VBG which confirmed respiratory acidosis. Will place patient on BIPAP, will cancel discharge. Patient is placed on BIPAP. Repeated VBG, will keep patient on BIPAP today. D/W , differential diagnosis is stroke, vs seizure. However given his elevated PCO2, and his history and fact that he moves all of his extremities, it appears its all from C02 retention. Patient is also not a candidate for tPA. Spent 40 minutes in critical care time as this is a life threatening condition. May need to taper oxygen. (2) Fall against object: - Imaging at admission was negative for acute findings; PT/OT ordered to assist with recommendations for rehab - appreciate ongoing assessment due to in- house fall on 03/04 - Possibly related to deconditioning vs significant swelling vs exertional dyspnea leading to weakness - Sustained a fall on 03/04 without acute injury - XR with stable/unchanged compression fx (3) Open wound of right heel: - Recently admitted for right heel wound; imaging was negative for osteomyelitis; healing quite well - Wound culture was positive for Corynebacterium. - Continue Cipro/Clindamycin PO (recommended by ID), will complete 30 day course on 03/07/2019; continue probiotics - Wound care consulted - appreciate assistance and recommendations stop antibiotics on 03/07/19 (4) Acute respiratory failure with hypoxia: - This is likely due to pulm edema/diastolic CHF exacerbation - appears this has been progressive, states she had Lasix to use PRN at home and noticed he was slowly developing more HARRIS and lower extremity edema - He chronically purse-lip breaths as well and is a heavy snorer at night - likely he has a mix of EVERT and obesity hypoventilation syndrome; he had wheezing the other day and 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 likely still with acute heart failure, volume overload, see below will try to titrate oxygen as tolerated but will likely need oxygen on discharge, will not be a problem at SNF as outpatient would likely benefit from formal sleep study for sleep apnea nocturnal desaturation study showed he was < 90% the entire test on room air morning ABG shows CO2 retention with levels in the 60's (5) Acute on chronic diastolic heart failure: - Most recent Echo Aug 2018 showed EF 55-60%, mild LVH and grade I diastolic dysfunction; no mention of pulmonary htn that could be contributing? - BNP level was 403; has hypervolemic hyponatremia on labs which is improving - still with volume overload, pitting edema in legs, Cr stable - Telmisartan 40 mg daily responding well to Lasix 40mg PO BID and Zaroxolyn 5mg in the AM for increased diuresis weights likely inaccurate as well as I/O, per patient's son he is making a lot of urine, 400cc at a time Cr stable, HCO3 up to 46 from 40 so likely some contraction alkalosis plan: on lasix daily. stop Zaroxolyn add Diamox 250mg BID but would not need this on discharge, baseline HCO3 is 40 on discharge, would recommend daily Lasix 40mg check daily weights at [place], if weight up by 2 pounds would give Lasix twice a day fluid restriction at 1800cc/day should continue on discharge (6) Chronic hypercapnic respiratory failure: noted above could be due to both undiagnosed EVERT and/or obesity hypoventilation would likely benefit from BIPAP but would need sleep study, and likely PFT as outpatient. has signs of metabolic compensation with chronically elevated HCO3 tolerating CPAP here inpatient while sleeping, continue at [place] (7) Hypokalemia: due to aggressive diuresis with Lasix and Zaroxolyn increase KCl to 40mg BID monitor BMP (8) Hyponatremia: - Hypervolemic hyponatremia on admission; Na level stable - monitor with daily labs (9) Lower extremity edema: much improved with diuresis continue to monitor, fluid restriction (10) Acute encephalopathy: - H/O dementia and likely a component of delirium/fatigue/insomnia - acute encephalopathy resolved, at baseline with cognitive impairment (11) Dementia: - Continue Namenda -- 10 mg AMHS (12) Hypertension: - Improving with diuresis - Continue Telmisartan and Amlodipine as prescribed. (13) Depression: - Continue Lexapro 20 mg daily (14) Liver hemangioma: - Visualized on CT abd -- unchanged from earlier exam in July 2006; no further intervention warranted at this time (15) Compression fracture: - CT A/P showed numerous old thoracic and lumbar spine compression fractures, S/P L1 vertebral augmentation. (16) DVT prophylaxis: - Lovenox Dispo: hold discharge Spent 60 minutes in management of patient with 40 minutes of critcial care time. Subjective Patient was found to be more drowsy during my examination. He did not provide signifcant history. Constitutional: + fatigue; no fever and no chills Respiratory: + dyspnea on exertion and + snoring; no cough, no dyspnea and no wheezing Cardiovascular: + edema (Bilat LE - improving); no chest pain and no palpitations Gastrointestinal: + bloating; no abdominal pain, no nausea, no vomiting, no constipation and no diarrhea/loose stools Musculoskeletal: + body aches Integumentary: + wounds (healing R heel lesion) Neurologic: + falls Physical Exam Vital Signs (Past 24 Hours): Last Vital Signs Temp 36.3 C L 03/10/19 15:36 Pulse 68 03/10/19 23:37 Resp 22 03/10/19 23:37 BP 149/82 H 03/10/19 15:36 Pulse Ox 96 03/10/19 23:37 Physical Exam: Constitutional: WD/WN, vitals as above, lethargic/ Eyes: PERRL, conjunctivae normal, anicteric sclerae ENMT: external ear and nose normal, oropharynx normal Neck: trachea midline, no thyromegaly Respiratory: normal respiratory effort, lungs clear to auscultation Auscultation: + diminished lung sounds (bases) Cardiovascular: Rate/Rhythm: regular rate and regular rhythm Heart Sounds: normal S1 and normal S2; no murmur Extremities: + edema (significantly less edema, some wrinkles in legs) Gastrointestinal (Abdomen): normal bowel sounds, soft, nontender, no hepatosplenomegaly Skin: no rashes, warm and dry Neurologic: patellar DTR's 2+ bilat, sensation intact and PERRL, EOMI, accommodation nl, no face palsy, no dysarthria Psychiatric: Orientation: alert and oriented to person; + not oriented to place and + not oriented to time Lymphatic: no cervical or axillary lymphadenopathy
[2019-03-11] MEDS: AMLODIPINE BESYLATE 5 MG TAB PO SCH (08:30)
[2019-03-11] MEDS: MEMANTINE HCL 10 MG TAB PO SCH ×2 (08:30→20:07)
[2019-03-11] MEDS: FUROSEMIDE 40 MG TAB PO SCH (08:30)
[2019-03-11] MEDS: TELMISARTAN 40 MG TAB PO SCH (08:30)
[2019-03-11] MEDS: ENOXAPARIN INJ 40 MG/0.4 ML SYR SQ SCH (08:31)
[2019-03-11] MEDS: LACTOBACILLUS ACIDOPHILUS (FLORANEX) TAB PO SCH ×3 (08:31→20:07)
[2019-03-11] MEDS: acetaZOLAMIDE 250 MG TAB PO SCH ×2 (08:31→17:48)
[2019-03-11] MEDS: PANTOprazole 40 MG TAB PO SCH (08:31)
[2019-03-11] MEDS: POTASSIUM CHLORIDE 20 MEQ TABCR PO SCH ×2 (08:31→17:48)
[2019-03-11] MEDS: DOCUSATE SODIUM 100 MG CAP PO SCH (08:31)
[2019-03-11 10:47] LABS: Basophils # (auto) 0.01 K/uL (0-0.2); Basophils % (auto) 0.1 %; Eosinophils # (auto) 0.01 K/uL (0-0.5); Eosinophils % (auto) 0.1 %; Hematocrit (blood only) 39.4 % (42-52); Hemoglobin 13.1 g/dL (14.0-18.0); Immature Granulocytes # (auto) 0.03 K/uL (0.00-0.02); Immature Granulocytes % (auto) 0.3 %; Lymphocytes # (auto) 1.06 K/uL (1.2-3.4); Lymphocytes % (auto) 11.4 %; Mean Corpuscular Hgb Conc 33.2 g/dL (32-36); Mean Corpuscular Volume 93.4 fL (80-100); Mean Platelet Volume 8.9 fL (7.4-10.4); Monocytes % (auto) 8.6 %; Neutrophils % (auto) 79.5 %; Platelet Count 322 K/uL (130-400); RDW Coefficient of Variation 14.4 % (11.5-14.5); Red Blood Count 4.22 M/uL (4.7-6.1); White Blood Count 9.31 K/uL (4.8-10.8)
[2019-03-11 10:50] LABS: HCO3 VBG 43 mmol/L; PCO2 VBG 77 mmHg (38-50); PO2 VBG 47 mmHg; pH VBG 7.36 (7.36-7.41)
[2019-03-11 10:52] LABS: Oxygen Saturation VBG < 60.0 %
[2019-03-11 11:14] LABS: BUN Creatinine Ratio 23.8 (10-20); Calcium 8.9 mg/dl (8.5-10.1); Creatinine Clr Calc Pharmacy 76.9 ml/min; Est GFR (African American) 98.3; Est GFR (Non-African American) 84.8; Potassium 2.9 mmol/L (3.5-5.1)
--- NOTE | 2019-03-11 15:52 | Palliative Care Consultation ---
Date of Consultation March 11, 2019 Assessment & Plan (1) Goals of care, counseling/discussion: -78 year old male with PMH HTN, depression, diastolic CHF, dementia, impaired gait - frequent fall and multiple compression fractures. The patient was recently admitted for an ulcer of his right heel and suspected osteomyelitis which he did not actually have. He had been at a rehab facility and was recently sent home. His is his primary caregiver. Patient suffered a fall and could not get up, EMS was called. On arrival to the ER it was noted that his oxygen saturation was low although he was not c/o SOB. Imaging of the chest demonstrated BL pleural effusions, and clinically he appeared to be volume overloaded. X-rays showed no skeletal fractures. He was admitted and diuresed. Was also started on Bipap for elevated carbon dioxide. Has since been determined to need Bipap/CPAP during sleep 2/2 hypoventilation vs. CHF. He suffered a fall at the hospital on 03/04 and stayed through the weekend. He was to be discharged on 03/10, but in the evening he was found to be somnolent, confused, minimally responsive. VBGs revealed respiratory acidosis and patient improved with bipap. Apparently he had been refusing bipap overnight and was non-complaint (again, patient has some dementia). Palliative care is consulted to help determine goals of care. -Met with patient and family to discuss goals of care. Patient is awake and alert. Oriented to person and place. Did not participate much in conversation due to his dementia. states that his mental status is essentially at baseline right now, physically he is much weaker than prior to hospitalization. -Daughter Krystina, granddaughter, great-grandson, and another male family member were at bedside as well. -From 's description, patient is about 6a on FAST scale, indicating moderately severe dementia. -Family is not ready for hospice, which is reasonable considering that patient is really borderline-appropriate for hospice at this time. If he continues to wear his bipap during sleep, he could do fairly well. At the same time, he does have potential to continue to decline, which family is aware of. -Plan will be for patient to go to SNF for rehab, and they will use that time to determine patient's needs and whether or not he can go home. He will likely need 24/7 care, is concerned she will be worn out if she continues to be his only caregiver. They do have a long-term care policy that would pay for in-home caregivers or SNF stay after the patient/ pay for 90 days out of pocket. -Case management following to coordinate SNF stay. [facility] is first option, [facility] second. Family is adamant that they want [facility]. -Patient is DNR. They are not ready to say they do not want him to come back to hospital. -Will follow as needed. (2) Acute and chronic respiratory failure with hypercapnia: (3) Lower extremity edema: (4) Acute on chronic diastolic heart failure: History of Present Illness Attending Physician: Ashvin Townsend History of Present Illness This 78 year old male with PMH HTN, depression, diastolic CHF, dementia, impaired gait - frequent fall and multiple compression fractures. The patient was recently admitted for an ulcer of his right heel and suspected osteomyelitis which he did not actually have. He had been at a rehab facility and was recently sent home. His is his primary caregiver. Patient suffered a fall and could not get up, EMS was called. On arrival to the ER it was noted that his oxygen saturation was low although he was not c/o SOB. Imaging of the chest demonstrated BL pleural effusions, and clinically he appeared to be volume overloaded. X-rays showed no skeletal fractures. He was admitted and diuresed. Was also started on Bipap for elevated carbon dioxide. Has since been determined to need Bipap/CPAP during sleep 2/2 hypoventilation vs. CHF. He suffered a fall at the hospital on 03/04 and stayed through the weekend. He was to be discharged on 03/10, but in the evening he was found to be somnolent, confused, minimally responsive. VBGs revealed respiratory acidosis and patient improved with bipap. Apparently he had been refusing bipap overnight and was non-complaint (again, patient has some dementia). Palliative care is consulted to help determine goals of care. Thank you kindly for this consult. I will follow as needed. Allergies Allergy/AdvReac Type Severity Reaction Status Date / Time cefaclor Allergy Unknown . Verified 02/28/19 01:12 cyclobenzaprine Allergy Unknown UNKNOWN Verified 02/28/19 01:12 nebivolol Allergy Unknown BRADYCARDIA Verified 02/28/19 01:12 Penicillins Allergy Unknown . Verified 02/28/19 01:12 Sulfa (Sulfonamide Allergy Unknown . Verified 02/28/19 01:12 Antibiotics) BENGAY AdvReac Unknown ARTHRITIS Uncoded 02/28/19 01:12 Home Medications Home Medications Medication Instructions Recorded Confirmed Type cholecalciferol (vitamin D3) 2,000 unit PO DAILY 09/21/18 02/28/19 History [Vitamin D3] escitalopram oxalate [Lexapro] 20 mg PO QPM 09/21/18 02/28/19 History pantoprazole [Protonix] 40 mg PO DAILY 09/21/18 02/28/19 History telmisartan [Micardis] 40 mg PO DAILY 09/21/18 02/28/19 History calcium carbonate [Calcium 600] 600 mg PO DAILY 02/06/19 02/28/19 History docusate sodium 100 mg PO DAILY 02/06/19 02/28/19 History memantine 10 mg PO AMHS 02/06/19 02/28/19 History Probiotic 3,000 mmu cells PO DAILY #30 cap 02/11/19 02/28/19 Rx amlodipine [Norvasc] 10 mg PO DAILY 30 Days #60 tab 02/11/19 02/28/19 Rx tramadol 50 mg PO DIRECTED PRN 02/28/19 02/28/19 History furosemide 40 mg PO DAILY #30 tab 03/10/19 Rx potassium chloride [Klor-Con M20] 40 meq PO BIDM #60 tab 03/10/19 Rx Patient History Medical History Depression Hearing loss (Chronic) Osteopenia (Chronic) Colon polyps (Resolved) T12 compression fracture (Resolved) Reflux (Chronic) Bradycardia (Resolved) Compression fx, lumbar spine Confusion Fall (Resolved) Gait abnormality Hypertension (Chronic) Rib contusion (Resolved) Surgical History Previous back surgery H/O colonoscopy (Resolved) Family History Other No pertinent family history in first degree relatives Social History Preferred Language: Amharic Beliefs That Will Affect Care: None marital status: Current Living Situation: Spouse Feels Safe at Home: Yes Safety Concerns: Feels Safe At This Time Smoking Status: Former smoker Hx Alcohol Use: No Hx Substance Use: No Review of Systems Constitutional: + weakness Ear, Nose, Mouth, Throat: no dysphagia Respiratory: no cough and no dyspnea Cardiovascular: + edema; no chest pain Gastrointestinal: no abdominal pain and no nausea Neurologic: + confusion and + memory loss Psychiatric: + anxiety (at times) and + confusion Physical Exam Vital Signs (Past 24 Hours): Last Vital Signs Temp 36.3 C L 03/11/19 07:31 Pulse 59 L 03/11/19 07:31 Resp 18 03/11/19 07:31 BP 154/72 H 03/11/19 07:31 Pulse Ox 97 03/11/19 13:14 Constitutional: + overweight; no acute distress and + not healthy appearing ENMT: external ear and nose normal, oropharynx normal Ears: + hearing impairment Neck: normal visual inspection Respiratory: normal respiratory effort and + cough; no respiratory distress and no labored breathing Cardiovascular: Rate/Rhythm: regular rate and regular rhythm Extremities: + edema (BLE) Gastrointestinal (Abdomen): Inspection/Auscultation: abdomen normal to inspection and + abdomen distended (obesely, but is soft) Skin: + ecchymosis (scattered) Neurologic: moves all extremities and awake Psychiatric: Orientation: alert, oriented to person and oriented to place Time Spent Midlevel 70 minutes with >50% of time spent at bedside with patient and family discussing condition and GOC.
[2019-03-11] MEDS: TRAMADOL HCL 50 MG TABLET PO PRN (19:42)
[2019-03-11] MEDS: ESCITALOPRAM OXALATE 20 MG TAB PO SCH (20:08)
--- NOTE | 2019-03-11 22:39 | Hospitalist Progress Note ---
Date of Service March 11, 2019 Assessment & Plan (1) Acute and chronic respiratory failure with hypercapnia: Plan initally was to discharge patient, however when he was ready for discharge, patient was found to be unresponsive with his eyes rolled. D/W nurse, he has been refusing his CPAP overnight. Obtained VBG which confirmed respiratory acidosis (03/10) Will place patient on BIPAP, will cancel discharge. (03/10) Patient is placed on BIPAP. Repeated VBG shows improvement but PCO2 is elevated. Will increase BIPAP settings (03/11) It appears his confusion was from CO2 retention. will try to taper him off oxygen as this may worsen his oxygenation. (2) Fall against object: - Imaging at admission was negative for acute findings; PT/OT ordered to assist with recommendations for rehab - appreciate ongoing assessment due to in- house fall on 03/04 - Possibly related to deconditioning vs significant swelling vs exertional dyspnea leading to weakness - Sustained a fall on 03/04 without acute injury - XR with stable/unchanged compression fx (3) Open wound of right heel: - Recently admitted for right heel wound; imaging was negative for osteomyelitis; healing quite well - Wound culture was positive for Corynebacterium. - Continue Cipro/Clindamycin PO (recommended by ID), will complete 30 day course on 03/07/2019; continue probiotics - Wound care consulted - appreciate assistance and recommendations stop antibiotics on 03/07/19 (4) Acute respiratory failure with hypoxia: - This is likely due to pulm edema/diastolic CHF exacerbation - appears this has been progressive, states she had Lasix to use PRN at home and noticed he was slowly developing more HARRIS and lower extremity edema - He chronically purse-lip breaths as well and is a heavy snorer at night - likely he has a mix of EVERT and obesity hypoventilation syndrome; he had wheezing the other day and given his [employer] exposures in his youth and his 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 likely still with acute heart failure, volume overload, see below will try to titrate oxygen as tolerated but will likely need oxygen on discharge, will not be a problem at SNF as outpatient would likely benefit from formal sleep study for sleep apnea nocturnal desaturation study showed he was < 90% the entire test on room air morning ABG shows CO2 retention with levels in the 60's Patient now requires BIPAP. (5) Acute on chronic diastolic heart failure: - Most recent Echo Aug 2018 showed EF 55-60%, mild LVH and grade I diastolic dysfunction; no mention of pulmonary htn that could be contributing? - BNP level was 403; has hypervolemic hyponatremia on labs which is improving - still with volume overload, pitting edema in legs, Cr stable - Telmisartan 40 mg daily responding well to Lasix 40mg PO BID and Zaroxolyn 5mg in the AM for increased diuresis weights likely inaccurate as well as I/O, per patient's son he is making a lot of urine, 400cc at a time Cr stable, HCO3 up to 46 from 40 so likely some contraction alkalosis plan: on lasix daily. stop Zaroxolyn add Diamox 250mg BID but would not need this on discharge, baseline HCO3 is 40 on discharge, would recommend daily Lasix 40mg check daily weights at [place], if weight up by 2 pounds would give Lasix twice a day fluid restriction at 1800cc/day should continue on discharge (6) Chronic hypercapnic respiratory failure: noted above could be due to both undiagnosed EVERT and/or obesity hypoventilation would likely benefit from BIPAP but would need sleep study, and likely PFT as outpatient. has signs of metabolic compensation with chronically elevated HCO3 tolerating CPAP here inpatient while sleeping, continue at [place] (7) Hypokalemia: due to aggressive diuresis with Lasix and Zaroxolyn increase KCl to 40mg BID monitor BMP (8) Hyponatremia: - Hypervolemic hyponatremia on admission; Na level stable - monitor with daily labs (9) Lower extremity edema: much improved with diuresis continue to monitor, fluid restriction (10) Acute encephalopathy: - H/O dementia and likely a component of delirium/fatigue/insomnia - acute encephalopathy resolved, at baseline with cognitive impairment (11) Dementia: - Continue Namenda -- 10 mg AMHS (12) Hypertension: - Improving with diuresis - Continue Telmisartan and Amlodipine as prescribed. (13) Depression: - Continue Lexapro 20 mg daily (14) Liver hemangioma: - Visualized on CT abd -- unchanged from earlier exam in July 2006; no further intervention warranted at this time (15) Compression fracture: - CT A/P showed numerous old thoracic and lumbar spine compression fractures, S/P L1 vertebral augmentation. (16) DVT prophylaxis: - Lovenox Dispo: PENDING PLACEMENT/ NEEDS ANOTHER AUTH. Will consult palliative care for goals of care. Spent 25 minutes in management of patient. Subjective Patient is more awake today. He does not provide history but follows simple commands. is at bedside Constitutional: + fatigue; no fever and no chills Respiratory: + dyspnea on exertion and + snoring; no cough, no dyspnea and no wheezing Cardiovascular: + edema (Bilat LE - improving); no chest pain and no palpitations Gastrointestinal: + bloating; no abdominal pain, no nausea, no vomiting, no constipation and no diarrhea/loose stools Musculoskeletal: + body aches Integumentary: + wounds (healing R heel lesion) Neurologic: + falls Physical Exam Vital Signs (Past 24 Hours): Last Vital Signs Temp 36.5 C 03/11/19 16:03 Pulse 75 03/11/19 21:46 Resp 18 03/11/19 21:46 BP 102/53 L 03/11/19 16:03 Pulse Ox 97 03/11/19 21:46 Physical Exam: Constitutional: WD/WN, vitals as above, lethargic/ Eyes: PERRL, conjunctivae normal, anicteric sclerae ENMT: external ear and nose normal, oropharynx normal Neck: trachea midline, no thyromegaly Respiratory: normal respiratory effort, lungs clear to auscultation Auscultation: + diminished lung sounds (bases) Cardiovascular: Rate/Rhythm: regular rate and regular rhythm Heart Sounds: normal S1 and normal S2; no murmur Extremities: + edema (significantly less edema, some wrinkles in legs) Gastrointestinal (Abdomen): normal bowel sounds, soft, nontender, no hepatosplenomegaly Skin: no rashes, warm and dry Neurologic: patellar DTR's 2+ bilat, sensation intact and PERRL, EOMI, accommodation nl, no face palsy, no dysarthria Psychiatric: Orientation: alert and oriented to person; + not oriented to place and + not oriented to time Lymphatic: no cervical or axillary lymphadenopathy
[2019-03-12] MEDS: ENOXAPARIN INJ 40 MG/0.4 ML SYR SQ SCH (08:05)
[2019-03-12] MEDS: PANTOprazole 40 MG TAB PO SCH (08:05)
[2019-03-12] MEDS: TELMISARTAN 40 MG TAB PO SCH (08:05)
[2019-03-12] MEDS: POTASSIUM CHLORIDE 20 MEQ TABCR PO SCH (08:05)
[2019-03-12] MEDS: acetaZOLAMIDE 250 MG TAB PO SCH (08:05)
[2019-03-12] MEDS: MEMANTINE HCL 10 MG TAB PO SCH (08:05)
[2019-03-12] MEDS: FUROSEMIDE 40 MG TAB PO SCH (08:05)
[2019-03-12] MEDS: AMLODIPINE BESYLATE 5 MG TAB PO SCH (08:05)
[2019-03-12] MEDS: LACTOBACILLUS ACIDOPHILUS (FLORANEX) TAB PO SCH ×2 (08:05→13:09)
[2019-03-12] MEDS: DOCUSATE SODIUM 100 MG CAP PO SCH (08:05)
[2019-03-12 11:50] LABS: Base Excess VBG 7.2 mEq/L; Oxygen Saturation VBG 79.2 %; pH VBG 7.35 (7.36-7.41)
--- NOTE | 2019-03-12 15:54 | Palliative Care Progress Note ---
Date of Service March 12, 2019 Assessment & Plan (1) Goals of care, counseling/discussion: -Revisited patient and today around noon. -Patient sitting up in chair, feeling much better. states he is close to his baseline function today. Pleased that he is doing better. -Plan is to go to SNF today for rehab. Use that time to decide whether or not patient will be able to go back home. will need more help at home if that's where he goes. -Patient's family aware of hospice option for future use. Patient would not qualify for hospice at this time. -please contact palliative care with any further needs. (2) Acute and chronic respiratory failure with hypercapnia: (3) Lower extremity edema: (4) Acute on chronic diastolic heart failure: Subjective Patient feeling much better today. Is back to baseline. No new complaints today. at bedside. Constitutional: + weakness Cardiovascular: + edema; no chest pain Neurologic: + confusion and + memory loss Psychiatric: + anxiety (at times) and + confusion Physical Exam Vital Signs (Past 24 Hours): Last Vital Signs Temp 36.5 C 03/12/19 14:12 Pulse 66 03/12/19 14:12 Resp 18 03/12/19 14:12 BP 102/53 L 03/12/19 14:12 Pulse Ox 96 03/12/19 14:23 Constitutional: + overweight; no acute distress and + not healthy appearing ENMT: external ear and nose normal, oropharynx normal Ears: + hearing impairment Neck: normal visual inspection Respiratory: normal respiratory effort and + cough; no respiratory distress and no labored breathing Cardiovascular: Rate/Rhythm: regular rate and regular rhythm Extremities: + edema (BLE) Gastrointestinal (Abdomen): Inspection/Auscultation: abdomen normal to inspection and + abdomen distended (obesely, but is soft) Skin: + ecchymosis (scattered) Neurologic: moves all extremities and awake Psychiatric: Orientation: alert, oriented to person and oriented to place Time Spent Midlevel 35 minutes with >50% of time spent at bedside with patient and his discussing GOC and plan.
--- NOTE | 2019-03-17 11:01 | Discharge Summary ---
Date of Service March 12, 2019 Admission HPI Per Admitting Provider 78 y/o M Hx HTN, depression, diastolic CHF, dementia, impaired gait - frequent fall and multiple compression fractures. The pt was recently admitted for an ulcer of his R heel and suspected osteomyelitis which he did not actually have. He had been at a rehab facility and was recently sent home. This evening, he suffered a fall and was unable to get up afterward so that EMS were summoned to his house. A skeletal survey did not elucidate any acute fractures, however, he remained unable to ambulate after evaluation in the ER and will likely need to return to the rehab facility. On arrival to the ER it was noted that his oxygen saturation was low although he was not c/o SOB. Imaging of the chest demonstrated BL pleural effusions, and clinically he appeared to be volume overloaded. Initial labs are notable for hyponatremia. He is a poor historian and did not have much to add to the H&P. The pt is on day of dual antibiotic therapy with Clindamycin and Cipro for his R heel wound which cultured + for Corynebacterium. PMH: 1) HTN 2) Unstable gait with multiple falls and compression fractures 3) Nonhealing foot ulcer R heel 4) Hepatic hemangiomas 5) Chronic diastiolic CHF grade I 6) Dementia 7) Depression 8) B12 deficiency 9) Lumbar stenosis and chronic back pain Surgical: Lumbar verterbroplasty Social: Looked after by elderly - no noted history of smoking or drinking Family: Could not provide a family history Principal Diagnosis Acute on chronic respiratory failure with hyperapnea. Discharge Exam Constitutional: WD/WN, vitals as above, awake, alert Eyes: PERRL, conjunctivae normal, anicteric sclerae ENMT: external ear and nose normal, oropharynx normal Neck: trachea midline, no thyromegaly Respiratory: normal respiratory effort, lungs clear to auscultation Auscultation: + diminished lung sounds (bases) Cardiovascular: Rate/Rhythm: regular rate and regular rhythm Heart Sounds: normal S1 and normal S2; no murmur Extremities: + edema (significantly less edema, some wrinkles in legs) Gastrointestinal (Abdomen): normal bowel sounds, soft, nontender, no hepatosplenomegaly Skin: no rashes, warm and dry Neurologic: patellar DTR's 2+ bilat, sensation intact and PERRL, EOMI, accommodation nl, no face palsy, no dysarthria Psychiatric: Orientation: alert and oriented to person; + not oriented to place and + not oriented to time Lymphatic: no cervical or axillary lymphadenopathy Discharge Data Allergies Allergy/AdvReac Type Severity Reaction Status Date / Time cefaclor Allergy Unknown . Verified 02/28/19 01:12 cyclobenzaprine Allergy Unknown UNKNOWN Verified 02/28/19 01:12 nebivolol Allergy Unknown BRADYCARDIA Verified 02/28/19 01:12 Penicillins Allergy Unknown . Verified 02/28/19 01:12 Sulfa (Sulfonamide Allergy Unknown . Verified 02/28/19 01:12 Antibiotics) BENGAY AdvReac Unknown ARTHRITIS Uncoded 02/28/19 01:12 Consultations 02/28/19 04:24 ED Decision to Admit Stat 03/11/19 13:04 Consult Palliative Care Routine Ordered Studies 02/28/19 01:21 CT abd pelvis IV con only Urgent CT chest w con Urgent CT lumbar spine wo con Urgent 02/28/19 02:35 CT cervical spine wo con Urgent CT head/brain wo con Stat 02/28/19 15:44 US venous doppler LE Routine Hospital Course (1) Acute and chronic respiratory failure with hypercapnia: Plan initally was to discharge patient on 03/10, however when he was ready for discharge, patient was found to be unresponsive with his eyes rolled. D/W nurse, he has been refusing his CPAP overnight. Obtained VBG which confirmed respiratory acidosis (03/10) Will place patient on BIPAP, will cancel discharge. (03/10) Patient is placed on BIPAP. Repeated VBG shows improvement but PCO2 is elevated. Will increase BIPAP settings (03/11) It appears his confusion was from CO2 retention. will try to taper him off oxygen as this may worsen his oxygenation. On 03/12, C02 levels improved and patient was more awake. Recommend bipap when patient is asleep, and possible sleep study with PFT as an outpatient. Likely obesity is playing a role. (2) Fall against object: - Imaging at admission was negative for acute findings; PT/OT ordered to assist with recommendations for rehab - appreciate ongoing assessment due to in- house fall on 03/04 - Possibly related to deconditioning vs significant swelling vs exertional dyspnea leading to weakness - Sustained a fall on 03/04 without acute injury - XR with stable/unchanged compression fx (3) Open wound of right heel: - Recently admitted for right heel wound; imaging was negative for osteomyelitis; healing quite well - Wound culture was positive for Corynebacterium. - Continue Cipro/Clindamycin PO (recommended by ID), will complete 30 day course on 03/07/2019; continue probiotics - Wound care consulted - appreciate assistance and recommendations stop antibiotics on 03/07/19 (4) Acute respiratory failure with hypoxia: - This is likely due to pulm edema/diastolic CHF exacerbation - appears this has been progressive, states she had Lasix to use PRN at home and noticed he was slowly developing more HARRIS and lower extremity edema - He chronically purse-lip breaths as well and is a heavy snorer at night - likely he has a mix of EVERT and obesity hypoventilation syndrome; he had wheezing the other day and 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 likely still with acute heart failure, volume overload, see below will try to titrate oxygen as tolerated but will likely need oxygen on discharge, will not be a problem at [facility] as outpatient would likely benefit from formal sleep study for sleep apnea nocturnal desaturation study showed he was < 90% the entire test on room air morning ABG shows CO2 retention with levels in the 60's Patient now requires BIPAP. (5) Acute on chronic diastolic heart failure: - Most recent Echo Aug 2018 showed EF 55-60%, mild LVH and grade I diastolic dysfunction; no mention of pulmonary htn that could be contributing? - BNP level was 403; has hypervolemic hyponatremia on labs which is improving - still with volume overload, pitting edema in legs, Cr stable - Telmisartan 40 mg daily responding well to Lasix 40mg PO BID and Zaroxolyn 5mg in the AM for increased diuresis weights likely inaccurate as well as I/O, per patient's son he is making a lot of urine, 400cc at a time Cr stable, HCO3 up to 46 from 40 so likely some contraction alkalosis \ on discharge, would recommend daily Lasix 40mg check daily weights at [place], if weight up by 2 pounds would give Lasix twice a day fluid restriction at 1800cc/day should continue on discharge (6) Chronic hypercapnic respiratory failure: noted above could be due to both undiagnosed EVERT and/or obesity hypoventilation would likely benefit from BIPAP but would need sleep study, and likely PFT as outpatient. has signs of metabolic compensation with chronically elevated HCO3 tolerating CPAP here inpatient while sleeping, continue at [place] (7) Hypokalemia: due to aggressive diuresis with Lasix and Zaroxolyn increase KCl to 40mg BID monitor BMP (8) Hyponatremia: - Hypervolemic hyponatremia on admission; Na level stable - monitor with daily labs (9) Lower extremity edema: much improved with diuresis continue to monitor, fluid restriction (10) Acute encephalopathy: - H/O dementia and likely a component of delirium/fatigue/insomnia - acute encephalopathy resolved, at baseline with cognitive impairment (11) Dementia: - Continue Namenda -- 10 mg AMHS (12) Hypertension: - Improving with diuresis - Continue Telmisartan and Amlodipine as prescribed. (13) Depression: - Continue Lexapro 20 mg daily (14) Liver hemangioma: - Visualized on CT abd -- unchanged from earlier exam in July 2006; no further intervention warranted at this time (15) Compression fracture: - CT A/P showed numerous old thoracic and lumbar spine compression fractures, S/P L1 vertebral augmentation. (16) DVT prophylaxis: - Lovenox Dispo: PENDING PLACEMENT/ NEEDS ANOTHER AUTH. Will consult palliative care for goals of care. Total Time Total Time Spent Total Time Spent (In Minutes): 35 Total Time Includes: Examination of the Patient, Discharge Planning and Medication Reconciliation Discharge Plan Discharge Items Patient Disposition: Transfer [facility] Reason For Visit: CANNOT AMBULATE Discharge Diagnosis: fluid overload/ weakness/ co2 retention Discharge Goals: Decrease discomfort, Improve function and Increase independence Activity: Resume your previous activity Non-emergency contact: Primary Care Provider Call non-emergency contact if: you have any medication questions Follow-up/Referrals: Gisela Raphael MD [Primary Care Provider] - 03/16/19 11:30 am (Please, follow up at [facility] with Dr. Raphael on SaturdayMarch 16 at 11:30 am. *If you need to change this appointment, call the office at [phone].) Diet: Heart Healthy Fluids: 1800ml (7 cups) Addtl Provider Instructions: as outpatient would likely benefit from formal sleep study for sleep apnea nocturnal desaturation study showed he was < 90% the entire test on room air morning ABG shows CO2 retention with levels in the 60's On discharge, would recommend daily Lasix 40mg check daily weights at [place], if weight up by 2 pounds would give Lasix twice a day fluid restriction at 1800cc/day should continue on discharge F/U with PCP in 1-2 weeks. F/U wiht wound care clinic in 1-2 weeks Apply optifoam to R heel to protect. Change every 3 days or as needed F/U with pulmonary in 1-2 weeks. use bipap at night 12/6 Off oxygen, keep patient on Room air. Maintain o2 sat 88-92% Prescriptions: New furosemide 40 mg Tablet 40 mg PO DAILY Qty: 30 RF: 0 potassium chloride [Klor-Con M20] 20 mEq Tablet,Er Particles/Crystals 40 meq PO BIDM Qty: 60 RF: 0 Continued calcium carbonate [Calcium 600] 600 mg calcium (1,500 mg) Tablet 600 mg PO DAILY RF: 0 docusate sodium 100 mg Capsule 100 mg PO DAILY RF: 0 memantine 5 mg Tablet 10 mg PO AMHS RF: 0 Probiotic 3 billion cell capsule 3,000 mmu cells PO DAILY Qty: 30 RF: 0 tramadol 50 mg Tablet 50 mg PO DIRECTED PRN (Reason: Pain) RF: 0 pantoprazole [Protonix] 40 mg Tablet,Delayed Release (Dr/Ec) 40 mg PO DAILY RF: 0 telmisartan [Micardis] 40 mg Tablet 40 mg PO DAILY RF: 0 cholecalciferol (vitamin D3) [Vitamin D3] 1,000 unit Capsule 2,000 unit PO DAILY RF: 0 escitalopram oxalate [Lexapro] 10 mg Tablet 20 mg PO QPM RF: 0 Discontinued ciprofloxacin HCl 500 mg Tablet 500 mg PO BID 30 Days Qty: 60 RF: 0 clindamycin HCl 150 mg capsule 3 tabs PO DAILY RF: 0 furosemide 20 mg Tablet 20 mg PO DAILY RF: 0 potassium chloride 20 mEq Tablet Extended Release 40 meq PO DAILY RF: 0 Stand-Alone Forms: [facility] Discharge Orders: Discharge Order (Routine); Ordered 03/12/19 Ordered By: Ashvin Townsend Skilled Items Patient informed of condition?: Yes DNR: Yes Discharge Level of Care: Skilled Communicable Disease: No Discharge Prognosis: Stable Admission Data Admit Date/Time: 03/30/19 06:19 Attending Provider: Ashvin Townsend Admit Provider: Gilmer Bella Primary Care Provider: Gisela Raphael Other Providers: Gilmer Bella ; IRB Approved Study,Rosalia Luu Service: Medical Other Interventions: Discharge Summary Assessment (RN) Last Done: 03/12/19 14:12 DC Date/Time DO NOT enter until pt leaves facility: 03/12/19 14:28
== END 2019-03-12 14:28 | DRG 291 ==
LOC: ED 00:40 → 4W 00:40 → SUATTDRO 06:19

== ENCOUNTER 2019-05-22 21:37 | Inpatient (IN) ==
[2019-05-22] MEDS ORDERED: MoRPHine SULFATE 2 MG/ML CARP IV PRN (21:45)
[2019-05-22 22:13] LABS: Basophils # (auto) 0.01 K/uL (0-0.2); Basophils % (auto) 0.1 %; Eosinophils # (auto) 0.01 K/uL (0-0.5); Eosinophils % (auto) 0.1 %; Hematocrit (blood only) 40.2 % (42-52); Hemoglobin 13.6 g/dL (14.0-18.0); Immature Granulocytes % (auto) 0.9 %; Lymphocytes # (auto) 0.87 K/uL (1.2-3.4); Lymphocytes % (auto) 7.7 %; Mean Corpuscular Hgb Conc 33.8 g/dL (32-36); Mean Corpuscular Volume 91.2 fL (80-100); Mean Platelet Volume 9.3 fL (7.4-10.4); Monocytes # (auto) 0.83 K/uL (0.11-0.59); Monocytes % (auto) 7.3 %; Neutrophils # (auto) 9.48 K/uL (1.4-6.5); Neutrophils % (auto) 83.9 %; Platelet Count 413 K/uL (130-400); RDW Coefficient of Variation 15.5 % (11.5-14.5); RDW Standard Deviation 51.4 fL (36.4-46.3); Red Blood Count 4.41 M/uL (4.7-6.1)
[2019-05-22 22:23] LABS: Partial Thromboplastin Ratio 0.9; Partial Thromboplastin Time 23.4 Seconds (21.0-31.0); Prothrombin Time 10.7 Seconds (9.0-12.0)
--- NOTE | 2019-05-22 22:32 | XRay Report ---
XR hip LT min 2V CLINICAL HISTORY: Left hip pain status post trauma COMPARISON: None. DISCUSSION: There is a displaced subcapital left hip fracture. IMPRESSION: Displaced subcapital left hip fracture Electronically signed by: James Alaniz M.D. 05/22/2019 10:30 PM
--- NOTE | 2019-05-22 22:33 | XRay Report ---
XR chest 1V portable CLINICAL HISTORY: Trauma. Hip fracture. Preoperative chest. COMPARISON STUDY: 03/03/2019 FINDINGS: The heart remains mildly enlarged. There is stable superior mediastinal widening. There is improving mild pulmonary vascular congestion. There is no lobar consolidation. There are no significa nt pleural effusions.[ IMPRESSION: 1. Cardiomegaly and improving mild pulmonary vascular congestion 2. No evidence of focal pulmonary consolidation 3. Stable superior mediastinal fullness Electronically signed by: James Alaniz M.D. 05/22/2019 10:31 PM
[2019-05-22 22:34] LABS: BUN Creatinine Ratio 16.7 (10-20); Creatinine Clr Calc Pharmacy 48.7 ml/min; Est GFR (African American) 62.6; Potassium 3.7 mmol/L (3.5-5.1)
[2019-05-22] MEDS ORDERED: SODIUM CHLORIDE 0.9% 1000ML 500 ML IV ONE ×2 (22:42→22:43)
[2019-05-22 23:25] LABS: Appearance Urine Cloudy (Clear); Bacteria Urine Automated Negative (Negative); Bilirubin Urine Negative (Negative); Blood Urine Negative (Negative); Color Urine Dark Yellow; Epithelial Cell Urine Auto >30 /lpf (0-5); Glucose Urine UA Negative (Negative); Ketones Urine Trace (Negative); Leukocyte Esterase Urine Trace (Negative); Nitrite Urine Negative (Negative); Protein Urine 1+ (Negative); Urobilinogen Urine Negative (Negative)
--- NOTE | 2019-05-22 23:25 | History & Physical Report ---
Date of Service May 22, 2019 Assessment & Plan (1) Closed hip fracture: Patient is an 78 yo M PMH HTN, depression, diastolic CHF, dementia, ambulatory dysfunction with frequent falls and subsequent compression fractures who presents with L hip fracture. Hip Fracture -H/O ambulatory dysfx, PT/OT to assess when appropriate -NPO -Ortho consulted, appreciate recs -Morphine for pain, IV tylenol -Pt lives at [facility]. 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 Will consult CM. Dementia -Cont memantine -At risk of delirium with meds, pain, potential surgery -Palliative previously consulted, thought not to be candidate for hospice at that time -Have not consulted, consider depending on course of hospitalization. Chronic respiratory failure -Pt had acute failure during last visit, refused CPAP overnight, required bipap -Reportedly has not been using CPAP at [facility] -Have ordered it as needed, if patient tolerates. carefully monitor. -Placed on oxygen 4L -Pt has not had outpt sleep study or PFTs performed yet, but [facility] -Possibly related to EVERT/OHS/COPD CHF -Clinically euvolemic, possibly dry -Trace-1+ pitting edema -Last echo aug 2018, EF 55-60 -Continue lasix 40; monitor -Once eating would recommend 1800cc fluid restriction/day HTN -Cont amlodipine, holding telmisartan Depression -Cont lexapro 20 daily Liver hemangioma -Unchanged from 2005, no further intervention DISPO: med/surg admit DVTP: holding pending procedure CODE: DNR/DNI (2) Memory impairment: (3) Lumbar compression fracture: (4) Chronic reflux esophagitis: (5) Essential hypertension: (6) CHF (congestive heart failure): (7) Goals of care, counseling/discussion: (8) Chronic hypercapnic respiratory failure: (9) Lower extremity edema: (10) Dementia: (11) Gait abnormality: History of Present Illness Chief Complaint: Hip fracture Primary Care Provider: [facility] Patient is an 78 yo M PMH HTN, depression, diastolic CHF, dementia, ambulatory dysfunction with frequent falls and subsequent compression fractures who presents with L hip fracture. Patient lives at [facility] and is a poor historian. According to conversation with ED provider and at bedside, patient had been doing well at [facility] but today got up and walked outside to "catch the van to take him home," fell (?mechanical), and complained of L hip pain and was unable to get up on his own. He was sent to the ER for evaluation where it was found that he had a displaced subcapital L hip fracture. No metabolic causes for fall noted on labwork. PMH: -HTN -Thyroid nodules -Multiple compression fractures -Diverticulosis -Diastolic CHF -Chronic hypercapnic hypoxic respiratory failure -Liver hemangioma -Dementia -H/O hyponatremia -H/O hypokalemia -hearing loss -GERD -Ambulatory dysfunction PSH: -Back surgery Allergies Allergy/AdvReac Type Severity Reaction Status Date / Time cefaclor Allergy Unknown . Verified 05/22/19 23:05 cyclobenzaprine Allergy Unknown UNKNOWN Verified 05/22/19 23:05 nebivolol Allergy Unknown BRADYCARDIA Verified 05/22/19 23:05 Penicillins Allergy Unknown . Verified 05/22/19 23:05 Sulfa (Sulfonamide Allergy Unknown . Verified 05/22/19 23:05 Antibiotics) BENGAY AdvReac Unknown ARTHRITIS Uncoded 05/22/19 23:05 Home Medications Home Medications Medication Instructions Recorded Confirmed Type amlodipine 5 mg tablet 5 mg PO BID #30 tab 05/05/19 05/22/19 Rx calcium carbonate 600 mg calcium 600 mg PO DAILY #30 tab 05/05/19 05/22/19 Rx (1,500 mg) tablet cholecalciferol (vitamin D3) 1,000 2,000 unit PO DAILY #30 cap 05/05/19 05/22/19 Rx unit capsule docusate sodium 100 mg capsule 100 mg PO DAILY #30 cap 05/05/19 05/22/19 Rx escitalopram 20 mg tablet 20 mg PO DAILY #30 tab 05/05/19 05/22/19 Rx furosemide 40 mg tablet 40 mg PO DAILY #30 tab 05/05/19 05/22/19 Rx memantine 10 mg tablet 10 mg PO BID #60 tab 05/05/19 05/22/19 Rx naproxen sodium 220 mg tablet 220 mg PO BID PRN #60 tab 05/05/19 05/22/19 Rx pantoprazole 40 mg tablet,delayed 40 mg PO DAILY #30 tab 05/05/19 05/22/19 Rx release polyethylene glycol 3350 17 17 gm PO DAILY PRN #119 gm 05/05/19 05/22/19 Rx gram/dose oral powder potassium chloride ER 20 mEq 20 meq PO BID #120 tab 05/05/19 05/22/19 Rx tablet,extended release(part/cryst) telmisartan 40 mg tablet 40 mg PO DAILY #30 tab 05/05/19 05/22/19 Rx food supplement, lactose-reduced 1 ea PO BID #5688 ml 05/13/19 05/22/19 Rx oral liquid Past Med/Surg History Medical History Multiple thyroid nodules (Acute) Memory impairment (Acute) Lumbar compression fracture (Acute) Diverticulosis (Acute) Chronic reflux esophagitis (Acute) Osteoporosis (Acute) Essential hypertension (Acute) CHF (congestive heart failure) (Acute) Goals of care, counseling/discussion Acute and chronic respiratory failure with hypercapnia Chronic hypercapnic respiratory failure Lower extremity edema (Chronic) Compression fracture Liver hemangioma Dementia (Chronic) Acute encephalopathy Hyponatremia Acute on chronic diastolic heart failure Acute respiratory failure with hypoxia Open wound of right heel Gait abnormality Acute hyponatremia (Acute) Fall against object (Acute) CHI (closed head injury) (Acute) Skin tear of forearm without complication (Acute) Skin tear of left upper arm without complication (Acute) Chronic diastolic heart failure Hypokalemia DVT prophylaxis Bilateral lower extremity edema Dementia Osteomyelitis of ankle or foot, right, acute Osteomyelitis (Acute) Depression Hearing loss (Chronic) Osteopenia (Chronic) Colon polyps (Resolved) T12 compression fracture (Resolved) Reflux (Chronic) Bradycardia (Resolved) Compression fx, lumbar spine Confusion Fall (Resolved) Gait abnormality (Acute) Hypertension (Chronic) Rib contusion (Resolved) Surgical History Previous back surgery H/O colonoscopy (Resolved) Family History Other No pertinent family history in first degree relatives Social History Preferred Language: E[place] Communication Ability: Impaired Data Librarian Required: No Beliefs That Will Affect Care: Synagogue Synagogue Beliefs: box is checked " yes" on admission form for moravian beliefs but nothing is specified marital status: Current Living Situation: Personal Care Facility Current Living Situation Comment: assisted living Other Information That Helps Us Care for You: No Feels Safe at Home: Yes Safety Concerns: Feels Safe At This Time Smoking Status: Never smoker Hx Alcohol Use: No Hx Substance Use: No Review of Systems Review of Systems: Unobtainable due to cognitive status Pt able to state he is in no pain at rest, but 8/10 pain when he moves his legs. Pt continuously moves his leg, possible related to dementia? Denies CP or abdominal pain. Physical Exam Constitutional: WD/WN, vitals as above + altered mental status; no acute distress and + uncomfortable (not following instructions to keep L leg still) Patient moans when he is not speaking but states he does this even when not in pain Eyes: PERRL, conjunctivae normal, anicteric sclerae ENMT: Ears: + hearing impairment Mouth: + dry oral mucous membranes Neck: normal visual inspection Respiratory: normal respiratory effort, lungs clear to auscultation Cardiovascular: Rate/Rhythm: regular rate and regular rhythm Extremities: + edema 1+ bilaterally Gastrointestinal (Abdomen): normal bowel sounds, soft, nontender, no hepatosplenomegaly Percussion/Palpation: + hernia Musculoskeletal: Extremities: + limited ROM of extremities and + leg externally rotated (left); + extremities abnormal to inspection and + abnormal strength Skin: no rashes, warm and dry Neurologic: PERRL, EOMI, accommodation nl, no face palsy, no dysarthria Psychiatric: Orientation: alert, oriented to person and cooperative; + not oriented x 3 Results & Data Vital Signs (Past 12 Hours) Vital Signs Temp Pulse Pulse Resp BP BP Pulse Ox 05/22/19 22:41 75 20 96/59 L 92 05/22/19 22:33 76 20 85/53 L 91 05/22/19 22:00 84 L 05/22/19 21:55 36.7 C 90 20 99/59 L 85 L Laboratory Results 05/22/19 05/22/19 05/22/19 Range/Units 23:05 22:30 21:55 WBC (4.8-10.8) K/uL RBC (4.7-6.1) M/uL Hgb (14.0-18.0) g/dL Hct (42-52) % MCV (80-100) fL MCH (25-34) pg MCHC (32-36) g/dL RDW Std Deviation (36.4-46.3) fL RDW Coeff of Kyree (11.5-14.5) % Plt Count (130-400) K/uL MPV (7.4-10.4) fL Immature Gran % (Auto) % Neut % (Auto) % Lymph % (Auto) % Brooks % (Auto) % Eos % (Auto) % Baso % (Auto) % Immature Gran # (Auto) (0.00-0.02) K/uL Neut # (Auto) (1.4-6.5) K/uL Lymph # (Auto) (1.2-3.4) K/uL Brooks # (Auto) (0.11-0.59) K/uL Eos # (Auto) (0-0.5) K/uL Baso # (Auto) (0-0.2) K/uL PT (9.0-12.0) Seconds INR (0.9-1.1) APTT (21.0-31.0) Seconds PTT Ratio Sodium 140 (136-145) mmol/L Potassium 3.7 (3.5-5.1) mmol/L Chloride 103 (98-107) mmol/L Carbon Dioxide 31 (21-32) mmol/L Anion Gap 7.0 (3-11) BUN 21 H (7-18) mg/dl Creatinine 1.25 (0.6-1.4) mg/dl Est Cr Clr Drug Dosing 48.7 ml/min Est GFR ( Amer) 62.6 Est GFR (Non-Af Amer) 54.0 BUN/Creatinine Ratio 16.7 (10-20) Glucose 154 H (70-99) mg/dl Calcium 9.0 (8.5-10.1) mg/dl Urine Color Dark Yellow Urine Appearance Cloudy A (Clear) Urine pH 6.0 (4.5-7.5) Ur Specific [place] 1.020 (1.000-1.030) Urine Protein 1+ H (Negative) Urine Glucose (UA) Negative (Negative) Urine Ketones Trace H (Negative) Urine Blood Negative (Negative) Urine Nitrite Negative (Negative) Urine Bilirubin Negative (Negative) Urine Urobilinogen Negative (Negative) Ur Leukocyte Esterase Trace H (Negative) Urine WBC (Auto) 1-5 (0-5) /hpf Urine RBC (Auto) 0-4 (0-4) /hpf U Hyaline Cast (Auto) >30 H (0-5) /lpf U Epithel Cells (Auto) >30 H (0-5) /lpf Urine Bacteria (Auto) Negative (Negative) Ur Renal Epithelial Cell 10-20 H (0-5) /lpf Calcium Oxalate Crystal Present A (None Prsent) Granular Casts 1-5 H (0) /lpf Urine Mucus Present A (None Prsent) Blood Type A Positive Antibody Screen NEGATIVE 05/22/19 05/22/19 Range/Units 21:55 21:55 WBC 11.30 H (4.8-10.8) K/uL RBC 4.41 L (4.7-6.1) M/uL Hgb 13.6 L (14.0-18.0) g/dL Hct 40.2 L (42-52) % MCV 91.2 (80-100) fL MCH 30.8 (25-34) pg MCHC 33.8 (32-36) g/dL RDW Std Deviation 51.4 H (36.4-46.3) fL RDW Coeff of Kyree 15.5 H (11.5-14.5) % Plt Count 413 H (130-400) K/uL MPV 9.3 (7.4-10.4) fL Immature Gran % (Auto) 0.9 % Neut % (Auto) 83.9 % Lymph % (Auto) 7.7 % Brooks % (Auto) 7.3 % Eos % (Auto) 0.1 % Baso % (Auto) 0.1 % Immature Gran # (Auto) 0.10 H (0.00-0.02) K/uL Neut # (Auto) 9.48 H (1.4-6.5) K/uL Lymph # (Auto) 0.87 L (1.2-3.4) K/uL Brooks # (Auto) 0.83 H (0.11-0.59) K/uL Eos # (Auto) 0.01 (0-0.5) K/uL Baso # (Auto) 0.01 (0-0.2) K/uL PT 10.7 (9.0-12.0) Seconds INR 1.0 (0.9-1.1) APTT 23.4 (21.0-31.0) Seconds PTT Ratio 0.9 Sodium (136-145) mmol/L Potassium (3.5-5.1) mmol/L Chloride (98-107) mmol/L Carbon Dioxide (21-32) mmol/L Anion Gap (3-11) BUN (7-18) mg/dl Creatinine (0.6-1.4) mg/dl Est Cr Clr Drug Dosing ml/min Est GFR ( Amer) Est GFR (Non-Af Amer) BUN/Creatinine Ratio (10-20) Glucose (70-99) mg/dl Calcium (8.5-10.1) mg/dl Urine Color Urine Appearance (Clear) Urine pH (4.5-7.5) Ur Specific [place] (1.000-1.030) Urine Protein (Negative) Urine Glucose (UA) (Negative) Urine Ketones (Negative) Urine Blood (Negative) Urine Nitrite (Negative) Urine Bilirubin (Negative) Urine Urobilinogen (Negative) Ur Leukocyte Esterase (Negative) Urine WBC (Auto) (0-5) /hpf Urine RBC (Auto) (0-4) /hpf U Hyaline Cast (Auto) (0-5) /lpf U Epithel Cells (Auto) (0-5) /lpf Urine Bacteria (Auto) (Negative) Ur Renal Epithelial Cell (0-5) /lpf Calcium Oxalate Crystal (None Prsent) Granular Casts (0) /lpf Urine Mucus (None Prsent) Blood Type Antibody Screen Diagnostic Findings XR hip LT min 2V CLINICAL HISTORY: Left hip pain status post trauma COMPARISON: None. DISCUSSION: There is a displaced subcapital left hip fracture. IMPRESSION: Displaced subcapital left hip fracture Electronically signed by: James Alaniz M.D. 05/22/2019 10:30 PM XR chest 1V portable CLINICAL HISTORY: Trauma. Hip fracture. Preoperative chest. COMPARISON STUDY: 03/03/2019 FINDINGS: The heart remains mildly enlarged. There is stable superior mediastinal widening. There is improving mild pulmonary vascular congestion. There is no lobar consolidation. There are no significant pleural effusions.[ IMPRESSION: 1. Cardiomegaly and improving mild pulmonary vascular congestion 2. No evidence of focal pulmonary consolidation 3. Stable superior mediastinal fullness Electronically signed by: James Alnaiz M.D. 05/22/2019 10:31 PM Code Status & VTE Plan Code Status DNR/DNI Supervising Physician Co-Signing Physician Notes Pt seen/examined following resident MD Marilyn Lewis. Orders and plan of admission formulated with resident. 78 y/o M HTN, depression, diastolic CHF, dementia, ambulatory dysfunction with frequent falls. The pt suffered a mechanical fall and could not weight bear after. Imaging in the ER confirmed a L hip fracture. The pt is unable to provide any details due to advanced dementia. OE AAO x 1 S1,2 R +M CTAB - limited effort NT, ND LLE externally rotated P: We have consulted orthopedics. The hip repair would be palliative if it is to take place as he does have advanced dementia and is at risk of significant morbidity His RCRI is 6%. There is no evidence of decompensation or ischemic heart disease presently. Any plans for surgery will need to go through his as he will need temporary reversal of his code status PG Care Time/CCT Total # of Minutes Spent Total Time Spent with Patient: Total time spent is greater than 50% in coordin ation of care (as documented) at patient's floor/unit and/or counseling patient: Resident Activity Tracking Resident Involvement: Resident Care Provided Care Provided: Adult Hospital Medicine (1) Closed hip fracture Encounter type: initial encounter Laterality: left Qualified Code(s): S72.002A - Fracture of unspecified part of neck of left femur, initial encounter for closed fracture
--- NOTE | 2019-05-22 23:30 | Emergency Department Note ---
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 The patient states that he was getting up in his car when he fell on his back. He states that he did not move once her fell. He reports that he has left hip pain. Per EMS, the patient lives in a care facility and there were witnesses to his fall. The patient denies using oxygen at home. The patient states that he is a non-smoker. He reports that his immunizations are up to date. Per his , she states that he has had a history of back fractures, but he has not seen orthopedics for it. She states that the patient has dementia. She notes that the patient was supposed to get a C-pack and he has a follow up in June. She notes that he has had similar episodes where he tries to bend down and falls and cannot get up. The reports that when he moves around it improves oxygen levels. Home Medications Home Medications Medication Instructions Recorded Confirmed Type amlodipine 5 mg tablet 5 mg PO BID #30 tab 05/05/19 05/22/19 Rx calcium carbonate 600 mg calcium 600 mg PO DAILY #30 tab 05/05/19 05/22/19 Rx (1,500 mg) tablet cholecalciferol (vitamin D3) 1,000 2,000 unit PO DAILY #30 cap 05/05/19 05/22/19 Rx unit capsule docusate sodium 100 mg capsule 100 mg PO DAILY #30 cap 05/05/19 05/22/19 Rx escitalopram 20 mg tablet 20 mg PO DAILY #30 tab 05/05/19 05/22/19 Rx furosemide 40 mg tablet 40 mg PO DAILY #30 tab 05/05/19 05/22/19 Rx memantine 10 mg tablet 10 mg PO BID #60 tab 05/05/19 05/22/19 Rx naproxen sodium 220 mg tablet 220 mg PO BID PRN #60 tab 05/05/19 05/22/19 Rx pantoprazole 40 mg tablet,delayed 40 mg PO DAILY #30 tab 05/05/19 05/22/19 Rx release polyethylene glycol 3350 17 17 gm PO DAILY PRN #119 gm 05/05/19 05/22/19 Rx gram/dose oral powder potassium chloride ER 20 mEq 20 meq PO BID #120 tab 05/05/19 05/22/19 Rx tablet,extended release(part/cryst) telmisartan 40 mg tablet 40 mg PO DAILY #30 tab 05/05/19 05/22/19 Rx food supplement, lactose-reduced 1 ea PO BID #5688 ml 05/13/19 05/22/19 Rx oral liquid Allergies Allergy/AdvReac Type Severity Reaction Status Date / Time cefaclor Allergy Unknown . Verified 05/22/19 23:05 cyclobenzaprine Allergy Unknown UNKNOWN Verified 05/22/19 23:05 nebivolol Allergy Unknown BRADYCARDIA Verified 05/22/19 23:05 Penicillins Allergy Unknown . Verified 05/22/19 23:05 Sulfa (Sulfonamide Allergy Unknown . Verified 05/22/19 23:05 Antibiotics) BENGAY AdvReac Unknown ARTHRITIS Uncoded 05/22/19 23:05 Past Med/Surg History Medical History Multiple thyroid nodules (Acute) Memory impairment (Acute) Lumbar compression fracture (Acute) Diverticulosis (Acute) Chronic reflux esophagitis (Acute) Osteoporosis (Acute) Essential hypertension (Acute) CHF (congestive heart failure) (Acute) Goals of care, counseling/discussion Acute and chronic respiratory failure with hypercapnia Chronic hypercapnic respiratory failure Lower extremity edema (Chronic) Compression fracture Liver hemangioma Dementia (Chronic) Acute encephalopathy Hyponatremia Acute on chronic diastolic heart failure Acute respiratory failure with hypoxia Open wound of right heel Gait abnormality Acute hyponatremia (Acute) Fall against object (Acute) CHI (closed head injury) (Acute) Skin tear of forearm without complication (Acute) Skin tear of left upper arm without complication (Acute) Chronic diastolic heart failure Hypokalemia DVT prophylaxis Bilateral lower extremity edema Dementia Osteomyelitis of ankle or foot, right, acute Osteomyelitis (Acute) Depression Hearing loss (Chronic) Osteopenia (Chronic) Colon polyps (Resolved) T12 compression fracture (Resolved) Reflux (Chronic) Bradycardia (Resolved) Compression fx, lumbar spine Confusion Fall (Resolved) Gait abnormality (Acute) Hypertension (Chronic) Rib contusion (Resolved) Surgical History Previous back surgery H/O colonoscopy (Resolved) Family History Other No pertinent family history in first degree relatives Social History Preferred Language: Central [place] Communication Ability: Impaired Beliefs That Will Affect Care: None marital status: Current Living Situation: Spouse Feels Safe at Home: Yes Smoking Status: Never smoker Hx Alcohol Use: No Hx Substance Use: No Review of Systems See HPI for pertinent positives & negatives. and A total of 10 systems reviewed and were otherwise negative Physical Exam Vital Signs Vital Signs - 24 hr 05/22/19 21:55 05/22/19 22:00 05/22/19 22:33 Temperature 36.7 C Temperature Source Oral Sepsis Recent Fever Within 48 Hours No Sepsis Action Taken by Nursing No Action Required Pulse Rate 90 Pulse Rate [Left] 76 Pulse Rate from SpO2 Sensor Respiratory Rate 20 20 Blood Pressure 99/59 L Blood Pressure [Left Arm] 85/53 L Blood Pressure Mean 72 Blood Pressure Mean [Left Arm] 63 Pulse Oximetry 85 L 84 L 91 Oxygen Delivery Method Room Air Room Air Nasal Cannula Nasal Cannula Oxygen Flow Rate 0 4 05/22/19 22:41 05/22/19 23:01 05/22/19 23:30 Temperature Temperature Source Sepsis Recent Fever Within 48 Hours Sepsis Action Taken by Nursing Pulse Rate 70 74 Pulse Rate [Left] 75 Pulse Rate from SpO2 Sensor 70 74 Respiratory Rate 20 23 23 Blood Pressure 105/65 117/70 Blood Pressure [Left Arm] 96/59 L Blood Pressure Mean 78 85 Blood Pressure Mean [Left Arm] 71 Pulse Oximetry 92 92 94 Oxygen Delivery Method Nasal Cannula Nasal Cannula Nasal Cannula Oxygen Flow Rate 4 4 4 CONSTITUTIONAL/VITAL SIGNS: Reviewed / noted above. GENERAL: Non-toxic in appearance. INTEGUMENTARY: Warm, dry, and [place]. HEAD: Normocephalic. EYES: without scleral icterus or trauma. ENT/OROPHARYNX: clear and moist. LYMPHADENOPATHY/NECK: Is supple without lymphadenopathy or meningismus. RESPIRATORY: Lungs clear and equal. CARDIOVASCULAR: Regular rate and rhythm. GI/ABDOMEN: Soft and nontender. No organomegaly or pulsatile mass. No rebound or guarding. Normal bowel sounds. EXTREMITIES: Left leg is shortened and externally rotated. BACK: No CVA tenderness. NEUROLOGICAL: Intact without focal deficits. PSYCHIATRIC: normal affect. MUSCULOSKELETAL: Normally developed with good muscle tone. Course 2139: The patient was evaluated in room B4B, and a complete history and physical examination were performed. 2: I reevaluated and updated the patient and his family on his results. 2325: I reviewed the patient's case with Dr. Ji [facility] Hospitalist. He will evaluate the patient for further management. Consultations Consultation #1: Dr. Ji [facility] Hospitalist Time: 23:25 Administered Medications Morphine Sulfate (Morphine Sulfate) 2 mg IV Q1H PRN PRN Reason: Moderate Pain (Rating 3,4,5,6) Stop: 06/05/19 21:44 Last Admin: 05/22/19 22:02 Dose: 2 mg Documented by: [id number] Discontinued Medications Sodium Chloride (Nss 1000ml) 500 mls @ 999 mls/hr IV .Q31M ONE Stop: 05/22/19 23:12 Last Infusion: 05/22/19 23:25 Dose: 0 mls/hr Documented by: [id number] Admin: 05/22/19 22:43 Dose: 999 mls/hr Documented by: [id number] Sodium Chloride (Nss 1000ml) 500 mls @ 999 mls/hr IV .Q31M ONE Stop: 05/22/19 23:13 Last Admin: 05/22/19 22:44 Dose: Not Given Documented by: [id number] Medical Decision Making Differential Diagnosis Differential diagnosis: Etiologies such as fracture, dislocation, intra- abdominal, pneumothorax, intrathoracic , intracranial, neurologic, as well as other traumatic pathologies were entertained. Medical Records Attestation: I reviewed the patient's medical records. Home Medications Current Medication List: was personally reviewed by me Laboratory Data Attestation: I reviewed the patient's lab results. Result diagrams: 05/22/19 21:55 05/22/19 21:55 Lab Results 05/22/19 05/22/19 05/22/19 Range/Units 21:55 21:55 21:55 WBC 11.30 H (4.8-10.8) K/uL RBC 4.41 L (4.7-6.1) M/uL Hgb 13.6 L (14.0-18.0) g/dL Hct 40.2 L (42-52) % MCV 91.2 (80-100) fL MCH 30.8 (25-34) pg MCHC 33.8 (32-36) g/dL RDW Std Deviation 51.4 H (36.4-46.3) fL RDW Coeff of Kyree 15.5 H (11.5-14.5) % Plt Count 413 H (130-400) K/uL MPV 9.3 (7.4-10.4) fL Immature Gran % (Auto) 0.9 % Neut % (Auto) 83.9 % Lymph % (Auto) 7.7 % [place] % (Auto) 7.3 % Eos % (Auto) 0.1 % Baso % (Auto) 0.1 % Immature Gran # (Auto) 0.10 H (0.00-0.02) K/uL Neut # (Auto) 9.48 H (1.4-6.5) K/uL Lymph # (Auto) 0.87 L (1.2-3.4) K/uL [place] # (Auto) 0.83 H (0.11-0.59) K/uL Eos # (Auto) 0.01 (0-0.5) K/uL Baso # (Auto) 0.01 (0-0.2) K/uL PT 10.7 (9.0-12.0) Seconds INR 1.0 (0.9-1.1) APTT 23.4 (21.0-31.0) Seconds PTT Ratio 0.9 Sodium 140 (136-145) mmol/L Potassium 3.7 (3.5-5.1) mmol/L Chloride 103 (98-107) mmol/L Carbon Dioxide 31 (21-32) mmol/L Anion Gap 7.0 (3-11) BUN 21 H (7-18) mg/dl Creatinine 1.25 (0.6-1.4) mg/dl Est Cr Clr Drug Dosing 48.7 ml/min Est GFR ( Amer) 62.6 Est GFR (Non-Af Amer) 54.0 BUN/Creatinine Ratio 16.7 (10-20) Glucose 154 H (70-99) mg/dl Calcium 9.0 (8.5-10.1) mg/dl Urine Color Urine Appearance (Clear) Urine pH (4.5-7.5) Ur Specific [place] (1.000-1.030) Urine Protein (Negative) Urine Glucose (UA) (Negative) Urine Ketones (Negative) Urine Blood (Negative) Urine Nitrite (Negative) Urine Bilirubin (Negative) Urine Urobilinogen (Negative) Ur Leukocyte Esterase (Negative) Urine WBC (Auto) (0-5) /hpf Urine RBC (Auto) (0-4) /hpf U Epithel Cells (Auto) (0-5) /lpf Urine Bacteria (Auto) (Negative) 05/22/19 Range/Units 23:05 WBC (4.8-10.8) K/uL RBC (4.7-6.1) M/uL Hgb (14.0-18.0) g/dL Hct (42-52) % MCV (80-100) fL MCH (25-34) pg MCHC (32-36) g/dL RDW Std Deviation (36.4-46.3) fL RDW Coeff of Kyree (11.5-14.5) % Plt Count (130-400) K/uL MPV (7.4-10.4) fL Immature Gran % (Auto) % Neut % (Auto) % Lymph % (Auto) % [place] % (Auto) % Eos % (Auto) % Baso % (Auto) % Immature Gran # (Auto) (0.00-0.02) K/uL Neut # (Auto) (1.4-6.5) K/uL Lymph # (Auto) (1.2-3.4) K/uL [place] # (Auto) (0.11-0.59) K/uL Eos # (Auto) (0-0.5) K/uL Baso # (Auto) (0-0.2) K/uL PT (9.0-12.0) Seconds INR (0.9-1.1) APTT (21.0-31.0) Seconds PTT Ratio Sodium (136-145) mmol/L Potassium (3.5-5.1) mmol/L Chloride (98-107) mmol/L Carbon Dioxide (21-32) mmol/L Anion Gap (3-11) BUN (7-18) mg/dl Creatinine (0.6-1.4) mg/dl Est Cr Clr Drug Dosing ml/min Est GFR ( Amer) Est GFR (Non-Af Amer) BUN/Creatinine Ratio (10-20) Glucose (70-99) mg/dl Calcium (8.5-10.1) mg/dl Urine Color Dark Yellow Urine Appearance Cloudy A (Clear) Urine pH 6.0 (4.5-7.5) Ur Specific [place] 1.020 (1.000-1.030) Urine Protein 1+ H (Negative) Urine Glucose (UA) Negative (Negative) Urine Ketones Trace H (Negative) Urine Blood Negative (Negative) Urine Nitrite Negative (Negative) Urine Bilirubin Negative (Negative) Urine Urobilinogen Negative (Negative) Ur Leukocyte Esterase Trace H (Negative) Urine WBC (Auto) 1-5 (0-5) /hpf Urine RBC (Auto) 5-10 H (0-4) /hpf U Epithel Cells (Auto) >30 H (0-5) /lpf Urine Bacteria (Auto) Negative (Negative) Imaging Data Radiologist's Impression: Radiology results as stated below per my review and the radiologist's interpretation: XR chest 1V portable CLINICAL HISTORY: Trauma. Hip fracture. Preoperative chest. COMPARISON STUDY: 03/03/2019 FINDINGS: The heart remains mildly enlarged. There is stable superior mediastinal widening. There is improving mild pulmonary vascular congestion. There is no lobar consolidation. There are no significant pleural effusions.[ IMPRESSION: 1. Cardiomegaly and improving mild pulmonary vascular congestion 2. No evidence of focal pulmonary consolidation 3. Stable superior mediastinal fullness Electronically signed by: James Alaniz M.D. 05/22/2019 10:31 PM XR hip LT min 2V CLINICAL HISTORY: Left hip pain status post trauma COMPARISON: None. DISCUSSION: There is a displaced subcapital left hip fracture. IMPRESSION: Displaced subcapital left hip fracture Electronically signed by: James Alaniz M.D. 05/22/2019 10:30 PM ECG Data Attestation: I personally reviewed and interpreted this ECG as follows: Indication: other (trauma) Rate (beats per minute): 84 Rhythm: normal sinus Findings: no ST elevation and no ectopy Blood Pressure Blood Pressure Findings: Low blood pressure Blood Pressure Disposition: further management by hospitalist TAMIKA Fitzpatrick This is an 78-year-old male who presents to the ED with a chief complaint of a fall. The patient reportedly fell outside of the [facility]. The patient stated he was going outside to go to his van to go home. The patient has been residing at [facility] for the past several weeks. He has some dementia. He presents via ambulance with left hip pain. X-ray reveals a subcapital left hip fracture. An EKG shows a normal sinus rhythm. CBC and chemistry panel was unremarkable chest x-ray was negative for acute disease. The patient's exam revealed a shortened externally rotated left leg. There is no evidence of head injury. He denies any neck pains, chest pains or shortness of breath. The patient is noted to be mildly hypoxic on room air. He is supposed to be using CPAP at night. He was placed on 2 L of oxygen his oxygen saturations are nor mal. The patient will be seen by the hospitalist for further inpatient evaluation and care. Impression & Plan Closed hip fracture Discharge Plan Visit Data Chief Complaint: Hip Pain ED Provider: Fei Franklin Discharge Problem: Closed hip fracture Forms Stand Alone Forms: [facility] Prescriptions Prescriptions: No Action amlodipine 5 mg tablet 5 mg PO BID Qty: 30 RF: 5 calcium carbonate [Calcium 600] 600 mg calcium (1,500 mg) tablet 600 mg PO DAILY Qty: 30 RF: 5 cholecalciferol (vitamin D3) [Vitamin D3] 1,000 unit capsule 2,000 unit PO DAILY Qty: 30 RF: 5 docusate sodium 100 mg capsule 100 mg PO DAILY Qty: 30 RF: 5 escitalopram oxalate 20 mg tablet 20 mg PO DAILY Qty: 30 RF: 5 furosemide 40 mg tablet 40 mg PO DAILY Qty: 30 RF: 5 memantine 10 mg tablet 10 mg PO BID Qty: 60 RF: 5 naproxen sodium [Aleve] 220 mg tablet 220 mg PO BID PRN (Reason: pain) Qty: 60 RF: 5 pantoprazole [Protonix] 40 mg tablet,delayed release (DR/EC) 40 mg PO DAILY Qty: 30 RF: 5 polyethylene glycol 3350 [Miralax] 17 gram/dose powder 17 gm PO DAILY PRN (Reason: constipation) Qty: 119 RF: 5 potassium chloride [Klor-Con M20] 20 mEq tablet,ER particles/crystals 20 meq PO BID Qty: 120 RF: 5 telmisartan [Micardis] 40 mg tablet 40 mg PO DAILY Qty: 30 RF: 5 Ensure liquid 1 ea PO BID Qty: 5688 RF: 5 Referrals Referrals: ANDREW HAYWOOD LEXII [Primary Care Provider] - Discharge Problem: Closed hip fracture Qualifiers: Encounter type: initial encounter Laterality: left Qualified Code(s): S72.002A - Fracture of unspecified part of neck of left femur, initial encounter for closed fracture The scribe's documentation has been prepared under my direction and personally reviewed by me in its entirety. I confirm that the note above accurately reflects all work, treatment, procedures, and medical decision making performed by me.
[2019-05-22 23:42] LABS: Cast Urine Automated >30 /lpf (0-5); Mucus Urine Present (None Prsent)
[2019-05-22 23:46] LABS: RBC Urine Automated 0-4 /hpf (0-4)
[2019-05-22 23:47] LABS: Calcium Oxalate Crystals Urine Present (None Prsent)
[2019-05-23] MEDS ORDERED: POLYETHYLENE (MIRALAX) 17 GM PACK PO PRN (00:39)
[2019-05-23] MEDS ORDERED: OXYCODONE/ACETAMINOPHEN 5mg/325mg TAB PO STA (00:50)
[2019-05-23] MEDS: ACETAMINOPHEN 65 ML IV SCH ×2 (02:27→09:49)
[2019-05-23] MEDS ORDERED: ROPIVACAINE 0.5% HCL/PF 150 MG, BUPIVACAINE 0.5% MPF 30 ML, EPINEPHrine 0.15 MG, Ketoro... INFIL SCH (06:00)
[2019-05-23 07:16] LABS: Basophils # (auto) 0.01 K/uL (0-0.2); Basophils % (auto) 0.1 %; Eosinophils # (auto) 0.02 K/uL (0-0.5); Eosinophils % (auto) 0.1 %; Hematocrit (blood only) 36.3 % (42-52); Immature Granulocytes # (auto) 0.08 K/uL (0.00-0.02); Immature Granulocytes % (auto) 0.5 %; Lymphocytes # (auto) 1.14 K/uL (1.2-3.4); Lymphocytes % (auto) 7.4 %; Mean Corpuscular Hgb Conc 33.1 g/dL (32-36); Mean Corpuscular Volume 91.7 fL (80-100); Mean Platelet Volume 8.9 fL (7.4-10.4); Monocytes # (auto) 1.29 K/uL (0.11-0.59); Monocytes % (auto) 8.3 %; Neutrophils # (auto) 12.96 K/uL (1.4-6.5); Neutrophils % (auto) 83.6 %; Platelet Count 320 K/uL (130-400); RDW Coefficient of Variation 15.7 % (11.5-14.5); RDW Standard Deviation 52.7 fL (36.4-46.3); Red Blood Count 3.96 M/uL (4.7-6.1)
[2019-05-23 07:43] LABS: BUN Creatinine Ratio 20.7 (10-20); Calcium 8.5 mg/dl (8.5-10.1); Creatinine Clr Calc Pharmacy 54.4 ml/min; Est GFR (African American) 73.1; Est GFR (Non-African American) 63.1; Potassium 4.4 mmol/L (3.5-5.1)
[2019-05-23] MEDS: MEMANTINE HCL 10 MG TAB PO SCH ×2 (08:31→22:04)
[2019-05-23] MEDS: FUROSEMIDE 40 MG TAB PO SCH (08:31)
[2019-05-23] MEDS: POTASSIUM CHLORIDE 20 MEQ TABCR PO SCH ×2 (08:31→23:07)
[2019-05-23] MEDS: AMLODIPINE BESYLATE 5 MG TAB PO SCH ×2 (08:31→23:11)
[2019-05-23] MEDS: ESCITALOPRAM OXALATE 20 MG TAB PO SCH (08:31)
[2019-05-23] MEDS ORDERED: DOCUSATE SODIUM 100 MG CAP PO SCH (09:00)
[2019-05-23] MEDS ORDERED: TELMISARTAN 40 MG TAB PO SCH (09:00)
[2019-05-23] MEDS ORDERED: PANTOprazole 40 MG TAB PO SCH (09:00)
--- NOTE | 2019-05-23 09:08 | Orthopedic Consultation ---
Date of Consultation May 23, 2019 Assessment & Plan (1) Closed hip fracture: Spoke with his Chelo, his power of real estate associate attorney this morning. Explained the diagnosis, and that, without surgery, he will not be able to walk again. Reviewed the significant risks of surgery, including inability to wean from the ventilator after surgery. Alternative of non-operative treatment was discussed. Patient, his and family elect to proceed with surgery. Informed consent form signed by his . Plan to proceed to operating room as soon as a room becomes available. Readmit to floor after surgery. (2) Memory impairment: (3) CHF (congestive heart failure): (4) Acute and chronic respiratory failure with hypercapnia: (5) Dementia: History of Present Illness Attending Physician: Gilmer Bella MD History of Present Illness Patient is an 78 yo M PMH HTN, depression, diastolic CHF, dementia, ambulatory dysfunction with frequent falls and subsequent compression fractures who presents with L hip fracture. Patient lives at [facility] and is a poor historian. According to conversation with ED provider and at bedside, patient had been doing well at [facility] but today got up and walked outside to "catch the van to take him home," fell (?mechanical), and complained of L hip pain and was unable to get up on his own. He was sent to the ER for evaluation where it was found that he had a displaced subcapital L hip fracture. No metabolic causes for fall noted on labwork. In speaking with his Chelo this morning, patient has had 3 falls so far in 2019. However, when she visits him twice a day, they always get up and go for a walk together. Usually he uses his walker, but sometimes he even goes without the walker or a cane. He has a DNR/DNR and his is his power of real estate associate attorney. Allergies Allergy/AdvReac Type Severity Reaction Status Date / Time cefaclor Allergy Unknown . Verified 05/22/19 23:05 cyclobenzaprine Allergy Unknown UNKNOWN Verified 05/22/19 23:05 nebivolol Allergy Unknown BRADYCARDIA Verified 05/22/19 23:05 Penicillins Allergy Unknown . Verified 05/22/19 23:05 Sulfa (Sulfonamide Allergy Unknown . Verified 05/22/19 23:05 Antibiotics) BENGAY AdvReac Unknown ARTHRITIS Uncoded 05/22/19 23:05 Home Medications Home Medications Medication Instructions Recorded Confirmed Type amlodipine 5 mg tablet 5 mg PO BID #30 tab 05/05/19 05/22/19 Rx calcium carbonate 600 mg calcium 600 mg PO DAILY #30 tab 05/05/19 05/22/19 Rx (1,500 mg) tablet cholecalciferol (vitamin D3) 1,000 2,000 unit PO DAILY #30 cap 05/05/19 05/22/19 Rx unit capsule docusate sodium 100 mg capsule 100 mg PO DAILY #30 cap 05/05/19 05/22/19 Rx escitalopram 20 mg tablet 20 mg PO DAILY #30 tab 05/05/19 05/22/19 Rx furosemide 40 mg tablet 40 mg PO DAILY #30 tab 05/05/19 05/22/19 Rx memantine 10 mg tablet 10 mg PO BID #60 tab 05/05/19 05/22/19 Rx naproxen sodium 220 mg tablet 220 mg PO BID PRN #60 tab 05/05/19 05/22/19 Rx pantoprazole 40 mg tablet,delayed 40 mg PO DAILY #30 tab 05/05/19 05/22/19 Rx release polyethylene glycol 3350 17 17 gm PO DAILY PRN #119 gm 05/05/19 05/22/19 Rx gram/dose oral powder potassium chloride ER 20 mEq 20 meq PO BID #120 tab 05/05/19 05/22/19 Rx tablet,extended release(part/cryst) telmisartan 40 mg tablet 40 mg PO DAILY #30 tab 05/05/19 05/22/19 Rx food supplement, lactose-reduced 1 ea PO BID #5688 ml 05/13/19 05/22/19 Rx oral liquid Patient History Medical History Multiple thyroid nodules (Acute) Memory impairment (Acute) Lumbar compression fracture (Acute) Diverticulosis (Acute) Chronic reflux esophagitis (Acute) Osteoporosis (Acute) Essential hypertension (Acute) CHF (congestive heart failure) (Acute) Goals of care, counseling/discussion Acute and chronic respiratory failure with hypercapnia Chronic hypercapnic respiratory failure Lower extremity edema (Chronic) Compression fracture Liver hemangioma Dementia (Chronic) Acute encephalopathy Hyponatremia Acute on chronic diastolic heart failure Acute respiratory failure with hypoxia Open wound of right heel Gait abnormality Acute hyponatremia (Acute) Fall against object (Acute) CHI (closed head injury) (Acute) Skin tear of forearm without complication (Acute) Skin tear of left upper arm without complication (Acute) Chronic diastolic heart failure Hypokalemia DVT prophylaxis Bilateral lower extremity edema Dementia Osteomyelitis of ankle or foot, right, acute Osteomyelitis (Acute) Depression Hearing loss (Chronic) Osteopenia (Chronic) Colon polyps (Resolved) T12 compression fracture (Resolved) Reflux (Chronic) Bradycardia (Resolved) Compression fx, lumbar spine Confusion Fall (Resolved) Gait abnormality (Acute) Hypertension (Chronic) Rib contusion (Resolved) Surgical History Previous back surgery H/O colonoscopy (Resolved) Family History Other No pertinent family history in first degree relatives Social History Preferred Language: Amharic Communication Ability: Impaired Drug Safety Assistant Required: No Beliefs That Will Affect Care: Voodoo Voodoo Beliefs: box is checked "yes" on admission form for restoration beliefs but nothing is specified marital status: Current Living Situation: Personal Care Facility Current Living Situation Comment: assisted living Other Information That Helps Us Care for You: No Feels Safe at Home: Yes Safety Concerns: Feels Safe At This Time Smoking Status: Never smoker Hx Alcohol Use: No Hx Substance Use: No Review of Systems Review of Systems: Unobtainable due to cognitive status Physical Exam Physical Exam: In general, he is surprisingly comfortable in bed, complaining mostly of pain in his left ribs. Good eye contact. Attempts to answer all questions, but is slightly confused, saying the last time he fell was in 2005. Musculoskeletal: no cyanosis or clubbing, extremities motor strength 5/5 Head/Neck/Chest: normocephalic and head atraumatic L leg shortened, externally rotated. No skin lesions. Wiggles toes. Fires EHL, FHL, tibant gastrocsoleus. Palpable DP, PT pulses. SILT dorsal and plantar aspect of the L foot. Results & Data Vital Signs (Past 12 Hours) Vital Signs Temp Pulse Pulse Resp BP BP Pulse Ox 05/23/19 07:03 36.6 C 71 16 104/70 94 05/23/19 00:20 36.4 C L 73 18 101/62 92 05/22/19 23:30 74 23 117/70 94 05/22/19 23:01 70 23 105/65 92 05/22/19 22:41 75 20 96/59 L 92 05/22/19 22:33 76 20 85/53 L 91 05/22/19 22:00 84 L 05/22/19 21:55 36.7 C 90 20 99/59 L 85 L Diagnostic Findings XR hip LT min 2V CLINICAL HISTORY: Left hip pain status post trauma COMPARISON: None. DISCUSSION: There is a displaced subcapital left hip fracture. IMPRESSION: Displaced subcapital left hip fracture Electronically signed by: James Alaniz M.D. 05/22/2019 10:30 PM XR chest 1V portable CLINICAL HISTORY: Trauma. Hip fracture. Preoperative chest. COMPARISON STUDY: 03/03/2019 FINDINGS: The heart remains mildly enlarged. There is stable superior mediastinal widening. There is improving mild pulmonary vascular congestion. There is no lobar consolidation. There are no significant pleural effusions.[ IMPRESSION: 1. Cardiomegaly and improving mild pulmonary vascular congestion 2. No evidence of focal pulmonary consolidation 3. Stable superior mediastinal fullness Electronically signed by: James Alaniz M.D. 05/22/2019 10:31 PM (1) Closed hip fracture Encounter type: initial encounter Laterality: left Qualified Code(s): S72.002A - Fracture of unspecified part of neck of left femur, initial encounter for closed fracture
[2019-05-23] MEDS ORDERED: BUPIVACAINE 0.5 % 5 MG/1 ML PF 10ML VIAL ONE (12:36)
--- NOTE | 2019-05-23 13:17 | Anesthesiology Consultation ---
Date of Service May 23, 2019 Assessment & Plan (1) Encounter for pre-operative examination: Chart Review Chart Review: Acceptable Risk for Surgery and Patient NOT seen in Pre Admission Testing Patient is typed and screened. Spoke with his who stated patient does not have any valvular heart disease to her knowledge and is not on any blood thinning medications. She also said the patient is DNR/DNI and would NOT want to resuscitate the patient in the event he undergoes a cardiac arrest before, during or after the procedure. Consults Requested none History Surgery Operation Date: 05/23/19 15:00 Proposed Procedures p Bipolar Hip Prosthesis(Left) - Jr Simpson MD Height/Weight Height: 5 ft 6 in Weight: 83.9 kg Allergies Allergy/AdvReac Type Severity Reaction Status Date / Time cefaclor Allergy Unknown . Verified 05/22/19 23:05 cyclobenzaprine Allergy Unknown UNKNOWN Verified 05/22/19 23:05 nebivolol Allergy Unknown BRADYCARDIA Verified 05/22/19 23:05 Penicillins Allergy Unknown . Verified 05/22/19 23:05 Sulfa (Sulfonamide Allergy Unknown . Verified 05/22/19 23:05 Antibiotics) BENGAY AdvReac Unknown ARTHRITIS Uncoded 05/22/19 23:05 Medications Home Medications Medication Instructions Recorded Confirmed Last Taken amlodipine 5 mg tablet 5 mg PO BID #30 tab 05/05/19 05/22/19 Unknown calcium carbonate 600 mg calcium 600 mg PO DAILY #30 tab 05/05/19 05/22/19 Unknown (1,500 mg) tablet cholecalciferol (vitamin D3) 1,000 2,000 unit PO DAILY #30 cap 05/05/19 05/22/19 Unknown unit capsule docusate sodium 100 mg capsule 100 mg PO DAILY #30 cap 05/05/19 05/22/19 Unknown escitalopram 20 mg tablet 20 mg PO DAILY #30 tab 05/05/19 05/22/19 Unknown furosemide 40 mg tablet 40 mg PO DAILY #30 tab 05/05/19 05/22/19 Unknown memantine 10 mg tablet 10 mg PO BID #60 tab 05/05/19 05/22/19 Unknown naproxen sodium 220 mg tablet 220 mg PO BID PRN #60 tab 05/05/19 05/22/19 Unknown pantoprazole 40 mg tablet,delayed 40 mg PO DAILY #30 tab 05/05/19 05/22/19 Unkn own release polyethylene glycol 3350 17 17 gm PO DAILY PRN #119 gm 05/05/19 05/22/19 Unknown gram/dose oral powder potassium chloride ER 20 mEq 20 meq PO BID #120 tab 05/05/19 05/22/19 Unknown tablet,extended release(part/cryst) telmisartan 40 mg tablet 40 mg PO DAILY #30 tab 05/05/19 05/22/19 Unknown food supplement, lactose-reduced 1 ea PO BID #5688 ml 05/13/19 05/22/19 Unknown oral liquid Active Medications Generic Name Dose Route Start Last Admin Trade Name Freq PRN Reason Stop Dose Admin Amlodipine Besylate 5 mg 05/23/19 09:00 05/23/19 08:31 Norvasc PO 06/22/19 08:59 5 mg BID JASWANT Administration Escitalopram Oxalate 20 mg 05/23/19 09:00 05/23/19 08:31 Lexapro PO 06/22/19 08:59 20 mg DAILY JASWANT Administration Furosemide 40 mg 05/23/19 09:00 05/23/19 08:31 Lasix PO 06/22/19 08:59 40 mg DAILY JASWANT Administration Acetaminophen 65 mls @ 200 mls/hr 05/23/19 02:00 05/23/19 10:15 Ofirmev IV 06/22/19 01:59 Infused Q8H JASWANT Infusion Memantine 10 mg 05/23/19 09:00 05/23/19 08:31 Namenda PO 06/22/19 08:59 10 mg BID JASWANT Administration Morphine Sulfate 2 mg 05/22/19 21:45 05/22/19 22:02 Morphine Sulfate IV 06/05/19 21:44 2 mg Q1H PRN Administration Moderate Pain (Rating 3,4,5,6) Potassium Chloride 20 meq 05/23/19 09:00 05/23/19 08:31 Klor-Con M20 PO 06/22/19 08:59 20 meq BID JASWANT Administration Past Medical History Medical History Multiple thyroid nodules (Acute) Memory impairment (Acute) Lumbar compression fracture (Acute) Diverticulosis (Acute) Chronic reflux esophagitis (Acute) Osteoporosis (Acute) Essential hypertension (Acute) CHF (congestive heart failure) (Acute) Goals of care, counseling/discussion Acute and chronic respiratory failure with hypercapnia Chronic hypercapnic respiratory failure Lower extremity edema (Chronic) Compression fracture Liver hemangioma Dementia (Chronic) Acute encephalopathy Hyponatremia Acute on chronic diastolic heart failure Acute respiratory failure with hypoxia Open wound of right heel Gait abnormality Acute hyponatremia (Acute) Fall against object (Acute) CHI (closed head injury) (Acute) Skin tear of forearm without complication (Acute) Skin tear of left upper arm without complication (Acute) Chronic diastolic heart failure Hypokalemia DVT prophylaxis Bilateral lower extremity edema Dementia Osteomyelitis of ankle or foot, right, acute Osteomyelitis (Acute) Depression Hearing loss (Chronic) Osteopenia (Chronic) Colon polyps (Resolved) T12 compression fracture (Resolved) Reflux (Chronic) Bradycardia (Resolved) Compression fx, lumbar spine Confusion Fall (Resolved) Gait abnormality (Acute) Hypertension (Chronic) Rib contusion (Resolved) Exercise / Class Metabolic Activity IV < 2 Limit ADL/Bedbound Past Family History Family History Other No pertinent family history in first degree relatives Past Surgical History Surgical History Previous back surgery H/O colonoscopy (Resolved) Past Anesthesia History No Hx of Anesthesia Complications and No Family Hx of Anesthesia Complications History of PONV No Hx of PONV and No Hx of Motion Sickness Social History Smoking Status: Never smoker Hx Alcohol Use: No Hx Substance Use: No substance use type: does not use Physical Exam Vital Signs Last Vital Signs Temp 36.6 C 05/23/19 07:03 Pulse 71 05/23/19 07:03 Resp 16 05/23/19 07:03 BP 104/70 05/23/19 07:03 Pulse Ox 94 05/23/19 07:03 Testing Laboratory Results 05/23/19 07:07 05/23/19 07:07 PT 10.7 Seconds (9.0-12.0) 05/22/19 21:55 INR 1.0 (0.9-1.1) 05/22/19 21:55 APTT 23.4 Seconds (21.0-31.0) 05/22/19 21:55 Urine Color Dark Yellow 05/22/19 23:05 Urine Appearance Cloudy (Clear) A 05/22/19 23:05 Urine pH 6.0 (4.5-7.5) 05/22/19 23:05 Ur Specific [place] 1.020 (1.000-1.030) 05/22/19 23:05 Urine Protein 1+ (Negative) H 05/22/19 23:05 Urine Glucose (UA) Negative (Negative) 05/22/19 23:05 Urine Ketones Trace (Negative) H 05/22/19 23:05 Urine Nitrite Negative (Negative) 05/22/19 23:05 Ur Leukocyte Esterase Trace (Negative) H 05/22/19 23:05 Urine WBC (Auto) 1-5 /hpf (0-5) 05/22/19 23:05 Urine RBC (Auto) 0-4 /hpf (0-4) 05/22/19 23:05 U Hyaline Cast (Auto) >30 /lpf (0-5) H 05/22/19 23:05 U Epithel Cells (Auto) >30 /lpf (0-5) H 05/22/19 23:05 Urine Bacteria (Auto) Negative (Negative) 05/22/19 23:05 Blood Type A Positive 05/22/19 22:30 Antibody Screen NEGATIVE 05/22/19 22:30 Electrocardiogram Date: 05/22/19 Findings: + NSR @ (84) Normal sinus rhythm Left anterior fascicular block Abnormal ECG When compared with ECG of 28-FEB-2019 01:33, No significant change was found
[2019-05-23] MEDS ORDERED: fentaNYL citrate 100 MCG/2 ML VIAL ONE (13:30)
[2019-05-23] MEDS ORDERED: ePHEDrine sulfate 50 MG/ML AMP ONE (13:30)
[2019-05-23] MEDS ORDERED: LIDOCAINE HCL 2% 2 ML VIAL/AMP(20MG/ML) INFIL ONE (13:30)
[2019-05-23] MEDS ORDERED: PHENYLEPHRINE HCL 10 MG/ML VIAL ONE (13:30)
[2019-05-23] MEDS ORDERED: PROPOFOL IV EMULSION 10 MG/ML 20 ML VIAL IV ONE (13:31)
[2019-05-23] MEDS ORDERED: SODIUM CHLORIDE 0.9% INJ 10 ML VIAL ONE (13:31)
[2019-05-23] MEDS ORDERED: BUPIVACAINE 0.5 % 5 MG/1 ML MPF 30ML VIAL ONE (13:41)
[2019-05-23] MEDS ORDERED: THROMBIN FOR SOLN 20000 UNIT KIT ONE (13:41)
[2019-05-23] MEDS ORDERED: BACITRACIN INJ 50,000 UNIT VIAL ONE (13:41)
[2019-05-23] MEDS ORDERED: ePHEDrine sulfate 50 MG/ML AMP IV PRN (13:49)
[2019-05-23] MEDS ORDERED: ATROPINE SULFATE 0.1 MG/ML 10ML SYR IV PRN (13:49)
[2019-05-23] MEDS ORDERED: fentaNYL citrate 100 MCG/2 ML VIAL IV PRN (13:49)
[2019-05-23] MEDS ORDERED: ONDANSETRON INJ 2 MG/ML 2 ML VIAL IV PRN ×2 (13:49→16:25)
[2019-05-23] MEDS ORDERED: CEFAZOLIN 2000MG 2,000 MG/15 ML SYR IV SCH (14:00)
[2019-05-23] MEDS ORDERED: CEFAZOLIN 250 MG/ML 1 GM VIAL ONE (14:00)
[2019-05-23] MEDS ORDERED: TRANEXAMIC ACID 1,000 MG **IV Pre-op IV ONE (14:45)
--- NOTE | 2019-05-23 16:03 | Post Operative Brief Note ---
Immediate Post Op Note v1 Date of Surgery May 23, 2019 Pre & Post Diagnosis Operation Date: 05/23/19 15:00 Pre-Op Diagnosis: Displaced subcapital left hip fracture Post-Op Diagnosis: Displaced subcapital left hip fracture Procedure Operation Date: 05/23/19 15:00 Actual Procedures p Bipolar Hip Prosthesis(Left) - Jr Simpson MD Surgeon Jr Simpson MD Hoop Expander GEORGES Zhang PA-C Estimated Blood Loss 100 Findings Consistent with Post-Op Diagnosis Fluids 600 Drains Andrea Catheter (Andrea intact and patent of clear yellow urine on arrival to OR) Anesthesia Type Spinal MAC Complications none Disposition Accompanied Patient To Recovery: No Disposition: Recovery Room
--- NOTE | 2019-05-23 16:24 | Operative Report ---
Post Operative Report Pre & Post Diagnosis Operation Date: 05/23/19 15:00 Pre-Op Diagnosis: Displaced subcapital left hip fracture Post-Op Diagnosis: Displaced subcapital left hip fracture Procedure Operation Date: 05/23/19 15:00 Actual Procedures p Bipolar Hip Prosthesis(Left) - Jr Simpson MD Surgeon Jr Simpson MD Methods Engineer GEORGES Zhang PA-C Estimated Blood Loss 100 Findings Consistent with Post-Op Diagnosis Specimens femoral head Complications none Disposition Accompanied Patient To Recovery: Yes Disposition: Surgical ICU Description of Procedure I was present during the entire case assisting with wound closure and dressing application. Please see Dr. Simpson procedure note for specifics of the case. I attest to the content of the Intraoperative Record and any orders documented therein. Any exceptions are noted below.
[2019-05-23] MEDS ORDERED: DiphenhydrAMINE HCL 50 MG/ML VIAL IV PRN (16:25)
[2019-05-23] MEDS ORDERED: BISACODYL 10 MG SUPP PR PRN (16:25)
[2019-05-23] MEDS ORDERED: ALUMINUM/MAGNESIUM SUSP 30 ML UDC PO PRN (16:25)
[2019-05-23] MEDS ORDERED: NALOXONE HCL 0.4 MG/1 ML VIAL/CARP IV PRN (16:25)
[2019-05-23] MEDS ORDERED: TAMSULOSIN HCL 0.4 MG CAP PO PRN (16:25)
[2019-05-23] MEDS ORDERED: MAGNESIUM HYDROXIDE SUSP 30 ML UDC PO PRN (16:25)
[2019-05-23] MEDS ORDERED: METOCLOPRAMIDE HCL INJ 5 MG/ML 2 ML VIAL IV PRN (16:25)
[2019-05-23] MEDS ORDERED: ALBUMIN HUMAN 5% 12.5 GM/250 ML VIAL IV ONE (16:30)
--- NOTE | 2019-05-23 17:18 | Operative Report ---
DATE OF OPERATION: 05/23/2019 PREOPERATIVE DIAGNOSIS: Displaced left subcapital femoral neck fracture. POSTOPERATIVE DIAGNOSIS: Displaced left subcapital femoral neck fracture. OPERATION PERFORMED: Left hip cemented hemiarthroplasty. SURGEON: Jr Simpson MD. AUDIT REVIEWER: Felipe Zhang. ESTIMATED BLOOD LOSS: 100 mL. INTRAVENOUS FLUIDS: 600 mL of crystalloid. SPECIMENS: Femoral head. COMPLICATIONS: None. IMPLANTS: 1. DePuy size 5 standard offset femoral stem cemented. 2. Stem centralizer 12 mm. 3. Bipolar head 28 mm +5 offset. 4. Self centering ipolar head 52 mm outer diameter and 28 mm inner diameter liner. INDICATIONS: Mr. Ross is an 78-year-old gentleman who fell last night at home sustaining a displaced left femoral neck fracture. He was unable to ambulate and had to be brought to the hospital by ambulance. He was evaluated in the Emergency Room. He did not sustain any other injuries. He does have a medical history significant for dementia and a history of falls. I had a long discussion with the patient's about the risks, benefits of surgery, and alternatives to surgery and expected outcomes. She is his power of attorney lawyer. After reviewing all these and discussing with her family, they elected to proceed. All questions were answered. Informed consent was signed. OPERATIVE FINDINGS: A cemented bipolar hemiarthroplasty was performed through a posterior approach. DESCRIPTION OF THE OPERATION: The patient was identified in the preoperative holding area where the surgical site was marked. He was brought back to the main operating room where he was turned to lateral decubitus on the hospital bed and a spinal anesthetic was placed. He was then moved carefully on to the operating room table in the lateral decubitus position. All bony prominences were padded. Perioperative antibiotics were administered as well as tranexamic acid. He was prepped and draped in normal sterile fashion. Prior to incision, a multidisciplinary timeout was called. All in the room were in agreement. We began by making a 10 cm long incision for a posterior approach to the hip, starting at the greater trochanter and extending proximally in line with the fibers of gluteus jose elias. We dissected down through the subcutaneous tissue to the level of the fascia. The fascia was incised in line with the incision. Charnley bow was placed. Trochanteric bursa was excised. The piriformis and short external rotators were dissected off the posterior aspect of the hip capsule. An L-shaped capsulotomy was made. The femoral neck was then exposed at the site of the fracture. We used the angle guide and templated for our femoral neck cut 10 mm above the lesser trochanter. The saw cut was then made. We were then able to extract the femoral head from the acetabulum. This was sized on the back table and was between a 51 and a 52. The ligamentum teres was excised. We took great care to protect the remaining labrum, which was intact. We then placed the 51 trial, which was just a touch loose. Therefore, we tried the 52 trial and this had excellent suction seal in the acetabulum. Next, the Ludei cutter was used to remove the lateral neck. The lateralizing reamer was used followed by the bromalorie. We broached him all the way up to a size 5, which had excellent torsional stability. We then trialled with a +5 and the +8.5 offset femoral head. Leg lengths were little bit better with the +8.5. We then irrigated and dried the canal. The cement restrictor was placed templating off of the prosthesis. We then mixed our cement and injected it into the femoral canal holding pressure. The prosthesis was then placed. We waited until the cement was completely dry. This took 14 minutes. Once the cement was dry, we evaluated the collar of the prosthesis which sat a little bit higher than that broach. Therefore, we re-trialed him with a +5 head. He now had symmetric leg lengths and appropriate offset. I was very happy with this exam. Therefore, we opened up the +5 offset bipolar. The trunnion was cleaned and dried and a final prosthesis was tapped on to the trunnion ensuring that the trunnion had engaged. The hip was then atraumatically reduced. Betadine was used to irrigate out the wound. The periarticular injection cocktail was placed for postoperative pain control. Betadine was then removed and irrigated out. The piriformis and short external rotators along with the capsules were repaired through bone tunnels in the posterior aspect of the greater trochanter. The fascia was run with a looped PDS. The subcutaneous layer was closed with a 0 PDS. The deep dermis was closed with a running 2-0 Vicryl. Subcuticular running 3-0 Monocryl was used for the skin. A Silverlon dressing was placed over the top of this. He was then rolled supine, placed in abduction pillow and transferred to the recovery room in stable condition. POSTOPERATIVE COURSE: The patient will be readmitted to the floor under the internal medicine primary service. Orthopedics will follow him while he is in the hospital. He will be weightbearing as tolerated with posterior hip precautions. He will use the abduction pillow for the next 6 weeks. He will need to follow up in my clinic in 2 weeks after surgery to see Felipe Zhang. X-rays will be obtained in the recovery room. I attest to the content of the Intraoperative Record and any orders documented therein. Any exceptions are noted below. CHRIS
--- NOTE | 2019-05-23 17:40 | Family Medicine Progress Note ---
Date of Service May 23, 2019 Assessment & Plan (1) Closed hip fracture: Patient is an 78 yo male with a past medical history of hypertension, depression, diastolic CHF, dementia, ambulatory dysfunction with frequent falls and subsequent compression fractures who presents with L hip fracture. Patient was walking outside [facility] when he experienced a mechanical fall. Hip Fracture Day 0 s/p Total left Hip Arthroplasty - Hip XR: Displaced subcapital left hip fracture - NPO - Ortho consulted --> Taken to OR this afternoon for total left hip arthroplasty - Pain: IV Tylenol for moderate pain, IV Morphine for severe pain - Consult Case Management regarding placement --> Currently lives at [facility] Dementia - Continue memantine - Monitor post surgical delirium - During previous admission was seen by Palliative Care service (did not qualify for Hospice) Chronic respiratory failure - During previous admission required BiPAP due to CO2 retention and acute on chronic hypoxic resp failure - Respiratory issues most likely 2/2 non-compliance with home BiPAP due to dementia - BiPAP ordered - Currently on 4L NC - [facility] CHF - Last Echo 08/2018 - EF 55-60% - Continue Lasix 40mg PO Daily - Monitor fluid status s/p surgery based on total amount of fluids and I/Os overnight HTN - Continue home amlodipine, Holding telmisartan HLD - Start Atorvastatin 40mg PO Daily during Po-operative period Depression - Continue Lexapro 20mg PO daily Liver hemangioma - Unchanged from 2005, no further intervention DISPO: Med/surg admit DVT Px: Holding Post-op CODE: DNR/DNI (2) Memory impairment: (3) Lumbar compression fracture: (4) Chronic reflux esophagitis: (5) Essential hypertension: (6) CHF (congestive heart failure): (7) Goals of care, counseling/discussion: (8) Chronic hypercapnic respiratory failure: (9) Lower extremity edema: (10) Dementia: (11) Gait abnormality: Supervising Physician Co-Signing Physician Notes I saw the patient with the resident physician and confirmed reardon portion of the history and physical exam. At the time of examination, the patient's and daughter are both at bedside. The patient's family has spoken to orthopedics and the decision has been made to proceed with operative repair of the displaced subcapital left hip fracture. The patient has a history of congestive heart failure the last echocardiogram August 2008 showed a left ventricular ejection fraction of 55 to 60%. He has been maintained on Lasix 40 mg daily and on examination today he looks to be euvolemic. In discussing with the family, it sounds as if his mental status is at baseline given his history of dementia. Hip fracture, left, acute Surgical repair this afternoon Judicious use of fluid entered postoperatively We will carefully assess his volume status in the postoperative period Will start statin in the postoperative period Hypertension We will hold his ARB Continue Norvasc Subjective Patient is a pleasantly demented 78 year old male that presents with a Left sided hip fracture. The patient is resting comfortably in bed this morning and is complaining of mild left hip pain in no acute distress. Patient plans to be taken to the OR today for surgical correction. Review of Systems Review of Systems: All systems reviewed & are unremarkable except as noted in HPI & below Physical Exam Constitutional: well developed, well nourished and + acute distress Eyes: + anicteric sclerae ENMT: external ear and nose normal, oropharynx normal Neck: normal visual inspection Respiratory: normal respiratory effort, lungs clear to auscultation Cardiovascular: RRR, no murmur, no edema Gastrointestinal (Abdomen): normal bowel sounds, soft, nontender, no hepatosplenomegaly Musculoskeletal: Head/Neck/Chest: normocephalic and head atraumatic Hip: + deformity and + limited ROM of hip; no effusion and no ecchymosis Left Hip: Left leg shortened and in external rotation. No visible ecchymosis or swelling over the left hip. No significant edema over the left lower extremity. Skin: no rashes, warm and dry no erythema Psychiatric: Orientation: alert Apperance: appropriately dressed Eye Contact: good eye contact Speech: normal rate/rhythm/volume of speech Results & Data Vital Signs (Past 12 Hours) Vital Signs Temp Pulse Pulse Resp BP Pulse Ox 05/23/19 17:15 84 12 95/56 L 94 05/23/19 17:05 87 16 101/59 L 94 05/23/19 16:55 83 20 97/58 L 94 05/23/19 16:45 84 16 82/59 L 95 05/23/19 16:35 85 16 85/57 L 94 05/23/19 16:22 36.6 C 85 20 157/25 H 93 05/23/19 07:03 36.6 C 71 16 104/70 94 PG Care Time/CCT Total # of Minutes Spent Total Time Spent with Patient: Total time spent is greater than 50% in coordination of care (as documented) at patient's floor/unit and/or counseling patient: Resident Activity Tracking Resident Involvement: Resident Care Provided Care Provided: Adult [facility] Medicine (1) Closed hip fracture Encounter type: initial encounter Laterality: left Qualified Code(s): S72.002A - Fracture of unspecified part of neck of left femur, initial encounter for closed fracture
--- NOTE | 2019-05-23 17:50 | XRay Report ---
XR hip LT 2-3V w pelvis CLINICAL HISTORY: Postoperative evaluation. COMPARISON: Left hip radiograph May 22, 2019. FINDINGS: Alignment of the total left hip arthroplasty is anatomic. There is no periprosthetic fract ure or unexpected radiopaque foreign body. Hardware is intact. IMPRESSION: Expected findings following total left hip arthroplasty. Electronically signed by: Clive Simms M.D. 05/23/2019 5:48 PM
[2019-05-23] MEDS ORDERED: NON-FORMULARY MEDICATION (Polyethylene Glycol 3350 [Miralax] 17 GM) PO PRN (18:08)
--- NOTE | 2019-05-23 18:10 | Anesthesiology Progress Note ---
Date of Service May 23, 2019 Anesthesia Post Procedure Vital Signs Vital Signs: Temp Pulse Pulse Pulse Resp BP BP 05/23/19 17:55 78 12 122/61 05/23/19 17:45 78 12 115/58 L 05/23/19 17:35 84 16 104/59 L 05/23/19 17:25 36.4 C L 82 12 92/60 L 05/23/19 17:15 84 12 95/56 L 05/23/19 17:05 87 16 101/59 L 05/23/19 16:55 83 20 97/58 L 05/23/19 16:45 84 16 82/59 L 05/23/19 16:35 85 16 85/57 L 05/23/19 16:22 36.6 C 85 20 157/25 H 05/23/19 07:03 36.6 C 71 16 104/70 05/23/19 00:20 36.4 C L 73 18 101/62 05/22/19 23:30 74 23 117/70 05/22/19 23:01 70 23 105/65 05/22/19 22:41 75 20 96/59 L 05/22/19 22:33 76 20 85/53 L 05/22/19 22:00 05/22/19 21:55 36.7 C 90 20 99/59 L Pulse Ox 05/23/19 17:55 94 05/23/19 17:45 93 05/23/19 17:35 92 05/23/19 17:25 94 05/23/19 17:15 94 05/23/19 17:05 94 05/23/19 16:55 94 05/23/19 16:45 95 05/23/19 16:35 94 05/23/19 16:22 93 05/23/19 07:03 94 05/23/19 00:20 92 05/22/19 23:30 94 05/22/19 23:01 92 05/22/19 22:41 92 05/22/19 22:33 91 05/22/19 22:00 84 L 05/22/19 21:55 85 L Pain Intensity Left Hip: Pain Intensity: 8 Transfer of Care Handoff Completed per policy Notes Mental Status: alert / awake / arousable Patient Amnestic to Procedure: Yes Nausea / Vomiting: adequately controlled Pain: adequately controlled Airway Patency, RR, SpO2: stable & adequate BP & HR: stable & adequate Hydration State: stable & adequate Neuraxial Anesthesia: was administered and sensory block is resolving Anesthetic Complications: no major complications apparent and Pt Satisfied with anesthetic care Notes: Patient did not get a great deal of fluids during the procedure given his hx/o CHF. In recovery, mildy hypotensive and was treated with gentle fluid hydration (used 250ml 5% albumin). BP's improved to low 100's (his preop BP). OK for transfer back to floor on NC oxygen (patient on his preoperatively).
[2019-05-23] MEDS: SODIUM CHLORIDE 0.9% 1000ML 1,000 ML IV SCH (18:38)
[2019-05-23] MEDS: CEFAZOLIN 2000MG 2,000 MG/15 ML SYR IV SCH (19:50)
[2019-05-23] MEDS ORDERED: TRANEXAMIC ACID 1,000 MG in 0.9 % SODIUM CHLORIDE 100 ML IV SCH (20:00)
[2019-05-23] MEDS ORDERED: NON-FORMULARY MEDICATION (Food Supplemt, Lactose-Reduced [Ensure] 1 EA) PO SCH (21:00)
[2019-05-23] MEDS: ACETAMINOPHEN 500 MG TAB PO SCH (23:08)
[2019-05-23] MEDS: CeleBREX 200 MG CAP PO SCH (23:11)
[2019-05-23] MEDS: SENNA 8.6 MG TAB PO SCH (23:12)
[2019-05-23] MEDS: DOCUSATE SODIUM 100 MG CAP PO SCH (23:13)
[2019-05-24] MEDS: CEFAZOLIN 2000MG 2,000 MG/15 ML SYR IV SCH (04:42)
[2019-05-24] MEDS: SODIUM CHLORIDE 0.9% 1000ML 1,000 ML IV SCH ×2 (04:42→13:21)
[2019-05-24] MEDS: ACETAMINOPHEN 500 MG TAB PO SCH ×3 (05:52→21:55)
[2019-05-24 06:47] LABS: Hematocrit (blood only) 31.9 % (42-52); Hemoglobin 10.3 g/dL (14.0-18.0); Immature Granulocytes # (auto) 0.04 K/uL (0.00-0.02); Immature Granulocytes % (auto) 0.3 %; Lymphocytes # (auto) 0.75 K/uL (1.2-3.4); Lymphocytes % (auto) 4.7 %; Mean Corpuscular Hgb Conc 32.3 g/dL (32-36); Mean Corpuscular Volume 94.7 fL (80-100); Mean Platelet Volume 9.3 fL (7.4-10.4); Monocytes % (auto) 7.6 %; Neutrophils % (auto) 87.4 %; Platelet Count 257 K/uL (130-400); RDW Coefficient of Variation 16.1 % (11.5-14.5); Red Blood Count 3.37 M/uL (4.7-6.1); White Blood Count 15.89 K/uL (4.8-10.8)
[2019-05-24 07:15] LABS: BUN Creatinine Ratio 23.3 (10-20); Calcium 8.2 mg/dl (8.5-10.1); Creatinine Clr Calc Pharmacy 61.1 ml/min; Est GFR (African American) 84.1; Est GFR (Non-African American) 72.5; Potassium 4.4 mmol/L (3.5-5.1)
[2019-05-24] MEDS ORDERED: dexAMETHasone 4 MG TAB PO SCH (08:00)
[2019-05-24] MEDS: AMLODIPINE BESYLATE 5 MG TAB PO SCH ×2 (08:56→21:56)
[2019-05-24] MEDS: MULTIVITAMIN TAB PO SCH (08:56)
[2019-05-24] MEDS: FUROSEMIDE 40 MG TAB PO SCH (08:56)
[2019-05-24] MEDS: MEMANTINE HCL 10 MG TAB PO SCH ×2 (08:56→21:54)
[2019-05-24] MEDS: POTASSIUM CHLORIDE 20 MEQ TABCR PO SCH ×2 (08:56→21:56)
[2019-05-24] MEDS: CeleBREX 200 MG CAP PO SCH ×2 (08:56→21:55)
[2019-05-24] MEDS: ESCITALOPRAM OXALATE 20 MG TAB PO SCH (08:56)
[2019-05-24] MEDS: CHOLECALCIFEROL 1,000 UNITS TAB PO SCH (08:56)
[2019-05-24] MEDS: RIVAROXABAN 10 MG TABLET PO SCH (08:56)
[2019-05-24] MEDS: CALCIUM 600MG + VIT D 400 IU TAB PO SCH (08:57)
[2019-05-24] MEDS: DOCUSATE SODIUM 100 MG CAP PO SCH ×2 (08:57→21:56)
--- NOTE | 2019-05-24 09:42 | Anesthesiology Progress Note ---
Date of Service May 24, 2019 Anesthesia Post Procedure Vital Signs Vital Signs: Temp Pulse Pulse Pulse Resp BP Pulse Ox 05/24/19 07:02 36.4 C L 62 20 114/66 94 05/24/19 05:24 66 18 93 05/24/19 03:02 36.9 C 68 16 116/69 93 05/24/19 01:59 62 18 92 05/23/19 23:46 36.6 C 72 12 99/62 L 93 05/23/19 23:19 80 16 92 05/23/19 21:08 36.3 C L 67 10 L 109/64 96 05/23/19 20:05 36.3 C L 69 12 108/65 96 05/23/19 19:11 36.3 C L 72 20 108/65 97 05/23/19 18:39 36.3 C L 78 16 111/36 L 94 05/23/19 18:09 36.3 C L 81 17 112/65 98 05/23/19 17:55 78 12 122/61 94 05/23/19 17:45 78 12 115/58 L 93 05/23/19 17:35 84 16 104/59 L 92 05/23/19 17:25 36.4 C L 82 12 92/60 L 94 05/23/19 17:15 84 12 95/56 L 94 05/23/19 17:05 87 16 101/59 L 94 05/23/19 16:55 83 20 97/58 L 94 05/23/19 16:45 84 16 82/59 L 95 05/23/19 16:35 85 16 85/57 L 94 05/23/19 16:22 36.6 C 85 20 157/25 H 93 Pain Intensity Left Hip: Pain Intensity: 8 Transfer of Care Handoff Completed per policy Notes Mental Status: alert / awake / arousable Patient Amnestic to Procedure: Yes Nausea / Vomiting: adequately controlled Pain: adequately controlled Airway Patency, RR, SpO2: stable & adequate BP & HR: stable & adequate Hydration State: stable & adequate Neuraxial Anesthesia: was administered and sensory block is resolving Anesthetic Complications: no major complications apparent and Pt Satisfied with anesthetic care
[2019-05-24] MEDS: OXYCODONE HCL IR 5 MG TAB (IMMEDIATE RELEASE) PO PRN (10:02)
--- NOTE | 2019-05-24 12:00 | Family Medicine Progress Note ---
Date of Service May 24, 2019 Assessment & Plan (1) Closed hip fracture: Patient is an 78 yo male with a past medical history of hypertension, depression, diastolic CHF, dementia, ambulatory dysfunction with frequent falls and subsequent compression fractures who presents with L hip fracture. Patient was walking outside [facility] when he experienced a mechanical fall. Left Hip Fracture - Day 1 s/p Total left Hip Arthroplasty - Hip XR: Displaced subcapital left hip fracture --> Post-op imaging shows normal total left hip arthroplasty - Heart Healthy diet - Pain: IV Tylenol for moderate pain, IV Morphine for severe pain - Consult Case Management regarding placement --> Currently lives at [facility] Dementia - Continue memantine - Monitor post surgical delirium - No acute events overnight - During previous admission was seen by Palliative Care service (did not qualify for Hospice) Chronic respiratory failure - Required BiPAP overnight for hypoxia and shallow breathing --> Currently back on 4L NC - During previous admission required BiPAP due to CO2 retention and acute on chronic hypoxic resp failure - Respiratory issues most likely 2/2 non-compliance with home BiPAP due to dementia - [facility] - Last Echo 08/2018 - EF 55-60% - Continue Lasix 40mg PO Daily - Continue to monitor fluid status s/p surgery HTN - Continue home amlodipine, Holding telmisartan HLD - Start Atorvastatin 40mg PO Daily (NEW MEDICATION) Depression - Continue Lexapro 20mg PO daily Liver hemangioma - Unchanged from 2006, no further intervention DISPO: Med/surg admit DVT Px: Holding Post-op CODE: DNR/DNI (2) Memory impairment: (3) Lumbar compression fracture: (4) Chronic reflux esophagitis: (5) Essential hypertension: (6) CHF (congestive heart failure): (7) Goals of care, counseling/discussion: (8) Chronic hypercapnic respiratory failure: (9) Lower extremity edema: (10) Dementia: (11) Gait abnormality: Supervising Physician Co-Signing Physician Notes I saw the patient independently and confirmed reardon portion of the history and physical exam. I discussed the case with the resident physician and agree with the impression and plan as noted. At the time of my examination, the patient's daughter was at bedside. The patient was out of bed to the chair. His pain seems well controlled. He was satting 97% on 4 L via nasal cannula. Denies chest pain or shortness of breath. Hip fracture, left, acute Postop day #1 status post left hip repair He is euvolemic Xarelto for prophylaxis per orthopedics Physical therapy Case management Hypertension Continue Norvasc Monitor blood pressure and restart SHERLY inhibitor when appropriate Dementia Continue Namenda Subjective Patient is resting comfortably in bed this morning in no acute distress. Patient was found to be hypoxic overnight with shallow breathing and had a BiPAP placed. Denies any shortness of breath or cough at this time. Review of Systems Review of Systems: All systems reviewed & are unremarkable except as noted in HPI & below Physical Exam Constitutional: well developed, well nourished and + acute distress Eyes: + anicteric sclerae ENMT: external ear and nose normal, oropharynx normal Respiratory: normal respiratory effort; no respiratory distress, no labored breathing and no cough Auscultation: + wheezes Cardiovascular: RRR, no murmur, no edema Gastrointestinal (Abdomen): normal bowel sounds, soft, nontender, no hepatosplenomegaly Musculoskeletal: Dressing over surgical site C/D/I Skin: no rashes, warm and dry Results & Data Vital Signs (Past 12 Hours) Vital Signs Temp Pulse Pulse Resp BP Pulse Ox 05/24/19 11:48 36.3 C L 68 18 104/60 97 05/24/19 07:02 36.4 C L 62 20 114/66 94 05/24/19 05:24 66 18 93 05/24/19 03:02 36.9 C 68 16 116/69 93 05/24/19 01:59 62 18 92 PG Care Time/CCT Total # of Minutes Spent Total Time Spent with Patient: Total time spent is greater than 50% in coordination of care (as documented) at patient's floor/unit and/or counseling patient: Resident Activity Tracking Resident Involvement: Resident Care Provided Care Provided: Adult Hospital Medicine (1) Closed hip fracture Encounter type: initial encounter Laterality: left Qualified Code(s): S72.002A - Fracture of unspecified part of neck of left femur, initial encounter for closed fracture
--- NOTE | 2019-05-24 14:31 | Orthopedic Progress Note ---
Date of Service May 24, 2019 Assessment & Plan (1) Closed hip fracture: WBAT with walker and posterior hip precautions Xarelto and SCD's for DVT prophylaxis Leave silverlon dressing in place until 2 week follow-up. OK to shower Ok to discharge from an orthopaedic standpoint as soon as placement found Follow-up GEORGES Zhang in 2 weeks (2) Memory impairment: (3) CHF (congestive heart failure): (4) Acute and chronic respiratory failure with hypercapnia: (5) Dementia: Subjective Did well overnight. Was on BiPap for desats. Minimal pain this morning. Walked with PT with 1 assist Physical Exam Physical Exam: Gen: Pleasant, arousable, communicative at baseline mental status per his . L hip: Small amount of dry blood on silverlon - left in place. NVI. Results & Data Vital Signs (Past 12 Hours) Vital Signs Temp Pulse Pulse Resp BP Pulse Ox 05/24/19 11:48 36.3 C L 68 18 104/60 97 05/24/19 07:02 36.4 C L 62 20 114/66 94 05/24/19 05:24 66 18 93 05/24/19 03:02 36.9 C 68 16 116/69 93 (1) Closed hip fracture Encounter type: initial encounter Laterality: left Qualified Code(s): S72.002A - Fracture of unspecified part of neck of left femur, initial encounter for closed fracture
[2019-05-24] MEDS: SENNA 8.6 MG TAB PO SCH (22:24)
[2019-05-25] MEDS: ACETAMINOPHEN 500 MG TAB PO SCH ×3 (05:48→21:41)
[2019-05-25] MEDS: OXYCODONE HCL IR 5 MG TAB (IMMEDIATE RELEASE) PO PRN (07:31)
[2019-05-25] MEDS: ESCITALOPRAM OXALATE 20 MG TAB PO SCH (07:32)
[2019-05-25] MEDS: ATORVASTATIN 40 MG TAB PO SCH (07:32)
[2019-05-25] MEDS: FUROSEMIDE 40 MG TAB PO SCH (07:32)
[2019-05-25] MEDS: POTASSIUM CHLORIDE 20 MEQ TABCR PO SCH ×2 (07:32→20:18)
[2019-05-25] MEDS: CHOLECALCIFEROL 1,000 UNITS TAB PO SCH (07:32)
[2019-05-25] MEDS: CALCIUM 600MG + VIT D 400 IU TAB PO SCH (07:32)
[2019-05-25] MEDS: AMLODIPINE BESYLATE 5 MG TAB PO SCH ×2 (07:33→20:18)
[2019-05-25] MEDS: CeleBREX 200 MG CAP PO SCH ×2 (07:33→20:17)
[2019-05-25] MEDS: RIVAROXABAN 10 MG TABLET PO SCH (07:33)
[2019-05-25] MEDS: DOCUSATE SODIUM 100 MG CAP PO SCH ×2 (07:33→20:18)
[2019-05-25] MEDS: MEMANTINE HCL 10 MG TAB PO SCH ×2 (07:33→20:18)
[2019-05-25] MEDS: MULTIVITAMIN TAB PO SCH (07:33)
--- NOTE | 2019-05-25 07:55 | Anesthesiology Progress Note ---
Date of Service May 25, 2019 Anesthesia Post Procedure Vital Signs Vital Signs: Temp Pulse Pulse Resp BP Pulse Ox 05/25/19 07:22 36.4 C L 05/25/19 07:03 61 16 120/75 95 05/24/19 23:31 36.4 C L 64 20 114/72 96 05/24/19 22:18 64 16 96 05/24/19 15:48 36.4 C L 68 18 113/74 98 05/24/19 11:48 36.3 C L 68 18 104/60 97 Pain Intensity Left Hip: Pain Intensity: 4 Notes Mental Status: alert / awake / arousable and participated in evaluation Patient Amnestic to Procedure: Yes Nausea / Vomiting: adequately controlled Pain: adequately controlled Airway Patency, RR, SpO2: stable & adequate BP & HR: stable & adequate Hydration State: stable & adequate Anesthetic Complications: no major complications apparent and Pt Satisfied with anesthetic care
--- NOTE | 2019-05-25 14:01 | Orthopedic Progress Note ---
Date of Service May 25, 2019 Assessment & Plan (1) Closed hip fracture: WBAT with walker and posterior hip precautions Ice with EZ wrap Pain control with PO meds Xarelto and SCD's for DVT prophylaxis Leave silverlon dressing in place until 2 week follow-up. OK to shower Ok to discharge from an orthopaedic standpoint Case management eval for Placement (SNF and rehab) Follow-up GEORGES Zhang in 2 weeks (2) Memory impairment: (3) CHF (congestive heart failure): (4) Acute and chronic respiratory failure with hypercapnia: (5) Dementia: Subjective Patient is resting comfortably in bed this morning in no acute distress. Patient c/o mild pain in the left hip and over his left ribs in the mid clavicular line. Denies any shortness of breath or cough at this time. He is alert but is pleasantly confused during our visit. Review of Systems Review of Systems: All systems reviewed & are unremarkable except as noted in HPI & below Physical Exam Physical Exam: Left hip: Anisa has mild amt of blood under dressing but not leaking. Mild TTP around dressing. Unable to perform SLRT. Calf soft and supple. NV intact in Left LE. Results & Data Vital Signs (Past 12 Hours) Vital Signs Temp Pulse Resp BP Pulse Ox 05/25/19 07:22 36.4 C L 05/25/19 07:03 61 16 120/75 95 Laboratory Results Lab Results 05/22/19 05/22/19 05/22/19 Range/Units 21:55 21:55 21:55 WBC 11.30 H (4.8-10.8) K/uL RBC 4.41 L (4.7-6.1) M/uL Hgb 13.6 L (14.0-18.0) g/dL Hct 40.2 L (42-52) % MCV 91.2 (80-100) fL MCH 30.8 (25-34) pg MCHC 33.8 (32-36) g/dL RDW Std Deviation 51.4 H (36.4-46.3) fL RDW Coeff of Kyree 15.5 H (11.5-14.5) % Plt Count 413 H (130-400) K/uL MPV 9.3 (7.4-10.4) fL Immature Gran % (Auto) 0.9 % Neut % (Auto) 83.9 % Lymph % (Auto) 7.7 % Thomas % (Auto) 7.3 % Eos % (Auto) 0.1 % Baso % (Auto) 0.1 % Immature Gran # (Auto) 0.10 H (0.00-0.02) K/uL Neut # (Auto) 9.48 H (1.4-6.5) K/uL Lymph # (Auto) 0.87 L (1.2-3.4) K/uL Thomas # (Auto) 0.83 H (0.11-0.59) K/uL Eos # (Auto) 0.01 (0-0.5) K/uL Baso # (Auto) 0.01 (0-0.2) K/uL PT 10.7 (9.0-12.0) Seconds INR 1.0 (0.9-1.1) APTT 23.4 (21.0-31.0) Seconds PTT Ratio 0.9 Sodium 140 (136-145) mmol/L Potassium 3.7 (3.5-5.1) mmol/L Chloride 103 (98-107) mmol/L Carbon Dioxide 31 (21-32) mmol/L Anion Gap 7.0 (3-11) BUN 21 H (7-18) mg/dl Creatinine 1.25 (0.6-1.4) mg/dl Est Cr Clr Drug Dosing 48.7 ml/min Est GFR ( Amer) 62.6 Est GFR (Non-Af Amer) 54.0 BUN/Creatinine Ratio 16.7 (10-20) Glucose 154 H (70-99) mg/dl Calcium 9.0 (8.5-10.1) mg/dl Urine Color Urine Appearance (Clear) Urine pH (4.5-7.5) Ur Specific [place] (1.000-1.030) Urine Protein (Negative) Urine Glucose (UA) (Negative) Urine Ketones (Negative) Urine Blood (Negative) Urine Nitrite (Negative) Urine Bilirubin (Negative) Urine Urobilinogen (Negative) Ur Leukocyte Esterase (Negative) Urine WBC (Auto) (0-5) /hpf Urine RBC (Auto) (0-4) /hpf U Hyaline Cast (Auto) (0-5) /lpf U Epithel Cells (Auto) (0-5) /lpf Urine Bacteria (Auto) (Negative) Ur Renal Epithelial Cell (0-5) /lpf Calcium Oxalate Crystal (None Prsent) Granular Casts (0) /lpf Urine Mucus (None Prsent) Nasal Screen MRSA (PCR) (Negative) Blood Type Antibody Screen 05/22/19 05/22/19 05/23/19 Range/Units 22:30 23:05 02:30 WBC (4.8-10.8) K/uL RBC (4.7-6.1) M/uL Hgb (14.0-18.0) g/dL Hct (42-52) % MCV (80-100) fL MCH (25-34) pg MCHC (32-36) g/dL RDW Std Deviation (36.4-46.3) fL RDW Coeff of Kyree (11.5-14.5) % Plt Count (130-400) K/uL MPV (7.4-10.4) fL Immature Gran % (Auto) % Neut % (Auto) % Lymph % (Auto) % Thomas % (Auto) % Eos % (Auto) % Baso % (Auto) % Immature Gran # (Auto) (0.00-0.02) K/uL Neut # (Auto) (1.4-6.5) K/uL Lymph # (Auto) (1.2-3.4) K/uL Thomas # (Auto) (0.11-0.59) K/uL Eos # (Auto) (0-0.5) K/uL Baso # (Auto) (0-0.2) K/uL PT (9.0-12.0) Seconds INR (0.9-1.1) APTT (21.0-31.0) Seconds PTT Ratio Sodium (136-145) mmol/L Potassium (3.5-5.1) mmol/L Chloride (98-107) mmol/L Carbon Dioxide (21-32) mmol/L Anion Gap (3-11) BUN (7-18) mg/dl Creatinine (0.6-1.4) mg/dl Est Cr Clr Drug Dosing ml/min Est GFR ( Amer) Est GFR (Non-Af Amer) BUN/Creatinine Ratio (10-20) Glucose (70-99) mg/dl Calcium (8.5-10.1) mg/dl Urine Color Dark Yellow Urine Appearance Cloudy A (Clear) Urine pH 6.0 (4.5-7.5) Ur Specific [place] 1.020 (1.000-1.030) Urine Protein 1+ H (Negative) Urine Glucose (UA) Negative (Negative) Urine Ketones Trace H (Negative) Urine Blood Negative (Negative) Urine Nitrite Negative (Negative) Urine Bilirubin Negative (Negative) Urine Urobilinogen Negative (Negative) Ur Leukocyte Esterase Trace H (Negative) Urine WBC (Auto) 1-5 (0-5) /hpf Urine RBC (Auto) 0-4 (0-4) /hpf U Hyaline Cast (Auto) >30 H (0-5) /lpf U Epithel Cells (Auto) >30 H (0-5) /lpf Urine Bacteria (Auto) Negative (Negative) Ur Renal Epithelial Cell 10-20 H (0-5) /lpf Calcium Oxalate Crystal Present A (None Prsent) Granular Casts 1-5 H (0) /lpf Urine Mucus Present A (None Prsent) Nasal Screen MRSA (PCR) Negative (Negative) Blood Type A Positive Antibody Screen NEGATIVE 05/23/19 05/23/19 05/24/19 Range/Units 07:07 07:07 06:25 WBC 15.50 H 15.89 H (4.8-10.8) K/uL RBC 3.96 L 3.37 L (4.7-6.1) M/uL Hgb 12.0 L 10.3 L (14.0-18.0) g/dL Hct 36.3 L 31.9 L (42-52) % MCV 91.7 94.7 (80-100) fL MCH 30.3 30.6 (25-34) pg MCHC 33.1 32.3 (32-36) g/dL RDW Std Deviation 52.7 H 56.0 H (36.4-46.3) fL RDW Coeff of Kyree 15.7 H 16.1 H (11.5-14.5) % Plt Count 320 257 (130-400) K/uL MPV 8.9 9.3 (7.4-10.4) fL Immature Gran % (Auto) 0.5 0.3 % Neut % (Auto) 83.6 87.4 % Lymph % (Auto) 7.4 4.7 % Thomas % (Auto) 8.3 7.6 % Eos % (Auto) 0.1 0.0 % Baso % (Auto) 0.1 0.0 % Immature Gran # (Auto) 0.08 H 0.04 H (0.00-0.02) K/uL Neut # (Auto) 12.96 H 13.90 H (1.4-6.5) K/uL Lymph # (Auto) 1.14 L 0.75 L (1.2-3.4) K/uL Thomas # (Auto) 1.29 H 1.20 H (0.11-0.59) K/uL Eos # (Auto) 0.02 0.00 (0-0.5) K/uL Baso # (Auto) 0.01 0.00 (0-0.2) K/uL PT (9.0-12.0) Seconds INR (0.9-1.1) APTT (21.0-31.0) Seconds PTT Ratio Sodium 138 (136-145) mmol/L Potassium 4.4 D (3.5-5.1) mmol/L Chloride 102 (98-107) mmol/L Carbon Dioxide 32 (21-32) mmol/L Anion Gap 4.0 (3-11) BUN 23 H (7-18) mg/dl Creatinine 1.10 (0.6-1.4) mg/dl Est Cr Clr Drug Dosing 54.4 ml/min Est GFR ( Amer) 73.1 Est GFR (Non-Af Amer) 63.1 BUN/Creatinine Ratio 20.7 H (10-20) Glucose 110 H (70-99) mg/dl Calcium 8.5 (8.5-10.1) mg/dl Urine Color Urine Appearance (Clear) Urine pH (4.5-7.5) Ur Specific [place] (1.000-1.030) Urine Protein (Negative) Urine Glucose (UA) (Negative) Urine Ketones (Negative) Urine Blood (Negative) Urine Nitrite (Negative) Urine Bilirubin (Negative) Urine Urobilinogen (Negative) Ur Leukocyte Esterase (Negative) Urine WBC (Auto) (0-5) /hpf Urine RBC (Auto) (0-4) /hpf U Hyaline Cast (Auto) (0-5) /lpf U Epithel Cells (Auto) (0-5) /lpf Urine Bacteria (Auto) (Negative) Ur Renal Epithelial Cell (0-5) /lpf Calcium Oxalate Crystal (None Prsent) Granular Casts (0) /lpf Urine Mucus (None Prsent) Nasal Screen MRSA (PCR) (Negative) Blood Type Antibody Screen 05/24/19 Range/Units 06:25 WBC (4.8-10.8) K/uL RBC (4.7-6.1) M/uL Hgb (14.0-18.0) g/dL Hct (42-52) % MCV (80-100) fL MCH (25-34) pg MCHC (32-36) g/dL RDW Std Deviation (36.4-46.3) fL RDW Coeff of Kyree (11.5-14.5) % Plt Count (130-400) K/uL MPV (7.4-10.4) fL Immature Gran % (Auto) % Neut % (Auto) % Lymph % (Auto) % Thomas % (Auto) % Eos % (Auto) % Baso % (Auto) % Immature Gran # (Auto) (0.00-0.02) K/uL Neut # (Auto) (1.4-6.5) K/uL Lymph # (Auto) (1.2-3.4) K/uL Thomas # (Auto) (0.11-0.59) K/uL Eos # (Auto) (0-0.5) K/uL Baso # (Auto) (0-0.2) K/uL PT (9.0-12.0) Seconds INR (0.9-1.1) APTT (21.0-31.0) Seconds PTT Ratio Sodium 138 (136-145) mmol/L Potassium 4.4 (3.5-5.1) mmol/L Chloride 105 (98-107) mmol/L Carbon Dioxide 29 (21-32) mmol/L Anion Gap 4.0 (3-11) BUN 23 H (7-18) mg/dl Creatinine 0.98 (0.6-1.4) mg/dl Est Cr Clr Drug Dosing 61.1 ml/min Est GFR ( Amer) 84.1 Est GFR (Non-Af Amer) 72.5 BUN/Creatinine Ratio 23.3 H (10-20) Glucose 122 H (70-99) mg/dl Calcium 8.2 L (8.5-10.1) mg/dl Urine Color Urine Appearance (Clear) Urine pH (4.5-7.5) Ur Specific [place] (1.000-1.030) Urine Protein (Negative) Urine Glucose (UA) (Negative) Urine Ketones (Negative) Urine Blood (Negative) Urine Nitrite (Negative) Urine Bilirubin (Negative) Urine Urobilinogen (Negative) Ur Leukocyte Esterase (Negative) Urine WBC (Auto) (0-5) /hpf Urine RBC (Auto) (0-4) /hpf U Hyaline Cast (Auto) (0-5) /lpf U Epithel Cells (Auto) (0-5) /lpf Urine Bacteria (Auto) (Negative) Ur Renal Epithelial Cell (0-5) /lpf Calcium Oxalate Crystal (None Prsent) Granular Casts (0) /lpf Urine Mucus (None Prsent) Nasal Screen MRSA (PCR) (Negative) Blood Type Antibody Screen (1) Closed hip fracture Encounter type: initial encounter Laterality: left Qualified Code(s): S72.002A - Fracture of unspecified part of neck of left femur, initial encounter for closed fracture
--- NOTE | 2019-05-25 14:22 | Family Medicine Progress Note ---
Date of Service May 25, 2019 Assessment & Plan (1) Closed hip fracture: Patient is an 78 yo male with a past medical history of hypertension, depression, diastolic CHF, dementia, ambulatory dysfunction with frequent falls and subsequent compression fractures who presents with L hip fracture. Patient was walking outside [facility] when he experienced a mechanical fall. Left Hip Fracture - Day 2 s/p Total left Hip Arthroplasty - Hip XR: Displaced subcapital left hip fracture --> Post-op imaging shows normal total left hip arthroplasty - Heart Healthy diet - Pain: IV Tylenol for moderate pain, IV Morphine for severe pain - Consult Case Management regarding placement --> Currently lives at [facility] - Placement at [facility] but no bed availability today, most likely discharge tomorrow. Dementia - Continue memantine - Monitor post surgical delirium - No acute events overnight - During previous admission was seen by Palliative Care service (did not qualify for Hospice) Chronic respiratory failure - Required BiPAP overnight for hypoxia and shallow breathing --> Currently back on 4L NC - During previous admission required BiPAP due to CO2 retention and acute on chronic hypoxic resp failure - Respiratory issues most likely 2/2 non-compliance with home BiPAP due to dementia - Currently arranging [facility] through [facility] as [facility]F - Last Echo 08/2018 - EF 55-60% - Continue Lasix 40mg PO Daily - Continue to monitor fluid status s/p surgery HTN - Continue home amlodipine, Holding telmisartan HLD - Start Atorvastatin 40mg PO Daily (NEW MEDICATION) Depression - Continue Lexapro 20mg PO daily Liver hemangioma - Unchanged from 2005, no further intervention DISPO: Med/surg admit DVT Px: Holding Post-op CODE: DNR/DNI (2) Memory impairment: (3) Lumbar compression fracture: (4) Chronic reflux esophagitis: (5) Essential hypertension: (6) CHF (congestive heart failure): (7) Goals of care, counseling/discussion: (8) Chronic hypercapnic respiratory failure: (9) Lower extremity edema: (10) Dementia: (11) Gait abnormality: Supervising Physician Co-Signing Physician Notes I personally examined the patient and verified all reardon points of history and exam, discussed case, and agree with decision making with Dr Jorge. No acute complaints. Seems a bit disoriented. Vitals noted, in general he is awake and stress. HEENT normal cephalic atraumatic mucous members moist. Breathing unlabored no accessory muscle use good effort. Skin shows no rashes no pallor or icterus. Hip fracturepostop and stable, awaiting placement for rehab likely at an SNF level of setting. Otherwise as above. Subjective Caveat: History limited by dementia. No acute events reported overnight. Bridgett has no acute complaints this morning. He notes his left hip pain feels improved today. No complaints of nausea, vomiting, diarrhea, fever, chills, shortness of breath or chest pain. Physical Exam Constitutional: WD/WN, vitals as above cooperative Eyes: + anicteric sclerae and EOM intact bilaterally ENMT: external ear and nose normal, oropharynx normal Neck: normal visual inspection and trachea midline Respiratory: normal respiratory effort, lungs clear to auscultation Cardiovascular: Rate/Rhythm: regular rate and regular rhythm Extremities: no pedal edema Gastrointestinal (Abdomen): Inspection/Auscultation: normal bowel sounds Percussion/Palpation: abdomen soft; abdomen nontender, no guarding and abdomen not rigid Musculoskeletal: Head/Neck/Chest: normocephalic and head atraumatic Good peripheral perfusion to left foot. Skin: no rashes, warm and dry Neurologic: moves all extremities and awake Psychiatric: Orientation: alert, oriented to person, oriented to place and cooperative; + not oriented to time (year 2007) Results & Data Vital Signs (Past 12 Hours) Vital Signs Temp Pulse Resp BP Pulse Ox 05/25/19 07:22 36.4 C L 05/25/19 07:03 61 16 120/75 95 Medications Administered Acetaminophen (Tylenol) 1,000 mg PO Q8 [facility] Stop: 06/22/19 21:59 Last Admin: 05/25/19 13:07 Dose: 1,000 mg Documented by: [id number] Admin: 05/25/19 05:48 Dose: 1,000 mg Documented by: [id number] Admin: 05/24/19 21:55 Dose: 1,000 mg Documented by: [id number] Admin: 05/24/19 13:21 Dose: 1,000 mg Documented by: [id number] Admin: 05/24/19 05:52 Dose: Not Given Documented by: [id number] Admin: 05/23/19 23:08 Dose: 1,000 mg Documented by: [id number] Amlodipine Besylate (Norvasc) 5 mg PO BID [facility] Stop: 06/22/19 08:59 Last Admin: 05/25/19 07:33 Dose: 5 mg Documented by: [id number] Admin: 05/24/19 21:56 Dose: 5 mg Documented by: [id number] Admin: 05/24/19 08:56 Dose: 5 mg Documented by: [id number] Admin: 05/23/19 23:11 Dose: 5 mg Documented by: [id number] Admin: 05/23/19 08:31 Dose: 5 mg Documented by: [id number] Atorvastatin Calcium (Lipitor) 40 mg PO QAM J[facility] Stop: 06/24/19 08:59 Last Admin: 05/25/19 07:32 Dose: 40 mg Documented by: [id number] Celecoxib (Celebrex) 200 mg PO BID JASWANT Stop: 06/22/19 20:59 Last Admin: 05/25/19 07:33 Dose: 200 mg Documented by: [id number] Admin: 05/24/19 21:55 Dose: 200 mg Documented by: [id number] Admin: 05/24/19 08:56 Dose: 200 mg Documented by: [id number] Admin: 05/23/19 23:11 Dose: 200 mg Documented by: [id number] Docusate Sodium (Colace) 100 mg PO BID JASWANT Stop: 06/22/19 20:59 Last Admin: 05/25/19 07:33 Dose: 100 mg Documented by: [id number] Admin: 05/24/19 21:56 Dose: 100 mg Documented by: [id number] Admin: 05/24/19 08:57 Dose: 100 mg Documented by: [id number] Admin: 05/23/19 23:13 Dose: Not Given Documented by: [id number] Escitalopram Oxalate (Lexapro) 20 mg PO DAILY [facility] Stop: 06/22/19 08:59 Last Admin: 05/25/19 07:32 Dose: 20 mg Documented by: [id number] Admin: 05/24/19 08:56 Dose: 20 mg Documented by: [id number] Admin: 05/23/19 08:31 Dose: 20 mg Documented by: [id number] Furosemide (Lasix) 40 mg PO DAILY [facility] Stop: 06/22/19 08:59 Last Admin: 05/25/19 07:32 Dose: 40 mg Documented by: [id number] Admin: 05/24/19 08:56 Dose: 40 mg Documented by: [id number] Admin: 05/23/19 08:31 Dose: 40 mg Documented by: [id number] Memantine (Namenda) 10 mg PO BID [facility] Stop: 06/22/19 08:59 Last Admin: 05/25/19 07:33 Dose: 10 mg Documented by: [id number] Admin: 05/24/19 21:54 Dose: 10 mg Documented by: [id number] Admin: 05/24/19 08:56 Dose: 10 mg Documented by: [id number] Admin: 05/23/19 22:04 Dose: 10 mg Documented by: [id number] Admin: 05/23/19 08:31 Dose: 10 mg Documented by: [id number] Morphine Sulfate (Morphine Sulfate) 2 mg IV Q1H PRN PRN Reason: Moderate Pain (Rating 3,4,5,6) Stop: 06/05/19 21:44 Last Admin: 05/22/19 22:02 Dose: 2 mg Documented by: [id number] Multivitamins (Multivitamin Tab) 1 tab PO QAM [facility] Stop: 06/23/19 08:59 Last Admin: 05/25/19 07:33 Dose: 1 tab Documented by: [id number] Admin: 05/24/19 08:56 Dose: 1 tab Documented by: [id number] Multivitamins/Minerals (Caltrate Plus) 1 tab PO DAILY [facility] Stop: 06/23/19 08:59 Last Admin: 05/25/19 07:32 Dose: 1 tab Documented by: [id number] Admin: 05/24/19 08:57 Dose: 1 tab Documented by: [id number] Oxycodone HCl (Roxicodone Immediate Rel) 5 - 10 mg PO Q4H PRN PRN Reason: Pain Stop: 06/06/19 16:24 Last Admin: 05/25/19 07:31 Dose: 5 mg Documented by: [id number] Admin: 05/24/19 10:02 Dose: 5 mg Documented by: [id number] Potassium Chloride (Klor-Con M20) 20 meq PO BID [facility] Stop: 06/22/19 08:59 Last Admin: 05/25/19 07:32 Dose: 20 meq Documented by: [id number] Admin: 05/24/19 21:56 Dose: 20 meq Documented by: [id number] Admin: 05/24/19 08:56 Dose: 20 meq Documented by: [id number] Admin: 05/23/19 23:07 Dose: Not Given Documented by: [id number] Admin: 05/23/19 08:31 Dose: 20 meq Documented by: [id number] Rivaroxaban (Xarelto) 10 mg PO DAILY [facility] Stop: 06/23/19 08:59 Last Admin: 05/25/19 07:33 Dose: 10 mg Documented by: [id number] Admin: 05/24/19 08:56 Dose: 10 mg Documented by: [id number] Sennosides (Senokot) 17.2 mg PO HS [facility] Stop: 06/22/19 20:59 Last Admin: 05/24/19 22:24 Dose: 17.2 mg Documented by: [id number] Admin: 05/23/19 23:12 Dose: 17.2 mg Documented by: [id number] Vitamin D (Vitamin D3) 2,000 units PO DAILY [facility] Stop: 06/23/19 08:59 Last Admin: 05/25/19 07:32 Dose: 2,000 units Documented by: [id number] Admin: 05/24/19 08:56 Dose: 2,000 units Documented by: [id number] PG Care Time/CCT Total # of Minutes Spent Total Time Spent with Patient: Total time spent is greater than 50% in coordination of care (as documented) at patient's floor/unit and/or counseling patient: Resident Activity Tracking Resident Involvement: Resident Care Provided Care Provided: Adult Hospital Medicine (1) Closed hip fracture Encounter type: initial encounter Laterality: left Qualified Code(s): S72.002A - Fracture of unspecified part of neck of left femur, initial encounter for closed fracture
[2019-05-25] MEDS: SENNA 8.6 MG TAB PO SCH (20:17)
[2019-05-26] MEDS: ACETAMINOPHEN 500 MG TAB PO SCH (05:20)
--- NOTE | 2019-05-26 06:54 | Discharge Summary ---
Date of Service May 26, 2019 Admission HPI Per Admitting Provider Patient is an 78 yo M PMH HTN, depression, diastolic CHF, dementia, ambulatory dysfunction with frequent falls and subsequent compression fractures who presents with L hip fracture. Patient lives at [facility] and is a poor historian. According to conversation with ED provider and at bedside, patient had been doing well at [facility] but today got up and walked outside to "catch the van to take him home," fell (?mechanical), and complained of L hip pain and was unable to get up on his own. He was sent to the ER for evaluation where it was found that he had a displaced subcapital L hip fracture. No meta bolic causes for fall noted on labwork. PMH: -HTN -Thyroid nodules -Multiple compression fractures -Diverticulosis -Diastolic CHF -Chronic hypercapnic hypoxic respiratory failure -Liver hemangioma -Dementia -H/O hyponatremia -H/O hypokalemia -hearing loss -GERD -Ambulatory dysfunction PSH: -Back surgery Admission Exam Per Admitting Provider Constitutional: WD/WN, vitals as above + altered mental status; no acute distress and + uncomfortable (not following instructions to keep L leg still) Patient moans when he is not speaking but states he does this even when not in pain Eyes: PERRL, conjunctivae normal, anicteric sclerae ENMT: Ears: + hearing impairment Mouth: + dry oral mucous membranes Neck: normal visual inspection Respiratory: normal respiratory effort, lungs clear to auscultation Cardiovascular: Rate/Rhythm: regular rate and regular rhythm Extremities: + edema 1+ bilaterally Gastrointestinal (Abdomen): normal bowel sounds, soft, nontender, no hepatosplenomegaly Percussion/Palpation: + hernia Musculoskeletal: Extremities: + limited ROM of extremities and + leg externally rotated (left); + extremities abnormal to inspection and + abnormal strength Skin: no rashes, warm and dry Neurologic: PERRL, EOMI, accommodation nl, no face palsy, no dysarthria Psychiatric: Orientation: alert, oriented to person and cooperative; + not oriented x 3 Principal Diagnosis Left hip fracture Discharge Exam Constitutional WD/WN, vitals as above cooperative Eyes + anicteric sclerae and EOM intact bilaterally ENMT external ear and nose normal, oropharynx normal Neck normal visual inspection and trachea midline Respiratory normal respiratory effort, lungs clear to auscultation Cardiovascular Rate/Rhythm: regular rate and regular rhythm Extremities: no pedal edema Gastrointestinal (Abdomen) Inspection/Auscultation: normal bowel sounds Percussion/Palpation: abdomen soft; abdomen nontender, no guarding and abdomen not rigid Musculoskeletal Head/Neck/Chest: normocephalic and head atraumatic Skin no rashes, warm and dry Neurologic moves all extremities and awake Psychiatric Orientation: alert, oriented to person, oriented to place and cooperative; + not oriented to time (2007) Discharge Data Allergies Allergy/AdvReac Type Severity Reaction Status Date / Time cefaclor Allergy Unknown Unknown Verified 05/23/19 14:17 cyclobenzaprine Allergy Unknown UNKNOWN Verified 05/22/19 23:05 Penicillins Allergy Unknown Unknown Verified 05/23/19 14:17 Sulfa (Sulfonamide Allergy Unknown Unknown Verified 05/23/19 14:17 Antibiotics) nebivolol AdvReac Mild BRADYCARDIA Verified 05/23/19 14:17 peppermint AdvReac Unknown Bengay Verified 05/23/19 14:19 topically intolerant salicylates AdvReac Unknown Bengay Verified 05/23/19 14:19 topically intolerant Consultations 05/22/19 23:22 ED Decision to Admit Stat 05/23/19 00:39 Consult Orthopedic Surgery Routine 05/23/19 01:18 Consult Case Management - Discharge Planning Routine 05/23/19 16:26 Consult Security Intern Routine 05/24/19 08:00 Consult Case Management - Discharge Planning Routine Procedures Performed Operation Date: 05/23/19 15:00 Actual Procedures p Bipolar Hip Prosthesis(Left) - Jr Simpson MD Hospital Course (1) Closed hip fracture: Patient is an 78 yo male with a past medical history of hypertension, depression, diastolic CHF, dementia, ambulatory dysfunction with frequent falls and subsequent compression fractures who presents with L hip fracture. Patient was walking outside [facility] when he experienced a mechanical fall. He had hip fracture repair and was transferred to [facility]. Left Hip Fracture - Day 3 s/p Total left Hip Arthroplasty - Hip XR: Displaced subcapital left hip fracture --> Post-op imaging shows normal total left hip arthroplasty - Heart Healthy diet - Pain: IV Tylenol for moderate pain, IV Morphine for severe pain - Consult Case Management regarding placement --> Currently lives at [facility] - Placement at [facility] Dementia - Continue memantine - Monitor post surgical delirium - No acute events overnight - During previous admission was seen by Palliative Care service (did not qualify for Hospice) Chronic respiratory failure - Required BiPAP overnight for hypoxia and shallow breathing - Please note that requires BiPAP for any/all sleep/naps. - During previous admission required BiPAP due to CO2 retention and acute on chronic hypoxic resp failure - Respiratory issues most likely 2/2 non-compliance with home BiPAP due to dementia - [facility] - Last Echo 08/2018 - EF 55-60% - Continue Lasix 40mg PO Daily - Continue to monitor fluid status s/p surgery HTN - Continue home amlodipine, Holding telmisartan HLD - Start Atorvastatin 40mg PO Daily (NEW MEDICATION) Depression - Continue Lexapro 20mg PO daily Liver hemangioma - Unchanged from 2005, no further intervention DISPO: Med/surg admit DVT Px: Holding Post-op CODE: DNR/DNI (2) Memory impairment: (3) Lumbar compression fracture: (4) Chronic reflux esophagitis: (5) Essential hypertension: (6) CHF (congestive heart failure): (7) Goals of care, counseling/discussion: (8) Chronic hypercapnic respiratory failure: (9) Lower extremity edema: (10) Dementia: (11) Gait abnormality: Total Time Total Time Spent Total Time Spent (In Minutes): <30 Total Time Includes: Examination of the Patient, Discharge Planning, Medication Reconciliation and Communication With Other Providers Discharge Plan Discharge Items Patient Disposition: Transfer Group Home Fac Reason For Visit: L HIP FRACTURE Discharge Diagnosis: Left hip fracture Discharge Goals: Improve function Activity: As commented below Non-emergency contact: Primary Care Provider Call non-emergency contact if: you have any medication questions Follow-up/Referrals: Jeff Zhang PA-C [Physician Manga Artist] - 06/09/19 2:45 pm [facility] [Primary Care Provider] - Diet: Regular Addtl Provider Instructions: You were admitted and treated for a left hip fracture with surgical repair. Plan for rehabilitation and fci care is for transfer to [facility]. Please continue all previous medications as previously prescribed. WBAT with walker and posterior hip precautions Ice with EZ wrap Pain control with PO meds Xarelto and SCD's for DVT prophylaxis Leave silverlon dressing in place until 2 week follow-up. OK to shower Follow-up GEORGES Zhang in 2 weeks. Call [phone] to confirm or reschedule appointment. Prescriptions: New Xarelto 10 mg Tablet 10 mg PO DAILY Qty: 30 RF: 0 celecoxib [Celebrex] 200 mg Capsule 200 mg PO BID 30 Days Qty: 60 RF: 0 atorvastatin 40 mg Tablet 40 mg PO QAM 30 Days Qty: 30 RF: 0 tamsulosin 0.4 mg Capsule 0.4 mg PO QAM 30 Days Qty: 30 RF: 0 Continued amlodipine 5 mg tablet 5 mg PO BID Qty: 30 RF: 5 calcium carbonate [Calcium 600] 600 mg calcium (1,500 mg) tablet 600 mg PO DAILY Qty: 30 RF: 5 cholecalciferol (vitamin D3) [Vitamin D3] 1,000 unit capsule 2,000 unit PO DAILY Qty: 30 RF: 5 docusate sodium 100 mg capsule 100 mg PO DAILY Qty: 30 RF: 5 escitalopram oxalate 20 mg tablet 20 mg PO DAILY Qty: 30 RF: 5 furosemide 40 mg tablet 40 mg PO DAILY Qty: 30 RF: 5 memantine 10 mg tablet 10 mg PO BID Qty: 60 RF: 5 naproxen sodium [Aleve] 220 mg tablet 220 mg PO BID PRN (Reason: pain) Qty: 60 RF: 5 pantoprazole [Protonix] 40 mg tablet,delayed release (DR/EC) 40 mg PO DAILY Qty: 30 RF: 5 polyethylene glycol 3350 [Miralax] 17 gram/dose powder 17 gm PO DAILY PRN (Reason: constipation) Qty: 119 RF: 5 potassium chloride [Klor-Con M20] 20 mEq tablet,ER particles/crystals 20 meq PO BID Qty: 120 RF: 5 telmisartan [Micardis] 40 mg tablet 40 mg PO DAILY Qty: 30 RF: 5 Ensure liquid 1 ea PO BID Qty: 5688 RF: 5 Stand-Alone Forms: [facility] Discharge Orders: Discharge Order (Routine); Ordered 05/26/19 Ordered By: Zan Jorge Skilled Items Patient informed of condition?: Yes DNR: Yes Discharge Level of Care: Skilled Communicable Disease: No Discharge Prognosis: Stable Admission Data Admit Date/Time: 05/22/19 23:24 Attending Provider: Luis M Foreman Admit Provider: Christen Lewis Primary Care Provider: ANDREW HAYWOOD [facility] Other Providers: Christen Lewis ; Jr Simpson ; Gilmer Bella Service: Surgical Services Other Interventions: Discharge Summary Assessment (RN) Last Done: 05/26/19 11:51 DC Date/Time DO NOT enter until pt leaves facility: 05/26/19 13:26 Supervising Physician Co-Signing Physician Notes I personally examined the patient and verified all reardon points of history and exam, discussed case, and agree with decision making with Dr Jorge. No acute complaints. Nursing notes that whenever he walked to the bathroom and back he desaturated some, notes that his breathing looks like it does at home. Vitals noted, in general he is awake and stress. HEENT normal cephalic atraumatic mucous members moist. Breathing unlabored no accessory muscle use good effort diminished at the bases but no rales rhonchi or wheeze show pursed lipped breathing. Skin shows no rashes no pallor or icterus. Hip fracturepostop and stable, stable for SNF Hypoxiasuspect he suffers from degree of chronic respiratory failure given his lack of symptoms with pulse ox is in the 80s at times, repeat chest x-ray was checked showing a degree of CHF-like changes, continue diuresis at SNF, continue oxygen and supportive care. Continue BiPAP at all times when asleep. Consider PFTs, I was unable to find any done as an outpatient. Continue supportive care. Otherwise as above. Resident Activity Tracking Resident Involvement: Resident Care Provided Care Provided: Adult Hospital Medicine
[2019-05-26] MEDS: CeleBREX 200 MG CAP PO SCH (07:51)
[2019-05-26] MEDS: MEMANTINE HCL 10 MG TAB PO SCH (07:52)
[2019-05-26] MEDS: MULTIVITAMIN TAB PO SCH (07:52)
[2019-05-26] MEDS: ATORVASTATIN 40 MG TAB PO SCH (07:52)
[2019-05-26] MEDS: CALCIUM 600MG + VIT D 400 IU TAB PO SCH (07:52)
[2019-05-26] MEDS: FUROSEMIDE 40 MG TAB PO SCH (07:52)
[2019-05-26] MEDS: AMLODIPINE BESYLATE 5 MG TAB PO SCH (07:52)
[2019-05-26] MEDS: ESCITALOPRAM OXALATE 20 MG TAB PO SCH (07:52)
[2019-05-26] MEDS: POTASSIUM CHLORIDE 20 MEQ TABCR PO SCH (07:52)
[2019-05-26] MEDS: CHOLECALCIFEROL 1,000 UNITS TAB PO SCH (07:52)
[2019-05-26] MEDS: DOCUSATE SODIUM 100 MG CAP PO SCH (07:53)
[2019-05-26] MEDS: RIVAROXABAN 10 MG TABLET PO SCH (07:53)
--- NOTE | 2019-05-26 10:11 | XRay Report ---
XR chest 2V routine CLINICAL HISTORY: Persistent hypoxia. COMPARISON STUDY: Chest CT February 28, 2019. Chest radiograph May 22, 2019. FINDINGS: Lateral view demonstrates multiple thoracolumbar spine compression fractures with vertebral augmentation at 1 level. Lung volumes are diminished. This is unchanged. Cardiomediastinal silhouett e is stable. Bibasilar opacities favor atelectasis. There is no pneumothorax. Trace bilateral pleural effusions are noted. There is pulmonary vascular congestion. IMPRESSION: 1. Pulmonary vascular congestion with trace bilateral pleural effusions. 2. Low lung volumes with bibasilar opacities suggestive of atelectasis. Electronically signed by: Clive Simms M.D. 05/26/2019 10:09 AM
== END 2019-05-26 13:26 | DRG 469 ==
LOC: ED 21:37 → 3W 23:24 → SUATTDRO 23:24 → 3W 23:56

== ENCOUNTER 2019-06-27 15:35 | Inpatient (IN) ==
--- NOTE | 2019-06-27 16:51 | XRay Report ---
XR chest 1V portable HISTORY: Altered mental status. COMPARISON: 05/26/2019. FINDINGS: No pneumothorax. The heart remains enlarged. There are low lung volumes. Mild central pulmo nary vascular congestion without overt edema. This is improved. A few bibasilar linear densities favo r subsegmental atelectasis. IMPRESSION: 1. Cardiomegaly with mild central pulmonary vascular congestion. This has slightly improved in the in terval. 2. Bibasilar linear densities are nonspecific but favor subsegmental atelectasis. Electronically signed by: Ramy Gan M.D. 06/27/2019 4:50 PM
[2019-06-27 17:01] LABS: Eosinophils # (auto) 0.07 K/uL (0-0.5); Eosinophils % (auto) 0.5 %; Hematocrit (blood only) 27.1 % (42-52); Hemoglobin 8.9 g/dL (14.0-18.0); Immature Granulocytes # (auto) 0.06 K/uL (0.00-0.02); Immature Granulocytes % (auto) 0.5 %; Lymphocytes # (auto) 0.62 K/uL (1.2-3.4); Lymphocytes % (auto) 4.8 %; Mean Corpuscular Hgb Conc 32.8 g/dL (32-36); Mean Corpuscular Volume 94.8 fL (80-100); Monocytes # (auto) 0.68 K/uL (0.11-0.59); Monocytes % (auto) 5.3 %; Neutrophils # (auto) 11.44 K/uL (1.4-6.5); Neutrophils % (auto) 88.9 %; Platelet Count 260 K/uL (130-400); RDW Coefficient of Variation 15.9 % (11.5-14.5); RDW Standard Deviation 54.7 fL (36.4-46.3); Red Blood Count 2.86 M/uL (4.7-6.1); White Blood Count 12.87 K/uL (4.8-10.8)
[2019-06-27 17:15] LABS: Partial Thromboplastin Ratio 1.1
[2019-06-27 17:16] LABS: Alanine Aminotransferase 30 U/L (12-78); Albumin Level 2.6 gm/dl (3.4-5.0); Aspartate Aminotransferase 15 U/L (15-37); BUN Creatinine Ratio 23.4 (10-20); Bilirubin Direct 0.2 mg/dl (0-0.2); Blood Urea Nitrogen 20 mg/dl (7-18); Calcium 8.8 mg/dl (8.5-10.1); Carbon Dioxide 34 mmol/L (21-32); Chloride 85 mmol/L (98-107); Est GFR (African American) 94.5; Est GFR (Non-African American) 81.5; Glucose 100 mg/dl (70-99); Magnesium 2.1 mg/dl (1.8-2.4); Potassium 5.2 mmol/L (3.5-5.1); Sodium 122 mmol/L (136-145)
--- NOTE | 2019-06-27 17:16 | CT Scan Report ---
HEAD CT NONCONTRAST CT DOSE: 2081.92 mGy.cm HISTORY: Altered mental status. TECHNIQUE: Multiaxial CT images of the head were performed without the use of intravenous contrast. A utomated exposure control was utilized for this study. A dose lowering technique was utilized adheri ng to the principles of ALARA. Comparison: Head CT 02/28/2019. Findings: Trace fluid within the left sphenoid sinus, unchanged. The mastoid air cells are clear. The calvarium and skull base are intact. There is no mass, hematoma, midline shift, acute infarct. White matter hypodensity is nonspecific but suggestive of microvascular ischemic change. The ventricles an d sulci demonstrate mild age-related involutional changes. Impression: No significant change compared to the prior study. No acute intracranial abnormality. Electronically signed by: Ramy Gan M.D. 06/27/2019 5:15 PM
[2019-06-27 17:19] LABS: Alkaline Phosphatase 155 U/L (45-117); Bilirubin,Total 0.5 mg/dl (0.2-1); Prothrombin Time 10.6 Seconds (9.0-12.0); Total Protein 5.4 gm/dl (6.4-8.2)
[2019-06-27] MEDS: SODIUM CHLORIDE 0.9% 500 ML IV SCH ×2 (17:48→22:15)
[2019-06-27 18:49] LABS: Appearance Urine Cloudy (Clear); Bacteria Urine Automated Negative (Negative); Bilirubin Urine Negative (Negative); Blood Urine 1+ (Negative); Color Urine Yellow; Epithelial Cell Urine Auto >30 /lpf (0-5); Glucose Urine UA Negative (Negative); Ketones Urine Negative (Negative); Leukocyte Esterase Urine Trace (Negative); Nitrite Urine Negative (Negative); Protein Urine Negative (Negative); Specific Gravity Urine 1.016 (1.000-1.030); Urobilinogen Urine Negative (Negative)
[2019-06-27] MEDS ORDERED: SODIUM CHLORIDE 0.9% 1000ML 500 ML IV ONE (18:59)
[2019-06-27 19:02] LABS: Cast Urine Automated >30 /lpf (0-5)
--- NOTE | 2019-06-27 19:40 | Emergency Department Note ---
Entered by Clement Mobley acting as a scribe for Adi Camacho History of Present Illness General Chief complaint: Altered Mental Status Stated complaint: AMS Time Seen by Provider: 06/27/19 16:05 Source: family Limitations: altered mental status History of Present Illness Provider complaint: AMS Onset (ago): hour(s) Location: left and right Quality: + constant Relieved By: + none The patient is a 78 year old male with a hx of dementia who presents to the Emergency Room with complaints of altered mental status that began several hours ago. The HPI is limited secondary to dementia. The provides the history. The patient was [facility] over from a [facility]. The of the patient states that the patient has been known to have reactions to drugs on the past. She notes that that patient was screaming last night and that his BP was 87/54, pulse was 55 prior to arrival. She also adds that the patient recently got off a blood thinner 4 days ago. She notes that the patient's been more confused lately in the [facility]. She states the other night the patient took off his shoes and were banging against the [place]. She states that the patient is usually more alert than this and can converse with them. Per the at bedside, the patient is DNR/DNI. Home Medications Home Medications Medication Instructions Recorded Confirmed Type amlodipine 5 mg tablet 5 mg PO BID #30 tab 05/05/19 06/27/19 Rx calcium carbonate 600 mg calcium 600 mg PO DAILY #30 tab 05/05/19 06/27/19 Rx (1,500 mg) tablet cholecalciferol (vitamin D3) 1,000 2,000 unit PO DAILY #30 cap 05/05/19 06/27/19 Rx unit capsule escitalopram 20 mg tablet 20 mg PO DAILY #30 tab 05/05/19 06/27/19 Rx furosemide 40 mg tablet 40 mg PO DAILY #30 tab 05/05/19 06/27/19 Rx memantine 10 mg tablet 10 mg PO BID #60 tab 05/05/19 06/27/19 Rx pantoprazole 40 mg tablet,delayed 40 mg PO DAILY #30 tab 05/05/19 06/27/19 Rx release polyethylene glycol 3350 17 17 gm PO DAILY PRN #119 gm 05/05/19 06/27/19 Rx gram/dose oral powder potassium chloride ER 20 mEq 20 meq PO BID #120 tab 05/05/19 06/27/19 Rx tablet,extended release(part/cryst) telmisartan 40 mg tablet 40 mg PO DAILY #30 tab 05/05/19 06/27/19 Rx lorazepam 0.5 mg tablet 0.5 mg PO BID PRN #30 tab 06/16/19 06/27/19 Rx ciprofloxacin 500 mg tablet 500 mg PO BID #14 tab 06/25/19 06/27/19 Rx hydrocodone 5 mg-acetaminophen 325 1 tab PO Q8H PRN #20 tab 06/25/19 06/27/19 Rx mg tablet atorvastatin 40 mg PO DAILY 06/27/19 06/27/19 History celecoxib 200 mg PO BID 06/27/19 06/27/19 History tamsulosin 0.4 mg PO DAILY 06/27/19 06/27/19 History Allergies Allergy/AdvReac Type Severity Reaction Status Date / Time tramadol Allergy Mild Agitated Unverified 06/27/19 16:37 cefaclor Allergy Unknown Unknown Verified 06/27/19 16:37 cyclobenzaprine Allergy Unknown UNKNOWN Verified 06/27/19 16:37 menthol [From BenGay] Allergy Unknown Verified 06/27/19 16:37 methyl salicylate Allergy Unknown Verified 06/27/19 16:37 [From BenGay] Penicillins Allergy Unknown Unknown Verified 06/27/19 16:37 Sulfa (Sulfonamide Allergy Unknown Unknown Verified 06/27/19 16:37 Antibiotics) nebivolol AdvReac Mild BRADYCARDIA Verified 06/27/19 16:37 peppermint AdvReac Unknown Bengay Verified 06/27/19 16:37 topically intolerant salicylates AdvReac Unknown Bengay Verified 06/27/19 16:37 topically intolerant Past Med/Surg History Medical History Multiple thyroid nodules (Acute) Memory impairment (Chronic) Lumbar compression fracture (Acute) Diverticulosis (Acute) Chronic reflux esophagitis (Acute) Osteoporosis (Acute) Essential hypertension (Acute) CHF (congestive heart failure) (Chronic) Goals of care, counseling/discussion Acute and chronic respiratory failure with hypercapnia (Chronic) Chronic hypercapnic respiratory failure Lower extremity edema (Chronic) Compression fracture Liver hemangioma Dementia (Chronic) Acute encephalopathy Hyponatremia Acute on chronic diastolic heart failure Acute respiratory failure with hypoxia Open wound of right heel Gait abnormality Acute hyponatremia (Acute) Fall against object (Acute) CHI (closed head injury) (Acute) Skin tear of forearm without complication (Acute) Skin tear of left upper arm without complication (Acute) Chronic diastolic heart failure Hypokalemia DVT prophylaxis Bilateral lower extremity edema Dementia Osteomyelitis of ankle or foot, right, acute Osteomyelitis (Acute) Depression Hearing loss (Chronic) Osteopenia (Chronic) Colon polyps (Resolved) T12 compression fracture (Resolved) Reflux (Chronic) Bradycardia (Resolved) Compression fx, lumbar spine Confusion Fall (Resolved) Gait abnormality (Acute) Hypertension (Chronic) Rib contusion (Resolved) Surgical History Previous back surgery H/O colonoscopy (Resolved) Family History Other No pertinent family history in first degree relatives Social History Preferred Language: Kinyarwanda Communication Ability: Impaired Visual Impairment: No Limitations Beliefs That Will Affect Care: Restorationist Restorationist Beliefs: box is checked "yes" on admission form for restoration beliefs but nothing is specified marital status: Current Living Situation: Personal Care Facility Current Living Situation Comment: assisted living Feels Safe at Home: Yes Smoking Status: Unknown if ever smoked Hx Alcohol Use: No Hx Substance Use: No Review of Systems Unobtainable due to cognitive status Physical Exam Vital Signs Vital Signs - 24 hr 06/27/19 15:42 06/27/19 15:45 06/27/19 15:49 Sepsis Recent Fever Within 48 Hours No Sepsis New/Unexplained Change in Mental Status Yes Sepsis Action Taken by Nursing No Action Required Pulse Rate 54 L 53 L 61 Pulse Rate from SpO2 Sensor 55 L 55 L Respiratory Rate 17 22 20 Respiratory Effort / Characteristics Non-Labored Spontaneous Respiratory Depth Normal Respiratory Pattern Regular Blood Pressure 107/61 107/61 Blood Pressure Mean 76 76 Pulse Oximetry 83 L 87 L 92 Oxygen Delivery Method Nasal Cannula Oxygen Flow Rate 4 06/27/19 16:00 06/27/19 16:30 06/27/19 17:12 Sepsis Recent Fever Within 48 Hours Sepsis New/Unexplained Change in Mental Status Sepsis Action Taken by Nursing Pulse Rate 52 L 52 L 53 L Pulse Rate from SpO2 Sensor 50 L 53 L Respiratory Rate 16 18 15 Respiratory Effort / Characteristics Respiratory Depth Respiratory Pattern Blood Pressure 116/57 L 119/66 Blood Pressure Mean 76 83 Pulse Oximetry 98 93 Oxygen Delivery Method Oxygen Flow Rate 06/27/19 17:30 06/27/19 18:00 06/27/19 18:01 Sepsis Recent Fever Within 48 Hours Sepsis New/Unexplained Change in Mental Status Sepsis Action Taken by Nursing Pulse Rate 54 L 50 L 53 L Pulse Rate from SpO2 Sensor 53 L 52 L 52 L Respiratory Rate 12 14 13 Respiratory Effort / Characteristics Respiratory Depth Respiratory Pattern Blood Pressure 85/60 L Blood Pressure Mean 68 Pulse Oximetry 97 100 100 Oxygen Delivery Method Oxygen Flow Rate 06/27/19 18:30 06/27/19 18:32 06/27/19 19:00 Sepsis Recent Fever Within 48 Hours Sepsis New/Unexplained Change in Mental Status Sepsis Action Taken by Nursing Pulse Rate 53 L 54 L 54 L Pulse Rate from SpO2 Sensor 53 L 55 L Respiratory Rate 14 19 20 Respiratory Effort / Characteristics Respiratory Depth Respiratory Pattern Blood Pressure 92/62 L 104/56 L Blood Pressure Mean 72 72 Pulse Oximetry 100 100 100 Oxygen Delivery Method Nasal Cannula Oxygen Flow Rate 3 HENT: Exam performed. - Head: Normocephalic and atraumatic. - Right Ear: External ear normal. No mastoid tenderness. - Left Ear: External ear normal. No mastoid tenderness. - Mouth/Throat: Mucous membranes are dry. No trismus in the jaw. No dental abscesses or uvula swelling. No oropharyngeal exudate or tonsillar abscesses. ____ EYES: Pupils 1 mm and nonreactive. NECK: Supple CV: Normal rate, regular rhythm, normal heart sounds and intact distal pulses. PULM/CHEST: Rhonchi bilaterally. ABD: The abdomen is soft. NEURO: Patient is lethargic. Speaking nonsensically at bedside. SKIN: Skin erythema and warmth over the right upper extremity,Multiple pustules over right chest. Course 1610: The patient was evaluated in room A10. A complete history and physical exam was performed. 1858: Labs show a leukocytosis of 12.8 most likely due to patients cellulitis, sodium is low 122, potassium 5.2,. I had a long discussion with the family at bedside. Although patient is DNR, they want the patient to be admitted in hopes the patients mental status improves. Lactic acid and urinalysis within normal limits. Imaging within normal limits. I discussed the patient's case with Dr. Rosenbaum. He will evaluate the patient for further management. Consultations Consultation #1: [id number]: I discussed the patient's case with Dr. Conor Castillo. He will evaluate the patient for further management. Time: 19:00 Administered Medications Sodium Chloride (Nss) 500 mls @ 125 mls/hr IV .Q4H JASWANT Stop: 07/27/19 16:14 Last Admin: 06/27/19 17:48 Dose: 125 mls/hr Documented by: [id number] Discontinued Medications Sodium Chloride (Nss 1000ml) 500 mls @ 999 mls/hr IV .Q31M ONE Stop: 06/27/19 19:29 Last Admin: 06/27/19 19:16 Dose: 999 mls/hr Documented by: [id number] Medical Decision Making Medical Records Attestation: I reviewed the patient's medical records. Home Medications Current Medication List: was personally reviewed by me Laboratory Data Attestation: I reviewed the patient's lab results. Result diagrams: 06/27/19 16:48 06/27/19 16:48 Lab Results 06/27/19 06/27/19 06/27/19 Range/Units 16:48 16:48 16:48 WBC 12.87 H (4.8-10.8) K/uL RBC 2.86 L (4.7-6.1) M/uL Hgb 8.9 L (14.0-18.0) g/dL Hct 27.1 L (42-52) % MCV 94.8 (80-100) fL MCH 31.1 (25-34) pg MCHC 32.8 (32-36) g/dL RDW Std Deviation 54.7 H (36.4-46.3) fL RDW Coeff of Kyree 15.9 H (11.5-14.5) % Plt Count 260 (130-400) K/uL MPV 9.0 (7.4-10.4) fL Immature Gran % (Auto) 0.5 % Neut % (Auto) 88.9 % Lymph % (Auto) 4.8 % [place] % (Auto) 5.3 % Eos % (Auto) 0.5 % Baso % (Auto) 0.0 % Immature Gran # (Auto) 0.06 H (0.00-0.02) K/uL Neut # (Auto) 11.44 H (1.4-6.5) K/uL Lymph # (Auto) 0.62 L (1.2-3.4) K/uL [place] # (Auto) 0.68 H (0.11-0.59) K/uL Eos # (Auto) 0.07 (0-0.5) K/uL Baso # (Auto) 0.00 (0-0.2) K/uL PT (9.0-12.0) Seconds INR (0.9-1.1) APTT 31.0 (21.0-31.0) Seconds PTT Ratio 1.1 Sodium 122 L (136-145) mmol/L Potassium 5.2 H (3.5-5.1) mmol/L Chloride 85 L (98-107) mmol/L Carbon Dioxide 34 H (21-32) mmol/L Anion Gap 4.0 (3-11) BUN 20 H (7-18) mg/dl Creatinine 0.87 (0.6-1.4) mg/dl Est Cr Clr Drug Dosing Not Reportable Est GFR ( Amer) 94.5 Est GFR (Non-Af Amer) 81.5 BUN/Creatinine Ratio 23.4 H (10-20) Glucose 100 H (70-99) mg/dl Osmolality (280-300) mOsm/kg Lactate (0.4-2.0) mmol/L Calcium 8.8 (8.5-10.1) mg/dl Magnesium 2.1 (1.8-2.4) mg/dl Total Bilirubin 0.5 (0.2-1) mg/dl Direct Bilirubin 0.2 (0-0.2) mg/dl AST 15 (15-37) U/L ALT 30 (12-78) U/L Alkaline Phosphatase 155 H (45-117) U/L Troponin I (0-0.045) ng/ml Total Protein 5.4 L (6.4-8.2) gm/dl Albumin 2.6 L (3.4-5.0) gm/dl Lipase 97 (73-393) U/L Urine Color Urine Appearance (Clear) Urine pH (4.5-7.5) Ur Specific Tyner (1.000-1.030) Urine Protein (Negative) Urine Glucose (UA) (Negative) Urine Ketones (Negative) Urine Blood (Negative) Urine Nitrite (Negative) Urine Bilirubin (Negative) Urine Urobilinogen (Negative) Ur Leukocyte Esterase (Negative) Urine WBC (Auto) (0-5) /hpf Urine RBC (Auto) (0-4) /hpf U Hyaline Cast (Auto) (0-5) /lpf U Epithel Cells (Auto) (0-5) /lpf Urine Bacteria (Auto) (Negative) Ur Renal Epithelial Cell (0-5) /lpf Granular Casts (0) /lpf 06/27/19 06/27/19 06/27/19 Range/Units 16:48 16:48 16:48 WBC (4.8-10.8) K/uL RBC (4.7-6.1) M/uL Hgb (14.0-18.0) g/dL Hct (42-52) % MCV (80-100) fL MCH (25-34) pg MCHC (32-36) g/dL RDW Std Deviation (36.4-46.3) fL RDW Coeff of Kyree (11.5-14.5) % Plt Count (130-400) K/uL MPV (7.4-10.4) fL Immature Gran % (Auto) % Neut % (Auto) % Lymph % (Auto) % [place] % (Auto) % Eos % (Auto) % Baso % (Auto) % Immature Gran # (Auto) (0.00-0.02) K/uL Neut # (Auto) (1.4-6.5) K/uL Lymph # (Auto) (1.2-3.4) K/uL [place] # (Auto) (0.11-0.59) K/uL Eos # (Auto) (0-0.5) K/uL Baso # (Auto) (0-0.2) K/uL PT 10.6 (9.0-12.0) Seconds INR 1.0 (0.9-1.1) APTT (21.0-31.0) Seconds PTT Ratio Sodium (136-145) mmol/L Potassium (3.5-5.1) mmol/L Chloride (98-107) mmol/L Carbon Dioxide (21-32) mmol/L Anion Gap (3-11) BUN (7-18) mg/dl Creatinine (0.6-1.4) mg/dl Est Cr Clr Drug Dosing Est GFR ( Amer) Est GFR (Non-Af Amer) BUN/Creatinine Ratio (10-20) Glucose (70-99) mg/dl Osmolality (280-300) mOsm/kg Lactate 0.8 (0.4-2.0) mmol/L Calcium (8.5-10.1) mg/dl Magnesium (1.8-2.4) mg/dl Total Bilirubin (0.2-1) mg/dl Direct Bilirubin (0-0.2) mg/dl AST (15-37) U/L ALT (12-78) U/L Alkaline Phosphatase (45-117) U/L Troponin I < 0.015 (0-0.045) ng/ml Total Protein (6.4-8.2) gm/dl Albumin (3.4-5.0) gm/dl Lipase (73-393) U/L Urine Color Urine Appearance (Clear) Urine pH (4.5-7.5) Ur Specific Tyner (1.000-1.030) Urine Protein (Negative) Urine Glucose (UA) (Negative) Urine Ketones (Negative) Urine Blood (Negative) Urine Nitrite (Negative) Urine Bilirubin (Negative) Urine Urobilinogen (Negative) Ur Leukocyte Esterase (Negative) Urine WBC (Auto) (0-5) /hpf Urine RBC (Auto) (0-4) /hpf U Hyaline Cast (Auto) (0-5) /lpf U Epithel Cells (Auto) (0-5) /lpf Urine Bacteria (Auto) (Negative) Ur Renal Epithelial Cell (0-5) /lpf Granular Casts (0) /lpf 06/27/19 06/27/19 Range/Units 16:54 18:25 WBC (4.8-10.8) K/uL RBC (4.7-6.1) M/uL Hgb (14.0-18.0) g/dL Hct (42-52) % MCV (80-100) fL MCH (25-34) pg MCHC (32-36) g/dL RDW Std Deviation (36.4-46.3) fL RDW Coeff of Kyree (11.5-14.5) % Plt Count (130-400) K/uL MPV (7.4-10.4) fL Immature Gran % (Auto) % Neut % (Auto) % Lymph % (Auto) % [place] % (Auto) % Eos % (Auto) % Baso % (Auto) % Immature Gran # (Auto) (0.00-0.02) K/uL Neut # (Auto) (1.4-6.5) K/uL Lymph # (Auto) (1.2-3.4) K/uL [place] # (Auto) (0.11-0.59) K/uL Eos # (Auto) (0-0.5) K/uL Baso # (Auto) (0-0.2) K/uL PT (9.0-12.0) Seconds INR (0.9-1.1) APTT (21.0-31.0) Seconds PTT Ratio Sodium (136-145) mmol/L Potassium (3.5-5.1) mmol/L Chloride (98-107) mmol/L Carbon Dioxide (21-32) mmol/L Anion Gap (3-11) BUN (7-18) mg/dl Creatinine (0.6-1.4) mg/dl Est Cr Clr Drug Dosing Est GFR ( Amer) Est GFR (Non-Af Amer) BUN/Creatinine Ratio (10-20) Glucose (70-99) mg/dl Osmolality 258 L (280-300) mOsm/kg Lactate (0.4-2.0) mmol/L Calcium (8.5-10.1) mg/dl Magnesium (1.8-2.4) mg/dl Total Bilirubin (0.2-1) mg/dl Direct Bilirubin (0-0.2) mg/dl AST (15-37) U/L ALT (12-78) U/L Alkaline Phosphatase (45-117) U/L Troponin I (0-0.045) ng/ml Total Protein (6.4-8.2) gm/dl Albumin (3.4-5.0) gm/dl Lipase (73-393) U/L Urine Color Yellow Urine Appearance Cloudy A (Clear) Urine pH 5.0 (4.5-7.5) Ur Specific Tyner 1.016 (1.000-1.030) Urine Protein Negative (Negative) Urine Glucose (UA) Negative (Negative) Urine Ketones Negative (Negative) Urine Blood 1+ H (Negative) Urine Nitrite Negative (Negative) Urine Bilirubin Negative (Negative) Urine Urobilinogen Negative (Negative) Ur Leukocyte Esterase Trace H (Negative) Urine WBC (Auto) 5-10 H (0-5) /hpf Urine RBC (Auto) 10-30 H (0-4) /hpf U Hyaline Cast (Auto) >30 H (0-5) /lpf U Epithel Cells (Auto) >30 H (0-5) /lpf Urine Bacteria (Auto) Negative (Negative) Ur Renal Epithelial Cell 10-20 H (0-5) /lpf Granular Casts 1-5 H (0) /lpf Imaging Data Radiologist's Impression: Radiology results as stated below per my review and the radiologist's interpretation: HEAD CT NONCONTRAST CT DOSE: 2081.92 mGy.cm HISTORY: Altered mental status. TECHNIQUE: Multiaxial CT images of the head were performed without the use of intravenous contrast. Automated exposure control was utilized for this study. A dose lowering technique was utilized adhering to the principles of ALARA. Comparison: Head CT 02/28/2019. Findings: Trace fluid within the left sphenoid sinus, unchanged. The mastoid air cells are clear. The calvarium and skull base are intact. There is no mass, hematoma, midline shift, acute infarct. White matter hypodensity is nonspecific but suggestive of microvascular ischemic change. The ventricles and sulci demonstrate mild age-related involutional changes. Impression: No significant change compared to the prior study. No acute intracranial abnormality. Electronically signed by: Ramy Gna M.D. 06/27/2019 5:15 PM XR chest 1V portable HISTORY: Altered mental status. COMPARISON: 05/26/2019. FINDINGS: No pneumothorax. The heart remains enlarged. There are low lung volumes. Mild central pulmonary vascular congestion without overt edema. This is improved. A few bibasilar linear densities favor subsegmental atelectasis. IMPRESSION: 1. Cardiomegaly with mild central pulmonary vascular congestion. This has slightly improved in the interval. 2. Bibasilar linear densities are nonspecific but favor subsegmental atelectasis. Electronically signed by: Ramy Gan M.D. 06/27/2019 4:50 PM ECG Data Attestation: I personally reviewed and interpreted this ECG as follows: Indication: altered mental status Rate (beats per minute): 55 Findings: + other (MO and QRS within nml intervals); no ST depression and no ST elevation MDM Narrative Labs show a leukocytosis of 12.8 most likely due to patients cellulitis, sodium is low 122, potassium 5.2,. I had a long discussion with the family at bedside. Although patient is DNR, they want the patient to be admitted in hopes the patients mental status improves. Lactic acid and urinalysis within normal limits. Imaging within normal limits. I discussed the patient's case with Dr. Forde-Hospitalist. He will evaluate the patient for further management. Impression & Plan Acute hyponatremia, Altered mental status Discharge Plan Visit Data Chief Complaint: Altered Mental Status Stated Complaint: AMS ED Provider: Adi Camacho Discharge Problem: Acute hyponatremia, Altered mental status Patient Disposition: Being Evaluated by Hospitalist Forms Stand Alone Forms: My [facility] Prescriptions Prescriptions: No Action amlodipine 5 mg tablet 5 mg PO BID Qty: 30 RF: 5 calcium carbonate [Calcium 600] 600 mg calcium (1,500 mg) tablet 600 mg PO DAILY Qty: 30 RF: 5 cholecalciferol (vitamin D3) [Vitamin D3] 1,000 unit capsule 2,000 unit PO DAILY Qty: 30 RF: 5 escitalopram oxalate 20 mg tablet 20 mg PO DAILY Qty: 30 RF: 5 furosemide 40 mg tablet 40 mg PO DAILY Qty: 30 RF: 5 memantine 10 mg tablet 10 mg PO BID Qty: 60 RF: 5 pantoprazole [Protonix] 40 mg tablet,delayed release (DR/EC) 40 mg PO DAILY Qty: 30 RF: 5 polyethylene glycol 3350 [Miralax] 17 gram/dose powder 17 gm PO DAILY PRN (Reason: constipation) Qty: 119 RF: 5 potassium chloride [Klor-Con M20] 20 mEq tablet,ER particles/crystals 20 meq PO BID Qty: 120 RF: 5 telmisartan [Micardis] 40 mg tablet 40 mg PO DAILY Qty: 30 RF: 5 lorazepam 0.5 mg tablet 0.5 mg PO BID PRN (Reason: anxiety) Qty: 30 RF: 2 hydrocodone-acetaminophen [Hickman] 5-325 mg tablet 1 tab PO Q8H PRN (Reason: pain) Qty: 20 RF: 0 ciprofloxacin HCl [Cipro] 500 mg tablet 500 mg PO BID Qty: 14 RF: 0 celecoxib 200 mg Capsule 200 mg PO BID RF: 0 atorvastatin 40 mg Tablet 40 mg PO DAILY RF: 0 tamsulosin 0.4 mg Capsule 0.4 mg PO DAILY RF: 0 Referrals Referrals: LIVIER BELFIELDANDREW LEXII [Primary Care Provider] - The scribe's documentation has been prepared under my direction and personally reviewed by me in its entirety. I confirm that the note above accurately reflects all work, treatment, procedures, and medical decision making performed by me.
[2019-06-27] MEDS ORDERED: ALBUMIN 25% 50 ML with FUROSEMIDE 40 MG IV ONE (20:36)
--- NOTE | 2019-06-27 20:53 | History & Physical Report ---
Date of Service June 27, 2019 Assessment & Plan (1) Acute hyponatremia: 78-year-old male with past medical history of dementia, diastolic CHF presents with acute on chronic metabolic encephalopathy. Hypoosmolar hyponatremia Patient has a history of diastolic heart failure, EF of 55 to 60%, on home Lasix Patient is edematous, low albumin appears to be third spacingwe will treat as hypervolemic hyponatremia We will treat initially with Lasix and albumin Follow weights, follow volume status, follow I's and O's Poor nutrition likely contributingpoor p.o. intake recently, consider nutritional consult Acute encephalopathy Dementia baseline likely worsened by hyponatremia Holding all p.o. medications, making the patient n.p.o. CT head was negative Dementia Patient was seen previously by palliative care, order for DNR/DNI Would consider reconsulting palliative and readdress with family if they want the patient to be transferred to a hospital in the future Would consider discontinuing medications such as atorvastatin, amlodipine, calcium carbonate Anemia Hemoglobin is 8.9, may be secondary to hypervolemia No signs or symptoms of GI bleed, but will order stool occult testing DVT prophylaxis SCDs Chemical prophylaxis contraindicated in setting of anemia Other medical problems include CHF, hypertension, hyperlipidemia, depression (2) Altered mental status: (3) Dementia: (4) CHF (congestive heart failure): (5) Hypertension: History of Present Illness Chief Complaint: Metabolic encephalopathy Primary Care Provider: [facility] 78-year-old male with history of Dementia and CHF presents with acute on chronic metabolic encephalopathy. Patient is a resident of the [facility]. Patient is unable to provide history secondary to mental status. I obtained hi story from chart review and from consultation with the emergency room physician. The family was present on arrival to the emergency room, but have since left. They related to the emergency room physician that the patient has been acutely altered today. They state that since he took his Vicodin, he has been unresponsive. He has dementia at baseline, but his mental status today has appeared to worsen. Patient's family states that his oral intake has been very poor lately. Allergies Allergy/AdvReac Type Severity Reaction Status Date / Time tramadol Allergy Mild Agitated Unverified 06/27/19 16:37 cefaclor Allergy Unknown Unknown Verified 06/27/19 16:37 cyclobenzaprine Allergy Unknown UNKNOWN Verified 06/27/19 16:37 menthol [From [facility]] Allergy Unknown Verified 06/27/19 16:37 methyl salicylate Allergy Unknown Verified 06/27/19 16:37 [From [facility]] Penicillins Allergy Unknown Unknown Verified 06/27/19 16:37 Sulfa (Sulfonamide Allergy Unknown Unknown Verified 06/27/19 16:37 Antibiotics) nebivolol AdvReac Mild BRADYCARDIA Verified 06/27/19 16:37 peppermint AdvReac Unknown Bengay Verified 06/27/19 16:37 topically intolerant salicylates AdvReac Unknown Bengay Verified 06/27/19 16:37 topically intolerant Home Medications Home Medications Medication Instructions Recorded Confirmed Type amlodipine 5 mg tablet 5 mg PO BID #30 tab 05/05/19 06/27/19 Rx calcium carbonate 600 mg calcium 600 mg PO DAILY #30 tab 05/05/19 06/27/19 Rx (1,500 mg) tablet cholecalciferol (vitamin D3) 1,000 2,000 unit PO DAILY #30 cap 05/05/19 06/27/19 Rx unit capsule escitalopram 20 mg tablet 20 mg PO DAILY #30 tab 05/05/19 06/27/19 Rx furosemide 40 mg tablet 40 mg PO DAILY #30 tab 05/05/19 06/27/19 Rx memantine 10 mg tablet 10 mg PO BID #60 tab 05/05/19 06/27/19 Rx pantoprazole 40 mg tablet,delayed 40 mg PO DAILY #30 tab 05/05/19 06/27/19 Rx release polyethylene glycol 3350 17 17 gm PO DAILY PRN #119 gm 05/05/19 06/27/19 Rx gram/dose oral powder potassium chloride ER 20 mEq 20 meq PO BID #120 tab 05/05/19 06/27/19 Rx tablet,extended release(part/cryst) telmisartan 40 mg tablet 40 mg PO DAILY #30 tab 05/05/19 06/27/19 Rx lorazepam 0.5 mg tablet 0.5 mg PO BID PRN #30 tab 06/16/19 06/27/19 Rx ciprofloxacin 500 mg tablet 500 mg PO BID #14 tab 06/25/19 06/27/19 Rx hydrocodone 5 mg-acetaminophen 325 1 tab PO Q8H PRN #20 tab 06/25/19 06/27/19 Rx mg tablet atorvastatin 40 mg PO DAILY 06/27/19 06/27/19 History celecoxib 200 mg PO BID 06/27/19 06/27/19 History tamsulosin 0.4 mg PO DAILY 06/27/19 06/27/19 History Past Med/Surg History Medical History Multiple thyroid nodules (Acute) Memory impairment (Chronic) Lumbar compression fracture (Acute) Diverticulosis (Acute) Chronic reflux esophagitis (Acute) Osteoporosis (Acute) Essential hypertension (Acute) CHF (congestive heart failure) (Chronic) Goals of care, counseling/discussion Acute and chronic respiratory failure with hypercapnia (Chronic) Chronic hypercapnic respiratory failure Lower extremity edema (Chronic) Compression fracture Liver hemangioma Dementia (Chronic) Acute encephalopathy Hyponatremia Acute on chronic diastolic heart failure Acute respiratory failure with hypoxia Open wound of right heel Gait abnormality Acute hyponatremia (Acute) Fall against object (Acute) CHI (closed head injury) (Acute) Skin tear of forearm without complication (Acute) Skin tear of left upper arm without complication (Acute) Chronic diastolic heart failure Hypokalemia DVT prophylaxis Bilateral lower extremity edema Dementia Osteomyelitis of ankle or foot, right, acute Osteomyelitis (Acute) Depression Hearing loss (Chronic) Osteopenia (Chronic) Colon polyps (Resolved) T12 compression fracture (Resolved) Reflux (Chronic) Bradycardia (Resolved) Compression fx, lumbar spine Confusion Fall (Resolved) Gait abnormality (Acute) Hypertension (Chronic) Rib contusion (Resolved) Surgical History Previous back surgery H/O colonoscopy (Resolved) Family History Other No pertinent family history in first degree relatives Social History Preferred Language: Occitan Communication Ability: Impaired Communication Ability Comment: pt is confused and does not answer questions. No family at bedside. Visual Impairment: No Limitations Beliefs That Will Affect Care: [employer]ar[employer] Samaritan Beliefs: box is checked "yes" on admission form for voodoo beliefs but nothing is specified marital status: Current Living Situation: Correction Current Living Situation Comment: assisted living Feels Safe at Home: Yes Smoking Status: Unknown if ever smoked Review of Systems Review of Systems: Unobtainable due to cognitive status Physical Exam Constitutional: + ill appearing, + obese, + altered mental status, + disheveled and + edematous Eyes: PERRL, conjunctivae normal, anicteric sclerae ENMT: external ear and nose normal, oropharynx normal Neck: trachea midline, no thyromegaly Respiratory: normal respiratory effort and symmetric chest movement; no respiratory distress, no labored breathing, does not use accessory muscles and not tachypneic Auscultation: + vesicular breath sounds On exam was limited to the anterior chest, cannot appreciate wheezing, rales or rhonchi. The patient was not tachypneic. Cardiovascular: Rate/Rhythm: regular rate and regular rhythm Heart Sounds: no murmur and no cardiac rub Extremities: + pedal edema and + edema Gastrointestinal (Abdomen): normal bowel sounds, soft, nontender, no hepatosplenomegaly Musculoskeletal: no cyanosis or clubbing, extremities motor strength 5/5 Skin: Erythematous lesions on chest consistent with senile purpura, bilateral edema and upper extremity, skin is taut, shiny and appears to be weeping. Right upper extremity is erythematous warm, appears cellulitic Psychiatric: Orientation: + not alert and + not oriented x 3 Results & Data Vital Signs (Past 12 Hours) Vital Signs Pulse Resp BP Pulse Ox 06/27/19 20:00 52 L 13 105/62 100 06/27/19 19:30 52 L 15 102/56 L 100 06/27/19 19:00 54 L 20 104/56 L 100 06/27/19 18:32 54 L 19 92/62 L 100 06/27/19 18:30 53 L 14 100 06/27/19 18:01 53 L 13 85/60 L 100 06/27/19 18:00 50 L 14 100 06/27/19 17:30 54 L 12 97 06/27/19 17:12 53 L 15 93 06/27/19 16:30 52 L 18 119/66 06/27/19 16:00 52 L 16 116/57 L 98 06/27/19 15:49 61 20 107/61 92 06/27/19 15:45 53 L 22 87 L 06/27/19 15:42 54 L 17 107/61 83 L Diagnostic Findings [facility], [place] [phone] XRay Report Patient: YUE PETEit Date: 06/27/19 MR#: [id number]: [address] Acct ID:[id number]: [facility] Date: 1940[facility] Zip: [place] [address] Age: 78Location: ED Sex: M Room/Bed: Att Phy: Diagnosis: AMS [facility]: [facility] Fam Phy: Interpreting Phy: Ramy Gan MD Admit Phy: Ordering Phy: Adi Camacho M.D. cc: ~ XR chest 1V portable HISTORY: Altered mental status. COMPARISON: 05/26/2019. FINDINGS: No pneumothorax. The heart remains enlarged. There are low lung volu mes. Mild central pulmonary vascular congestion without overt edema. This is improved. A few bibasilar linear densities favor subsegmental atelectasis. IMPRESSION: 1. Cardiomegaly with mild central pulmonary vascular congestion. This has slightly improved in the interval. 2. Bibasilar linear densities are nonspecific but favor subsegmental atelectasis. Electronically signed by: Ramy Gan M.D. 06/27/2019 4:50 PM Dictated: 06/27/19 164 Transcribed: 06/27/19 164 [place], [place] [phone] CT Scan Report Patient: YUE PETE EAdmit Date: 06/27/19 MR#: [id number]: [address] Acct ID:[id number]: [facility] Date: 1940[facility] Zip: [place] [address] Age: 78Location: ED Sex: M Room/Bed: Att Phy: Diagnosis: AMS [facility]: [facility] Fam Phy: Interpreting Phy: Ramy Gan MD Admit Phy: Ordering Phy: Adi Camacho M.D. cc: ~ HEAD CT NONCONTRAST CT DOSE: 2081.92 mGy.cm HISTORY: Altered mental status. TECHNIQUE: Multiaxial CT images of the head were performed without the use of intravenous contrast. Automated exposure control was utilized for this study. A dose lowering technique was utilized adhering to the principles of ALARA. Comparison: Head CT 02/28/2019. Findings: Trace fluid within the left sphenoid sinus, unchanged. The mastoid air cells are clear. The calvarium and skull base are intact. There is no mass, hematoma, midline shift, acute infarct. White matter hypodensity is nonspecific but suggestive of microvascular ischemic change. The ventricles and sulci demonstrate mild age-related involutional changes. Impression: No significant change compared to the prior study. No acute intracranial abnormality. Electronically signed by: Ramy Gan M.D. 06/27/2019 5:15 PM Dictated: 06/27/191711 Transcribed: 06/27/191711 Code Status & VTE Plan Code Status DNR/DNI VTE Prophylaxis Plan VTE Prophylaxis will be ordered: Yes Supervising Physician Co-Signing Physician Notes Attending addendum: I have physically seen this patient, have supervised the medical residents activities, and agree with the H&P unless as otherwise noted. Assessment and Plan: Hyponatremia with hypoosmolality- Treated initially with Lasix and albumin to help support blood pressure. May add hypertonic saline. Fluid restriction Patient will be n.p.o. due to altered mental state. Admit to monitored bed. Encephalopathy- Multifactorial. Worsening baseline dementia. Acutely exacerbated by hyponatremia. Patient is DNR/DNI. Remainder of orders and notations as noted. PG Care Time/CCT Total # of Minutes Spent Total Time Spent with Patient: Total time spent is greater than 50% in coordination of care (as documented) at patient's floor/unit and/or counseling patient: Resident Activity Tracking Resident Involvement: Resident Care Provided Care Provided: Adult Hospital Medicine (1) Altered mental status Altered mental status type: unspecified Qualified Code(s): R41.82 - Altered mental status, unspecified
[2019-06-28] MEDS ORDERED: ALBUMIN 5% 250 ML IV SCH (00:45)
[2019-06-28] MEDS: ALBUMIN 25% 50 ML IV SCH ×2 (00:58→01:59)
[2019-06-28 01:44] LABS: BUN Creatinine Ratio 23.4 (10-20); Calcium 8.4 mg/dl (8.5-10.1); Creatinine Clr Calc Pharmacy 78.6 ml/min; Est GFR (African American) 97.3; Est GFR (Non-African American) 83.9; Potassium 4.9 mmol/L (3.5-5.1)
[2019-06-28] MEDS: DOXYCYCLINE HYCLATE 100 MG in DEXTROSE 5% 100 ML IV SCH ×2 (01:59→13:48)
[2019-06-28 08:26] LABS: Eosinophils # (auto) 0.06 K/uL (0-0.5); Eosinophils % (auto) 0.7 %; Hematocrit (blood only) 25.2 % (42-52); Hemoglobin 8.4 g/dL (14.0-18.0); Immature Granulocytes # (auto) 0.05 K/uL (0.00-0.02); Immature Granulocytes % (auto) 0.6 %; Lymphocytes # (auto) 0.63 K/uL (1.2-3.4); Mean Corpuscular Hgb Conc 33.3 g/dL (32-36); Mean Corpuscular Volume 93.3 fL (80-100); Mean Platelet Volume 9.1 fL (7.4-10.4); Monocytes # (auto) 0.59 K/uL (0.11-0.59); Monocytes % (auto) 6.6 %; Neutrophils # (auto) 7.64 K/uL (1.4-6.5); Neutrophils % (auto) 85.1 %; Platelet Count 226 K/uL (130-400); RDW Coefficient of Variation 16.1 % (11.5-14.5); RDW Standard Deviation 55.5 fL (36.4-46.3); White Blood Count 8.97 K/uL (4.8-10.8)
[2019-06-28 08:50] LABS: Albumin Level 2.8 gm/dl (3.4-5.0); BUN Creatinine Ratio 23.9 (10-20); Calcium 8.6 mg/dl (8.5-10.1); Creatinine Clr Calc Pharmacy 89.3 ml/min; Est GFR (African American) 102.1; Est GFR (Non-African American) 88.1; Potassium 4.7 mmol/L (3.5-5.1)
[2019-06-28 08:53] LABS: Albumin Globulin Ratio 1.1 (0.9-2); Bilirubin,Total 0.5 mg/dl (0.2-1); Globulin 2.6 gm/dl (2.5-4.0); Total Protein 5.4 gm/dl (6.4-8.2)
[2019-06-28] MEDS ORDERED: ACETAMINOPHEN 1,000 MG/100 ML VIAL IV PRN (12:09)
--- NOTE | 2019-06-28 14:45 | Hospitalist Progress Note ---
Date of Service June 28, 2019 Assessment & Plan (1) Acute hyponatremia: Hypovolemic hyponatremia Patient has a history of diastolic heart failure, EF of 55 to 60%, on home Lasix Patient is edematous, low albumin appears to be third spacing but likely is intravascularly dry due to poor po intake Follow weights, follow volume status, follow I's and O's Poor nutrition likely contributingpoor p.o. intake recently, consider nutritional consult - random cortisol was high (2) Altered mental status: Acute encephalopathy Dementia baseline likely worsened by hyponatremia Holding all p.o. medications, making the patient n.p.o. CT head was negative (3) Dementia: Patient was seen previously by palliative care, order for DNR/DNI - family would like to consult palliative for goals of care - they are considering hospice but would like patient to be more stable with better mental status before discontinuing any care. (4) CHF (congestive heart failure): resume po lasix tomorrow pending labs Is &Os, daily weights (5) Hypertension: continue amlodipine, telmisartan (6) DVT prophylaxis: DVT prophylaxis SCDs Chemical prophylaxis contraindicated in setting of anemia Other medical problems include CHF, hypertension, hyperlipidemia, depression Subjective Mr. Ross is awake and did know he was in the hospital though his speech was very garbled. His and daughter and son in law were bedside. We did spend time discussing goals of care. Review of Systems Review of Systems: All systems reviewed & are unremarkable except as noted in HPI & below Physical Exam Physical Exam: General: no distress Eyes: normal inspection, PERLL Respiratory: chest non tender, clear to auscultation, normal breath sounds, no respiratory distress, no accessory muscle use Cardiac: regular rate and rhythm, no rub or gallop, no murmur, +1 pitting edema to lower extremities GI/: active bowel sounds, no abd pain or tenderness, soft, non distended Extremities: normal range of motion, normal strength, non tender Neuro/Psych: alert and oriented x 3, normal mood and affect Skin: normal color, dry, right arm edema, erythema, weeping, painful to manipulation Results & Data Vital Signs (Past 12 Hours) Vital Signs Temp Pulse Resp BP BP Pulse Ox 06/28/19 11:16 36.8 C 68 20 158/74 H 93 06/28/19 06:52 36.4 C L 59 L 16 112/69 93 06/28/19 03:20 36.3 C L 57 L 18 109/70 95 PG Care Time/CCT Total # of Minutes Spent Total Time Spent with Patient: Total time spent is greater than 50% in coordination of care (as documented) at patient's floor/unit and/or counseling patient: (1) Altered mental status Altered mental status type: unspecified Qualified Code(s): R41.82 - Altered mental status, unspecified
[2019-06-28] MEDS ORDERED: SODIUM CHLORIDE 0.9% 1000ML 1,000 ML IV SCH (16:00)
[2019-06-28] MEDS ORDERED: POLYETHYLENE (MIRALAX) 17 GM PACK PO PRN (16:18)
[2019-06-28] MEDS ORDERED: LORazepam 0.5 MG TAB PO PRN (16:18)
[2019-06-28] MEDS ORDERED: HYDROCODONE/ACETAMOPHEN 5/325MG TAB PO PRN (16:18)
[2019-06-28 16:30] LABS: BUN Creatinine Ratio 20.4 (10-20); Calcium 8.3 mg/dl (8.5-10.1); Creatinine Clr Calc Pharmacy 82.4 ml/min; Est GFR (African American) 98.8; Est GFR (Non-African American) 85.3; Potassium 4.6 mmol/L (3.5-5.1)
[2019-06-28] MEDS ORDERED: FUROSEMIDE 40 MG/4 ML VIAL IV STA (18:03)
[2019-06-28] MEDS: AMLODIPINE BESYLATE 5 MG TAB PO SCH (21:34)
[2019-06-28] MEDS: POTASSIUM CHLORIDE 20 MEQ TABCR PO SCH (21:34)
[2019-06-28] MEDS: MEMANTINE HCL 10 MG TAB PO SCH (21:34)
[2019-06-28 22:24] LABS: BUN Creatinine Ratio 18.5 (10-20); Calcium 8.4 mg/dl (8.5-10.1); Creatinine Clr Calc Pharmacy 79.3 ml/min; Est GFR (African American) 97.3; Est GFR (Non-African American) 83.9; Potassium 4.2 mmol/L (3.5-5.1)
[2019-06-29] MEDS: DOXYCYCLINE HYCLATE 100 MG in DEXTROSE 5% 100 ML IV SCH ×2 (01:00→13:45)
[2019-06-29 07:28] LABS: Hemoglobin 9.1 g/dL (14.0-18.0); Mean Corpuscular Hgb Conc 32.5 g/dL (32-36); Mean Corpuscular Volume 95.9 fL (80-100); Mean Platelet Volume 8.9 fL (7.4-10.4); Platelet Count 265 K/uL (130-400); RDW Coefficient of Variation 16.1 % (11.5-14.5); RDW Standard Deviation 56.1 fL (36.4-46.3); Red Blood Count 2.92 M/uL (4.7-6.1); White Blood Count 6.81 K/uL (4.8-10.8)
--- NOTE | 2019-06-29 07:39 | Hospitalist Progress Note ---
Date of Service June 29, 2019 Assessment & Plan (1) Acute hyponatremia: Hypovolemic hyponatremia Patient has a history of diastolic heart failure, EF of 55 to 60%, on home Lasix Patient is edematous, low albumin appears to be third spacing but likely is intravascularly dry due to poor po intake extremities are weeping fluid Poor nutrition likely contributingpoor p.o. intake recently, consider nutritional consult - random cortisol was high which goes against cortisol insufficiency Likely patient is reaching end-of-life palliative care discussion will be undertaken we may likely proceed towards comfort care measures (2) Altered mental status: Acute encephalopathy Dementia baseline likely worsened by hyponatremia Holding all p.o. medications, making the patient n.p.o. CT head was negative for stroke (3) Dementia: Patient was seen previously by palliative care, order for DNR/DNI Family meeting on 729 discussed transition towards comfort care (4) CHF (congestive heart failure): chronic diastolic heart failure, resume po lasix (5) Hypertension: continue amlodipine, telmisartan Subjective Patient is arouses to stimulation however he falls asleep easily he cannot make sensible decisions or discussion he remains fairly dependent on BiPAP. Palliative care did have a discussion with him today and family is leaning towards comfort measures family meeting is set for the afternoon Review of Systems Review of Systems: Unobtainable due to cognitive status Physical Exam Physical Exam: The patient appeared fatigued and confused Vital signs as documented. Head exam is unremarkable. normocephalic, atraumatic Neck is without jugular venous distension, trachea is midline Lungs are diminished bilaterally Cardiac exam reveals Rhythm is regular. Abdominal exam reveals normal bowel sounds, soft Extremities are 2+ edematous and arms are actually weeping fluid Neurologic exam is with some delirium spontaneously moves all extremities does not move upon command Skin is with areas of redness weeping some fluid at times Results & Data Vital Signs (Past 12 Hours) Vital Signs Temp Pulse Pulse Resp BP Pulse Ox 06/29/19 07:08 36.2 C L 60 60 14 143/73 H 96 06/29/19 03:59 36.4 C L 62 19 108/62 98 06/28/19 23:33 36.7 C 62 19 101/61 98 06/28/19 23:19 63 06/28/19 22:11 64 14 96 PG Care Time/CCT Total # of Minutes Spent Total Time Spent with Patient: Total time spent is greater than 50% in coordination of care (as documented) at patient's floor/unit and/or counseling patient: (1) Altered mental status Altered mental status type: unspecified Qualified Code(s): R41.82 - Altered mental status, unspecified
[2019-06-29 07:54] LABS: BUN Creatinine Ratio 17.2 (10-20); Calcium 8.6 mg/dl (8.5-10.1); Creatinine Clr Calc Pharmacy 93.4 ml/min; Est GFR (African American) 105.2; Est GFR (Non-African American) 90.8
[2019-06-29] MEDS ORDERED: ATORVASTATIN 40 MG TAB PO SCH (09:00)
[2019-06-29] MEDS ORDERED: CALCIUM CARBONATE 1250MG TAB PO SCH (09:00)
[2019-06-29] MEDS ORDERED: CHOLECALCIFEROL 1,000 UNITS TAB PO SCH (09:00)
[2019-06-29] MEDS: TAMSULOSIN HCL 0.4 MG CAP PO SCH (09:05)
[2019-06-29] MEDS: POTASSIUM CHLORIDE 20 MEQ TABCR PO SCH (09:05)
[2019-06-29] MEDS: TELMISARTAN 40 MG TAB PO SCH (09:05)
[2019-06-29] MEDS: PANTOprazole 40 MG TAB PO SCH (09:05)
[2019-06-29] MEDS: AMLODIPINE BESYLATE 5 MG TAB PO SCH (09:06)
[2019-06-29] MEDS: FUROSEMIDE 40 MG TAB PO SCH (09:06)
[2019-06-29] MEDS: MEMANTINE HCL 10 MG TAB PO SCH (09:06)
--- NOTE | 2019-06-29 10:55 | Palliative Care Consultation ---
Date of Consultation June 29, 2019 Assessment & Plan (1) Goals of care, counseling/discussion: -78 year old male patient with PMH dementia, diastolic heart failure with EF 55-60%, left hip fracture s/p total left hip arthroplasty May 2019, multiple falls and compression fractures, presented to the hospital a few days ago with acute on chronic metabolic encephalopathy. He was found to be hyponatremic likely secondary to volume overload. His albumin is low at 2.8, has severe third spacing and weeping of the upper extremities and edema of the lower extremities. He is being diuresed with PO and IV Lasix. Patient did decompensate yesterday evening and had to be placed on Bipap for lethargy and worsening respiratory status. He was also given albumin and Lasix. Palliative care has seen patient in the past to discuss goals of care for his advanced dementia and other comorbidities. The decision was made at that time to send patient to rehab then take him back home as long as he was able to improve to his baseline functional status, which he did for a period of time. He then had some more falls at home and placed in [facility] personal fdc. In May he fell and broke his left hip. He underwent surgery here at [facility] and went to [facility] for rehab, eventually went home to [facility]. Palliative care is reconsulted at this time to discuss goals of care. -Met with patient and his , Chelo, in room 218. Patient is lethargic on Bipap. Did open eyes and tried to say a couple words but quickly falls back asleep. -Chelo states that patient has declined significantly in the last couple weeks. Initially after his hip surgery he did okay, but recently has not been eating or drinking well. Chelo stated, "I have a feeling he won't be leaving the hospital this time." -We discussed patient's quality of life. Chelo states that the patient always wanted every chance to live so he could be with her, but she knows he would not want to continue living this way. -Chelo confirmed DNR/DNI status. NO ESCALATION IN CARE, even if he deteriorates. We discussed transitioning to comfort measures only. She would like to discuss with their son, Hesham, and daughter, Krystina. Krystina will then be here this afternoon around 1530. I will return to patient's room at that time to discuss further. -For now, continue current care. May be transitioning to comfort measures only depending on how patient does and what family decides. -Update 1600: Patient's Chelo, daughter Krystina, Krystina's s/o Kannan, Chelo's friend Grazyna and Grazyna's s/o. Patient was sleeping during entire conversation on the Bipap. Apparently he did eat his entire lunch earlier with the help of his . We discussed patient's medical conditions including diastolic heart failure, fluid overload, low albumin/poor PO intake, cellulitis, and advanced dementia. We have diuresed patient over the last couple days with IV and PO Lasix. He had a total of >3L urine output yesterday, and 1175ml urine output so far today. When patient was off bipap earlier today, he maintained his oxygen sat at 97% per nurse and had no respiratory distress. He was placed back on the bipap until we were able to have conversation with family. -After lengthy discussion, decision was made to transition to comfort measures only. Discontinue the bipap. Continue patient's regular medications but eliminate unnecessary medications such as supplements and statin. Stop lab work. Switch IV abx to PO. -If patient stabilizes, can discuss transitioning to hospice at [facility] if they are able to take him back vs. SNF with hospice vs. home with hospice. I, as well as patient's family, have concerns about the patient's taking him even if it is on hospice. Will see how patient does in next 24-48 hours. Prognosis is poor. -PPS 20%. (2) Altered mental status: Altered mental status type: unspecified Qualified Code(s): R41.82 - Altered mental status, unspecified (3) Acute hyponatremia: (4) CHF (congestive heart failure): (5) Dementia: History of Present Illness Reason for Consultation: Goals of care Requesting Physician: Dr. Owens Attending Physician: Rony Owens MD History of Present Illness This 78 year old male patient with PMH dementia, diastolic heart failure with EF 55-60%, left hip fracture s/p total left hip arthroplasty May 2019, multiple falls and compression fractures, presented to the hospital a few days ago with acute on chronic metabolic encephalopathy. He was found to be hyponatremic likely secondary to volume overload. His albumin is low at 2.8, has severe third spacing and weeping of the upper extremities and edema of the lower extremities. He is being diuresed with PO and IV Lasix. Patient did decompensate yesterday evening and had to be placed on Bipap for lethargy and worsening respiratory status. He was also given albumin and Lasix. Palliative care has seen patient in the past to discuss goals of care for his advanced dementia and other comorb idities. The decision was made at that time to send patient to rehab then take him back home as long as he was able to improve to his baseline functional status, which he did for a period of time. He then had some more falls at home and placed in [facility] personal fdc. In May he fell and broke his left hip. He underwent surgery here at [facility] and went to [facility] for rehab, eventually went home to [facility]. Palliative care is reconsulted at this time to discuss goals of care. Thank you kindly for this consult. I will follow as needed. Allergies Allergy/AdvReac Type Severity Reaction Status Date / Time tramadol Allergy Mild Agitated Unverified 06/27/19 16:37 cefaclor Allergy Unknown Unknown Verified 06/27/19 16:37 cyclobenzaprine Allergy Unknown UNKNOWN Verified 06/27/19 16:37 menthol [From BenGay] Allergy Unknown Verified 06/27/19 16:37 methyl salicylate Allergy Unknown Verified 06/27/19 16:37 [From BenGay] Penicillins Allergy Unknown Unknown Verified 06/27/19 16:37 Sulfa (Sulfonamide Allergy Unknown Unknown Verified 06/27/19 16:37 Antibiotics) nebivolol AdvReac Mild BRADYCARDIA Verified 06/27/19 16:37 peppermint AdvReac Unknown Bengay Verified 06/27/19 16:37 topically intolerant salicylates AdvReac Unknown Bengay Verified 06/27/19 16:37 topically intolerant Home Medications Home Medications Medication Instructions Recorded Confirmed Type amlodipine 5 mg tablet 5 mg PO BID #30 tab 05/05/19 06/27/19 Rx calcium carbonate 600 mg calcium 600 mg PO DAILY #30 tab 05/05/19 06/27/19 Rx (1,500 mg) tablet cholecalciferol (vitamin D3) 1,000 2,000 unit PO DAILY #30 cap 05/05/19 06/27/19 Rx unit capsule escitalopram 20 mg tablet 20 mg PO DAILY #30 tab 05/05/19 06/27/19 Rx furosemide 40 mg tablet 40 mg PO DAILY #30 tab 05/05/19 06/27/19 Rx memantine 10 mg tablet 10 mg PO BID #60 tab 05/05/19 06/27/19 Rx pantoprazole 40 mg tablet,delayed 40 mg PO DAILY #30 tab 05/05/19 06/27/19 Rx release polyethylene glycol 3350 17 17 gm PO DAILY PRN #119 gm 05/05/19 06/27/19 Rx gram/dose oral powder potassium chloride ER 20 mEq 20 meq PO BID #120 tab 05/05/19 06/27/19 Rx tablet,extended release(part/cryst) telmisartan 40 mg tablet 40 mg PO DAILY #30 tab 05/05/19 06/27/19 Rx lorazepam 0.5 mg tablet 0.5 mg PO BID PRN #30 tab 06/16/19 06/27/19 Rx ciprofloxacin 500 mg tablet 500 mg PO BID #14 tab 06/25/19 06/27/19 Rx hydrocodone 5 mg-acetaminophen 325 1 tab PO Q8H PRN #20 tab 06/25/19 06/27/19 Rx mg tablet atorvastatin 40 mg PO DAILY 06/27/19 06/27/19 History celecoxib 200 mg PO BID 06/27/19 06/27/19 History tamsulosin 0.4 mg PO DAILY 06/27/19 06/27/19 History Patient History Medical History Multiple thyroid nodules (Acute) Memory impairment (Chronic) Lumbar compression fracture (Acute) Diverticulosis (Acute) Chronic reflux esophagitis (Acute) Osteoporosis (Acute) Essential hypertension (Acute) CHF (congestive heart failure) (Chronic) Goals of care, counseling/discussion Acute and chronic respiratory failure with hypercapnia (Chronic) Chronic hypercapnic respiratory failure Lower extremity edema (Chronic) Compression fracture Liver hemangioma Dementia (Chronic) Acute encephalopathy Hyponatremia Acute on chronic diastolic heart failure Acute respiratory failure with hypoxia Open wound of right heel Gait abnormality Acute hyponatremia (Acute) Fall against object (Acute) CHI (closed head injury) (Acute) Skin tear of forearm without complication (Acute) Skin tear of left upper arm without complication (Acute) Chronic diastolic heart failure Hypokalemia DVT prophylaxis Bilateral lower extremity edema Dementia Osteomyelitis of ankle or foot, right, acute Osteomyelitis (Acute) Depression Hearing loss (Chronic) Osteopenia (Chronic) Colon polyps (Resolved) T12 compression fracture (Resolved) Reflux (Chronic) Bradycardia (Resolved) Compression fx, lumbar spine Confusion Fall (Resolved) Gait abnormality (Acute) Hypertension (Chronic) Rib contusion (Resolved) Surgical History Previous back surgery H/O colonoscopy (Resolved) Family History Other No pertinent family history in first degree relatives Social History Preferred Language: Uzbek Communication Ability: Impaired Communication Ability Comment: pt is confused and does not answer questions. No family at bedside. Visual Impairment: No Limitations Beliefs That Will Affect Care: Yazdanism Yazdanism Beliefs: box is checked "yes" on admission form for yazdanism beliefs but nothing is specified marital status: Current Living Situation: Long-Term Current Living Situation Comment: assisted living Feels Safe at Home: Yes Smoking Status: Unknown if ever smoked Review of Systems Review of Systems: Unobtainable due to cognitive status Physical Exam Constitutional: + ill appearing; no acute distress ENMT: Mouth: + dry oral mucous membranes (from Bipap) Respiratory: Auscultation: + diminished lung sounds (lung sounds extremely diminished throughout) on Bipap Cardiovascular: Rate/Rhythm: regular rate and regular rhythm Extremities: + edema (severe edema of upper extremities with weeping, +3 pitting edema to BLE) Gastrointestinal (Abdomen): Inspection/Auscultation: normal bowel sounds; abdomen not distended (obese at baseline) Neurologic: awake (wakes, but is lethargic) Psychiatric: Orientation: + not alert and + not oriented x 3 Results & Data Vital Signs (Past 12 Hours) Vital Signs Temp Pulse Pulse Resp BP Pulse Ox 06/29/19 07:08 36.2 C L 60 60 14 143/73 H 96 06/29/19 03:59 36.4 C L 62 19 108/62 98 06/28/19 23:33 36.7 C 62 19 101/61 98 06/28/19 23:19 63 PG Care Time/CCT Prolonged Care Time Prolonged Care Time: Yes Total Prolonged Care Time: 110 Time Spent Midlevel 110 minutes with >50% of time spent at bedside with [patient and family] discussing [condition and GOC].
[2019-06-29] MEDS: MoRPHine SULFATE 5 MG/0.25 ML UDP PO PRN (18:04)
[2019-06-30] MEDS: POTASSIUM CHLORIDE 20 MEQ TABCR PO SCH ×3 (07:04→20:06)
[2019-06-30] MEDS: AMLODIPINE BESYLATE 5 MG TAB PO SCH ×2 (07:04→08:19)
[2019-06-30] MEDS: TELMISARTAN 40 MG TAB PO SCH (08:17)
[2019-06-30] MEDS: FUROSEMIDE 40 MG TAB PO SCH (08:17)
[2019-06-30] MEDS: PANTOprazole 40 MG TAB PO SCH (08:17)
[2019-06-30] MEDS: TAMSULOSIN HCL 0.4 MG CAP PO SCH (08:19)
[2019-06-30] MEDS: DOXYCYCLINE HYCLATE 100 MG CAP PO SCH (08:19)
[2019-06-30] MEDS: MoRPHine SULFATE 5 MG/0.25 ML UDP PO PRN ×2 (08:43→18:03)
--- NOTE | 2019-06-30 15:42 | Palliative Care Progress Note ---
Date of Service June 30, 2019 Assessment & Plan (1) Goals of care, counseling/discussion: -Patient is now on nasal cannula, no more bipap. Comfort measures only. - is at bedside. She is glad to see patient's edema has improved. She confirmed goal is still for comfort. -Patient has received two doses of Roxanol 5mg since yesterday. He appears stable, but does have low BP. Dr. Townsend is placing hold parameters on BP medications. If patient continues to decline as far as his mentation, VS, etc, will discuss with about discontinuing his PO medications. -Patient being transferred out of PCU today. If he remains stable over the next 24-48 hours without frequent comfort medication titration, he may be stable for transfer out of the hospital. is considering having patient go back to [facility] with hospice if they can accept him back. system developer associate manager updated. -Palliative will continue to follow as needed. -PPS 20%. (2) Altered mental status: (3) Acute hyponatremia: (4) CHF (congestive heart failure): (5) Dementia: Subjective Patient is off bipap and tolerating nasal cannula well without discomfort. is at bedside. Review of Systems Review of Systems: Unobtainable due to cognitive status Physical Exam Constitutional: + ill appearing; no acute distress ENMT: external ear and nose normal, oropharynx normal Respiratory: Auscultation: + diminished lung sounds (lung sounds extremely diminished throughout) Cardiovascular: Rate/Rhythm: regular rate and regular rhythm Extremities: + edema (edema of upper extremities improved, still weeping, +2 pitting edema to BLE) Gastrointestinal (Abdomen): Inspection/Auscultation: normal bowel sounds; abdomen not distended (obese at baseline) Neurologic: awake (wakes, but is lethargic) Psychiatric: Orientation: + not alert and + not oriented x 3 Results & Data Vital Signs (Past 12 Hours) Vital Signs Temp Pulse Resp BP BP Pulse Ox 06/30/19 15:13 36.4 C L 63 20 102/66 98 06/30/19 12:00 35.9 C L 61 28 H 83/53 L 97 06/30/19 06:54 36.3 C L 60 16 129/74 93 Time Spent Midlevel 35 minutes with >50% of the time spent at bedside with patient and family discussing condition and GOC. (1) Altered mental status Altered mental status type: unspecified Qualified Code(s): R41.82 - Altered mental status, unspecified
[2019-06-30] MEDS: MoRPHine SULFATE 2 MG/ML CARP IV PRN (20:05)
--- NOTE | 2019-06-30 23:32 | Hospitalist Progress Note ---
Date of Service June 30, 2019 Assessment & Plan (1) Acute hyponatremia: Patient is comfort measures at this time. will transfer to . Hypovolemic hyponatremia Patient has a history of diastolic heart failure, EF of 55 to 60%, on home Lasix Patient is edematous, low albumin appears to be third spacing but likely is intravascularly dry due to poor po intake extremities are weeping fluid Poor nutrition likely contributingpoor p.o. 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 (2) Altered mental status: Acute encephalopathy Dementia baseline likely worsened by hyponatremia Holding all p.o. medications, making the patient n.p.o. CT head was negative for stroke Goal now is comofrt. (3) Dementia: Patient was seen previously by palliative care, order for DNR/DNI (4) CHF (congestive heart failure): chronic diastolic heart failure, resume po lasix (5) Hypertension: continue amlodipine, telmisartan Hold parameters as patient BP has been low. Spent 35 minutes on patient care, this included chart review. Subjective Patient is resting comfortably. is at bedside. Patient has no complaints. Review of Systems Review of Systems: All systems reviewed & are unremarkable except as noted in HPI & below Physical Exam Physical Exam: The patient appeared comfortable. Vital signs as documented. Head exam is unremarkable. normocephalic, atraumatic Neck is without jugular venous distension, trachea is midline Lungs are diminished bilaterally Cardiac exam reveals Rhythm is regular. Abdominal exam reveals normal bowel sounds, soft Extremities are 2+ edematous and arms are actually weeping fluid Neurologic exam is with some delirium spontaneously moves all extremities does not move upon command Skin is with areas of redness weeping some fluid at times Results & Data Vital Signs (Past 12 Hours) Vital Signs Temp Pulse Resp BP BP Pulse Ox 06/30/19 15:13 36.4 C L 63 20 102/66 98 06/30/19 12:00 35.9 C L 61 28 H 83/53 L 97 PG Care Time/CCT Total # of Minutes Spent Total Time Spent with Patient: Total time spent is greater than 50% in coordination of care (as documented) at patient's floor/unit and/or counseling patient: (1) Altered mental status Altered mental status type: unspecified Qualified Code(s): R41.82 - Altered mental status, unspecified
[2019-07-01] MEDS ORDERED: SCOPOLAMINE 1.5 MG TDSY TD SCH (06:00)
[2019-07-01] MEDS: CHECK SCOPOLAMINE PATCH PLACEMENT SCH ×3 (07:48→23:48)
[2019-07-01] MEDS: FUROSEMIDE 40 MG TAB PO SCH (08:41)
[2019-07-01] MEDS: TAMSULOSIN HCL 0.4 MG CAP PO SCH (08:41)
[2019-07-01] MEDS: PANTOprazole 40 MG TAB PO SCH (08:41)
[2019-07-01] MEDS: TELMISARTAN 40 MG TAB PO SCH (08:41)
[2019-07-01] MEDS: DOXYCYCLINE HYCLATE 100 MG CAP PO SCH (08:41)
[2019-07-01] MEDS: POTASSIUM CHLORIDE 20 MEQ TABCR PO SCH ×2 (08:41→08:42)
--- NOTE | 2019-07-01 12:12 | Palliative Care Progress Note ---
Date of Service July 01, 2019 Assessment & Plan (1) Goals of care, counseling/discussion: -Patient remains on 3LNC. Comfort measures only. - and son, Hesham, is at bedside. -Patient apparently had increased pain overnight and IV Morphine was started. patient has received 2 doses of Roxanol over the past 24 hours and one dose of IV Morphine last evening. -I spoke with family regarding his current presentation. Patient B/L LE are cool to touch, but continue to have pedal pulses. Patient does have shallow breathing but this may be back to his baseline with some diaphragmatic breaths. -Patient continuing to make urine via his snyder catheter. -His mentation waxes and wanes with more interaction some times throughout the day vs others. - is considering having patient go back to [facility] personal assisted with hospice. Case Management involved and we spoke earlier. [facility] will take the patient back with Hospice and they typically work with [facility], so will place referral for possible discharge tomorrow. -I did provide the patient's son with a letter to his job indicating his father was at end of life. -Will re-evaluate tomorrow morning from a stability standpoint, and symptom management standpoint. -Palliative will continue to follow as needed. -PPS 20%. (2) Altered mental status: (3) Acute hyponatremia: (4) CHF (congestive heart failure): (5) Dementia: Subjective Pt opened eyes to his name and focused on my eyes. Patient did wiggle his fingers on his left hand on command Patient did look at his and try to talk to her, nonsensical Please see A/P for further details Review of Systems Review of Systems: Unobtainable due to cognitive status Physical Exam Constitutional: + ill appearing, + obese, + altered mental status, + disheveled, + lethargic and + edematous Eyes: PERRL, conjunctivae normal, anicteric sclerae ENMT: external ear and nose normal, oropharynx normal Neck: trachea midline, no thyromegaly Respiratory: + uses accessory muscles (may be at baseline) Auscultation: + diminished lung sounds shallow breathing Cardiovascular: Rate/Rhythm: regular rate and regular rhythm Heart Sounds: normal S1 and normal S2; no gallop, no murmur and no cardiac rub Vessels: dorsalis pedis pulses present Extremities: normal capillary refill, + pedal edema and + edema (R> L arm ) Gastrointestinal (Abdomen): normal bowel sounds, soft, nontender, no hepatosplenomegaly Skin: mottling on toes Psychiatric: Orientation: alert Genitourinary: snyder catheter Lymphatic: no cervical or axillary lymphadenopathy PG Care Time/CCT Total # of Minutes Spent Total Time Spent: 45 Total Time Spent with Patient: Total time spent is greater than 50% in coordination of care (as documented) at patient's floor/unit and/or counseling patient: 45 Prolonged Care Time Total Prolonged Care Time: 45 Time Spent Midlevel Total time spent 45 minutes with > 50% of that time spent assessing patient, discussing goals of care and providing symptom management (1) Altered mental status Altered mental status type: unspecified Qualified Code(s): R41.82 - Altered mental status, unspecified
[2019-07-01] MEDS: MoRPHine SULFATE 5 MG/0.25 ML UDP PO PRN ×2 (13:38→19:52)
[2019-07-01] MEDS ORDERED: ATROPINE SULFATE 1% OP SOLN 2 ML BTL OP PRN (16:03)
--- NOTE | 2019-07-01 21:56 | Hospitalist Progress Note ---
Date of Service July 01, 2019 Assessment & Plan (1) Acute hyponatremia: Patient is comfort measures at this time. Plan is to discharge tomorrow in AM. Hypovolemic hyponatremia Patient has a history of diastolic heart failure, EF of 55 to 60%, on home Lasix Patient is edematous, low albumin appears to be third spacing but likely is intravascularly dry due to poor po intake extremities are weeping fluid Poor nutrition likely contributingpoor p.o. 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 (2) Altered mental status: Acute encephalopathy Dementia baseline likely worsened by hyponatremia Holding all p.o. medications, making the patient n.p.o. CT head was negative for stroke Goal now is comfort. (3) Dementia: Patient was seen previously by palliative care, order for DNR/DNI (4) CHF (congestive heart failure): chronic diastolic heart failure, resume po lasix (5) Hypertension: continue amlodipine, telmisartan Hold parameters as patient BP has been low. Subjective Pt is resting comfortably. He does not provide much history. Review of Systems Review of Systems: Unobtainable due to reduced consciousness Physical Exam Physical Exam: The patient appeared comfortable. Vital signs as documented. Head exam is unremarkable. normocephalic, atraumatic Neck is without jugular venous distension, trachea is midline Lungs are diminished bilaterally Cardiac exam reveals Rhythm is regular. Abdominal exam reveals normal bowel sounds, soft Extremities are 2+ edematous and arms are actually weeping fluid Neurologic exam is drowsy, not following complex commands. Skin is with areas of redness weeping some fluid at times PG Care Time/CCT Total # of Minutes Spent Total Time Spent with Patient: Total time spent is greater than 50% in coordination of care (as documented) at patient's floor/unit and/or counseling patient: (1) Altered mental status Altered mental status type: unspecified Qualified Code(s): R41.82 - Altered mental status, unspecified
[2019-07-02] MEDS: CHECK SCOPOLAMINE PATCH PLACEMENT SCH (08:02)
[2019-07-02] MEDS: DOXYCYCLINE HYCLATE 100 MG CAP PO SCH (09:10)
--- NOTE | 2019-07-02 10:42 | Palliative Care Progress Note ---
Date of Service July 02, 2019 Assessment & Plan (1) Goals of care, counseling/discussion: -Plan is for patient to go to [facility] today [facility]. -He is only using occasional doses of Roxanol. -Patient is awake and stable. Confused, unable to answer questions. Occasionally moans or says "Oh my." No family at bedside. -Stable for transfer out of our facility. -Palliative will sign off. Please contact us with any further needs. (2) Altered mental status: (3) Acute hyponatremia: (4) CHF (congestive heart failure): (5) Dementia: Subjective Patient does wake up. Is eating/drinking occasionally. No family at bedside this morning Review of Systems Review of Systems: Unobtainable due to cognitive status Physical Exam Constitutional: + ill appearing; no acute distress ENMT: external ear and nose normal, oropharynx normal Respiratory: Auscultation: + diminished lung sounds (lung sounds extremely diminished throughout) Cardiovascular: Rate/Rhythm: regular rate and regular rhythm Extremities: + edema (edema of upper extremities improved, still weeping, +2 pitting edema to BLE) Gastrointestinal (Abdomen): Inspection/Auscultation: normal bowel sounds; abdomen not distended (obese at baseline) Neurologic: awake (wakes, but is lethargic) Psychiatric: Orientation: + not oriented x 3 Time Spent Midlevel 15 minutes with >50% of the time spent at bedside with patient and IDT discussing POC. (1) Altered mental status Altered mental status type: unspecified Qualified Code(s): R41.82 - Altered mental status, unspecified
[2019-07-02] MEDS: MoRPHine SULFATE 2 MG/ML CARP IV PRN (12:01)
[2019-07-02] MEDS: MoRPHine SULFATE 5 MG/0.25 ML UDP PO PRN (14:28)
--- NOTE | 2019-07-12 22:14 | Discharge Summary ---
Date of Service July 02, 2019 Admission HPI Per Admitting Provider 78-year-old male with history of Dementia and CHF presents with acute on chronic metabolic encephalopathy. Patient is a resident of the [facility]. Patient is unable to provide history secondary to mental status. I obtained history from chart review and from consultation with the emergency room physician. The family was present on arrival to the emergency room, but have since left. They related to the emergency room physician that the patient has been acutely altered today. They state that since he took his Vicodin, he has been unresponsive. He has dementia at baseline, but his mental status today has appeared to worsen. Patient's family states that his oral intake has been very poor lately. Principal Diagnosis Acute hyponatremia Discharge Exam The patient appeared comfortable. Vital signs as documented. Head exam is unremarkable. normocephalic, atraumatic Neck is without jugular venous distension, trachea is midline Lungs are diminished bilaterally Cardiac exam reveals Rhythm is regular. Abdominal exam reveals normal bowel sounds, soft Extremities are 2+ edematous Neurologic exam is drowsy, not following complex commands. Skin is with areas of redness weeping some fluid at times Discharge Data Allergies Allergy/AdvReac Type Severity Reaction Status Date / Time tramadol Allergy Mild Agitated Unverified 06/27/19 16:37 cefaclor Allergy Unknown Unknown Verified 06/27/19 16:37 cyclobenzaprine Allergy Unknown UNKNOWN Verified 06/27/19 16:37 menthol [From BenGay] Allergy Unknown Verified 06/27/19 16:37 methyl salicylate Allergy Unknown Verified 06/27/19 16:37 [From BenGay] Penicillins Allergy Unknown Unknown Verified 06/27/19 16:37 Sulfa (Sulfonamide Allergy Unknown Unknown Verified 06/27/19 16:37 Antibiotics) nebivolol AdvReac Mild BRADYCARDIA Verified 06/27/19 16:37 peppermint AdvReac Unknown Bengay Verified 06/27/19 16:37 topically intolerant salicylates AdvReac Unknown Bengay Verified 06/27/19 16:37 topically intolerant Consultations 06/27/19 18:59 ED Decision to Admit Stat 06/27/19 22:12 Consult Case Management - Discharge Planning Routine 06/29/19 07:40 Consult Palliative Care Routine Ordered Studies 06/27/19 16:15 CT head/brain wo con Stat Hospital Course (1) Acute hyponatremia: Patient is comfort measures at this time. Plan is to discharge today. Hypovolemic hyponatremia Patient has a history of diastolic heart failure, EF of 55 to 60%, on home Lasix Patient is edematous, low albumin appears to be third spacing but likely is intravascularly dry due to poor po intake extremities are weeping fluid Poor nutrition likely contributingpoor p.o. intake recently, consider nutritional consult - random cortisol was high which goes against cortisol insufficiency As noted above, patient is now B[employer]. (2) Altered mental status: Acute encephalopathy Dementia baseline likely worsened by hyponatremia Holding all p.o. medications, making the patient n.p.o. CT head was negative for stroke Goal now is comfort. (3) Dementia: Patient was seen previously by palliative care, order for DNR/DNI (4) CHF (congestive heart failure): chronic diastolic heart failure, resume po lasix (5) Hypertension: continue amlodipine, telmisartan Hold parameters as patient BP has been low. Total Time Total Time Spent Total Time Spent (In Minutes): 32 Total Time Includes: Examination of the Patient, Discharge Planning and Medication Reconciliation Discharge Plan Discharge Items Patient Disposition: Hospice - Home Reason For Visit: HYPONATREMIA, METABOLIC ENCEPHLOPATHY Discharge Diagnosis: Metabolic encephalopathy Discharge Goals: Decrease discomfort Activity: Resume your previous activity Non-emergency contact: Primary Care Provider Call non-emergency contact if: you have any medication questions Follow-up/Referrals: ANDREW HAYWOOD [Primary Care Provider] - Diet: Heart Healthy Addtl Provider Instructions: You will be discharged on Hospice Prescriptions: New morphine concentrate 100 mg/5 mL (20 mg/mL) Solution 0.25 ml PO Q6H PRN (Reason: agitation) Qty: 25 RF: 0 lorazepam 0.5 mg Tablet 0.5 mg PO BID PRN (Reason: agitation) Qty: 20 RF: 0 scopolamine base [Transderm-Scop] 1 mg over 3 days Patch 3 Day 1.5 mg transdermal Q72H Qty: 6 RF: 0 atropine 1 % Drops 4 drp PO Q3H PRN (Reason: Secretions) Qty: 1 RF: 0 Check Scopolamine Patch [Check Scopolamine Patch Placement] 1 dose Not Applicable QS Qty: 0 RF: 0 Remove Scopolamine Patch [Remove Transderm-Scop Patch] 1 dose Not Applicable Q72H Qty: 0 RF: 0 doxycycline hyclate 100 mg Capsule 100 mg PO DAILY Qty: 10 RF: 0 Continued polyethylene glycol 3350 [Miralax] 17 gram/dose powder 17 gm PO DAILY PRN (Reason: constipation) Qty: 119 RF: 5 Discontinued amlodipine 5 mg tablet 5 mg PO BID Qty: 30 RF: 5 calcium carbonate [Calcium 600] 600 mg calcium (1,500 mg) tablet 600 mg PO DAILY Qty: 30 RF: 5 cholecalciferol (vitamin D3) [Vitamin D3] 1,000 unit capsule 2,000 unit PO DAILY Qty: 30 RF: 5 escitalopram oxalate 20 mg tablet 20 mg PO DAILY Qty: 30 RF: 5 furosemide 40 mg tablet 40 mg PO DAILY Qty: 30 RF: 5 memantine 10 mg tablet 10 mg PO BID Qty: 60 RF: 5 pantoprazole [Protonix] 40 mg tablet,delayed release (DR/EC) 40 mg PO DAILY Qty: 30 RF: 5 potassium chloride [Klor-Con M20] 20 mEq tablet,ER particles/crystals 20 meq PO BID Qty: 120 RF: 5 telmisartan [Micardis] 40 mg tablet 40 mg PO DAILY Qty: 30 RF: 5 lorazepam 0.5 mg tablet 0.5 mg PO BID PRN (Reason: anxiety) Qty: 30 RF: 2 hydrocodone-acetaminophen [[place]] 5-325 mg tablet 1 tab PO Q8H PRN (Reason: pain) Qty: 20 RF: 0 ciprofloxacin HCl [Cipro] 500 mg tablet 500 mg PO BID Qty: 14 RF: 0 celecoxib 200 mg Capsule 200 mg PO BID RF: 0 atorvastatin 40 mg Tablet 40 mg PO DAILY RF: 0 tamsulosin 0.4 mg Capsule 0.4 mg PO DAILY RF: 0 Stand-Alone Forms: [facility] Discharge Orders: Discharge Order (Routine); Ordered 07/02/19 Ordered By: Ashvin Townsend Admission Data Admit Date/Time: 06/27/19 20:34 Attending Provider: Ashvin Townsend Admit Provider: Brendan Schmidt Primary Care Provider: [facility] Other Providers: Kannan Forde Susan H Service: Medical Other Interventions: Discharge Summary Assessment (RN) Last Done: 07/02/19 12:48 DC Date/Time DO NOT enter until pt leaves facility: 07/02/19 15:45
== END 2019-07-02 15:45 | disposition hospice, home (50) | DRG 640 ==
LOC: ED 15:35 → 2S 20:34 → SUATTDRO 20:34 → 2S 21:27 → 4W 06-30 15:02